=== PATIENT | female | born 1960 | race Caucasian/White ===

== ENCOUNTER 2020-04-23 08:15 | Outpatient (REF) | payer OTHER, SELFPAY ==
[2020-04-23 11:04] LABS: Blood Urea Nitrogen 25 mg/dL (9-16); Estimated Glomerular Filt Rate 59
== END 2020-04-23 08:16 | disposition home or self-care (01) ==
LOC: HO.10HDL 08:15
PROVIDERS: Visit Provider Psychiatry & Neurology Neurology
DX: I63.9 Cerebral infarction, unspecified (principal)
CPT/HCPCS: 82565; 84520

== ENCOUNTER 2021-11-11 11:10 | Outpatient (REF) | payer OTHER, SELFPAY ==
[2021-11-11 13:26] LABS: MANUAL DIFF FLAG NO
[2021-11-11 13:29] LABS: Basophils Percent Auto 0.5 % (0-2); Eosinophils Absolute Auto 0.1 X10*3/uL (0.0-0.4); Eosinophils Percent Auto 1.8 % (0-4); Hematocrit 38.3 % (37.0-47.0); Hemoglobin 12.4 g/dl (12.0-16.0); Imm Gran Abs Auto 0.03 X10*3/uL (0.00-0.03); Imm Gran Pct Auto 0.4 % (0.0-0.4); Lymphocytes Absolute Auto 1.5 X10*3/uL (1.2-4.9); Lymphocytes Percent Auto 20.2 % (20-40); Mean Corpuscular HGB Conc 32.4 g/dl (31.0-35.0); Mean Corpuscular Hemoglobin 30.6 pg (27.0-33.0); Mean Corpuscular Volume 94.6 fL (80.0-98.0); Mean Platelet Volume 11.1 fL (9.4-12.3); Monocytes Absolute Auto 0.5 X10*3/uL (0.1-1.2); Monocytes Percent Auto 6.2 % (2-11); Neutrophils Absolute Auto 5.4 x10*3/uL (2.0-8.3); Neutrophils Percent Auto 70.9 % (45-73); Platelet Count 361 X10*3/uL (160-400); Red Blood Count 4.05 X10*6/uL (4.20-5.50); Red Cell Distribution Width 13.7 % (11.0-16.0); White Blood Count 7.6 X10*3/uL (4.8-10.8)
[2021-11-11 13:40] LABS: Alanine Aminotransferase 18 U/L (0-31); Albumin Level 4.4 g/dL (3.5-5.0); Alkaline Phosphatase 71 U/L (39-117); Aspartate Amino Transferase 21 U/L (5-31); Bilirubin Direct < 0.2 mg/dL (0.0-0.5); Bilirubin Total 0.4 mg/dL (0.0-1.0); Total Protein 7.1 g/dL (6.5-8.0)
[2021-11-11 13:45] LABS: Alanine Aminotransferase 19 U/L (0-31); Albumin Level 4.5 g/dL (3.5-5.0); Alkaline Phosphatase 71 U/L (39-117); Anion Gap 15 (12-20); Aspartate Amino Transferase 21 U/L (5-31); Bilirubin Total 0.4 mg/dL (0.0-1.0); Blood Urea Nitrogen 36 mg/dL (9-16); Calcium 9.6 mg/dL (8.4-10.2); Carbon Dioxide 23 mmol/L (22-29); Chloride 104 mmol/L (96-108); Cholesterol 186 mg/dL; Estimated Glomerular Filt Rate 45; Glucose Fasting 101 mg/dL (60-99); HDL Cholesterol 60 mg/dL; LDL Cholesterol Calculated 108 mg/dl; Potassium 5.8 mmol/L (3.3-5.1); Sodium 136 mmol/L (135-145); Total Protein 7.1 g/dL (6.5-8.0); Triglycerides 93 mg/dL
== END 2021-11-11 11:11 | disposition home or self-care (01) ==
LOC: HO.10HDL 11:10
PROVIDERS: Absent Provider Physician Assistant Medical; Visit Provider Internal Medicine
DX: L71.8 Other rosacea (principal); I10 Essential (primary) hypertension; E78.2 Mixed hyperlipidemia
CPT/HCPCS: 36415; 80053; 80061; 80076; 82248; 85025

== ENCOUNTER 2023-06-04 08:27 | Outpatient (AMB) | payer OTHER, SELFPAY ==
--- NOTE | 2023-06-04 08:30 | MHC.OFFVIS ---
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 Folder Required: No Accompanied by: Self / Same As Patient Allergies acetaminophen [From Vicodin] Allergy (Mild, Verified 06/04/23 08:40) Unknown amlodipine Allergy (Mild, Verified 06/04/23 08:40) Unknown egg Allergy (Mild, Verified 06/04/23 08:40) Unknown erythromycin base Allergy (Mild, Verified 06/04/23 08:40) Unknown hydrocodone [From Vicodin] Allergy (Mild, Verified 06/04/23 08:40) Unknown sulfamethoxazole [From Bactrim] Allergy (Mild, Verified 06/04/23 08:40) Unknown tramadol Allergy (Mild, Verified 06/04/23 08:40) Unknown trimethoprim [From Bactrim] Allergy (Mild, Verified 06/04/23 08:40) Unknown amoxicillin Adverse Reaction (Mild, Verified 06/04/23 08:40) Unknown cephalexin [From Keflex] Adverse Reaction (Mild, Verified 06/04/23 08:40) Unknown codeine Adverse Reaction (Mild, Verified 06/04/23 08:40) Unknown metoclopramide [From Reglan] Adverse Reaction (Mild, Verified 06/04/23 08:40) Unknown morphine Adverse Reaction (Mild, Verified 06/04/23 08:40) Unknown oxycodone [From OxyContin] Adverse Reaction (Mild, Verified 06/04/23 08:40) Unknown prazosin Adverse Reaction (Mild, Verified 06/04/23 08:40) Unknown bee venom protein (honey bee) Adverse Reaction (Verified 06/04/23 08:40) Unknown latex Adverse Reaction (Verified 06/04/23 08:40) Unknown HPI CERVICALGIA/lvm HPI Details MRI-summer 2022 PT- [facility] summer 2022 Location Neck radiates down to chest Duration 2 years Characteristics of symptom or complaint burning, Aggravating or associated factors movement Relieving factors flexiril Treatment PT- no improvement HPI Comments History of Present Illness Details Katya is a very pleasant 63-year-old female who was referred to the office today for evaluation management of her chronic neck pain. 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 Patient complains of left-sided pain, muscle spasm and neuropathy of the left upper and left lower extremities. She states that it makes it difficult to sleep at night. She has been taking Flexeril for the last 3 years and states that it has lost its effectiveness and now ?only takes the edge off ?. She has tried topical anti-inflammatory medication that was of no relief. Patient completed physical therapy summer without improvement of her pain and she continues with home exercise program. She has a 10s unit which initially provided some benefit but states it no longer relieves her pain. Patient does take Tylenol Arthritis daily that also takes the edge off. Pain is constant, ?all day ?, rated today as 7/10. In terms of muscle damage condition is described as spasming, hot, burning, numb, stabbing, sharp, tingling, pins and needles. Pain is negatively impacting patient's general activity, mood and sleep. 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 Past medical history significant for CVA not currently on anticoagulation taking full aspirin daily, hypertension, hypothyroid, dermatitis, SVT, left bundle branch block, diabetes with most recent A1c January 2023 of 5.4 controlled with diet and exercise. 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 Answers questions appropriately. Fully engaged in examination. Skin: warm, dry, intact HEENT: Normocephalic. Hearing intact. Cardiac: External chest normal in appearance. Respiratory: No cough, audible wheezing or stridor. Abdomen: without gross distension. MS: No obvious swelling or deformities. Able to transition from sit to stand unassisted. Ambulates with bilaterally normal heel strike and toe off Neurological: Oriented to person, place, time and situation. Thought process intact. No gait abnormalities appreciated. Psychiatric: Appropriate mood and affect. Good judgment and insight. Results Reviewed Results Reviewed: 03/26/2022 MRI CS w/o IMPRESSION: 1. Lordotic reversal centered at C4-C5 with trace retrolisthesis at C5-C6 and C6-C7. 2. Discogenic degenerative changes and spondylosis primarily at C5-C6 and C6-C7 with posterior disc osteophyte complexes at these levels and a left paramedian extruded disc herniation with caudal migration at C6-C7 with moderate left-sided ventral cord impingement and moderate spinal canal stenosis at this level. 3. Posterior disc osteophyte complex at C5-C6 asymmetric to the right with moderate right-sided ventral cord impingement and [id number] spinal canal stenosis. 4. Posterior disc osteophyte complex at C4-C5 with mild spinal canal stenosis without cord impingement. 5. Multilevel bilateral DJD with multilevel bilateral neural foraminal stenoses, most apparent on the left at C6-C7 and to a lesser degree on the right at C5-C6 and on the right at C4-C5. 6. Small central disc protrusion at T1-T2 and small left paramedian disc protrusion at T2-T3. 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 Patients main complaint today is left sided neuropathy, she would like to try medication management before trying any interventional treatment which would be target area specific. She also report intolerance to steroids in the past so would like to avoid those if possible. Discussed at length options for medication management, including changing her muscle relaxer vs starting Gabapentin/Lyrica. Advised patient adding 2 new medications would be difficult to discern which is more beneficial or if she has intolerance/allergy which to d/c. Will start patient on Gabapentin 100mg po TID, patient advised of side effect which can include peripheral edema. She will call the office for any concerns. If patient tolerates well, can increase to 300mg bid at next visit vs discontinuing Flexeril and adding alternate muscle relaxer. All questions and concerns were answered, patient agrees with plan. Follow up in 1 month, sooner if needed. Medications: New gabapentin 100 mg PO TID 90 caps 0RF Coding Level of Care Code New Pt Level 4 (63477) Diagnoses Neuropathy G62.9 Muscle spasms of neck M62.838 Arthropathy of cervical facet joint M47.812 Spinal stenosis, cervicothoracic region M48.03
[2023-06-04 08:36] VITALS: BP 172/91; PULSE 75; O2SAT 96; BMI 38.8
== END 2023-06-04 09:25 | disposition home or self-care (01) ==
PROVIDERS: PCP Internal Medicine; Visit Provider Registered Nurse Emergency
DX: G62.9 Polyneuropathy, unspecified (principal); M62.838 Other muscle spasm; M47.812 Spondylosis without myelopathy or radiculopathy, cervical region; M48.03 Spinal stenosis, cervicothoracic region
CPT/HCPCS: 99204

== ENCOUNTER → 2023-06-04 08:27 | Outpatient (BNVA) | payer OTHER, SELFPAY | PROVIDERS: PCP Internal Medicine; Visit Provider Registered Nurse Emergency ==

== ENCOUNTER 2023-07-02 08:18 | Outpatient (AMB) | payer OTHER, SELFPAY ==
[2023-07-02 08:30] VITALS: BP 140/58; PULSE 74; RESP 18; O2SAT 98; BMI 38.8
--- NOTE | 2023-07-02 08:30 | A.OFFVIS_ITS ---
Intake Vital Signs 07/02/23 08:30 Height 4 ft 11 in Weight 192 lb BMI 38.8 BP 140/58 H Blood Pressure Location Lt brachial Position Sitting Respiration 18 Pulse 74 Pulse Source Pulse Oximeter Pulse Oximetry (%) 98 Oxygen Delivery Method Room Air Intake Visit Reasons: 1 Month Follow Up - Confirmed Allergies acetaminophen [From Vicodin] Allergy (Mild, Verified 07/02/23 08:30) Unknown amlodipine Allergy (Mild, Verified 07/02/23 08:30) Unknown egg Allergy (Mild, Verified 07/02/23 08:30) Unknown erythromycin base Allergy (Mild, Verified 07/02/23 08:30) Unknown hydrocodone [From Vicodin] Allergy (Mild, Verified 07/02/23 08:30) Unknown sulfamethoxazole [From Bactrim] Allergy (Mild, Verified 07/02/23 08:30) Unknown tramadol Allergy (Mild, Verified 07/02/23 08:30) Unknown trimethoprim [From Bactrim] Allergy (Mild, Verified 07/02/23 08:30) Unknown amoxicillin Adverse Reaction (Mild, Verified 07/02/23 08:30) Unknown cephalexin [From Keflex] Adverse Reaction (Mild, Verified 07/02/23 08:30) Unknown codeine Adverse Reaction (Mild, Verified 07/02/23 08:30) Unknown metoclopramide [From Reglan] Adverse Reaction (Mild, Verified 07/02/23 08:30) Unknown morphine Adverse Reaction (Mild, Verified 07/02/23 08:30) Unknown oxycodone [From OxyContin] Adverse Reaction (Mild, Verified 07/02/23 08:30) Unknown prazosin Adverse Reaction (Mild, Verified 07/02/23 08:30) Unknown bee venom protein (honey bee) Adverse Reaction (Verified 07/02/23 08:30) Unknown latex Adverse Reaction (Verified 07/02/23 08:30) Unknown HPI HPI Comments History of Present Illness Details Katya presents back to the office today for follow up medication management. Patient reports she is tolerating the Gabapentin well and has noticed improvement in her symptoms. She denies any side effects/untoward effects of the medication. She would like to increase the dose to 300mg TID and change the muscle relaxer as well because she does not feel it's helping much anymore. She continues with OTC medications, topical creams and CBD as needed. Prior: Katya is a very pleasant 63-year-old female who was referred to the office today for evaluation management of her chronic neck pain. 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 Patient complains of left-sided pain, muscle spasm and neuropathy of the left upper and left lower extremities. She states that it makes it difficult to sleep at night. She has been taking Flexeril for the last 3 years and states that it has lost its effectiveness and now ?only takes the edge off ?. She has tried topical anti-inflammatory medication that was of no relief. Patient completed physical therapy summer without improvement of her pain and she continues with home exercise program. She has a 10s unit which initially provided some benefit but states it no longer relieves her pain. Patient does take Tylenol Arthritis daily that also takes the edge off. Pain is constant, ?all day ?, rated today as 7/10. In terms of muscle damage condition is described as spasming, hot, burning, numb, stabbing, sharp, tingling, pins and needles. Pain is negatively impacting patient's general activity, mood and sleep. 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 Past medical history significant for CVA not currently on anticoagulation taking full aspirin daily, hypertension, hypothyroid, dermatitis, SVT, left bundle branch block, diabetes with most recent A1c January 2023 of 5.4 controlled with diet and exercise. 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 Answers questions appropriately. Fully engaged in examination. Skin: warm, dry, intact HEENT: Normocephalic. Hearing intact. Cardiac: External chest normal in appearance. Respiratory: No cough, audible wheezing or stridor. Abdomen: without gross distension. MS: No obvious swelling or deformities. Able to transition from sit to stand unassisted. Ambulates with bilaterally normal heel strike and toe off Neurological: Oriented to person, place, time and situation. Thought process intact. No gait abnormalities appreciated. Psychiatric: Appropriate mood and affect. Good judgment and insight. Results Reviewed Results Reviewed: 03/26/2022 MRI CS w/o IMPRESSION: 1. Lordotic reversal centered at C4-C5 with trace retrolisthesis at C5-C6 and C6-C7. 2. Discogenic degenerative changes and spondylosis primarily at C5-C6 and C6-C7 with posterior disc osteophyte complexes at these levels and a left paramedian extruded disc herniation with caudal migration at C6-C7 with moderate left-sided ventral cord impingement and moderate spinal canal stenosis at this level. 3. Posterior disc osteophyte complex at C5-C6 asymmetric to the right with moderate right-sided ventral cord impingement and [id number] spinal canal stenosis. 4. Posterior disc osteophyte complex at C4-C5 with mild spinal canal stenosis without cord impingement. 5. Multilevel bilateral DJD with multilevel bilateral neural foraminal stenoses, most apparent on the left at C6-C7 and to a lesser degree on the right at C5-C6 and on the right at C4-C5. 6. Small central disc protrusion at T1-T2 and small left paramedian disc protrusion at T2-T3. Assessment & Plan Assessment & Plan (1) Neuropathy: Code(s): G62.9 - Polyneuropathy, unspecified (2) Muscle spasms of neck: Code(s): M62.838 - Other muscle spasm (3) Arthropathy of cervical facet joint: Code(s): M47.812 - Spondylosis without myelopathy or radiculopathy, cervical region (4) Spinal stenosis, cervicothoracic region: Code(s): M48.03 - Spinal stenosis, cervicothoracic region Plan Katya is a very pleasant 63 year old female who presented to the office today for follow up. Will increase Gabapentin to 300mg po TID Discontinue Flexeril, new prescription sent for Tizanidine 2mg po TID. Patient advised on caution for use. All questions and concerns were answered, patient agrees with plan. Follow up in 1 month, sooner if needed. Medications: New tizanidine Discontinue Flexeril. No driving while taking this medication. May cause drowsiness. Do not take with alcohol or other DIESEL LOCOMOTIVE FIRER/FIREMAN Depressants. 2 mg PO TID PRN 90 tabs 1RF muscle spasticity Changed From gabapentin 100 mg PO TID 90 caps 0RF To gabapentin 300 mg PO TID 30 days 90 caps 0RF Coding Level of Care Code Est Pt Level 4 (37526) Diagnoses Neuropathy G62.9 Muscle spasms of neck M62.838 Arthropathy of cervical facet joint M47.812 Spinal stenosis, cervicothoracic region M48.03
== END 2023-07-02 08:44 | disposition home or self-care (01) ==
PROVIDERS: PCP Internal Medicine; Visit Provider Registered Nurse Emergency
DX: G62.9 Polyneuropathy, unspecified (principal); M62.838 Other muscle spasm; M47.812 Spondylosis without myelopathy or radiculopathy, cervical region; M48.03 Spinal stenosis, cervicothoracic region
CPT/HCPCS: 99214

== ENCOUNTER → 2023-07-02 08:18 | Outpatient (BNVA) | payer OTHER, SELFPAY | PROVIDERS: PCP Internal Medicine; Visit Provider Registered Nurse Emergency ==

== ENCOUNTER 2023-08-12 08:24 | Outpatient (AMB) | payer OTHER, SELFPAY ==
[2023-08-12 08:34] VITALS: BP 176/74; PULSE 60; RESP 16; O2SAT 100; BMI 38.6
--- NOTE | 2023-08-12 08:34 | MHC.OFFVIS ---
Intake Vital Signs 08/12/23 08:34 Height 4 ft 11 in Weight 191 lb 5 oz BMI 38.6 BP 176/74 H Blood Pressure Location Lt brachial Position Sitting Respiration 16 Pulse 60 Pulse Source Pulse Oximeter Pulse Oximetry (%) 100 Oxygen Delivery Method Room Air Intake Visit Reasons: 1 Month Follow Up/confirm Allergies acetaminophen [From Vicodin] Allergy (Mild, Verified 08/12/23 08:34) Unknown amlodipine Allergy (Mild, Verified 08/12/23 08:34) Unknown egg Allergy (Mild, Verified 08/12/23 08:34) Unknown erythromycin base Allergy (Mild, Verified 08/12/23 08:34) Unknown hydrocodone [From Vicodin] Allergy (Mild, Verified 08/12/23 08:34) Unknown sulfamethoxazole [From Bactrim] Allergy (Mild, Verified 08/12/23 08:34) Unknown tramadol Allergy (Mild, Verified 08/12/23 08:34) Unknown trimethoprim [From Bactrim] Allergy (Mild, Verified 08/12/23 08:34) Unknown amoxicillin Adverse Reaction (Mild, Verified 08/12/23 08:34) Unknown cephalexin [From Keflex] Adverse Reaction (Mild, Verified 08/12/23 08:34) Unknown codeine Adverse Reaction (Mild, Verified 08/12/23 08:34) Unknown metoclopramide [From Reglan] Adverse Reaction (Mild, Verified 08/12/23 08:34) Unknown morphine Adverse Reaction (Mild, Verified 08/12/23 08:34) Unknown oxycodone [From OxyContin] Adverse Reaction (Mild, Verified 08/12/23 08:34) Unknown prazosin Adverse Reaction (Mild, Verified 08/12/23 08:34) Unknown bee venom protein (honey bee) Adverse Reaction (Verified 08/12/23 08:34) Unknown latex Adverse Reaction (Verified 08/12/23 08:34) Unknown HPI HPI Comments History of Present Illness Details Patient presents back to the office today for follow-up, medication management. She has been taking gabapentin 300 mg p.o. 3 times daily and tizanidine 2 mg p.o. 3 times daily. Her neuropathy is improved with the gabapentin dosing, would like to remain on this dose at this time. Since discontinuing Flexeril and starting on tizanidine she states that the muscle spasms have worsened mostly in her legs. She would like to increase her tizanidine dose today. Patient denies any untoward effects of either medication. Prior: Katya presents back to the office today for follow up medication management. Patient reports she is tolerating the Gabapentin well and has noticed improvement in her symptoms. She denies any side effects/untoward effects of the medication. She would like to increase the dose to 300mg TID and change the muscle relaxer as well because she does not feel it's helping much anymore. She continues with OTC medications, topical creams and CBD as needed. Prior: Katya is a very pleasant 63-year-old female who was referred to the office today for evaluation management of her chronic neck pain. 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 Patient complains of left-sided pain, muscle spasm and neuropathy of the left upper and left lower extremities. She states that it makes it difficult to sleep at night. She has been taking Flexeril for the last 3 years and states that it has lost its effectiveness and now ?only takes the edge off ?. She has tried topical anti-inflammatory medication that was of no relief. Patient completed physical therapy summer without improvement of her pain and she continues with home exercise program. She has a 10s unit which initially provided some benefit but states it no longer relieves her pain. Patient does take Tylenol Arthritis daily that also takes the edge off. Pain is constant, ?all day ?, rated today as 7/10. In terms of muscle damage condition is described as spasming, hot, burning, numb, stabbing, sharp, tingling, pins and needles. Pain is negatively impacting patient's general activity, mood and sleep. 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 Past medical history significant for CVA not currently on anticoagulation taking full aspirin daily, hypertension, hypothyroid, dermatitis, SVT, left bundle branch block, diabetes with most recent A1c January 2023 of 5.4 controlled with diet and exercise. [facility] Medical History (Updated 06/04/23 @ 09:24 by Nicolette Abreu, POLISHING MACHINE TENDER, WATCH AND CLOCK REPAIR CLERK) Spinal stenosis, cervicothoracic region Morbid (severe) obesity due to excess calories Chronic kidney disease, stage 3a Moderate depressive disorder Benign hypertensive heart disease with chronic kidney disease Neuropathy due to type 2 diabetes mellitus Stroke Left bundle branch block (LBBB) on electrocardiogram Type 2 diabetes mellitus without complication Hypothyroidism Morbid obesity Sleep apnea Chronic dermatitis Review of Systems Const All systems reviewed & are unremarkable except as noted in HPI and below Physical Exam Vital Signs: Last Vital Signs Pulse 60 08/12/23 08:34 Resp 16 08/12/23 08:34 BP 176/74 H 08/12/23 08:34 Pulse Ox 100 08/12/23 08:34 Oxygen Delivery Method Room Air 08/12/23 08:34 BMI result Body Mass Index 38.6 General: awake, alert, oriented. Answers questions appropriately. Fully engaged in examination. Skin: warm, dry, intact HEENT: Normocephalic. Hearing intact. Cardiac: External chest normal in appearance. Respiratory: No cough, audible wheezing or stridor. Abdomen: without gross distension. MS: No obvious swelling or deformities. Able to transition from sit to stand unassisted. Ambulates with bilaterally normal heel strike and toe off Neurological: Oriented to person, place, time and situation. Thought process intact. No gait abnormalities appreciated. Psychiatric: Appropriate mood and affect. Good judgment and insight. Results Reviewed Results Reviewed: 03/26/2022 MRI CS w/o IMPRESSION: 1. Lordotic reversal centered at C4-C5 with trace retrolisthesis at C5-C6 and C6-C7. 2. Discogenic degenerative changes and spondylosis primarily at C5-C6 and C6-C7 with posterior disc osteophyte complexes at these levels and a left paramedian extruded disc herniation with caudal migration at C6-C7 with moderate left-sided ventral cord impingement and moderate spinal canal stenosis at this level. 3. Posterior disc osteophyte complex at C5-C6 asymmetric to the right with moderate right-sided ventral cord impingement and [id number] spinal canal stenosis. 4. Posterior disc osteophyte complex at C4-C5 with mild spinal canal stenosis without cord impingement. 5. Multilevel bilateral DJD with multilevel bilateral neural foraminal stenoses, most apparent on the left at C6-C7 and to a lesser degree on the right at C5-C6 and on the right at C4-C5. 6. Small central disc protrusion at T1-T2 and small left paramedian disc protrusion at T2-T3. Assessment & Plan Assessment & Plan (1) Neuropathy: Code(s): G62.9 - Polyneuropathy, unspecified (2) Muscle spasms of neck: Code(s): M62.838 - Other muscle spasm (3) Arthropathy of cervical facet joint: Code(s): M47.812 - Spondylosis without myelopathy or radiculopathy, cervical region (4) Spinal stenosis, cervicothoracic region: Code(s): M48.03 - Spinal stenosis, cervicothoracic region Hillary Aldana is a very pleasant 63 year old female who presented to the office today for follow up and medication managing. Continue with Gabapentin 300mg po TID Will increase tizanidine to 4 mg p.o. t.i.d. patient advised of cautions for use. She should not take while driving, working or with other CONSUMER SALES REPRESENTATIVE depressants. All questions and concerns were answered, patient agrees with plan. Follow up in 3 month, sooner if needed. Medications: New tizanidine 4 mg PO Q8H PRN 90 tabs 3RF muscle spasticity Refilled gabapentin 300 mg PO TID 90 caps 3RF 30 days Coding Level of Care Code Est Pt Level 4 (25757) Diagnoses Neuropathy G62.9 Muscle spasms of neck M62.838 Arthropathy of cervical facet joint M47.812 Spinal stenosis, cervicothoracic region M48.03
== END 2023-08-12 08:52 | disposition home or self-care (01) ==
PROVIDERS: PCP Internal Medicine; Visit Provider Registered Nurse Emergency
DX: G62.9 Polyneuropathy, unspecified (principal); M62.838 Other muscle spasm; M47.812 Spondylosis without myelopathy or radiculopathy, cervical region; M48.03 Spinal stenosis, cervicothoracic region
CPT/HCPCS: 99214

== ENCOUNTER → 2023-08-12 08:24 | Outpatient (BNVA) | payer OTHER, SELFPAY | PROVIDERS: PCP Internal Medicine; Visit Provider Registered Nurse Emergency ==

== ENCOUNTER 2023-11-12 08:14 | Outpatient (AMB) | payer OTHER, SELFPAY ==
--- NOTE | 2023-11-12 08:21 | A.OFFVIS_ITS ---
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: No Accompanied by: Self / Same As Patient Allergies acetaminophen [From Vicodin] Allergy (Mild, Verified 11/12/23 08:29) Unknown amlodipine Allergy (Mild, Verified 11/12/23 08:29) Unknown egg Allergy (Mild, Verified 11/12/23 08:29) Unknown erythromycin base Allergy (Mild, Verified 11/12/23 08:29) Unknown hydrocodone [From Vicodin] Allergy (Mild, Verified 11/12/23 08:29) Unknown sulfamethoxazole [From Bactrim] Allergy (Mild, Verified 11/12/23 08:29) Unknown tramadol Allergy (Mild, Verified 11/12/23 08:29) Unknown trimethoprim [From Bactrim] Allergy (Mild, Verified 11/12/23 08:29) Unknown amoxicillin Adverse Reaction (Mild, Verified 11/12/23 08:29) Unknown cephalexin [From Keflex] Adverse Reaction (Mild, Verified 11/12/23 08:29) Unknown codeine Adverse Reaction (Mild, Verified 11/12/23 08:29) Unknown metoclopramide [From Reglan] Adverse Reaction (Mild, Verified 11/12/23 08:29) Unknown morphine Adverse Reaction (Mild, Verified 11/12/23 08:29) Unknown oxycodone [From OxyContin] Adverse Reaction (Mild, Verified 11/12/23 08:29) Unknown prazosin Adverse Reaction (Mild, Verified 11/12/23 08:29) Unknown bee venom protein (honey bee) Adverse Reaction (Verified 11/12/23 08:29) Unknown latex Adverse Reaction (Verified 11/12/23 08:29) Unknown HPI Comments Details: Katya presents back to the office today for follow up reports muscle spasms have been getting worse. Does not find much relief with Tizanidine Gabapentin helps with her burning neuropathic pain Has been doing a lot of work around the house and in her yard, attributes the increase in spasms to this. Prior: Patient presents back to the office today for follow-up, medication management. She has been taking gabapentin 300 mg p.o. 3 times daily and tizanidine 2 mg p.o. 3 times daily. Her neuropathy is improved with the gabapentin dosing, would like to remain on this dose at this time. Since discontinuing Flexeril and starting on tizanidine she states that the muscle spasms have worsened mostly in her legs. She would like to increase her tizanidine dose today. Patient denies any untoward effects of either medication. Prior: Katya presents back to the office today for follow up medication management. Patient reports she is tolerating the Gabapentin well and has noticed improvement in her symptoms. She denies any side effects/untoward effects of the medication. She would like to increase the dose to 300mg TID and change the muscle relaxer as well because she does not feel it's helping much anymore. She continues with OTC medications, topical creams and CBD as needed. Prior: Katya is a very pleasant 63-year-old female who was referred to the office today for evaluation management of her chronic neck pain. 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 Patient complains of left-sided pain, muscle spasm and neuropathy of the left upper and left lower extremities. She states that it makes it difficult to sleep at night. She has been taking Flexeril for the last 3 years and states that it has lost its effectiveness and now ?only takes the edge off ?. She has tried topical anti-inflammatory medication that was of no relief. Patient completed physical therapy summer without improvement of her pain and she continues with home exercise program. She has a 10s unit which initially provided some benefit but states it no longer relieves her pain. Patient does take Tylenol Arthritis daily that also takes the edge off. Pain is constant, ?all day ?, rated today as 7/10. In terms of muscle damage condition is described as spasming, hot, burning, numb, stabbing, sharp, tingling, pins and needles. Pain is negatively impacting patient's general activity, mood and sleep. 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 Past medical history significant for CVA not currently on anticoagulation taking full aspirin daily, hypertension, hypothyroid, dermatitis, SVT, left bundle branch block, diabetes with most recent A1c January 2023 of 5.4 controlled with diet and exercise. 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 Answers questions appropriately. Fully engaged in examination. Skin: warm, dry, intact HEENT: Normocephalic. Hearing intact. Cardiac: External chest normal in appearance. Respiratory: No cough, audible wheezing or stridor. Abdomen: without gross distension. MS: No obvious swelling or deformities. Able to transition from sit to stand unassisted. Ambulates with bilaterally normal heel strike and toe off Neurological: Oriented to person, place, time and situation. Thought process intact. No gait abnormalities appreciated. Psychiatric: Appropriate mood and affect. Good judgment and insight. Results Reviewed Results Reviewed: 03/26/2022 MRI CS w/o IMPRESSION: 1. Lordotic reversal centered at C4-C5 with trace retrolisthesis at C5-C6 and C6-C7. 2. Discogenic degenerative changes and spondylosis primarily at C5-C6 and C6-C7 with posterior disc osteophyte complexes at these levels and a left paramedian extruded disc herniation with caudal migration at C6-C7 with moderate left-sided ventral cord impingement and moderate spinal canal stenosis at this level. 3. Posterior disc osteophyte complex at C5-C6 asymmetric to the right with moderate right-sided ventral cord impingement and [id number] spinal canal stenosis. 4. Posterior disc osteophyte complex at C4-C5 with mild spinal canal stenosis without cord impingement. 5. Multilevel bilateral DJD with multilevel bilateral neural foraminal stenoses, most apparent on the left at C6-C7 and to a lesser degree on the right at C5-C6 and on the right at C4-C5. 6. Small central disc protrusion at T1-T2 and small left paramedian disc protrusion at T2-T3. Assessment & Plan Assessment & Plan (1) Neuropathy: Code(s): G62.9 - Polyneuropathy, unspecified Category: Medical (2) Muscle spasms of neck: Code(s): M62.838 - Other muscle spasm Category: Medical (3) Arthropathy of cervical facet joint: Code(s): M47.812 - Spondylosis without myelopathy or radiculopathy, cervical region Category: Medical (4) Spinal stenosis, cervicothoracic region: Code(s): M48.03 - Spinal stenosis, cervicothoracic region Category: Medical Plan Katya is a very pleasant 63 year old female who presented to the office today for follow up and medication management. Continue with Gabapentin 300mg po TID D/C Tizanidine. She would like to try an alternative. new RX: Baclofen 10mg po TID, take 1/2 tablet TID as needed for 2 weeks then may increase to 1 tablet TID as needed. All questions and concerns were answered, patient agrees with plan. Follow up in 3 month, sooner if needed. Medications: New baclofen 10 mg PO TID 90 tabs 3RF Discontinued tizanidine Discontinue Flexeril. No driving while taking this medication. May cause drowsiness. Do not take with alcohol or other [employer] SUPERINTENDENT Depressants. Discontinued Reason: Patient no longer taking 2 mg PO TID PRN 90 tabs 1RF muscle spasticity tizanidine Discontinued Reason: Patient no longer taking 4 mg PO Q8H PRN 90 tabs 3RF muscle spasticity Coding Level of Care Code Est Pt Level 4 (40216) Diagnoses Neuropathy G62.9 Muscle spasms of neck M62.838 Arthropathy of cervical facet joint M47.812 Spinal stenosis, cervicothoracic region M48.03
[2023-11-12 08:27] VITALS: BP 145/67; PULSE 55; O2SAT 98; BMI 40.2
== END 2023-11-12 08:51 | disposition home or self-care (01) ==
PROVIDERS: PCP Internal Medicine; Referring Provider Internal Medicine; Visit Provider Registered Nurse Emergency
DX: G62.9 Polyneuropathy, unspecified (principal); M62.838 Other muscle spasm; M47.812 Spondylosis without myelopathy or radiculopathy, cervical region; M48.03 Spinal stenosis, cervicothoracic region
CPT/HCPCS: 99214

== ENCOUNTER → 2023-11-12 08:14 | Outpatient (BNVA) | payer OTHER, SELFPAY | PROVIDERS: PCP Internal Medicine; Visit Provider Registered Nurse Emergency ==

== ENCOUNTER 2024-01-20 08:15 | Outpatient (AMB) | payer OTHER, SELFPAY ==
[2024-01-20 08:28] VITALS: BP 162/70; PULSE 68; O2SAT 98; BMI 40.6
--- NOTE | 2024-01-20 08:28 | MHC.OFFVIS ---
Vital Signs 01/20/24 08:28 Height 4 ft 11 in Weight 201 lb BMI 40.6 BP 162/70 H Blood Pressure Location Rt brachial Position Sitting Pulse 68 Pulse Source Pulse Oximeter Pulse Oximetry (%) 98 Oxygen Delivery Method Room Air Intake Visit Reasons: 2 Month Follow Up Allergies acetaminophen [From Vicodin] Allergy (Mild, Verified 01/20/24 08:30) Unknown amlodipine Allergy (Mild, Verified 01/20/24 08:30) Unknown egg Allergy (Mild, Verified 01/20/24 08:30) Unknown erythromycin base Allergy (Mild, Verified 01/20/24 08:30) Unknown hydrocodone [From Vicodin] Allergy (Mild, Verified 01/20/24 08:30) Unknown sulfamethoxazole [From Bactrim] Allergy (Mild, Verified 01/20/24 08:30) Unknown tramadol Allergy (Mild, Verified 01/20/24 08:30) Unknown trimethoprim [From Bactrim] Allergy (Mild, Verified 01/20/24 08:30) Unknown amoxicillin Adverse Reaction (Mild, Verified 01/20/24 08:30) Unknown cephalexin [From Keflex] Adverse Reaction (Mild, Verified 01/20/24 08:30) Unknown codeine Adverse Reaction (Mild, Verified 01/20/24 08:30) Unknown metoclopramide [From Reglan] Adverse Reaction (Mild, Verified 01/20/24 08:30) Unknown morphine Adverse Reaction (Mild, Verified 01/20/24 08:30) Unknown oxycodone [From OxyContin] Adverse Reaction (Mild, Verified 01/20/24 08:30) Unknown prazosin Adverse Reaction (Mild, Verified 01/20/24 08:30) Unknown bee venom protein (honey bee) Adverse Reaction (Verified 01/20/24 08:30) Unknown latex Adverse Reaction (Verified 01/20/24 08:30) Unknown Medication List - Last Reconciled 01/20/24 by Abigail Quesada amitriptyline 25 mg PO DAILY amlodipine 5 mg PO DAILY amlodipine 2.5 mg PO DAILY aspirin (Adult Aspirin Regimen) 81 mg PO DAILY atorvastatin 20 mg PO BEDTIME baclofen 15 mg PO TID betamethasone, augmented 0.05 % appl topical BID PRN blood sugar diagnostic (FreeStyle Lite Strips) As directed blood-glucose meter (FreeStyle Lite Meter kit) As directed clonidine HCl 0.1 mg PO BEDTIME clotrimazole mg PO QID desonide 0.05% appl topical BID doxycycline hyclate 100 mg PO DAILY duloxetine 30 mg PO BID epinephrine IM fluconazole 100 mg PO DAILY gabapentin 300 mg PO TID 30 days hydralazine 25 mg PO TID ketoconazole 2% appl topical BID lancets (FreeStyle Lancets) As directed levothyroxine (Levoxyl) 150 mcg PO DAILY metoprolol succinate ER 100 mg PO BID olmesartan 20 mg PO DAILY prazosin 5 mg PO BEDTIME HPI Comments Details: Patient presents back to the office today for follow-up Reports worsening diffuse arthralgia since last visit. She attributes this to the recent weather Also has been working a lot and doing renovations of her home Tolerating gabapentin well, does not make her drowsy. Does not find much relief with the baclofen but tizanidine caused her to be too drowsy so she would prefer to continue with the baclofen at this time Prior:Katya presents back to the office today for follow up reports muscle spasms have been getting worse. Does not find much relief with Tizanidine Gabapentin helps with her burning neuropathic pain Has been doing a lot of work around the house and in her yard, attributes the increase in spasms to this. Prior: Patient presents back to the office today for follow-up, medication management. She has been taking gabapentin 300 mg p.o. 3 times daily and tizanidine 2 mg p.o. 3 times daily. Her neuropathy is improved with the gabapentin dosing, would like to remain on this dose at this time. Since discontinuing Flexeril and starting on tizanidine she states that the muscle spasms have worsened mostly in her legs. She would like to increase her tizanidine dose today. Patient denies any untoward effects of either medication. Prior: Katya presents back to the office today for follow up medication management. Patient reports she is tolerating the Gabapentin well and has noticed improvement in her symptoms. She denies any side effects/untoward effects of the medication. She would like to increase the dose to 300mg TID and change the muscle relaxer as well because she does not feel it's helping much anymore. She continues with OTC medications, topical creams and CBD as needed. Prior: Katya is a very pleasant 63-year-old female who was referred to the office today for evaluation management of her chronic neck pain. 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 Patient complains of left-sided pain, muscle spasm and neuropathy of the left upper and left lower extremities. She states that it makes it difficult to sleep at night. She has been taking Flexeril for the last 3 years and states that it has lost its effectiveness and now ?only takes the edge off ?. She has tried topical anti-inflammatory medication that was of no relief. Patient completed physical therapy summer without improvement of her pain and she continues with home exercise program. She has a 10s unit which initially provided some benefit but states it no longer relieves her pain. Patient does take Tylenol Arthritis daily that also takes the edge off. Pain is constant, ?all day ?, rated today as 7/10. In terms of muscle damage condition is described as spasming, hot, burning, numb, stabbing, sharp, tingling, pins and needles. Pain is negatively impacting patient's general activity, mood and sleep. 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 Past medical history significant for CVA not currently on anticoagulation taking full aspirin daily, hypertension, hypothyroid, dermatitis, SVT, left bundle branch block, diabetes with most recent A1c January 2023 of 5.4 controlled with diet and exercise. 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 Answers questions appropriately. Fully engaged in examination. Skin: warm, dry, intact HEENT: Normocephalic. Hearing intact. Cardiac: External chest normal in appearance. Respiratory: No cough, audible wheezing or stridor. Abdomen: without gross distension. MS: No obvious swelling or deformities. Able to transition from sit to stand unassisted. Ambulates with bilaterally normal heel strike and toe off Neurological: Oriented to person, place, time and situation. Thought process intact. No gait abnormalities appreciated. Psychiatric: Appropriate mood and affect. Good judgment and insight. Results Reviewed Results Reviewed: 03/26/2022 MRI CS w/o IMPRESSION: 1. Lordotic reversal centered at C4-C5 with trace retrolisthesis at C5-C6 and C6-C7. 2. Discogenic degenerative changes and spondylosis primarily at C5-C6 and C6-C7 with posterior disc osteophyte complexes at these levels and a left paramedian extruded disc herniation with caudal migration at C6-C7 with moderate left-sided ventral cord impingement and moderate spinal canal stenosis at this level. 3. Posterior disc osteophyte complex at C5-C6 asymmetric to the right with moderate right-sided ventral cord impingement and [id number] spinal canal stenosis. 4. Posterior disc osteophyte complex at C4-C5 with mild spinal canal stenosis without cord impingement. 5. Multilevel bilateral DJD with multilevel bilateral neural foraminal stenoses, most apparent on the left at C6-C7 and to a lesser degree on the right at C5-C6 and on the right at C4-C5. 6. Small central disc protrusion at T1-T2 and small left paramedian disc protrusion at T2-T3. Assessment & Plan Assessment & Plan (1) Polyarthralgia: Code(s): M25.50 - Pain in unspecified joint Category: Medical (2) Neuropathy: Code(s): G62.9 - Polyneuropathy, unspecified Category: Medical (3) Muscle spasms of neck: Code(s): M62.838 - Other muscle spasm Category: Medical (4) Arthropathy of cervical facet joint: Code(s): M47.812 - Spondylosis without myelopathy or radiculopathy, cervical region Category: Medical (5) Spinal stenosis, cervicothoracic region: Code(s): M48.03 - Spinal stenosis, cervicothoracic region Category: Medical Plan Katya is a very pleasant 63 year old female who presented to the office today for follow up and medication management. Will increase to gabapentin 600 mg p.o. t.i.d.. Patient advised on cautions for use. Continue with baclofen 10 mg p.o. t.i.d. as needed Referral placed for arthritis treatment center All questions and concerns were answered, patient agrees with plan. Follow up in 3 month, sooner if needed. Orders: Referrals Rheumatology Referral M25.50 - Pain in unspecified joint Medications: New gabapentin 600 mg PO TID 90 tabs 3RF Discontinued gabapentin Discontinued Reason: More recent result 300 mg PO TID 30 days 90 caps 3RF Coding Level of Care Code Est Pt Level 3 (19625) Diagnoses Polyarthralgia M25.50 Neuropathy G62.9 Muscle spasms of neck M62.838 Arthropathy of cervical facet joint M47.812 Spinal stenosis, cervicothoracic region M48.03
== END 2024-01-20 08:54 | disposition home or self-care (01) ==
PROVIDERS: PCP Internal Medicine; Referring Provider Internal Medicine; Visit Provider Registered Nurse Emergency
DX: M25.50 Pain in unspecified joint (principal); G62.9 Polyneuropathy, unspecified; M62.838 Other muscle spasm; M47.812 Spondylosis without myelopathy or radiculopathy, cervical region; M48.03 Spinal stenosis, cervicothoracic region
CPT/HCPCS: 99213

== ENCOUNTER → 2024-01-20 08:15 | Outpatient (BNVA) | payer OTHER, SELFPAY | PROVIDERS: PCP Internal Medicine; Referring Provider Internal Medicine; Visit Provider Registered Nurse Emergency ==

== ENCOUNTER 2024-04-13 08:14 | Outpatient (AMB) | payer OTHER, SELFPAY ==
[2024-04-13 08:23] VITALS: BP 99/58; PULSE 62; O2SAT 99; BMI 41.6
--- NOTE | 2024-04-13 08:23 | MHC.OFFVIS ---
Vital Signs 04/13/24 08:23 Height 4 ft 11 in Weight 206 lb BMI 41.6 BP 99/58 L Blood Pressure Location Rt brachial Position Sitting Pulse 62 Pulse Source Pulse Oximeter Pulse Oximetry (%) 99 Oxygen Delivery Method Room Air Intake Visit Reasons: 3 months F/U Allergies acetaminophen [From Vicodin] Allergy (Mild, Verified 04/13/24 08:23) Unknown amlodipine Allergy (Mild, Verified 04/13/24 08:23) Unknown egg Allergy (Mild, Verified 04/13/24 08:23) Unknown erythromycin base Allergy (Mild, Verified 04/13/24 08:23) Unknown hydrocodone [From Vicodin] Allergy (Mild, Verified 04/13/24 08:23) Unknown sulfamethoxazole [From Bactrim] Allergy (Mild, Verified 04/13/24 08:23) Unknown tramadol Allergy (Mild, Verified 04/13/24 08:23) Unknown trimethoprim [From Bactrim] Allergy (Mild, Verified 04/13/24 08:23) Unknown amoxicillin Adverse Reaction (Mild, Verified 04/13/24 08:23) Unknown cephalexin [From Keflex] Adverse Reaction (Mild, Verified 04/13/24 08:23) Unknown codeine Adverse Reaction (Mild, Verified 04/13/24 08:23) Unknown metoclopramide [From Reglan] Adverse Reaction (Mild, Verified 04/13/24 08:23) Unknown morphine Adverse Reaction (Mild, Verified 04/13/24 08:23) Unknown oxycodone [From OxyContin] Adverse Reaction (Mild, Verified 04/13/24 08:23) Unknown prazosin Adverse Reaction (Mild, Verified 04/13/24 08:23) Unknown bee venom protein (honey bee) Adverse Reaction (Verified 04/13/24 08:23) Unknown latex Adverse Reaction (Verified 04/13/24 08:23) Unknown HPI Comments Details: Patient presents back to the office today for follow-up, medication management Doing a little better back on Baclofen, tolerating well with no reported side effects Gabapentin is helping also Awaiting appointment at [facility], visit scheduled for June. Recently positive for Covid, states she has been dealing with some residual diffuse inflammation. unable to take NSAIDs, some relief with ice. Initial Visit: Katya is a very pleasant 63-year-old female who was referred to the office today for evaluation management of her chronic neck pain. 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 Patient complains of left-sided pain, muscle spasm and neuropathy of the left upper and left lower extremities. She states that it makes it difficult to sleep at night. She has been taking Flexeril for the last 3 years and states that it has lost its effectiveness and now ?only takes the edge off ?. She has tried topical anti-inflammatory medication that was of no relief. Patient completed physical therapy summer without improvement of her pain and she continues with home exercise program. She has a 10s unit which initially provided some benefit but states it no longer relieves her pain. Patient does take Tylenol Arthritis daily that also takes the edge off. Pain is constant, ?all day ?, rated today as 7/10. In terms of muscle damage condition is described as spasming, hot, burning, numb, stabbing, sharp, tingling, pins and needles. Pain is negatively impacting patient's general activity, mood and sleep. 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 Past medical history significant for CVA not currently on anticoagulation taking full aspirin daily, hypertension, hypothyroid, dermatitis, SVT, left bundle branch block, diabetes with most recent A1c January 2023 of 5.4 controlled with diet and exercise. 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 Answers questions appropriately. Fully engaged in examination. Skin: warm, dry, intact HEENT: Normocephalic. Hearing intact. Cardiac: External chest normal in appearance. Respiratory: No cough, audible wheezing or stridor. Abdomen: without gross distension. MS: No obvious swelling or deformities. Able to transition from sit to stand unassisted. Ambulates with bilaterally normal heel strike and toe off Neurological: Oriented to person, place, time and situation. Thought process intact. No gait abnormalities appreciated. Psychiatric: Appropriate mood and affect. Good judgment and insight. Results Reviewed Results Reviewed: 03/26/2022 MRI CS w/o IMPRESSION: 1. Lordotic reversal centered at C4-C5 with trace retrolisthesis at C5-C6 and C6-C7. 2. Discogenic degenerative changes and spondylosis primarily at C5-C6 and C6-C7 with posterior disc osteophyte complexes at these levels and a left paramedian extruded disc herniation with caudal migration at C6-C7 with moderate left-sided ventral cord impingement and moderate spinal canal stenosis at this level. 3. Posterior disc osteophyte complex at C5-C6 asymmetric to the right with moderate right-sided ventral cord impingement and [id number] spinal canal stenosis. 4. Posterior disc osteophyte complex at C4-C5 with mild spinal canal stenosis without cord impingement. 5. Multilevel bilateral DJD with multilevel bilateral neural foraminal stenoses, most apparent on the left at C6-C7 and to a lesser degree on the right at C5-C6 and on the right at C4-C5. 6. Small central disc protrusion at T1-T2 and small left paramedian disc protrusion at T2-T3. Assessment & Plan Assessment & Plan (1) Polyarthralgia: Code(s): M25.50 - Pain in unspecified joint Category: Medical (2) Neuropathy: Code(s): G62.9 - Polyneuropathy, unspecified Category: Medical (3) Muscle spasms of neck: Code(s): M62.838 - Other muscle spasm Category: Medical (4) Arthropathy of cervical facet joint: Code(s): M47.812 - Spondylosis without myelopathy or radiculopathy, cervical region Category: Medical (5) Spinal stenosis, cervicothoracic region: Code(s): M48.03 - Spinal stenosis, cervicothoracic region Category: Medical Plan Katya presented back to the office today for follow up and medication management. C/W gabapentin 600 mg p.o. t.i.d.. Patient advised on cautions for use. Continue with baclofen 15 mg p.o. t.i.d. as needed [facility] as scheduled All questions and concerns were answered, patient agrees with plan. Follow up in 3 month, sooner if needed. Medications: Refilled gabapentin 600 mg PO TID 90 tabs 3RF Coding Level of Care Code Est Pt Level 3 (21319) Complex EM visit Add On G2211 Diagnoses Polyarthralgia M25.50 Neuropathy G62.9 Muscle spasms of neck M62.838 Arthropathy of cervical facet joint M47.812 Spinal stenosis, cervicothoracic region M48.03
== END 2024-04-13 08:55 | disposition home or self-care (01) ==
PROVIDERS: PCP Internal Medicine; Visit Provider Registered Nurse Emergency
DX: M25.50 Pain in unspecified joint (principal); G62.9 Polyneuropathy, unspecified; M62.838 Other muscle spasm; M47.812 Spondylosis without myelopathy or radiculopathy, cervical region; M48.03 Spinal stenosis, cervicothoracic region
CPT/HCPCS: 99213; G2211

== ENCOUNTER → 2024-04-13 08:14 | Outpatient (BNVA) | payer OTHER, SELFPAY | PROVIDERS: Visit Provider Registered Nurse Emergency ==

== ENCOUNTER 2024-07-13 08:20 | Outpatient (AMB) | payer OTHER, SELFPAY ==
--- NOTE | 2024-07-13 08:26 | A.OFFVIS_ITS ---
Vital Signs 07/13/24 08:30 Height 4 ft 11 in Weight 212 lb 4 oz BMI 42.9 BP 145/63 H Blood Pressure Location Rt brachial Position Sitting Pulse 69 Pulse Source Pulse Oximeter Pulse Oximetry (%) 97 Oxygen Delivery Method Room Air Intake Visit Reasons: 3 months FU Intake Note: Pain today 10/08 Production Or Plant Engineer Required: No Accompanied by: Self / Same As Patient Allergies acetaminophen [From Vicodin] Allergy (Mild, Verified 07/13/24 08:31) Unknown amlodipine Allergy (Mild, Verified 07/13/24 08:31) Unknown egg Allergy (Mild, Verified 07/13/24 08:31) Unknown erythromycin base Allergy (Mild, Verified 07/13/24 08:31) Unknown hydrocodone [From Vicodin] Allergy (Mild, Verified 07/13/24 08:31) Unknown sulfamethoxazole [From Bactrim] Allergy (Mild, Verified 07/13/24 08:31) Unknown tramadol Allergy (Mild, Verified 07/13/24 08:31) Unknown trimethoprim [From Bactrim] Allergy (Mild, Verified 07/13/24 08:31) Unknown amoxicillin Adverse Reaction (Mild, Verified 07/13/24 08:31) Unknown cephalexin [From Keflex] Adverse Reaction (Mild, Verified 07/13/24 08:31) Unknown codeine Adverse Reaction (Mild, Verified 07/13/24 08:31) Unknown metoclopramide [From Reglan] Adverse Reaction (Mild, Verified 07/13/24 08:31) Unknown morphine Adverse Reaction (Mild, Verified 07/13/24 08:31) Unknown oxycodone [From OxyContin] Adverse Reaction (Mild, Verified 07/13/24 08:31) Unknown prazosin Adverse Reaction (Mild, Verified 07/13/24 08:31) Unknown bee venom protein (honey bee) Adverse Reaction (Verified 07/13/24 08:31) Unknown latex Adverse Reaction (Verified 07/13/24 08:31) Unknown HPI Comments Details: Patient presents back to the office today for follow-up, medication management Continues with gabapentin and baclofen with no reported untoward effects States some improvement with the gabapentin but burning sensation in the arms and legs persists. Pain returns before she is due to take the next dose of gabapentin. Denies history of Lyrica use though she would be willing to try in place of gabapentin Initial Visit: Katya is a very pleasant 63-year-old female who was referred to the office today for evaluation management of her chronic neck pain. 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 Patient complains of left-sided pain, muscle spasm and neuropathy of the left upper and left lower extremities. She states that it makes it difficult to sleep at night. She has been taking Flexeril for the last 3 years and states that it has lost its effectiveness and now ?only takes the edge off ?. She has tried topical anti-inflammatory medication that was of no relief. Patient completed physical therapy summer without improvement of her pain and she continues with home exercise program. She has a 10s unit which initially provided some benefit but states it no longer relieves her pain. Patient does take Tylenol Arthritis daily that also takes the edge off. Pain is constant, ?all day ?, rated today as 7/10. In terms of muscle damage condition is described as spasming, hot, burning, numb, stabbing, sharp, tingling, pins and needles. Pain is negatively impacting patient's general activity, mood and sleep. 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 Past medical history significant for CVA not currently on anticoagulation taking full aspirin daily, hypertension, hypothyroid, dermatitis, SVT, left bundle branch block, diabetes with most recent A1c January 2023 of 5.4 controlled with diet and exercise. 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 Answers questions appropriately. Fully engaged in examination. Skin: warm, dry, intact HEENT: Normocephalic. Hearing intact. Cardiac: External chest normal in appearance. Respiratory: No cough, audible wheezing or stridor. Abdomen: without gross distension. MS: No obvious swelling or deformities. Neurological: Oriented to person, place, time and situation. Thought process intact. No gait abnormalities appreciated. Psychiatric: Appropriate mood and affect. Good judgment and insight. Results Reviewed Results Reviewed: 03/26/2022 MRI CS w/o IMPRESSION: 1. Lordotic reversal centered at C4-C5 with trace retrolisthesis at C5-C6 and C6-C7. 2. Discogenic degenerative changes and spondylosis primarily at C5-C6 and C6-C7 with posterior disc osteophyte complexes at these levels and a left paramedian extruded disc herniation with caudal migration at C6-C7 with moderate left-sided ventral cord impingement and moderate spinal canal stenosis at this level. 3. Posterior disc osteophyte complex at C5-C6 asymmetric to the right with moderate right-sided ventral cord impingement and [id number] spinal canal stenosis. 4. Posterior disc osteophyte complex at C4-C5 with mild spinal canal stenosis without cord impingement. 5. Multilevel bilateral DJD with multilevel bilateral neural foraminal stenoses, most apparent on the left at C6-C7 and to a lesser degree on the right at C5-C6 and on the right at C4-C5. 6. Small central disc protrusion at T1-T2 and small left paramedian disc protrusion at T2-T3. Assessment & Plan Assessment & Plan (1) Polyarthralgia: Code(s): M25.50 - Pain in unspecified joint Category: Medical (2) Neuropathy: Code(s): G62.9 - Polyneuropathy, unspecified Category: Medical (3) Muscle spasms of neck: Code(s): M62.838 - Other muscle spasm Category: Medical (4) Arthropathy of cervical facet joint: Code(s): M47.812 - Spondylosis without myelopathy or radiculopathy, cervical region Category: Medical (5) Spinal stenosis, cervicothoracic region: Code(s): M48.03 - Spinal stenosis, cervicothoracic region Category: Medical Plan Katya presented back to the office today for follow up and medication management. Discontinue gabapentin, new prescription for Lyrica 100 mg twice daily. Patient advised on cautions for use. She will call the office with any concerns or if she wishes to go back to gabapentin use. Continue with baclofen 15 mg p.o. t.i.d. as needed All questions and concerns were answered, patient agrees with plan. Follow up in 3 month, sooner if needed. Medications: New pregabalin (Lyrica) 100 mg PO BID 60 caps 3RF Refilled baclofen 15 mg PO TID 90 tabs 3RF Discontinued gabapentin Discontinued Reason: Doctor's Order 600 mg PO TID 90 tabs 3RF Coding Level of Care Code Est Pt Level 3 (05037) Complex EM visit Add On G2211 Diagnoses Polyarthralgia M25.50 Neuropathy G62.9 Muscle spasms of neck M62.838 Arthropathy of cervical facet joint M47.812 Spinal stenosis, cervicothoracic region M48.03
[2024-07-13 08:30] VITALS: BP 145/63; PULSE 69; O2SAT 97; BMI 42.9
== END 2024-07-13 09:00 | disposition home or self-care (01) ==
PROVIDERS: PCP Internal Medicine; Visit Provider Registered Nurse Emergency
DX: M25.50 Pain in unspecified joint (principal); G62.9 Polyneuropathy, unspecified; M62.838 Other muscle spasm; M47.812 Spondylosis without myelopathy or radiculopathy, cervical region; M48.03 Spinal stenosis, cervicothoracic region
CPT/HCPCS: 99213; G2211

== ENCOUNTER → 2024-07-13 08:20 | Outpatient (BNVA) | payer OTHER, SELFPAY | PROVIDERS: PCP Internal Medicine; Visit Provider Registered Nurse Emergency ==

== ENCOUNTER 2024-09-05 13:22 | Outpatient (REF) | payer OTHER, SELFPAY ==
[2024-09-05 14:17] LABS: Alanine Aminotransferase 26 U/L (0-31); Anion Gap 13 (12-20); Aspartate Amino Transferase 26 U/L (5-31); Blood Urea Nitrogen 26 mg/dL (9-16); Calcium 9.9 mg/dL (8.4-10.2); Carbon Dioxide 23 mmol/L (22-29); Chloride 109 mmol/L (96-108); Cholesterol 156 mg/dL (<200); Estimated Glomerular Filt Rate > 60; Glucose Random 95 mg/dL (60-115); HDL Cholesterol 50 mg/dL (>40); LDL Cholesterol Calculated 81 mg/dL (<100); Potassium 4.2 mmol/L (3.3-5.1); Sodium 141 mmol/L (135-145); Triglycerides 126 mg/dL (<150)
--- OUTSIDE RECORDS SUMMARY | 2024-09-05 15:55 | XMS_ITS ---
Author Name [facility] Organization Unknown Care Team Organization Name Specialty Phone Email Start Date End [facility]
--- OUTSIDE RECORDS SUMMARY | 2024-09-05 15:55 | XMS_ITS | Encounter Summary ---
Author Organization [facility] Address [address] [place] [address] Phone Care Team Providers Care Banking Analyst Name Role Phone Maira Uriarte MD Primary Care Provider [phone] Encounter Details Date Type Department Care Team ([facility] Contact Info) Description 10/13/2022 Telephone [facility] [address] [place] [phone] Deja Morales Social History Tobacco Use Types Packs/Day Years Used Date Smoking Tobacco: Never Smokeless Tobacco: Never Comments Unknown Sex and Gender Information Value Date Recorded Sex Assigned at Not on file Legal Sex Female 8:03 AM EDT Gender Identity Not on file Sexual Orientation Not on file documented as of this encounter Miscellaneous Notes * Telephone Encounter - Deja Morales - 10/13/2022 11:06 AM EDT Pt called to relay that she is having adverse reaction since taking Amlodipine. PT says she gained 5 pounds of water weight and has a rash on her body. PT wanted to also relay that her current BP is 156/66 and that her systolic has been elevated. PT took 5 MG then went up to 10 MG but she DC when she started getting adverse symptoms. documented in this encounter Plan of Treatment Not on file documented as of this encounter Visit Diagnoses Not on filedocumented in this encounter Care Teams Banking Analyst Relationship Specialty Start Date End Date Maira Uriarte MD [address] [facility] [address] [place] [address] PCP - General Internal Medicine 11/21/21 documented as of this encounter
--- OUTSIDE RECORDS SUMMARY | 2024-09-05 15:55 | XMS_ITS | Clinical Summary ---
Author Organization [facility] Address [address] [place] [address] Care Team Providers Care Bar Tender Name Role Phone Unavailable Primary Care Provider Unavailabl e Social History Tobacco Use Types Packs/Day Years Used Date Smoking Tobacco: Never Assessed Sex and Gender Information Value Date Recorded Sex Assigned at Not on file Gender Identity Not on file Sexual Orientation Not on file Plan of Treatment Health Maintenance Due Date Last Done Comments Hepatitis C Virus Screening 1961 HIV Screening 1974 DTaP/Tdap/Td Vaccines (1 - Tdap) 02/11/1980 Pap Smear (Ages 21-65) 1982 Mammogram 2001 Colonoscopy 2006 Pneumococcal Vaccines 50+ (1 of 1 - PCV) 2011 Zoster (Shingles) Vaccine (1 of 2) 2011 Influenza Vaccine 12/31/2023 COVID-19 Vaccine ( - 2023-2 5 season) 2024 RSV Vaccine 60 years and old er and Patients (1 - 1-dose 75+ series) 02/11/2036 Hepatitis B Vaccines Aged Out No long er eligible based on patient's age to complete this topic
--- OUTSIDE RECORDS SUMMARY | 2024-09-05 15:55 | XMS_ITS | Clinical Summary ---
Author Organization [facility] Address [address] [place] [phone] Phone Care Team Providers Care Director Of Education Name Role Phone Maira Uriarte MD Primary Care Provider [phone] Allergies Active Allergy Reactions Criticality Noted Date Comments Amoxicillin 01/22/2022 Sulfamethoxazole-Trimethoprim 2021 Codeine 01/22/2022 Erythromycin 01/22/2022 Cephalexin 01/22/2022 Latex 01/22/2022 Morphine 01/22/2022 Oxycodone 01/22/2022 Metoclopramide 01/22/2022 Tramadol 01/22/2022 Medications Levoxyl 150 MCG tablet Take 150 mcg by mouth 1 (one) time each day 11/04/2021 Active cetirizine (ZyrTEC) 10 MG tablet Take 30 mg by mouth every night Active doxycycline (VIBRAMYCIN) 100 MG capsule Take 100 mg by mouth 1 (one) time each day 05/12/2022 Active acetaminophen (TYLENOL 8 HOUR) 650 MG 8 hr tablet Take 1,950 mg by mouth in the morning and 1,950 mg in the evening. Do not crush, chew, or split. . Active cyanocobalamin (VITAMIN B-12) 1000 MCG tablet Take 1,000 mcg by mouth 1 (one) time each day Active Cholecalciferol (Vitamin D3) 125 MCG (5000 UT) capsule Take 125 mcg by mouth 3 (three) times a week Active Ascorbic Acid (vitamin C) 1000 MG tablet Take 1,000 mg by mouth 1 (one) time each day Active b complex vitamins capsule Take 1 capsule by mouth 1 (one) time each day Active Dapagliflozin Propanediol (FARXIGA PO) Take 10 mg by mouth 1 (one) time each day Active aspirin 325 MG tablet Active Baclofen 15 MG tablet Take 1 tablet by mouth in the morning and 1 tablet at noon and 1 tablet in the evening. 03/02/2024 Active cloNIDine (CATAPRES) 0.1 MG tablet Take 1 tablet by mouth at bed time Active famotidine (Pepcid) 20 MG tablet Active gabapentin (NEURONTIN) 600 MG tablet Take 600 mg by mouth in the morning and 600 mg at noon and 600 mg in the evening. 02/22/2024 Active hydrALAZINE 25 MG tablet Take 25 mg by mouth in the morning and 25 mg in the evening. Active DULoxetine (CYMBALTA) [address] capsule Take 30 mg by mouth in the morning and 30 mg in the evening. Active metoprolol succinate XL (TOPROL-XL) 100 MG 24 hr tablet Take 1 tablet by mouth in the morning and 1 tablet in the evening. Active Active Problems Problem Noted Date Diagnosed Date Stage 3a chronic kidney disease 01/21/2022 Hypertension 01/21/2022 Cerebrovascular accident 01/21/2022 Family History Medical History Relation Comments Diabetes Mother Heart disease Mother Relation Status Comments Mother CAD & valvular h eart disease Social History Tobacco Use Types Packs/Day Years Used Date Smoking Tobacco: Never Smokeless Tobacco: Never Tobacco Cessation:Counseling Given: Not Answered Comments Unknown Sex and Gender Information Value Date Recorded Sex Assigned at Not on file Legal Sex Female 8:03 AM EDT Gender Identity Not on file Sexual Orientation Not on file Last Filed Vital Signs Vital Sign Reading Time Taken Comments Blood Pressure 129/53 03/08/2024 8:18 AM EDT Pulse 64 03/08/2024 8:18 AM EDT Temperature - - Respiratory Rate - - Oxygen Saturation 97% 03/08/2024 8:18 AM EDT Inhaled Oxygen Concentration - - Weight 91.7 kg (202 lb 3.2 oz) 03/08/2024 8:18 A M EDT Height 149.9 cm (4' 11 ) 03/08/2024 8:18 AM EDT Body Mass Index 40.84 03/08/2024 8:18 AM EDT Plan of Treatment Health Maintenance Due Date Last Done Comments Breast Cancer Screening 1961 Pneumococcal Vaccine: Pediat rics (0 to 5 Years) and At-Risk Patients (6 to 64 Years) (1 of 2 - PCV) 1967 Colorectal Cancer Screening: Annual FOBT 2010 Colorectal Cancer Screening: Colonoscopy 2010 Colorectal Cancer Screening: Sigmoidoscopy 2010 Diabetes: Hemoglobin A1C 03/08/2024 Diabetes: Ophthalmology Exam 03/08/2024 Diabetes: Pedal Pulse Checked 03/08/2024 Diabetes: Sensory Foot Exam 03/08/2024 Diabetes: Visual Foot Exam 03/08/2024 Influenza Vaccine (Season Ended) 2025 Hepatitis B Vaccine Aged Out No longe r eligible based on patient's age to complete this topic Insurance [employer] Care Teams Director Of Education Relationship Specialty Start Date End Date Maira Uriarte MD [address] [phone] PCP - General Internal Medicine 11/21/21
--- OUTSIDE RECORDS SUMMARY | 2024-09-05 15:55 | XMS_ITS | Encounter Summary ---
Author Organization [facility] Address [address] [place] [id number] Care Team Providers Care Optical Assistant Name Role Phone Unavailable Primary Care Provider Unavailabl e Encounter Details Date Type Department Care Team (Late st Contact Info) Description 10/12/2020 Erroneous Encounter [facility] DEPT [address] [place] [phone] Albina Christine PA [address] [id number] Social History Tobacco Use Types Packs/Day Years Used Date Smoking Tobacco: Never Assessed Sex and Gender Information Value Date Recorded Sex Assigned at Not on file Gender Identity Not on file Sexual Orientation Not on file documented as of this encounter Plan of Treatment Not on file documented as of this encounter Visit Diagnoses Not on filedocumented in this encounter
--- OUTSIDE RECORDS SUMMARY | 2024-09-05 15:55 | XMS_ITS | Data Portability ---
Author Organization [facility], [facility] Address [address] [place] [address] Care Team Providers Care Funeral Director Name Role Phone MERLY OVIEDO Primary Care Provider Assessment Encounter Date Assessment Date Assessment LastModified by Organization Details LastModified Time 09/02/2023 09/02/2023 I reviewed my findings with the patient today. I offered her a repeat cortisone injection of the left long finger. She wished to proceed. Will continue with observation of her left ring finger Dupuytren's disease. Will follow-up symptomatically going forward Not available 09/02/2023 11:13:17 02/17/2024 02/17/2024 64-year-old female returns today in follow-up for left long finger status post 2 prior cortisone injections with some return of pain about the A1 janeen region of the long finger, as well as some pain dorsally about the MP joint of unclear etiology. She has not had a progression of her underlying Dupuytren's disease. Also she notes a new injury to the left long finger on November 16, 2023 with findings consistent with a bony mallet injury, which has clinically healed since then without any significant pain, and minimal extensor lag present. I reviewed treatment options for the trigger finger with the patient today, and since she has had 2 prior injections we will hold off on third injection. She would potentially like to plan for surgical intervention if she is still symptomatic next year. Will have her follow-up with Dr. Smith in a few months for further discussion of this. I recommend she discontinue her splinting of the entire length of the digit which will hopefully improve her MP joint pain. In regard to her bony mallet injury since she has no longer any pain, tenderness, and minimal extensor lag I reviewed potential for continued splinting versus discontinuing any splinting and allowing to heal as is. She elected to proceed with discontinuing splinting as well. Will plan to have her follow-up with Dr. Smith for consideration of trigger release of the left long finger in a few months time, sooner if required. Not available 02/17/2024 11:12:58 05/16/2024 05/16/2024 Assessment: Left long finger flexor tenosynovitis recurrent after 2 prior cortisone injections now ready to proceed with flexor tenosynovectomy Plan: We discussed reasonable outcomes or expectations from what will be improved after flexor tenosynovectomy. She has other concerns in the hands and affecting other systems as a result of exposure to the Covid virus, and I have reviewed with her that the expected outcomes after the flexor tenosynovectomy surgery should be in line with the improvements experienced after the cortisone injections. Booking sheet is completed for left long finger flexor tenosynovectomy. We have discussed the postoperative recovery course for the recommended surgery. Risks of surgery include but are not limited to: Infection, bleeding, damage normal tissues, need for future surgeries, and recurrent or recalcitrant symptoms after surgery. Questions asked and answered to the patient's satisfaction; surgery to be scheduled with my trade union secretary. samara Not available 05/16/2024 10:31:11 Plan of Treatment Reminders Order Date Submit Date Provider Last Modified By Organization Details Last Modified Time Details Appointments NEW PROBLEM 2024 10:30A Joss Rios PA-C Not available Not available Not available Lab None recorded. Referral None recorded. Procedures None recorded. Surgeries None recorded. Imaging XR, finger(s) , 2 or more view - left hand middle finger 3v , room 111 2023 024 [facility], [address], [place], [address], 03/09/2024 15:25:48 XR, finger(s) , 2 or more view - re do lateral view per bc , middle finger left hand 2023 024 [facility], [address], [place], [address], 03/09/2024 15:25:49 Medication Orders Kenalog 40 mg/mL suspensio n for injection 2023 024 [email or web address] Not available 09/02/2023 11:14:33 Patient TargetsNo targets recorded. Patient InstructionsNo instructions recorded. Reason for Referral None Reported. Results Created Date Observation Date Name Description Value Unit Range Abnormal Flag Note LastModifiedBy Organization Detail LastModifiedTime 02/17/20 24 02/17/2024 XR, finge r(s), 2 or more view [email or web address] ?Encry pted=s hAaTro YD8dLq bEUv6g %2BXZw aYqtaq 0bqfl% 2Fg9IQ a4ajBk vP9nXo QUaueC m3YtLR FvZlgJ JJ8mAn HZtai3 0t5999 AC0Kqa niDVau kKiQtr [facility] INTERFACE [facility] [address], [place], [address], 02/17/2024 10:37:13 02/17/20 24 02/17/2024 XR, finge r(s), 2 or more view [email or web address]:/ [email or web address] ?Encry pted=s hAaTro YD8dLq bEUv6g %2BXZw aYqtaq 0bqfl% 2Fg9IQ a4ajBk vP9nXo QUaueC m3YtLR FvZlgJ JJ8mAn HZtai3 4e8921 AC0Kqa niDVau kKiQtr MwF INTERFACE [facility] [address], [place], [address], 02/17/2024 10:37:14 02/17/20 24 02/17/2024 XR, finge r(s), 2 or more view [email or web address] ?Encry pted=s hAaTro YD8dLq bEUv6g %2BXZw aYqtaq 0bqfl% 2Fg9IQ a4ajBk vP9nXo QUaueC m3YtLR FvZlgJ [place] HZtai3 0r2591 AC0Kqa niDV6W iKiQtr MwF INTERFACE [facility] [address], [place], [address], 02/17/2024 10:37:16 02/17/20 24 02/17/2024 XR, finge r(s), 2 or more view [email or web address] ?Encry pted=s hAaTro YD8dLq bEUv6g %2BXZw aYqtaq 0bqfl% 2Fg9IQ a4ajBk vP9nXo QUaueC m3YtLR FvZlg [place] HZtai3 7f9797 AC0Kqa niDV6W iKiQtr MwF INTERFACE [facility] [address] [facility] [address] [address], [place], [address], 02/17/2024 10:37:17 Result Notes None recorded. Problems Name Problem SNOMED Code Status Onset Date Resolution Date Notes Provider Name and Address Organization Details Recorded Time No complaints [id number] Active Status : 'A'; Not Available [facility] 4 09:25:36 Trigger finger of left hand 4856170607038 9107 Active 2023 Dragan Rios PA-C [address], [place], [address] , [facility] 4 08:10:35 Dupuytren' s disease of palm of left hand 4295488592864 9104 Active 2023 Dragan Rios PA-C [address], [place], [address] , [facility] 4 08:10:47 Problem Notes None recorded. Procedures Surgical History Date Name Laterality Status Provider Name and Address Organization Details Recorded Time 4 Tendon Sheath Kenalog Injection, L/R completed Dragan Rios PA-C [address], [place], [address], [facility] - [facility] 09/02/2023 11:13:48 Imaging Results Imaging Date Name Status LastModified by Organiz ation Details LastModified Time 02/17/2024 XR, finger(s), 2 or more view completed INTERFACE [facility] [address], [place], [address], 02/17/2024 10:37:13 02/17/2024 XR, finger(s), 2 or more view completed INTERFACE [facility] [address], [place], [address], 02/17/2024 10:37:14 02/17/2024 XR, finger(s), 2 or more view completed INTERFACE [facility] [address], [place], [address], 02/17/2024 10:37:16 02/17/2024 XR, finger(s), 2 or more view completed INTERFACE [facility] [address], [place], [address], 02/17/2024 10:37:17 Procedure Notes None recorded. Medical Equipment None Reported. Allergies Allergen ID Allergen Name Allergen Category Reaction Reaction Severity Criticality Documentation Date Start Date Code Code System Note Provider Name and Address Organization Details Recorded Time 16695 oxycodone hydrochlo ride medicatio n Not available Not available Not available 08/03/20232014 41384 RxNorm Aller gyRea ction : 'Skin React ion'; Not Available [facility] 4 13:27:20 74564 Dilaudid medicatio n Not available Not available Not available 08/03/20232014 87187 3 RxNorm Aller gyRea ction : 'Skin React ion'; Not Available [facility] 4 13:27:20 42307 Oxycontin medicatio n Not available Not available Not available 08/03/20232014 35576 6 RxNorm Aller gyNam e: 'Oxyc ontin Tb12' ; Aller gyRea ction : 'Skin React ion'; Not Available [facility] 4 13:27:20 47717 amlodipin e besylate medicatio n Not available Not available Not available 08/03/20232022 33627 6 RxNorm Not Available [facility] 4 13:27:20 40066 Reglan medicatio n Not available Not available Not available 08/03/20232014 9230 RxNorm Not Available [facility] 4 13:27:20 26370 acetamino phen / codeine medicatio n Not available Not available Not available 08/03/20232014 93636 9 RxNorm Aller gyNam e: 'Tyle nol/c odein e #3 Tabs' ; Not Available [facility] 4 13:27:20 87657 Ultram medicatio n Not available Not available Not available 08/03/20232014 38798 6 RxNorm Not Available [facility] 4 13:27:21 80845 Keflex medicatio n Not available Not available Not available 08/03/20232014 70051 7 RxNorm Not Available [facility] 4 13:27:21 26723 acetamino phen / hydrocodo ne medicatio n Not available Not available Not available 08/03/20232014 68132 2 RxNorm Not Available [facility] 4 13:27:21 53450 erythromy nuris medicatio n Not available Not available Not available 08/03/20232014 4053 RxNorm Not Available [facility] 4 13:27:21 09146 amoxicill in trihydrat e medicatio n Not available Not available Not available 08/03/20232014 77723 8 RxNorm Not Available [facility] 4 13:27:21 62296 Bactrim medicatio n Not available Not available Not available 08/03/20232022 87325 9 RxNorm Not Available [facility] 4 13:27:21 01835 codeine medicatio n Not available Not available Not available 08/03/20232014 2670 RxNorm Not Available [facility] 4 13:27:21 19230 latex environme nt,medica tion Not available Not available Not available 08/03/20232014 90790 91 RxNorm Not Available [facility] 4 13:27:21 21085 Substance with sulfonami de structure and antibacte rial mechanism of action (substanc e) medicatio n Not available Not available Not available 08/03/20232014 79484 8003 SNOMED Not Available [facility] 4 13:27:22 Medications Name Sig Start Date Stop Date Status Note LastModified by Organization Details LastModified Time cyclobenzap rine 10 mg tablet TAKE 1-2 tablets by MOUTH three TIMES A DAY needed active Not Available Not Available No t Available fluconazole 100 mg tablet TAKE 1 TABLET BY MOUTH ONCE DAILY active Not Available Not Available No t Available atorvastati n 40 mg tablet TAKE 1 TABLET BY MOUTH DAILY active Not Available Not Available No t Available clotrimazol e 10 mg nam DISSOLVE 1 nam BY MOUTH 4 TIMES DAILY active Not Available Not Available No t Available desonide 0.05 % topical cream Apply AM and PM around nose and behind ears and face for a few days when needed active Not Available Not Available No t Available Levoxyl 150 mcg tablet Take 1 tablet by mouth daily active Not Available Not Available No t Available nystatin 100,000 unit/mL oral suspension TAKE 1 TEASPOONF UL -5ml- BY MOUTH 4 TIMES DAILY needed. SWISH AND spit active Not Available Not Available No t Available clonidine HCl 0.1 mg tablet TAKE 1 TABLET BY MOUTH nightly active Not Available Not Available No t Available gabapentin 600 mg tablet TAKE 1 TABLET BY MOUTH THREE TIMES DAILY active Not Available Not Available No t Available doxycycline hyclate 100 mg capsule TAKE 1 CAPSULE BY MOUTH DAILY AND try TO taper down AND OR try stopping active Not Available Not Available No t Available atorvastati n 20 mg tablet TAKE 1 TABLET BY MOUTH AT BEDTIME active Not Available Not Available No t Available tizanidine 2 mg tablet TAKE 1 TABLET BY MOUTH THREE TIMES DAILY NEEDED FOR MUSCLE spasticit y. d/c flexeril. DO not drive MAY cause drowsines s. no alcohol active Not Available Not Available No t Available azithromyci n 250 mg tablet TAKE 2 TABLETS BY MOUTH TODAY THEN TAKE 1 TABLET DAILY FOR THE NEXT 4 DAYS active Not Available Not Available No t Available tizanidine 4 mg tablet TAKE 1 TABLET BY MOUTH every 8 hours NEEDED FOR MUSCLE spasticit y active Not Available Not Available No t Available FreeStyle Lancets 28 gauge USE ON fingertip TO check sugar TWICE daily active Not Available Not Available No t Available betamethaso ne, augmented 0.05 % topical cream Apply AM and PM to worst areas of eczema as needed active Not Available Not Available No t Available metoprolol succinate ER 100 mg tablet,exte nded release 24 hr TAKE 1 TABLET BY MOUTH TWICE DAILY active Not Available Not Available No t Available hydralazine 25 mg tablet TAKE 1 TABLET BY MOUTH TWICE DAILY WITH food active Not Available Not Available No t Available amlodipine 5 mg tablet TAKE 1 TABLET BY MOUTH ONCE DAILY active Not Available Not Available No t Available Kenalog 40 mg/mL suspension for injection Take 0.8 mL by injection route. 2023 active Not Available Not Available Not Avcoleman labagnes prazosin 5 mg capsule TAKE 1 CAPSULE BY MOUTH ONCE DAILY AT BEDTIME active Not Available Not Available No t Available amitriptyli ne 25 mg tablet TAKE 1 TABLET BY MOUTH DAILY active Not Available Not Available No t Available baclofen 10 mg tablet TAKE 1 TABLET BY MOUTH THREE TIMES DAILY active Not Available Not Available No t Available gabapentin 300 mg capsule TAKE 1 CAPSULE BY MOUTH THREE TIMES DAILY active Not Available Not Available No t Available mupirocin 2 % topical ointment APPLY A SMALL AMOUNT TO THE AFFECTED AREA BY TOPICAL ROUTE 2 TIMES PER DAY active Not Available Not Available No t Available gabapentin 100 mg capsule TAKE 1 CAPSULE BY MOUTH THREE TIMES DAILY active Not Available Not Available No t Available epinephrine 0.3 mg/0.3 mL injection, auto-inject or intramusc ular as needed; 0.3mg inject as needed for allergic reaction active Not Available Not Available No t Available methylpredn isolone 4 mg tablets in a dose pack TAKE BY MOUTH DIRECTED ON PACKAGE active Not Available Not Available No t Available ketoconazol e 2 % topical cream Apply to affected area in the AM and PM to dryness around nose active Not Available Not Available No t Available olmesartan 20 mg tablet Take 1 tablet (20 mg total) by mouth 1 (one) time each day active Not Available Not Available No t Available prednisolon e sodium phosphate 5 mg base/5 mL (6.7 mg/5 mL) oral soln TAKE 1 TEASPOONF UL -5ml- BY MOUTH TWICE DAILY FOR 7 DAYS GARGLE AND swallow active Not Available Not Available No t Available duloxetine 30 mg capsule,del ayed release TAKE 1 CAPSULE BY MOUTH TWICE DAILY active Not Available Not Available No t Available estradiol Estradiol 0.025MG/2 4HR Patch Twice Weekly 05/07 completed Statu s: 'Disc ontin ued'; Not Available Not Available Not Available Januvia 100 mg tablet TAKE 1 TABLET BY MOUTH DAILY active Not Available Not Available No t Available FreeStyle Lite Meter kit USE daily TO test sugar active Not Available Not Available No t Available FreeStyle Lite Strips USE 1 test strip TO test sugar TWICE DAILY active Not Available Not Available No t Available dapaglifloz in propanediol 10 mg tablet TAKE 1 TABLET BY MOUTH DAILY active Not Available Not Available No t Available Paxlovid 300 mg (150 mg x 2)-100 mg tablets in a dose pack TAKE 3 TABS BY MOUTH TWICE DAILY IN THE MORNING AND BEDTIME FOR 5 DAYS active Not Available Not Available No t Available baclofen 15 mg tablet TAKE 1 TABLET BY MOUTH THREE TIMES DAILY active Not Available Not Available No t Available Vitals Date Recorded Body height Body mass index (BMI) Body weight Provider Name and Address Organization Details Last Updated DateTime 09/02/2023 149.86 cm 38.6 kg/m2 16358.14 g Juana Downs [facility] 09/02/2023 10:23:51 Date Recorded Body height Body mass index (BMI) Body weight Provider Name and Address Organization Details Last Updated DateTime 02/17/2024 149.86 cm 38.6 kg/m2 60665.14 g Dulce Maria Collins [facility] 02/17/2024 10:06:51 Date Recorded Body height Body mass index (BMI) Body weight Provider Name and Address Organization Details Last Updated DateTime 05/16/2024 149.86 cm 38.4 kg/m2 45718.55 g JAQEULINE LAMAR [place] - [facility] 05/16/2024 08:43:55 Social History None recorded. Functional Status None recorded. Mental Status None recorded. Family History Nothing Reported. Medical History No medical history recorded. Gynecological HistoryNo gynecological history recorded. Obstetrics History GPAL:G 0 P 0 0 0 0 Past Encounters Encounter ID Performer Location Encounter Start Date Encounter Closed Date Diagnosis/Indication Diagnosis SNOMED-CT Code Diagnosis ICD10 Code Diagnosis Note [id number] AZAEL Castillo [address] [place] [address] 09/02/2023 09:54:08 09/02/2023 11:20:05 Trigger finger of left hand [id number] 1029551 M65.332 Dupuytren' s disease of palm of left hand 0901078809 2991497 M72.0 [id number] AZAEL Castillo [address] [place] [address] 02/17/2024 09:49:41 03/09/2024 15:25:48 Trigger finger of left hand 6680931000 8569827 M65.332 Dupuytren' s disease of palm of left hand 0619175619 9266637 M72.0 Pain of left hand 815458 0065 39211 M79.392 [id number] MD Ira Robledo [address] [place] [address] 05/16/2024 08:27:14 06/03/2024 13:47:15 Trigger finger of left hand 5912888571 7306976 M65.332 Health Concerns Section Related Observation LastModified by Organization Detai ls LastModified Time None Recorded Concern Status LastModified by Organization Details LastModified Time None Recorded Advance Directives Directive None Recorded Payers Encounter Date Sequence Insurance Name Policy Number Policy Hollins Covered Member ID Hollins Member ID Guarantor Name 09/02/2023 1 [employer] [facility] (PPO) Katya Boateng [id number] Katya Boateng 02/17/2024 1 [employer] [facility] (PPO) Katya Boateng [id number] Katya Cuellolin 05/16/2024 1 [facility] (O) Katya Schwartz Tasneem [id number] Katya Schwartz Tasneem Notes Date Note Type Note Provider Name and Address Organization Details Recorded Time 09/02/2023 text/html I am seeing this patient under the supervision of Dr. Malloy who was available but who did not see the patient Chief Complaint: Follow-up evaluation for left long finger trigger finger status post 1 prior cortisone injection, left ring finger Dupuytren's disease with pretendinous cord without flexion contracture. 63-year-old female returns today in follow-up. She reports return of painful arc of motion of the left long finger with some triggering over this past weekend, but was previously doing quite well. No change in her Dupuytren's disease to the left ring finger. She returns today in follow Dragan Rios PA-C [address], [place], [address], [facility] 09/02/2023 11:14:34 02/17/2024 text/html I am seeing this patient under the supervision of Dr. Malloy who was available but who did not see the patient Chief Complaint: Follow-up evaluation for left long finger trigger finger status post 2 prior cortisone injections, left ring finger Dupuytren's disease with pretendinous cord without flexion contracture. 63-year-old female returns today in follow-up. She reports that she had a new injury on November 16, 2023 when she accidentally caught the left long fingertip in a door of her car. She reports a new flexion deformity which occurred to the DIP joint of the long finger, and she has been splinting on her own since then. She notes resolution of her pain but still with a persistent lag to the DIP joint. She notes the prior injection of her trigger finger seem to help, but now notes some return of pain volarly and dorsally about the MP joint of the long finger. She has been splinting the full length of her digit for quite some time to try and help improve this without significant improvement. 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 This has been treated with 2 prior cortisone injections by SERA Obregon first in August and a second when earlier this fall. She notes that she has developed many problems as a result of Covid infections including cardiac problems, neurologic problems, musculoskeletal problems. The cortisone injections however provided relief of pain and improved her range of motion. She has been referred to me to discuss the possibility of proceeding with a flexor tenosynovectomy surgery. Hayley Smith MD [address] [place] [address] [address], [place], [address], [facility] - [facility] 05/16/2024 10:31:25 OBGyn Episode No OBEpisode recorded.
--- OUTSIDE RECORDS SUMMARY | 2024-09-05 15:55 | XMS_ITS | Data Portability ---
Author Organization [facility], [address] Address [address] [place] [address] Assessment No assessment recorded. Plan of Treatment Reminders Order Date Submit Date Provider Last Modified By Organization Details Last Modified Time Details Appointments None recorded. Lab SARS CoV 2 (COVID-19) Ag, QL, IA, upper respiratory specimen 2023 024 [place] [address], [address] [place] [address], [id number], 4 09:12:53 rapid flu (A+B) 2023 024 [place] [address] _[facility], [address] [place] [address], [phone], 4 09:12:54 Referral None recorded. Procedures None recorded. Surgeries None recorded. Imaging None recorded. Medication Orders Zithromax Z-Trace 250 mg tablet 2023 024 [facility] [place], [place], [address] [place], [address], 4 09:52:01 Paxlovid 300 mg (150 mg x 2)-100 mg tablets in a dose pack 2023 024 [facility] [place], [place], [address] [place], [address], 4 09:52:01 methylpredn isolone 4 mg tablets in a dose pack 2023 024 [facility] [place], [place], [address] [place], [address], 09:13:04 mupirocin 2 % topical ointment 2023 024 [facility] [place], [address] [place], [address], 09:24:40 Patient TargetsNo targets recorded. Patient Instructions Encounter Date Encounter Id Patient Instructions Last Modified By Organization Details Last Modified Time 10/17/2023 [id number] nosebleeds: care instructions Not available 10/17/2023 15:34:22 upper respirator y infection (cold): care instructions Not available 10/17/2023 15:33:16 enlarged turbinates: care instructions Not available 10/17/2023 15:33:16 02/05/2024 [id number] ear infection (otitis media): care instructions Not available 02/05/2024 09:14:19 Reason for Referral None Reported. Results Created Date Observation Date Name Description Value Unit Range Abnormal Flag Note LastModifiedBy Organization Detail LastModifiedTime 02/05/2002/05/2024 SARS CoV 2 (COVI D-19) Ag, QL, IA, upper respi rator y speci men Unknown Analyte positi ve Not Available [address] [place], [address], 02/05/2024 08:45:08 02/05/20 24 02/05/2024 SARS CoV 2 (COVI D-19) Ag, QL, IA, upper respi rator y speci men Unknown Analyte yes Not Available [address] [place], [address], 02/05/2024 08:45:08 02/05/20 24 02/05/2024 rapid flu (A+B) Unknown Analyte negati ve Not Available [address] [place], [address], 02/05/2024 08:45:17 02/05/20 24 02/05/2024 rapid flu (A+B) Unknown Analyte negati ve Not Available [address] [place], [address], 02/05/2024 08:45:17 02/05/20 24 02/05/2024 rapid flu (A+B) Unknown Analyte yes Not Available [address] [place], [address], 02/05/2024 08:45:17 Result Notes None recorded. Problems Name Problem SNOMED Code Status Onset Date Resolution Date Notes Provider Name and Address Organization Details Recorded Time Hypertens adore disorder 43734709 Completed 202310/17/2023 Luda gibson PA - [facility] 13:30:24 Diabetes mellitus 42596694 Active 2023 Luda gibson PA - [facility] 13:30:29 Anxiety 27246752 Active 2023 Luda gibson PA - [facility] 13:30:40 Evidence of recent epistaxis 830341443 Active 2023 Josephine Waldron NP [address] [place], [address] , PA - [facility] 4 15:30:15 Upper respirato ry infection 77861771 Active 2023 Josephine Waldron NP [address] [place], [address] , PA - [facility] 4 15:30:54 Cerebrova scular accident 092088485 Completed 202302/05/2024 Ashley Edmond gibson PA - [facility] 4 08:40:52 Supravent ricular tachycard ia 4939126 Active Ashley Lequire null, PA - [facility] 4 08:41:18 Acute COVID-19 2533028333 Active 2023 Josephine Waldron NP [address] [place], [address] , [place] - [facility] 4 09:12:49 Acute bilateral otitis media 710954836 Active 2023 Josephine Waldron NP [address] [place], [address] , PA - [facility] 4 09:13:00 Problem Notes None recorded. Medical Equipment None Reported. Allergies Allergen ID Allergen Name Allergen Category Reaction Reaction Severity Criticality Documentation Date Start Date Code Code System Note Provider Name and Address Organization Details Recorded Time 403659 erythromy nuris medicatio n Not available Not available Not available 02/05/2024 4053 RxNorm Ashley Lequire null, PA - [facility] 4 08:39:09 962300 amoxicill in medicatio n Not available Not available Not available 02/05/2024 723 RxNorm Ashley Lequire null, PA - [facility] 4 08:39:15 739561 Keflex medicatio n Not available Not available Not available 02/05/2024 26702 7 RxNorm Ashley Lequire null, PA - [facility] 4 08:39:24 220207 Bactrim medicatio n Not available Not available Not available 02/05/2024 67672 9 RxNorm Ashley Lequire null, PA - [facility] 4 08:39:31 360476 Reglan medicatio n Not available Not available Not available 02/05/2024 9230 RxNorm Ashley Lequire null, PA - [facility] 4 08:39:43 565895 amlodipin e medicatio n Not available Not available Not available 02/05/2024 30871 RxNorm Ashley Lequire null, PA - [facility] 4 08:40:13 991947 bee pollen environme nt,medica tion Not available Not available Not available 02/05/2024 61590 7 RxNorm SERA Lopez - [facility] 08:40:27 Medications Name Sig Start Date Stop Date Status Note LastModified by Organization Details LastModified Time cyclobenzap rine 10 mg tablet TAKE 1-2 tablets by MOUTH three TIMES A DAY needed 10/16 completed Not Available Not Available Not Available fluconazole 100 mg tablet TAKE 1 TABLET BY MOUTH ONCE DAILY 10/16 completed Not Available Not Available Not Available clotrimazol e 10 mg nam DISSOLVE 1 nam BY MOUTH 4 TIMES DAILY 10/16 completed Not Available Not Available Not Available desonide 0.05 % topical cream Apply AM and PM around nose and behind ears and face for a up to a few days when needed active Not Available Not Available No t Available Levoxyl 150 mcg tablet TAKE 1 TABLET BY MOUTH DAILY active Not Available Not Available No t Available clonidine HCl 0.1 mg tablet TAKE 1 TABLET BY MOUTH nightly active Not Available Not Available No t Available doxycycline hyclate 100 mg capsule TAKE 1 CAPSULE BY MOUTH DAILY 10/16 completed Not Available Not Available Not Available atorvastati n 20 mg tablet TAKE 1 TABLET BY MOUTH AT BEDTIME active Not Available Not Available No t Available tizanidine 2 mg tablet TAKE 1 TABLET BY MOUTH THREE TIMES DAILY NEEDED FOR MUSCLE spasticit y. d/c flexeril. DO not drive MAY cause drowsines s. no alcohol 02/04 completed Not Available Not Available Not Available tizanidine 4 mg tablet TAKE 1 TABLET BY MOUTH every 8 hours NEEDED FOR MUSCLE spasticit y 02/04 completed Not Available Not Available Not Available FreeStyle Lancets 28 gauge USE ON fingertip TO check sugar TWICE daily active Not Available Not Available No t Available betamethaso ne, augmented 0.05 % topical cream Apply twice daily to worst areas of eczema as needed 10/16 completed Not Available Not Available Not Available metoprolol succinate ER 100 mg tablet,exte nded release 24 hr take 1 tablet by mouth twice a day active Not Available Not Available No t Available Zithromax Z-Trace 250 mg tablet Take 2 tablets 1 time a day for 1 day then one tablet daily for 4 days 2023 active Not Available Not Available Not Avai lable prazosin 5 mg capsule TAKE 1 CAPSULE BY MOUTH ONCE DAILY AT BEDTIME 10/16 completed Not Available Not Available Not Available amitriptyli ne 25 mg tablet TAKE 1 TABLET BY MOUTH DAILY 10/16 completed Not Available Not Available Not Available gabapentin 300 mg capsule TAKE 1 CAPSULE BY MOUTH THREE TIMES DAILY active Not Available Not Available No t Available mupirocin 2 % topical ointment APPLY A SMALL AMOUNT TO THE AFFECTED AREA BY TOPICAL ROUTE 2 TIMES PER DAY 2023 active Not Available Not Available Not Avai lable gabapentin 100 mg capsule TAKE 1 CAPSULE BY MOUTH THREE TIMES DAILY active Not Available Not Available No t Available epinephrine 0.3 mg/0.3 mL injection, auto-inject or intramusc ular as needed; 0.3mg inject as needed for allergic reaction active Not Available Not Available No t Available methylpredn isolone 4 mg tablets in a dose pack Take 1 tablet every day by oral route for 3 days, for inflammat ion of sinuses. 02/04 completed Not Available Not Available Not Available ketoconazol e 2 % topical cream Apply AM and PM dryness around nose active Not Available Not Available No t Available duloxetine 30 mg capsule,del ayed release TAKE 1 CAPSULE BY MOUTH TWICE DAILY active Not Available Not Available No t Available baclofen active Not Available Not Avai lable Not Available FreeStyle Lite Meter kit USE daily TO test sugar active Not Available Not Available No t Available FreeStyle Lite Strips USE 1 strip TO test sugar TWICE daily active Not Available Not Available No t Available Paxlovid 300 mg (150 mg x 2)-100 mg tablets in a dose pack Take 1 dose pk twice a day by oral route for 5 days, for covid. 2023 active Not Available Not Available Not Avai lable Vitals Date Recorded Respiratory rate Body height Body mass index (BMI) Body weight Body temperature Heart rate Oxygen saturation Oxygen saturation in Arterial blood by Pulse oximetry Systolic blood pressure Diastolic blood pressure Provider Name and Address Organization Details Last Updated DateTime 4 18 /min 149.86 cm 40 kg/m2 15689.2 9 g 98.8 [degF] 60 /min 99 % 99 % 88 mm[Hg] 48 mm[Hg] Luda Marier PA - [facility] 4 13:34:44 Date Recorded Body height Body temperature Body mass index (BMI) Body weight Respiratory rate Heart rate Oxygen saturation Oxygen saturation in Arterial blood by Pulse oximetry Systolic blood pressure Diastolic blood pressure Provider Name and Address Organization Details Last Updated DateTime 4 149.86 cm 101.7 [degF] 40.6 kg/m2 30391.0 7 g 18 /min 88 /min 97 % 97 % 139 mm[Hg] 57 mm[Hg] Ashley Lequire PA - [facility] 4 08:45:01 Social History Question Answer Notes LastModified by Organizat ion Details LastModified Time Tobacco Smoking Status Former Smoker Luda Flako gibson PA - [facility] 10/17/2023 13:31:08 What Is Your Level Of Alcohol Consumption? None Information not available 10/17/2023 When Did You Quit Smoking? 16+yearssin celastcivivi etsalty Information not available 10/17/2023 Have You Had A Flu Shot This Season? No Information not available 10/17/2023 If No, Would You Like A Flu Shot Today? No Information not available 10/17/2023 Have You Had Direct Contact, Or Contact During Intimacy, With Monkeypox Rash, Scabs, Or Body Fluids From A Person With Monkeypox? No Information not available 10/17/2023 What Was The Date Of Your Most Recent Tobacco Screening? 10/17/2023 Information not available 10/17/2023 Do You Use Any Illicit Or Recreational Drugs? No Information not available 10/17/2023 Have You Recently Traveled Abroad? No Information not available 10/17/2023 Do You Or Have You Ever Used Any Other Forms Of Tobacco Or Nicotine? No Information not available 10/17/2023 Sex: Unknown Functional Status None recorded. Mental Status None recorded. Family History Relationship Description Onset Age of this Age Resolved Age Notes LastModified by Organization Details LastModified Time Father No current problems or disability Not available 10/16 13:30:44 Mother No current problems or disability Not available 10/16 13:30:44 Medical History No medical history recorded. Gynecological HistoryNo gynecological history recorded. Obstetrics History GPAL:G 0 P 0 0 0 0 Immunizations Vaccine Type Date Status Note Provider Nam e and Address Organization Details Recorded Time COVID-19, mRNA, LNP-S, PF, 100 mcg/0.5mL dose or 50 mcg/0.25mL dose 02/01/2021 completed SERA Gamez [facility] 10/17/2023 13:17:32 COVID-19, mRNA, LNP-S, PF, 100 mcg/0.5mL dose or 50 mcg/0.25mL dose 03/01/2021 completed SERA Gamez [facility] 10/17/2023 13:17:32 COVID-19, mRNA, LNP-S, PF, 100 mcg/0.5mL dose or 50 mcg/0.25mL dose 03/25/2021 completed SERA Gamez [facility] 10/17/2023 13:17:32 Past Encounters Encounter ID Performer Location Encounter Start Date Encounter Closed Date Diagnosis/Indication Diagnosis SNOMED-CT Code Diagnosis ICD10 Code Diagnosis Note [id number] [address] [place] [id number] 03/08/2020 14:15:01 03/08/2020 15:20:53 [id number] [address] [place] [id number] 03/13/2018 09:28:38 03/13/2018 09:54:17 [id number] [address] [place] [id number] 08/16/2016 16:55:30 08/16/2016 17:47:31 [id number] Josephine Waldron NP [address] [place] [id number] 10/17/2023 12:35:58 10/17/2023 15:35:39 Evidence of recent epistaxis 921709329 R04.0 How can you care for yourself at home?If you get another nosebleed: Gently blow your nose to clear any clots.Sit up and tilt your head slightly forward. This keeps blood from going down your throat.Use your thumb and index finger to pinch the front, soft part of your nose shut for at least 5 minutes. Use a clock. Do not check to see if the bleeding has stopped before the 5 minutes are up. If the bleeding has not stopped, pinch your nose shut for another 10 minutes. Using a nasal decongesta nt spray such as oxymetazol ine (Afrin) before pinching your nose can also help to stop the bleeding. Be safe with medicines. Read and follow all instructio ns on the label.When the bleeding has stopped, try not to pick, rub, or blow your nose for several hours. Avoiding these things helps keep your nose from bleeding again.To prevent nosebleeds Do not blow your nose too hard.Try not to lift or strain after a nosebleed. Raise your head on a pillow while you sleep.Put a thin layer of a saline- or water-base d nasal gel, such as NasoGel, inside your nose. Put it on the septum, which divides your nostrils. This will prevent dryness that can cause nosebleeds .Use a vaporizer or humidifier to add moisture to your bedroom. Follow the directions for cleaning the machine.Do not use aspirin, ibuprofen (Advil, Motrin), or naproxen (Aleve) for 36 to 48 hours after a nosebleed unless your doctor tells you to. You can use acetaminop hen (Tylenol) for pain relief.Stevenson k to your doctor about stopping any other medicines you are taking. Some medicines may make you more likely to get a nosebleed. Do not use cold medicines or nasal sprays without first talking to your doctor. They can make your nose dry.Do not snort tobacco, drugs, or any other drying substances up your nose. Upper resp iratory infection 97733344 J06.9 Based on your Presentati on, Exam, and Lab Testing you are being diagnosed with Upper respirator y track infection Your covid test was negative Covid is caused by a virus that is highly contagious . If you have any family member that have been exposed they typically will start to show symptoms in 48-72 hours. You are considered contagious for 5 Days after the start of the fever. You should isolate and not go to work, sports, events during this quarantine period. The following are my recommenda tions to help with your symptoms while your body fights this infection: 1. Take Ibuprofen or Tylenol if you do not have any allergies to these medication s. If you take a blood thinner you should not take NSAIDS like Ibuprofen. These medication will help with the inflammati on in your respirator y tract which should help the cough.2. Do not take any decongesta nts at this time because this will dry out that tract too much. If you have a lot of nasal congestion you can try nasal decongesta nts, but I would not take them more than 5 days.3. Use a humidifier or add a cup of water by your bed. Sometimes if our sleeping environmen t is too dry this can lead to cough4. Salt Water Gargles5. Saline nasal spray is helpful.6. Would recommend taking a antihistam ine to help with the congestion .7. Clean Surfaces regularly and try to stay isolated from family members. I would be seen again if you develop any of the following. 1. Cough develops last longer than 3 weeks.2. Develop shortness of breath or wheezing.3 . Severe Headache with vision changes4. Stiff Neck5. Fever does not reduce a few points with Ibuprofen or Tylenol. I would go immediatel y to the Emergency Room if you develop:1. Chest Pain2. Severe Shortness of breath3. Coughing up Blood. I would be seen again if you develop any of the following symptoms.1 . Fever > 101.02. Stiff neck - where you can't turn your neck3. Trouble swallowing your saliva - drooling4. Swelling of a lymph node in your throat that is painful to touch5. Difficulty breathing6 . Severe Headache Thank you for using [facility] today, please feel free to contact our office if you have any questions or concerns. [id number] Josephine Waldron NP [address] [address] 02/05/2024 08:08:20 02/05/2024 09:23:10 Acute COVID-19 [id number] U07.1 Based on your Presentati on, Exam, and Lab Testing you are being diagnosed with acute Pharyngiti s.Based on your Presentati on and Exam you are being diagnosed with Influenza. Your covid test was positive Covid is caused by a virus that is highly contagious . If you have any family member that have been exposed they typically will start to show symptoms in 48-72 hours. You are considered contagious for 5 Days after the start of the fever. You should isolate and not go to work, sports, events during this quarantine period. The following are my recommenda tions to help with your symptoms while your body fights this infection: 1. Take Ibuprofen or Tylenol if you do not have any allergies to these medication s. If you take a blood thinner you should not take NSAIDS like Ibuprofen. These medication will help with the inflammati on in your respirator y tract which should help the cough.2. Do not take any decongesta nts at this time because this will dry out that tract too much. If you have a lot of nasal congestion you can try nasal decongesta nts, but I would not take them more than 5 days.3. Use a humidifier or add a cup of water by your bed. Sometimes if our sleeping environmen t is too dry this can lead to cough4. Salt Water Gargles5. Saline nasal spray is helpful.6. Would recommend taking a antihistam ine to help with the congestion .7. Clean Surfaces regularly and try to stay isolated from family members. I would be seen again if you develop any of the following. 1. Cough develops last longer than 3 weeks.2. Develop shortness of breath or wheezing.3 . Severe Headache with vision changes4. Stiff Neck5. Fever does not reduce a few points with Ibuprofen or Tylenol. I would go immediatel y to the Emergency Room if you develop:1. Chest Pain2. Severe Shortness of breath3. Coughing up Blood. I would be seen again if you develop any of the following symptoms.1 . Fever > 101.02. Stiff neck - where you can't turn your neck3. Trouble swallowing your saliva - drooling4. Swelling of a lymph node in your throat that is painful to touch5. Difficulty breathing6 . Severe Headache Thank you for using [facility] today, please feel free to contact our office if you have any questions or concerns. Acute bila teral otitis media [id number] H66.93 Health Concerns Section Related Observation LastModified by Organization Liz davis LastModified Time None Recorded Concern Status LastModified by Organization Details LastModified Time None Recorded Advance Directives Directive None Recorded Payers Encounter Date Sequence Insurance Name Policy Number Policy Hollins Covered Member ID Hollins Member ID Guarantor Name 03/08/2020 1 [facility] [id number] Katya Boateng [id number] Katya Boateng 10/17/2023 1 [employer] [facility] Katya Boateng [id number] Katya Boateng 02/05/2024 1 [employer] [facility]) Katya Boateng [id number] Katya Boateng Notes Date Note Type Note Provider Name and Address Organization Details Recorded Time 4 text/html patient comes in for congestion x1 week. used nasal spray Thursday and now nasal membranes are bleeding-mostly L side. Ear pain, with post nasal drip. 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 Josephine Waldron NP [address] [place], [address], [place] [facility] 10/17/2023 18:55:32 4 text/html CoughReported bypatient.source of patient informationInformation obtained from patient; Patient arrived at Urgent Care ambulatory Quality:barking;dry; symptoms worse with lying down Severity:moderate Duration:3 days Timing:worsening; gradual Context:co-workers ill with similar symptoms; Patient denies vaping; non-smoker Modifying Factors:at night Associated Symptoms:no chest pain; no heartburn; no vomiting; no edema; no agitation; no wheezing;fever;chills;nause a;post nasal drip 63 YOF presents with cold sx after exposure to covid at work. Josephine Waldron NP [address] [place], [address], [place] [facility] 02/05/2024 09:22:37 OBGyn Episode No OBEpisode recorded.
--- OUTSIDE RECORDS SUMMARY | 2024-09-05 15:55 | XMS_ITS | Encounter Summary ---
Author Organization [facility] Address [address] [place] [address] Care Team Providers Care Sales Driver Name Role Phone Unavailable Primary Care Provider Unavailabl e Encounter Details Date Type Department Care Team (Late st Contact Info) Description 10/08/2020 Lab Requisition [facility] [address] Through [address] [place] [phone] Raad Maldonado MD [address] [place], [place] [id number] Encounter for laboratory testing for COVID-19 virus Social History Tobacco Use Types Packs/Day Years Used Date Smoking Tobacco: Never Assessed Sex and Gender Information Value Date Recorded Sex Assigned at Not on file Gender Identity Not on file Sexual Orientation Not on file documented as of this encounter Plan of Treatment Not on file documented as of this encounter Procedures Procedure Name Priority Date/Time Associated Diagnosis Comments COVID-19 (SARS-COV-2) KEVIN Routine 10/08/2020 9:32 AM EDT Encounter for laboratory testing for COVID-19 virus [ICD-10-CM] documented in this encounter Results * COVID-19 (SARS-CoV-2), KEVIN (In-House) (10/08/2020 9:32 AM EDT) SARS CoV 2 Not Detected Not Detected 10/08/2020 10:49 AM EDT [facility] Comment: Negative results do not preclude SARS-CoV-2 (COVID-19)infection and should not be used as the sole basis for treatment or other patient management decisions. The SARS-CoV-2 (Covid-19) Nucleic Acid Amplification Assay is limited to laboratories certified under the Clinical Laboratory Improvement Amendments of 1988 (CLIA), 42 U.S.C. 263a, to perform high complexity tests. Nucleic acid amplication tests include RT-PCR and TMA. This assay has not been FDA cleared or approved, however, this assay has been authorized by the Food and Drug Administration (FDA) under an Emergency Use Authorization (EUA). ??Validation was completed and performance characteristics established by [facility] as per the FDA and CLIA requirement for this EUA. The [employer] RealTime SARS-CoV-2 assay Letter of Authorization, along with the authorized Fact Sheet for Healthcare Providers, the authorized Fact Sheet for Patients, and authorized labeling are available on the FDA website: https://www.fda.gov/MedicalDevices/Safety/EmergencySituations/rdr357381.htm. Performed at [facility], [place], [place] License 0385 ??CLIA [id number] Source Nasopharyngeal 10/08/2020 10:49 AM EDT [facility] Comment:Performed at [facility], [place], [place] license No. [id number] CLIA No. [id number] Microbiology Nasopharyngeal swab / Unknown 10/08/2020 9:32 AM EDT 10/08/2020 9:32 AM EDT Raad Maldonado MD MICROBIOLOGY - GENER AL ORDERABLES [facility] [address] [place] [phone] documented in this encounter Visit Diagnoses Diagnosis Encounter for laboratory testing for COVID-19 virus documented in this encounter
== END 2024-09-05 13:23 | disposition home or self-care (01) ==
LOC: HO.LAB 13:22
PROVIDERS: PCP Internal Medicine; Visit Provider Internal Medicine Cardiovascular Disease
DX: E87.5 Hyperkalemia (principal)
CPT/HCPCS: 36415; 80048; 80061; 84450; 84460

== ENCOUNTER 2024-10-12 08:18 | Outpatient (AMB) | payer OTHER, SELFPAY ==
--- OUTSIDE RECORDS SUMMARY | 2024-10-12 08:28 | XMS_ITS | Clinical Summary ---
Author Organization [facility] Address [address] [place] [address] Care Team Providers Care Vineyardist Name Role Phone Unavailable Primary Care Provider Unavailabl e Social History Tobacco Use Types Packs/Day Years Used Date Smoking Tobacco: Never Assessed Comments Unknown Sex and Gender Information Value Date Recorded Sex Assigned at Not on file Legal Sex Female 9:19 AM EDT Gender Identity Not on file Sexual Orientation Not on file Plan of Treatment Health Maintenance Due Date Last Done Comments Hepatitis C Virus Screening 1961 HIV Screening 1974 DTaP/Tdap/Td Vaccines (1 - Tdap) 02/11/1980 Pap Smear (Ages 21-65) 1982 Mammogram 2001 Colonoscopy 2006 Pneumococcal Vaccines 50+ (1 of 1 - PCV) 2011 Zoster (Shingles) Vaccine (1 of 2) 2011 COVID-19 Vaccine ( - 2023-2 5 season) 2024 Influenza Vaccine 12/30/2024 RSV Vaccine 60 years and old er and Patients (1 - 1-dose 75+ series) 02/11/2036 Hepatitis B Vaccines Aged Out No long er eligible based on patient's age to complete this topic Insurance [employer] [place]
--- OUTSIDE RECORDS SUMMARY | 2024-10-12 08:29 | XMS_ITS | Encounter Summary ---
Author Organization [facility] Address [address] [place] [address] Phone Care Team Providers Care Education Diagnostician Name Role Phone Maira Uriarte MD Primary Care Provider [phone] Encounter Details Date Type Department Care Team ([facility] Contact Info) Description 10/13/2022 Telephone [facility] [address] [place] [phone] Deja Morales Social History Tobacco Use Types [...] on filedocumented in this encounter Care Teams Education Diagnostician Relationship Specialty Start Date End Date Maira Uriarte MD [address] [facility] [address] [place] [address] PCP - General Internal Medicine 11/21/21 documented as of this encounter
--- OUTSIDE RECORDS SUMMARY | 2024-10-12 08:29 | XMS_ITS | Encounter Summary ---
Author Organization [facility] Address [address] [place] [phone] Care Team Providers Care Steward/[employer] Name Role Phone Unavailable Primary Care Provider Unavailabl e Encounter Details Date Type Department Care Team (Late st Contact Info) Description 10/12/2020 Erroneous Encounter [facility] CONVERSION DEPT [address] [place] [phone] Albina Christine PA [address] [address] Social History Tobacco Use Types Packs/Day Years [...]
--- OUTSIDE RECORDS SUMMARY | 2024-10-12 08:29 | XMS_ITS | Encounter Summary ---
Author Organization [facility] Address [address] [place] [address] Care Team Providers Care Publication Editor Name Role Phone Unavailable Primary Care Provider Unavailabl e Encounter Details Date Type Department Care Team (Late st Contact Info) Description 10/08/2020 Lab Requisition [facility] [address] Through [address] [place] [phone] Raad Maldonado MD [address] [place], [place] [phone] Encounter for laboratory testing for COVID-19 virus [...] Detected Not Detected 10/08/2020 10:49 AM EDT [facility] Comment: Negative results do not [...] was completed and performance characteristics established by [facility] as per the FDA and CLIA requirement for this EUA. The [employer] RealTime SARS-CoV-2 assay Letter of Authorization, along with the authorized Fact Sheet for Healthcare Providers, the authorized Fact Sheet for Patients, and authorized labeling are available on the FDA website: https://www.fda.gov/MedicalDevices/Safety/EmergencySituations/itl484758.htm. Performed at [facility], [place], [place] ??[place] License 0385 ??CLIA [id number] Source Nasopharyngeal 10/08/2020 10:49 AM EDT [facility] Comment:Performed at [facility], [facility], [place] license No. [id number] CLIA No. [id number] Microbiology Nasopharyngeal swab / Unknown 10/08/2020 9:32 AM EDT 10/08/2020 9:32 AM EDT us Raad Maldonado MD MICROBIOLOGY - GENERAL ORDER LARRY Final Result [facility] [address] [place] [phone] documented in this encounter Visit Diagnoses Diagnosis Encounter for laboratory testing for COVID-19 virus documented in this encounter
--- OUTSIDE RECORDS SUMMARY | 2024-10-12 08:29 | XMS_ITS | Clinical Summary ---
Author Organization [facility] Address [address] [place] [phone] Phone Care Team Providers Care Tray Casting Machine Operator Name Role Phone Maira Uriarte MD Primary Care Provider [phone] Allergies Active Allergy Reactions Criticality Noted Date [...] Comments Breast Cancer Screening 1961 Pneumococcal Vaccine: 50+ Ye ars (1 of 2 - PCV) 02/11/1980 Colorectal Cancer Screening: Annual FOBT 2010 Colorectal Cancer Screening: Colonoscopy 2010 Colorectal Cancer Screening: Sigmoidoscopy 2010 Diabetes: Hemoglobin A1C 03/08/2024 Diabetes: Ophthalmology Exam 03/08/2024 Diabetes: Pedal Pulse Checked 03/08/2024 Diabetes: Sensory Foot Exam 03/08/2024 Diabetes: Visual Foot Exam 03/08/2024 Influenza Vaccine (Season Ended) 2025 Hepatitis B Vaccine Aged Out No longe r eligible based on patient's age to complete this topic Insurance [employer] Care Teams Tray Casting Machine Operator Relationship Specialty Start Date End Date Maira Uriarte MD [address] [place] [phone] PCP - General Internal Medicine 6/23/22
--- OUTSIDE RECORDS SUMMARY | 2024-10-12 08:29 | XMS_ITS | Data Portability ---
Author Organization [facility], [facility] Address [address] [place] [address] Care Team Providers Care Parts Sales Representative Name Role Phone MERLY OVIEDO Primary Care [...] satisfaction; surgery to be scheduled with my nursing secretary. samara Not available 05/16/2024 10:31:11 09/14/2024 09/14/2024 64-year-old female presents today with findings consistent with a symptomatic right long finger flexor tenosynovitis. I reviewed conservative treatment options. Recommended cortisone injection of the flexor tendon sheath. She was to proceed. She elected to follow-up symptomatically going forward. [email or web address] Not available 09/14/2024 11:16:54 Plan of Treatment Reminders Order Date Submit Date Provider Last Modified By Organization Details Last Modified Time Details Appointments None recorded. Lab None recorded. Referral None recorded. Procedures None recorded. Surgeries None recorded. Imaging XR, hand, 3 or more view - new eval right hand pain room 103 2024 025 [email or web address], [address], [address], [place], [address], 5 09:54:02 XR, finger(s), 2 or more view - left hand middle finger 3v , room 111 2023 024 [facility], [address], [address], [place], [address], 4 15:25:48 XR, finger(s), 2 or more view - re do lateral view per bc , middle finger left hand 2023 024 [facility], [address], [address], [place], [address], 4 15:25:49 Medication Orders Kenalog 40 mg/mL suspension for injection 2023 024 [email or web address] 1 Not available 5 10:25:08 Patient TargetsNo targets recorded. Patient InstructionsNo instructions recorded. Reason for Referral None Reported. Results Created Date Observation Date Name Description Value Unit Range Abnormal Flag Note LastModifiedBy Organization Detail LastModifiedTime 02/17/20 24 02/17/2024 XR, finge r(s), 2 or more view [email or web address]:/ [email or web address] ?Encry pted=s hAaTro YD8dLq bEUv6g %2BXZw aYqtaq 0bqfl% 2Fg9IQ a4ajBk vP9nXo QUaueC m3YtLR FvZlgJ JJ8mAn HZtai3 8q4008 AC0Kqa niDVau kKiQtr MwF INTERFACE [facility] [address], [place], [address], 02/17/2024 10:37:13 02/17/20 24 02/17/2024 XR, finge r(s), 2 or more view [email or web address]:/ [email or web address] ?Encry pted=s hAaTro YD8dLq bEUv6g %2BXZw aYqtaq 0bqfl% 2Fg9IQ a4ajBk vP9nXo QUaueC m3YtLR FvZlgJ JJ8mAn HZtai3 5i8379 AC0Kqa niDVau kKiQtr MwF INTERFACE [facility] [address] [facility] [address], [place], [address], 02/17/2024 10:37:14 02/17/20 24 02/17/2024 XR, finge r(s), 2 or more view [email or web address]:/ [email or web address] ?Encry pted=s hAaTro YD8dLq bEUv6g %2BXZw aYqtaq 0bqfl% 2Fg9IQ a4ajBk vP9nXo QUaueC m3YtLR FvZlgJ JJ8mAn HZtai3 6u9019 AC0Kqa niDV6W iKiQtr MwF INTERFACE [facility] [address] [facility] [address], [place], [address], 02/17/2024 10:37:16 02/17/20 24 02/17/2024 XR, finge r(s), 2 or more view [email or web address]:/ [email or web address] ?Encry pted=s hAaTro YD8dLq bEUv6g %2BXZw aYqtaq 0bqfl% 2Fg9IQ a4ajBk vP9nXo QUaueC m3YtLR FvZl JJ8mAn HZtai3 3u0153 AC0Kqa niDV6W iKiQtr MwF INTERFACE [facility] [address] [facility] [address], [place], [address], 02/17/2024 10:37:17 09/15/19 25 09/14/2024 XR, hand, 3 or more view [email or web address]:/ [email or web address] ?Encry pted=s hAaTro YD8dLq bEUv6g %2BXZw aYqtaq 0bqfl% 2Fg9IQ a4ajBk vP9nXo QUaueC m3YtLR FvZlgJ JJ8mAn HZtai3 1r8820 AC0KqY 3qDUaS jKiQtr MwF INTERFACE [facility] [address], [place], [address], 09/14/2024 10:31:53 09/15/19 25 09/14/2024 XR, hand, 3 or more view [email or web address]:/ [email or web address] ?Encry pted=s hAaTro YD8dLq bEUv6g %2BXZw aYqtaq 0bqfl% 2Fg9IQ a4ajBk vP9nXo QUaueC m3YtLR FvZlgJ JJ8mAn HZtai3 1e9007 AC0KqY 3qDUaS jKiQtr MwF INTERFACE [facility] [address], [place], [address], 09/14/2024 10:31:55 Result Notes None recorded. Problems Name Problem SNOMED Code Status Onset Date Resolution Date Notes Provider Name and Address Organization Details Recorded Time No complaints 581486954 Active Status : 'A'; Not Available [facility] 4 09:25:36 Pain in right hand 8432544573078 09 Active 2024 Dragan Rios PA-C [address], [place], [address] , [facility] 5 08:21:03 Triggering of digit 220921932 Active 2024 Dragan Rios PA-C [address], [place], [address] , [facility] 5 11:17:02 Trigger finger of left hand 2999441057399 9107 Active 2023 Dragan Rios PA-C [address], [place], [address] , [facility] 4 08:10:35 Dupuytren' s disease of palm of left hand 2919271359969 9104 Active 2023 Dragan Rios PA-C [address], [place], [address] , [facility] 08:10:47 Problem Notes None recorded. Procedures Surgical History Date Name Laterality Status Provider Name and Address Organization Details Recorded Time 09/15/19 25 Tendon Sheath Kenalog Injection, L/R completed Dragan Rios PA-C [address], [place], [address], [facility] 09/14/2024 11:16:33 09/02/19 24 Tendon Sheath Kenalog Injection, L/R completed Dragan Rios PA-C [address], [place], [address], [facility] 09/02/2023 11:13:48 10/13/19 21 Orthopedic Surgery completed KAYLIA L'HEUREUX [facility] 09/14/2024 08:59:41 10/13/19 21 Other completed KAYLIA L'HEUREUX [facility] 09/14/2024 10:25:09 11/14/19 16 Knee Surgery completed KAYLIA L'HEUREUX [facility] 09/14/2024 10:25:09 11/14/19 15 Arthroplasty completed KAYLIA L'HEUREUX [facility] 09/14/2024 08:59:41 10/24/19 01 Other completed KAYLIA L'HEUREUX [facility] 09/14/2024 10:25:09 11/24/19 00 Other completed KAYLIA L'HEUREUX [facility] 09/14/2024 10:25:09 11/23/19 00 Gastrointestinal Surgery completed KAYLIA L'HEUREUX [facility] 09/14/2024 08:59:41 Imaging Results Imaging Date Name Status LastModified by Organiz ation Details LastModified Time 02/17/2024 XR, finger(s), 2 or more view completed INTERFACE [facility] [address], [place], [address], 02/17/2024 10:37:13 02/17/2024 XR, finger(s), 2 or more view completed INTERFACE [facility] [address], [place], [address], 02/17/2024 10:37:14 02/17/2024 XR, finger(s), 2 or more view completed INTERFACE [facility] [address], [place], [address], 02/17/2024 10:37:16 02/17/2024 XR, finger(s), 2 or more view completed INTERFACE [facility] [address], [place], [address], 02/17/2024 10:37:17 09/14/2024 XR, hand, 3 or more view completed INTERFACE [facility] [address], [place], [address], 09/14/2024 10:31:53 09/14/2024 XR, hand, 3 or more view completed INTERFACE [facility] [address], [place], [address], 09/14/2024 10:31:55 Procedure Notes None recorded. Medical Equipment None Reported. Allergies Allergen ID Allergen Name Allergen Category Reaction Reaction Severity Criticality Documentation Date Start Date Code Code System Note Provider Name and Address Organization Details Recorded Time 646881 POLLEN EXTRACTS environme nt,medica tion Not available Not available Not available 09/14/2024 48080 6 RxNorm KAYLIA L'HEUREUX null, [place] - [facility] 5 10:25:07 827936 sunscreen medicatio n edema Not available Not available 09/14/2024 50329 UNK KAYLIA L'HEUREUX null, [place] - [facility] 5 10:25:07 072482 prazosin medicatio n edema moderate Not available 09/14/2024 8629 RxNorm KAYLIA L'HEUREUX null, [facility] 5 10:25:07 666242 red dye food,medi cation Not available Not available Not available 09/14/2024 30013 UNK BARBARAIA L'HEUREUX null, [facility] 5 10:25:07 254537 purified protein derivativ e of tuberculi n medicatio n hives Not available Not available 09/14/20241993 8948 RxNorm KAYLIA L'HEUREUX null, [facility] 5 10:25:07 464345 Product containin g hydrogen/ potassium adenosine triphosph atase enzyme system inhibitor (product) medicatio n other Not available Not available 09/14/2024 94164 5006 SNOMED JOANNYLIA L'HEUREUX null, [facility] 5 10:25:07 919396 Anaphylax is Bee Sting medicatio n Not available Not available Not available 09/14/2024 79245 UNK KAYLIA L'HEUREUX null, [facility] 5 10:25:07 958309 tetanus immune globulin F(ab')2 (equine) Not available Not available Not available Not available 09/14/2024 45386 UNK KAYLIA L'HEUREUX null, [facility] 5 10:25:07 658292 ragweed pollen environme nt Not available Not available Not available 09/14/2024 29960 UNK KAYLIA L'HEUREUX null, [facility] 5 10:25:07 385333 weed pollen environme nt,medica tion Not available Not available Not available 09/14/2024 58959 UNK KAYLIA L'HEUREUX null, [facility] 5 10:25:07 269040 grass pollen environme nt,medica tion Not available Not available Not available 09/14/2024 86642 UNK KAYLIA L'HEUREUX null, [facility] 5 10:25:07 563681 mold extract environme nt Not available Not available Not available 09/14/2024 98944 8 RxNorm MARK gibson [place] - [facility] 5 10:25:07 38073 oxycodone hydrochlo ride medicatio n Not available Not available Not available 08/03/20232014 85150 RxNorm Aller gyRea ction : 'Skin React ion'; Not Available [facility] 4 13:27:20 44256 Dilaudid medicatio n Not available Not available Not available 08/03/20232014 83351 3 RxNorm Aller gyRea ction : 'Skin React ion'; Not Available [facility] 4 13:27:20 39516 Oxycontin medicatio n Not available Not available Not available 08/03/20232014 58778 6 RxNorm Aller gyNam e: 'Oxyc ontin Tb12' ; Aller gyRea ction : 'Skin React ion'; Not Available [facility] 4 13:27:20 08897 amlodipin e besylate medicatio n Not available Not available Not available 08/03/20232022 28701 6 RxNorm Not Available [facility] 4 13:27:20 84441 Reglan medicatio n Not available Not available Not available 08/03/20232014 9230 RxNorm Not Available [facility] 4 13:27:20 71323 acetamino phen / codeine medicatio n Not available Not available Not available 08/03/20232014 69447 9 RxNorm Aller gyNam e: 'Tyle nol/c odein e #3 Tabs' ; Not Available [facility] 4 13:27:20 22819 Ultram medicatio n Not available Not available Not available 08/03/20232014 09167 6 RxNorm Not Available [facility] 4 13:27:21 08584 Keflex medicatio n Not available Not available Not available 08/03/20232014 06747 7 RxNorm Not Available [facility] 4 13:27:21 42793 acetamino phen / hydrocodo ne medicatio n Not available Not available Not available 08/03/20232014 87567 2 RxNorm Not Available [facility] 4 13:27:21 66206 erythromy nuris medicatio n Not available Not available Not available 08/03/20232014 4053 RxNorm Not Available [facility] 4 13:27:21 92482 amoxicill in trihydrat e medicatio n Not available Not available Not available 08/03/20232014 31320 8 RxNorm Not Available [facility] 4 13:27:21 41571 Bactrim medicatio n Not available Not available Not available 08/03/20232022 26826 9 RxNorm Not Available [facility] 4 13:27:21 57328 codeine medicatio n Not available Not available Not available 08/03/20232014 2670 RxNorm Not Available [facility] 4 13:27:21 63111 latex environme nt,medica tion Not available Not available Not available 08/03/20232014 73381 91 RxNorm Not Available [facility] 4 13:27:21 47010 Substance with sulfonami de structure and antibacte rial mechanism of action (substanc e) medicatio n Not available Not available Not available 08/03/20232014 78122 8003 SNOMED Not Available [facility] 4 13:27:22 Medications Name Sig Start Date Stop Date Status Note LastModified by Organization Details LastModified Time cyclobenzap rine 10 mg tablet 09/08 completed Not Available Not Available Not Available fluconazole 100 mg tablet 09/08 completed Not Available Not Available Not Available atorvastati n 40 mg tablet 40 mg every day by oral route. active Not Available Not Available No t Available clotrimazol e 10 mg nam 09/08 completed Not Available Not Available Not Available [...] No t Available gabapentin 600 mg tablet 600 mg 3 times a day by oral route. 09/08 completed Not Available Not Available Not Available doxycycline hyclate 100 mg capsule TAKE 1 CAPSULE BY MOUTH DAILY AND try TO taper down AND OR try stopping active Not Available Not Available No t Available atorvastati n 20 mg tablet 09/08 completed Not Available Not Available Not Available tizanidine 2 mg tablet 09/08 completed Not Available Not Available Not Available azithromyci n 250 mg tablet TAKE 2 TABLETS BY MOUTH TODAY THEN TAKE 1 TABLET DAILY FOR THE NEXT 4 DAYS 09/08 completed Not Available Not Available Not Available tizanidine 4 mg tablet 09/08 completed Not Available Not Available Not Available FreeStyle Lancets 28 gauge USE ON fingertip TO check sugar TWICE daily active Not Available Not Available No t Available betamethaso ne, augmented 0.05 % topical cream Apply AM and PM to worst areas of eczema as needed active Not Available Not Available No t Available metoprolol succinate ER 100 mg tablet,exte nded release 24 hr Take 1 tablet by mouth twice a day active Not Available Not Available No t Available hydralazine 25 mg tablet TAKE 1 TABLET BY MOUTH TWICE DAILY WITH food active Not Available Not Available No t Available amlodipine 5 mg tablet 09/08 completed Not Available Not Available Not Available Kenalog 40 mg/mL suspension for injection Take 0.8 mL by injection route. 09/08 completed Not Available Not Available Not Available prazosin 5 mg capsule 09/08 completed Not Available Not Available Not Available amitriptyli ne 25 mg tablet 09/08 completed Not Available Not Available Not Available OneTouch Ultra Test strips USE 1 strip TO SKIN ONCE DAILY active Not Available Not Available No t Available baclofen 10 mg tablet TAKE 1 TABLET BY MOUTH THREE TIMES DAILY 09/08 completed Not Available Not Available Not Available gabapentin 300 mg capsule 09/08 completed Not Available Not Available Not Available mupirocin 2 % topical ointment APPLY A SMALL AMOUNT TO THE AFFECTED AREA BY TOPICAL ROUTE 2 TIMES PER DAY 02/10 completed Not Available Not Available Not Available gabapentin 100 mg capsule 09/08 completed Not Available Not Available Not Available epinephrine 0.3 mg/0.3 mL injection, auto-inject or intramusc ular as needed; 0.3mg inject as needed for allergic reaction active Not Available Not Available No t Available methylpredn isolone 4 mg tablets in a dose pack TAKE BY MOUTH DIRECTED ON PACKAGE 09/08 completed Not Available Not Available Not Available ketoconazol e 2 % topical cream Apply to affected area in the AM and PM to dryness around nose active Not Available Not Available No t Available olmesartan 20 mg tablet 09/08 completed Not Available Not Available Not Available prednisolon e sodium phosphate 5 mg base/5 mL (6.7 mg/5 mL) oral soln TAKE 1 TEASPOONF UL -5ml- BY MOUTH TWICE DAILY FOR 7 DAYS GARGLE AND swallow 09/08 completed Not Available Not Available Not Available Hydralazide 25 mg-15 mg tablet 25 tablets twice a day by oral route. active Not Available Not Available No t Available duloxetine 30 mg capsule,del ayed release TAKE 1 CAPSULE BY MOUTH TWICE DAILY active Not Available Not Available No t Available pregabalin 100 mg capsule TAKE 1 CAPSULE BY MOUTH TWICE DAILY active Not Available Not Available No t Available estradiol Estradiol 0.025MG/2 4HR Patch Twice Weekly 05/07 completed Statu s: 'Disc ontin ued'; Not Available Not Available Not Available Januvia 100 mg tablet TAKE 1 TABLET BY MOUTH DAILY 09/08 completed Not Available Not Available Not Available FreeStyle Lite Meter kit USE daily TO test sugar active Not Available Not Available No t Available dapaglifloz in propanediol 10 mg tablet TAKE 1 TABLET BY MOUTH DAILY 09/08 completed Not Available Not Available Not Available OneTouch Delica Plus Lancet 33 gauge USE 1 needle TO SKIN ONCE DAILY active Not Available Not Available No t Available Paxlovid 300 mg (150 mg x 2)-100 mg tablets in a dose pack TAKE 3 TABS BY MOUTH TWICE DAILY IN THE MORNING AND BEDTIME FOR 5 DAYS 09/08 completed Not Available Not Available Not Available baclofen 15 mg tablet 15 mg 3 times a day by oral route. active Not Available Not Available No t Available Vitals Date Recorded Body height Body mass index (BMI) Body weight Provider Name and Address Organization Details Last Updated DateTime 09/02/2023 149.86 cm 38.6 kg/m2 86043.14 g Juana Downs [facility] 09/02/2023 10:23:51 Date Recorded Body height Body mass index (BMI) Body weight Provider Name and Address Organization Details Last Updated DateTime 02/17/2024 149.86 cm 38.6 kg/m2 26170.14 g Dulce Maria Karina [facility] 02/17/2024 10:06:51 Date Recorded Body height Body mass index (BMI) Body weight Provider Name and Address Organization Details Last Updated DateTime 05/16/2024 149.86 cm 38.4 kg/m2 57745.55 g JAQUELINE LAMAR [facility] 05/16/2024 08:43:55 Date Recorded Body height Body mass index (BMI) Body weight Provider Name and Address Organization Details Last Updated DateTime 09/14/2024 149.86 cm 38.4 kg/m2 77981.55 g MARK CALVILLO [facility] 09/14/2024 10:25:21 Social History Question Answer Notes LastModified by [employer] Details LastModified Time Tobacco Smoking Status [facility] 09/14/2024 10:25:09 When Did You Quit Smoking? 17+yearssin celastcivivi ette Information not available 09/14/2024 What Is Your Relationship Status? Single Information not available 09/14/2024 Sex: Unknown Functional Status Question Answer Note LastModified by [employer] Details LastModified Time How many times per week do you consume alcohol? Less than 1 time per week Information not available 09/14/2024 Do you use any illicit or recreational drugs? No Information not available 09/14/2024 Do you or have you ever used e-cigarettes or vape? Never used electronic cigarettes Information not available 09/14/2024 Mental Status None recorded. Family History Nothing Reported. Medical History Condition Response Anxiety/Depression Y Thyroid Problems Y Kidney/Bladder Problems Y Gastrointestinal Disease Y Diabetes Y Arthritis Y Acid Reflux (GERD) Y Stroke Y Sleep Apnea Y Hypertension Y Gynecological HistoryNo gynecological history recorded. Obstetrics History GPAL:G 0 P 0 0 0 0 Past Encounters Encounter ID Performer Location Encounter Start Date Encounter Closed Date Diagnosis/Indication Diagnosis SNOMED-CT Code Diagnosis ICD10 Code Diagnosis Note [id number] AZAEL Castillo [address] [place] [address] 09/02/2023 09:54:08 09/02/2023 11:20:05 Trigger finger of left hand [id number] 0149314 M65.332 Dupuytren' s disease of palm of left hand 6044835506 9507838 M72.0 [id number] AZAEL Castillo [address] [place] [address] 02/17/2024 09:49:41 03/09/2024 15:25:48 Trigger finger of left hand 9701704488 5087373 M65.332 Dupuytren' s disease of palm of left hand 4211520501 2894713 M72.0 Pain of left hand 122619 0020 18657 M79.213 [id number] MD Ira Robledo [address] [place] [address] 05/16/2024 08:27:14 06/03/2024 13:47:15 Trigger finger of left hand 5714127864 1188290 M65.725 [id number] AZAEL Castillo - Ira [address] [place] [address] 09/14/2024 10:14:10 09/27/2024 09:54:02 Pain in right hand 2025248910 44809 M79.641 Triggering of digit 2399 01963 M65.331 Health Concerns Section Related Observation LastModified by Organization Detai ls LastModified Time None Recorded Concern Status LastModified by Organization Details LastModified Time None Recorded Advance Directives Directive None Recorded Payers Encounter Date Sequence Insurance Name Policy Number Policy Hollins Covered Member ID Hollins Member ID Guarantor Name 09/02/2023 1 [employer] [facility] (PPO) Katya Schwartz Tasneem [id number] Katya Schwartz Tasneem 02/17/2024 1 [employer] [facility] (PPO) Katya Schwartz Tasneem [id number] Katya Cuellolin 05/16/2024 1 [employer] [facility] (PPO) Katya Schwartz Tasneem [id number] Katya Schwartz Tasneem 09/14/2024 1 [employer]UE [employer] [facility] [id number] Katya Schwartz Tasneem [id number] Katya Schwartz Tasneem Notes Date Note Type [...] ring finger. She returns today in follow [address]AEL [address], [place], [address], [facility] - [facility] 09/02/2023 11:14:34 02/17/2024 text/html I am seeing [...] without significant improvement. 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 Hayley Smith MD [address], [place], [address], [facility] 05/16/2024 10:31:25 09/14/2024 text/html I am seeing this patient under the supervision of Dr. Malloy who was available but who did not see the patient Chief Complaint: New evaluation for right hand pain HPI: 64-year-old female presents today reporting in January 2024 she developed atraumatic onset of triggering of the right index long and ring fingers. She reports that her symptoms occur intermittently, but is mostly bothered by the long finger. She has not had treatment of this. Presents today for evaluation Dragan Rios PA-C [address], [place], [address], [facility] 09/14/2024 11:17:24 OBGyn Episode No OBEpisode recorded.
--- OUTSIDE RECORDS SUMMARY | 2024-10-12 08:29 | XMS_ITS | Data Portability ---
Author Organization [facility], [address] Address [address] [place] [address] Assessment No assessment recorded. Plan of Treatment Reminders Order Date Submit Date Provider Last Modified By Organization Details Last Modified Time Details Appointments None recorded. Lab SARS CoV 2 (COVID-19) Ag, QL, IA, upper respiratory specimen 2023 024 [place] [id number]_[facility], [address] [place] [address], [phone], 4 09:12:53 rapid flu (A+B) 2023 024 [place] [address] _[facility], [address] [place] [address], [phone], 4 09:12:54 Referral None recorded. Procedures None recorded. Surgeries None recorded. Imaging None recorded. Medication Orders Zithromax Z-Trace 250 mg tablet 2023 024 [facility] [place], [address] [place], [address], 4 09:52:01 Paxlovid 300 mg (150 mg x 2)-100 mg tablets in a dose pack 2023 024 [facility] [place], [address] [place], [address], 4 09:52:01 methylpredn isolone 4 mg tablets in a dose pack 2023 024 [facility] [place], [address] [place], [address], 09:13:04 mupirocin 2 % topical ointment 2023 024 [facility] [place], [address] [place], [address], 09:24:40 Patient TargetsNo targets recorded. Patient Instructions Encounter Date Encounter Id Patient Instructions Last Modified By Organization Details Last Modified Time 10/17/2023 [id number] nosebleeds: care instructions Not available 10/17/2023 15:34:22 upper respirator y infection (cold): care instructions Not available 10/17/2023 15:33:16 enlarged turbinates: care instructions Not available 10/17/2023 15:33:16 02/05/2024 [id number] ear infection (otitis media): care instructions Not available 02/05/2024 09:14:19 Reason for Referral None Reported. Results Created Date Observation Date Name Description Value Unit Range Abnormal Flag Note LastModifiedBy Organization Detail LastModifiedTime 02/05/2002/05/2024 SARS CoV 2 (COVI D-19) Ag, QL, IA, upper respi rator y speci men Unknown Analyte positi ve Not Available [email or web address] [place], [address], 02/05/2024 08:45:08 02/05/20 24 02/05/2024 SARS CoV 2 (COVI D-19) Ag, QL, IA, upper respi rator y speci men Unknown Analyte yes Not Available [address] [place], [address], 02/05/2024 08:45:08 02/05/20 24 02/05/2024 rapid flu (A+B) Unknown Analyte negati ve Not Available [address] [place], [address], 02/05/2024 08:45:17 02/05/20 24 02/05/2024 rapid flu (A+B) Unknown Analyte negati ve Not Available [email or web address] [place], [address], 02/05/2024 08:45:17 02/05/20 24 02/05/2024 rapid flu (A+B) Unknown Analyte yes Not Available [email or web address] [place], [address], 02/05/2024 08:45:17 Result Notes None recorded. Problems Name Problem SNOMED Code Status Onset Date Resolution Date Notes Provider Name and Address Organization Details Recorded Time Hypertens adore disorder 73499425 Completed 202310/17/2023 Luda gibson PA - [facility] 13:30:24 Diabetes mellitus 91025211 Active 2023 Luda gibson PA - [facility] 13:30:29 Anxiety 77624850 Active 2023 Luda gibson PA - [facility] 13:30:40 Evidence of recent epistaxis 799250154 Active 2023 Josephine Waldron NP [address] [place], [address] , PA - [facility] 4 15:30:15 Upper respirato ry infection 02251018 Active 2023 Josephine Waldron NP [address] [place], [address] , PA - [facility] 4 15:30:54 Cerebrova scular accident 231279738 Completed 202302/05/2024 Ashley Edmond gibson PA - [facility] 4 08:40:52 Supravent ricular tachycard ia 1960527 Active [place] null, PA - [facility] 4 08:41:18 Acute COVID-19 9168862368 Active 2023 Josephine Waldron NP [address] [place], [address] , PA - [facility] 4 09:12:49 Acute bilateral otitis media 774315483 Active 2023 Josephine Waldron NP [address] [place], [address] , PA - [facility] 4 09:13:00 Problem Notes None recorded. Medical Equipment None Reported. Allergies Allergen ID Allergen Name Allergen Category Reaction Reaction Severity Criticality Documentation Date Start Date Code Code System Note Provider Name and Address Organization Details Recorded Time 938008 erythromy nuris medicatio n Not available Not available Not available 02/05/2024 4053 RxNorm Ashley [place] null, PA - [facility] 4 08:39:09 538609 amoxicill in medicatio n Not available Not available Not available 02/05/2024 723 RxNorm Ashley [place] null, PA - [facility] 4 08:39:15 330154 Keflex medicatio n Not available Not available Not available 02/05/2024 23434 7 RxNorm [place] null, PA - [facility] 4 08:39:24 938271 Bactrim medicatio n Not available Not available Not available 02/05/2024 28449 9 RxNorm [place] null, PA - [facility] 4 08:39:31 972516 Reglan medicatio n Not available Not available Not available 02/05/2024 9230 RxNorm Ashley [place] null, PA - [facility] 4 08:39:43 846802 amlodipin e medicatio n Not available Not available Not available 02/05/2024 03225 RxNorm Ashley [place] null, PA - [facility] 4 08:40:13 533753 bee pollen environme nt,medica tion Not available Not available Not available 02/05/2024 92532 7 RxNorm [facility] - [facility] [...] 4 18 /min 149.86 cm 40 kg/m2 67570.2 9 g 98.8 [degF] 60 /min 99 [...] 4 149.86 cm 101.7 [degF] 40.6 kg/m2 18210.0 7 g 18 /min 88 /min 97 % 97 % 139 mm[Hg] 57 mm[Hg] Ashley [place] PA - [facility] 4 08:45:01 Social History Question Answer Notes LastModified by CustEx Details LastModified Time Tobacco Smoking Status Former Smoker Luda Flako gibson PA [facility] 10/17/2023 13:31:08 When Did You Quit Smoking? 16+yearssinc elastcigaret te Information not available 10/17/2023 Have You Had [...] Tobacco Screening? 10/17/2023 Information not available 10/17/2023 Have You Recently Traveled Abroad? No Information not available 10/17/2023 Sex: Unknown Functional Status Question Answer Note LastModified by CustEx Details LastModified Time Do you use any illicit or recreational drugs? No Information not available 10/17/2023 Do you or have you ever used any other forms of tobacco or nicotine? No Information not available 10/17/2023 What is your level of alcohol consumption? None Information not available 10/17/2023 Mental Status None recorded. Family History Relationship [...] 50 mcg/0.25mL dose 02/01/2021 completed [facility] 10/17/2023 13:17:32 COVID-19, mRNA, LNP-S, PF, 100 mcg/0.5mL dose or 50 mcg/0.25mL dose 03/01/2021 completed [facility] 10/17/2023 13:17:32 COVID-19, mRNA, LNP-S, PF, 100 mcg/0.5mL dose or 50 mcg/0.25mL dose 03/25/2021 completed [facility] 10/17/2023 13:17:32 Past Encounters Encounter ID Performer Location Encounter Start Date Encounter Closed Date Diagnosis/Indication Diagnosis SNOMED-CT Code Diagnosis ICD10 Code Diagnosis [facility] [id number] [facility] [address] [place] [phone] 03/08/2020 14:15:01 03/08/2020 15:20:53 [id number] 2099[facility] [address] [place] [id number] 03/13/2018 09:28:38 03/13/2018 09:54:17 [id number] [facility] [address] [place] [id number] 08/16/2016 16:55:30 08/16/2016 17:47:31 [id number] Josephine Waldron NP [facility] [address] [place] [id number] 10/17/2023 12:35:58 10/17/2023 15:35:39 Evidence of recent epistaxis 321472781 R04.0 How can you care for yourself [...] up your nose. Upper resp iratory infection 20780810 J06.9 Based on your Presentati on, Exam, [...] . Severe Headache Thank you for using [employer] today, please feel free to contact our office if you have any questions or concerns. [id number] Josephine Waldron [place] [address] [address] 02/05/2024 08:08:20 02/05/2024 09:23:10 Acute COVID-19 2528576358 U07.1 Based on your Presentati on, Exam, [...] . Severe Headache Thank you for using [employer] today, please feel free to contact our office if you have any questions or concerns. Acute bila teral otitis media 676126371 H66.93 Health Concerns Section Related Observation LastModified by Organization Detai ls LastModified Time None Recorded Concern Status LastModified by Organization Details LastModified Time None Recorded Advance Directives Directive None Recorded Payers Insurance Date Sequence Insurance Name Policy Number Policy Hollins Covered Member ID Hollins Member ID Guarantor Name 02/05/2024 1 [employer] [facility] (PPO) Katya Boateng [id number] Katya Boateng 10/17/[address] [place] [address] [id number] Katya Boateng [id number] Katya Boateng 04/30/2022 [facility] Katya Boateng Notes Date Note Type Note Provider Name and Address Organization Details Recorded Time 4 text/html patient comes in for congestion x1 week. used nasal spray Thursday and now nasal membranes are bleeding-mostly L side. Ear pain, with post nasal drip. 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 Josephine Waldron NP [address] [place], [address], [employer] 10/17/2023 18:55:32 4 text/html CoughReported bypatient.source of [...] Josephine Waldron NP [address] [place], [address], [employer] 02/05/2024 09:22:37 OBGyn Episode No OBEpisode recorded.
[2024-10-12 08:37] VITALS: BP 177/74; PULSE 61; RESP 16; O2SAT 98; BMI 42.6
--- NOTE | 2024-10-12 08:37 | A.OFFVIS_ITS ---
Vital Signs 10/12/24 08:37 Height 4 ft 11 in Weight 211 lb BMI 42.6 BP 177/74 H Blood Pressure Location Lt radial Position Sitting Respiration 16 Pulse 61 Pulse Source Pulse Oximeter Pulse Oximetry (%) 98 Oxygen Delivery Method Room Air Intake Visit Reasons: 3 Month Follow Up Manager Hospital Required: No Allergies amlodipine Allergy (Mild, Verified 10/12/24 08:38) Unknown egg Allergy (Mild, Verified 10/12/24 08:38) Unknown erythromycin base Allergy (Mild, Verified 10/12/24 08:38) Unknown hydrocodone [From Vicodin] Allergy (Mild, Verified 10/12/24 08:38) Unknown sulfamethoxazole [From Bactrim] Allergy (Mild, Verified 10/12/24 08:38) Unknown tramadol Allergy (Mild, Verified 10/12/24 08:38) Unknown trimethoprim [From Bactrim] Allergy (Mild, Verified 10/12/24 08:38) Unknown amoxicillin Adverse Reaction (Mild, Verified 10/12/24 08:38) Unknown cephalexin [From Keflex] Adverse Reaction (Mild, Verified 10/12/24 08:38) Unknown codeine Adverse Reaction (Mild, Verified 10/12/24 08:38) Unknown metoclopramide [From Reglan] Adverse Reaction (Mild, Verified 10/12/24 08:38) Unknown morphine Adverse Reaction (Mild, Verified 10/12/24 08:38) Unknown oxycodone [From OxyContin] Adverse Reaction (Mild, Verified 10/12/24 08:38) Unknown prazosin Adverse Reaction (Mild, Verified 10/12/24 08:38) Unknown bee venom protein (honey bee) Adverse Reaction (Verified 10/12/24 08:38) Unknown latex Adverse Reaction (Verified 10/12/24 08:38) Unknown Medication List - Last Reconciled 10/12/24 by Brenda Haider LPN aspirin 325 mg PO DAILY atorvastatin 40 mg PO DAILY baclofen 15 mg PO TID betamethasone, augmented 0.05 % appl topical BID PRN blood sugar diagnostic (FreeStyle Lite Strips) As directed blood-glucose meter (FreeStyle Lite Meter kit) As directed clonidine HCl 0.1 mg PO BEDTIME desonide 0.05% appl topical BID doxycycline hyclate 100 mg PO DAILY duloxetine 30 mg PO BID epinephrine IM hydralazine 25 mg PO TID ketoconazole 2% appl topical BID lancets (FreeStyle Lancets) As directed levothyroxine (Levoxyl) 150 mcg PO DAILY metoprolol succinate ER 100 mg PO BID pregabalin (Lyrica) 100 mg PO BID HPI Comments Details: The patient is a 64-year-old female presenting for follow-up chronic pain. Recently started suffering with worsening lower back pain and pain over left PSIS. The pain worsens with activities such as prolonged sitting and yard work. A significant aspect of her condition is marked muscle spasms contributing to improper alignment, as revealed by massage therapy. Previous evaluations from rheumatology pointed towards degenerative disc disease without supportive imagin g findings. Her condition includes morning stiffness and extends discomfort from her hip to her back, which intensifies overnight causing sleep disturbances. Symptoms have led her to experience sensations similar to schuster splints. Sacroiliac joint dysfunction is evidenced by difficulty with sitting and standing activities, relieved minimally by stretching. Despite some improvements with massage th erapy, significant symptoms persist, particularly affecting her daily function and quality of life. Her medical history of inflammatory profiles with elevated BUN needs consideration for an overall therapeutic approach. - Onset & Timing: Chronic low back pain, with recent exacerbation after transient relief. - Quality & Character: Described as stiffness and spasmodic, interfering with alignment. - Location & Radiation: Primarily in the low back and left PSIS, radiating to hip and down left posterior thigh - Exacerbating Factors: Sitting, yard work, prolonged static posture, using stairs and lying on left side. - Relieving Factors: Massage therapy, stretching, temporary relief noted post- massage. - Interference: Interrupts sleep, hinders daily activity, particularly in prolonged sitting or standing. - Affect: Reports significant frustration and discomfort related to chronic pain. - Analgesia: Current medications include Lyrica and Baclofen; target self- reported relief at massage therapy. - Adverse Effects: None reported from current medications. - Activities of Daily Living: Pain significantly hinders sitting, prolonged physical tasks, and sleep quality. - Aberrant Drug Related Behaviors: Not discussed or evident. 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 - Neurological: Reports waking at night from spasms and schuster splints sensations. - Renal: Denies regular elevated BUN concerns. Physical Exam Vital Signs: Last Vital Signs Pulse 61 10/12/24 08:37 Resp 16 10/12/24 08:37 BP 177/74 H 10/12/24 08:37 Pulse Ox 98 10/12/24 08:37 Oxygen Delivery Method Room Air 10/12/24 08:37 BMI result Body Mass Index 42.6 General: awake, alert, oriented. Answers questions appropriately. Fully engaged in examination. Skin: warm, dry, intact HEENT: Normocephalic. Hearing intact. Cardiac: External chest normal in appearance. Respiratory: No cough, audible wheezing or stridor. Abdomen: without gross distension. MS: No obvious swelling or deformities. Able to rise from sit to stand unassisted Tender to palpation over the PSIS. Tenderness over midline lumbar vertebrae and lumbar paraspinal muscles. Neurological: Oriented to person, place, time and situation. Thought process intact. No gait abnormalities appreciated. Psychiatric: Appropriate mood and affect. Good judgment and insight. Results Reviewed Results Reviewed: 03/26/2022 MRI CS w/o IMPRESSION: 1. Lordotic reversal centered at C4-C5 with trace retrolisthesis at C5-C6 and C6-C7. 2. Discogenic degenerative changes and spondylosis primarily at C5-C6 and C6-C7 with posterior disc osteophyte complexes at these levels and a left paramedian extruded disc herniation with caudal migration at C6-C7 with moderate left-sided ventral cord impingement and moderate spinal canal stenosis at this level. 3. Posterior disc osteophyte complex at C5-C6 asymmetric to the right with moderate right-sided ventral cord impingement and fyue-zw-kihfrahg spinal canal stenosis. 4. Posterior disc osteophyte complex at C4-C5 with mild spinal canal stenosis without cord impingement. 5. Multilevel bilateral DJD with multilevel bilateral neural foraminal stenoses, most apparent on the left at C6-C7 and to a lesser degree on the right at C5-C6 and on the right at C4-C5. 6. Small central disc protrusion at T1-T2 and small left paramedian disc protrusion at T2-T3. Assessment & Plan Assessment & Plan (1) Lumbar spondylosis: Code(s): M47.816 - Spondylosis without myelopathy or radiculopathy, lumbar region Category: Medical (2) Sacroiliac joint dysfunction of left side: Code(s): M53.3 - Sacrococcygeal disorders, not elsewhere classified Category: Medical (3) Polyarthralgia: Code(s): M25.50 - Pain in unspecified joint Category: Medical (4) Neuropathy: Code(s): G62.9 - Polyneuropathy, unspecified Category: Medical (5) Muscle spasms of neck: Code(s): M62.838 - Other muscle spasm Category: Medical (6) Arthropathy of cervical facet joint: Code(s): M47.812 - Spondylosis without myelopathy or radiculopathy, cervical region Category: Medical (7) Spinal stenosis, cervicothoracic region: Code(s): M48.03 - Spinal stenosis, cervicothoracic region Category: Medical Plan I will proceed with ordering X-rays for a detailed assessment of potential degenerative changes in the lower back and pelvis and implement a structured physical therapy program. The program will focus on muscle strengthening and correcting alignment issues. If further intervention is needed, diagnostic injections may be explored. The patient will continue with regular massage therapy and Lyrica and Baclofen regimen for managing the chronic pain. The focus will also be on evaluating inflammatory markers and renal function with her primary care provider. Follow-up and adjustments to the treatment plan will be based on the response to physical therapy and imaging results. I discussed with the patient the management plan for her chronic low back pain with a focus on conservative measures first, including ordering X-rays and initiating physical therapy management targeting pain relief and alignment. We explored the option for future diagnostic injections should therapy prove inadequate. I provided education on the risks, benefits, and rationale behind each approach, emphasizing patient empowerment in symptomatic alleviation and lifestyle modification. We reviewed her current medication plan and recommended continuing it as prescribed, while I encouraged scheduling a thorough assessment with her primary care provider for systemic concerns indicated by the elevated BUN and inflammatory markers. Anticipatory guidance involved understanding trig gers for exacerbation and maintaining regular health reviews, particularly considering pending primary care evaluations. Patient was informed and verbally consented to the use of an ambient scribe for clinic note documentation during this visit. Orders: Orders XR lumbar spine 4V min Today M47.816 - Spondylosis without myelopathy or radiculopathy, lumbar region PT Evaluation and Treatment Today M47.816 - Spondylosis without myelopathy or radiculopathy, lumbar region, M53.3 - Sacrococcygeal disorders, not elsewhere classified XR sacroiliac joint min 3V Today M53.3 - Sacrococcygeal disorders, not elsewhere classified Medications: Refilled pregabalin (Lyrica) 100 mg PO BID 60 caps 3RF baclofen 15 mg PO TID 90 tabs 3RF Patient Instructions: - Attend scheduled physical therapy sessions for the lower back and left sacroiliac joint. - Continue taking prescribed medications as directed, namely Lyrica and Baclofen. - Schedule imaging as directed to assess back structures. - Maintain regular massage therapy to assist with spasms and alignment. - Follow up with primary care physician regarding inflammatory markers and renal function. - Monitor symptoms, and keep a pain journal to track alleviating/worsening factors. - Seek immediate care if there is significant increase in pain or symptoms. Coding Level of Care Code Est Pt Level 3 (43614) Complex EM visit Add On G2211 Diagnoses Lumbar spondylosis M47.816 Sacroiliac joint dysfunction of left side M53.3 Polyarthralgia M25.50 Neuropathy G62.9 Muscle spasms of neck M62.838 Arthropathy of cervical facet joint M47.812 Spinal stenosis, cervicothoracic region M48.03
== END 2024-10-12 08:59 | disposition home or self-care (01) ==
LOC: HO.PMC 08:19
PROVIDERS: PCP Internal Medicine; Visit Provider Registered Nurse Emergency
DX: M47.816 Spondylosis without myelopathy or radiculopathy, lumbar region (principal); M53.3 Sacrococcygeal disorders, not elsewhere classified; M25.50 Pain in unspecified joint; G62.9 Polyneuropathy, unspecified; M62.838 Other muscle spasm; M47.812 Spondylosis without myelopathy or radiculopathy, cervical region; M48.03 Spinal stenosis, cervicothoracic region
CPT/HCPCS: 99213

== ENCOUNTER → 2024-10-12 08:18 | Outpatient (BNVA) | payer OTHER, SELFPAY | PROVIDERS: PCP Internal Medicine; Visit Provider Registered Nurse Emergency ==

== ENCOUNTER 2024-10-17 14:35 | Outpatient (REF) | payer OTHER, SELFPAY ==
--- NOTE | ~2024-10-17 | XR_ITS ---
CLINICAL HISTORY: M53.3 - Sacrococcygeal disorders, not elsewhere classified --- Additional Notes or Special Instructions: Left 3 views sacroiliac joints Comparison: None Findings No acute fractures. No significant narrowing of the sacroiliac joints. No erosions. There is mild narrowing of the left acetabulofemoral joint. IMPRESSION: No acute findings. This document has been electronically signed by: Marielena Rivera DO on 10/18/2024 14:31:24
--- NOTE | ~2024-10-17 | XR_ITS ---
CLINICAL HISTORY: M47.816 - Spondylosis without myelopathy or radiculopathy, lumbar region 5 views lumbar spine Comparison: None Findings: Straightening of the normal lordosis is either due to muscle spasm or positioning. Satisfactory vertebral body alignment. No acute fractures or dislocation. No significant vertebral body compression deformity. Mild multilevel disc space narrowing with small endplate osteophytes. Mild facet arthropathy at L5-S1. Scattered calcific plaque in the abdominal aorta. IMPRESSION: 1. No acute fracture in the lumbar spine. 2. Mild degenerative changes. This document has been electronically signed by: Marielena Rivera DO on 10/18/2024 14:32:20
--- OUTSIDE RECORDS SUMMARY | 2024-10-17 14:41 | XMS_ITS | Clinical Summary ---
Author Organization [facility] Address [address] [place] [address] Care Team Providers Care Starcher And Tenter Range Feeder Name Role Phone Unavailable Primary Care Provider [...] patient's age to complete this topic Insurance [employer] [place]
--- OUTSIDE RECORDS SUMMARY | 2024-10-17 14:42 | XMS_ITS | Clinical Summary ---
Author Organization [facility] Address [address] [place] [phone] Phone Care Team Providers Care Human Services Care Specialist Name Role Phone Maira Uriarte MD Primary Care Provider [phone] Allergies Active Allergy Reactions Criticality Noted Date [...] patient's age to complete this topic Insurance [employer] D[employer] in Care Teams Human Services Care Specialist Relationship Specialty Start Date End Date Maira Uriarte MD [address] [place] [phone] PCP - General Internal Medicine 6/23/22
--- OUTSIDE RECORDS SUMMARY | 2024-10-17 14:42 | XMS_ITS | Data Portability ---
Author Organization [facility], [address] Address [address] [place] [address] Assessment No assessment recorded. Plan of Treatment Reminders Order Date Submit Date Provider Last Modified By Organization Details Last Modified Time Details Appointments None recorded. Lab SARS CoV 2 (COVID-19) Ag, QL, IA, upper respiratory specimen 2023 024 [place] [address] [facility] [address] [place] [address], [phone], 4 09:12:53 rapid flu (A+B) 2023 024 [place] [address] [facility], [address] [place] [address], [phone], 4 09:12:54 Referral None recorded. Procedures None recorded. Surgeries None recorded. Imaging None recorded. Medication Orders Zithromax Z-Trace 250 mg tablet 2023 024 [facility] [place], [address] [place], [address], 4 09:52:01 Paxlovid 300 mg (150 mg x 2)-100 mg tablets in a dose pack 2023 024 [facility] [place], [address] [place], [address], 4 09:52:01 methylpredn isolone 4 mg tablets in a dose pack 2023 024 [facility] [place], [address] [place], [address], 09:13:04 mupirocin 2 % topical ointment 2023 024 [facility] [place], [address] [place], [address], 09:24:40 Patient TargetsNo targets recorded. Patient Instructions Encounter Date Encounter Id Patient Instructions Last Modified By Organization Details Last Modified Time 10/17/2023 [id number] nosebleeds: care instructions Not available 10/17/2023 15:34:22 upper respirator y infection (cold): care instructions Not available 10/17/2023 15:33:16 enlarged turbinates: care instructions Not available 10/17/2023 15:33:16 02/05/2024 [id number] ear infection (otitis media): care instructions Not available 02/05/2024 09:14:19 Reason for Referral None Reported. Results Created Date Observation Date Name Description Value Unit Range Abnormal Flag Note LastModifiedBy Organization Detail LastModifiedTime 02/05/2002/05/2024 SARS CoV 2 (COVI D-19) Ag, QL, IA, upper respi rator y speci men Unknown Analyte positi ve Not Available [address] [place], [address], 02/05/2024 08:45:08 02/05/20 24 02/05/2024 SARS CoV 2 (COVI D-19) Ag, QL, IA, upper respi rator y speci men Unknown Analyte yes Not Available [address] [place], [address], 02/05/2024 08:45:08 02/05/20 24 02/05/2024 rapid flu (A+B) Unknown Analyte negati ve Not Available [address] [place], [address], 02/05/2024 08:45:17 02/05/20 24 02/05/2024 rapid flu (A+B) Unknown Analyte negati ve Not Available [address] [place], [address], 02/05/2024 08:45:17 02/05/20 24 02/05/2024 rapid flu (A+B) Unknown Analyte yes Not Available [address] [place], [address], 02/05/2024 08:45:17 Result Notes None recorded. Problems Name Problem SNOMED Code Status Onset Date Resolution Date Notes Provider Name and Address Organization Details Recorded Time Hypertens adore disorder 11342743 Completed 202310/17/2023 Luda gibson PA - [facility] 13:30:24 Diabetes mellitus 50932715 Active 2023 Luda gibson PA - [facility] 13:30:29 Anxiety 74297281 Active 2023 Luda gibson PA - [facility] 13:30:40 Evidence of recent epistaxis 025339853 Active 2023 Josephine Waldron NP [address] [place], [address] , [place] - [facility] 4 15:30:15 Upper respirato ry infection 72429443 Active 2023 Josephine Waldron NP [address] [place], [address] , [place] - [facility] 4 15:30:54 Cerebrova scular accident 951641907 Completed 202302/05/2024 Ashley Edmond gibson PA - [facility] 4 08:40:52 Supravent ricular tachycard ia 7829009 Active [place] null, PA - [facility] 4 08:41:18 Acute COVID-19 4024465770 Active 2023 Josephine Waldron NP [address] [place], [address] , [place] - [facility] 4 09:12:49 Acute bilateral otitis media 881619827 Active 2023 Josephine Waldron NP [address] [place], [address] , [place] - [facility] 4 09:13:00 Problem Notes None recorded. Medical Equipment None Reported. Allergies Allergen ID Allergen Name Allergen Category Reaction Reaction Severity Criticality Documentation Date Start Date Code Code System Note Provider Name and Address Organization Details Recorded Time 692829 erythromy nuris medicatio n Not available Not available Not available 02/05/2024 4053 RxNorm [place] null, PA - [facility] 4 08:39:09 281358 amoxicill in medicatio n Not available Not available Not available 02/05/2024 723 RxNorm [place] null, PA - [facility] 4 08:39:15 132578 Keflex medicatio n Not available Not available Not available 02/05/2024 86872 7 RxNorm [place] null, [place] - [facility] 4 08:39:24 675786 Bactrim medicatio n Not available Not available Not available 02/05/2024 13895 9 RxNorm [place] null, PA - [facility] 4 08:39:31 833621 Reglan medicatio n Not available Not available Not available 02/05/2024 9230 RxNorm [place] null, PA - [facility] 4 08:39:43 168105 amlodipin e medicatio n Not available Not available Not available 02/05/2024 94359 RxNorm [place] null, PA - [facility] 4 08:40:13 483923 bee pollen environme nt,medica tion Not available Not available Not available 02/05/2024 52916 7 RxNorm [facility] Lopez - [facility] [...] 4 18 /min 149.86 cm 40 kg/m2 29857.2 9 g 98.8 [degF] 60 /min 99 [...] 4 149.86 cm 101.7 [degF] 40.6 kg/m2 37678.0 7 g 18 /min 88 /min 97 % 97 % 139 mm[Hg] 57 mm[Hg] [place] PA - [facility] 4 08:45:01 Social History Question Answer Notes LastModified by [employer] Details LastModified Time Tobacco Smoking Status Former [...] Functional Status Question Answer Note LastModified by [employer] Details LastModified Time Do you use any [...] SNOMED-CT Code Diagnosis ICD10 Code Diagnosis Note [id number] [facility] [address] [place] [address] 03/08/2020 14:15:01 03/08/2020 15:20:53 [id number] [facility] [address] [facility] [address] [place] [address] 03/13/2018 09:28:38 03/13/2018 09:54:17 [id number] [facility] [address] [place] [address] 08/16/2016 16:55:30 08/16/2016 17:47:31 [id number] Josephine Waldron [facility] [address] [address] [place] [address] 10/17/2023 12:35:58 10/17/2023 15:35:39 Evidence of recent epistaxis 970201534 R04.0 How can you care for yourself [...] up your nose. Upper resp iratory infection 82903610 J06.9 Based on your Presentati on, Exam, [...] . Severe Headache Thank you for using [facility] today, please feel free to contact our office if you have any questions or concerns. [id number] [place] [address] [address] 02/05/2024 08:08:20 02/05/2024 09:23:10 Acute COVID-19 8205438292 U07.1 Based on your Presentati on, Exam, [...] . Severe Headache Thank you for using [facility] today, please feel free to contact our office if you have any questions or concerns. Acute bila teral otitis media 312168807 H66.93 Health Concerns Section Related Observation LastModified by Organization Detai ls LastModified Time None Recorded Concern Status LastModified by Organization Details LastModified Time None Recorded Advance Directives Directive None Recorded Payers Insurance Date Sequence Insurance Name Policy Number Policy Hollins Covered Member ID Hollins Member ID Guarantor Name 02/05/2024 1 [employer] [facility] Katya Boateng [id number] Katya Boateng 10/17/[address] [place] [address] [id number] Katya Boateng [id number] Katya Boateng 04/30/2022 [facility] Katya Boateng Notes Date Note Type Note Provider Name and Address Organization Details Recorded Time 4 text/html patient comes in for congestion x1 week. used nasal spray Thursday and now nasal membranes are bleeding-mostly L side. Ear pain, with post nasal drip. 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
--- OUTSIDE RECORDS SUMMARY | 2024-10-17 14:42 | XMS_ITS | Encounter Summary ---
Author Organization [facility] Address [address] [place] [address] Care Team Providers Care Clinic Director Name Role Phone Unavailable Primary Care Provider Unavailabl e Encounter Details Date Type Department Care Team (Late st Contact Info) Description 10/12/2020 Erroneous Encounter [facility] CONVERSION DEPT [address] [place] [address] Albina Christine PA [address] [address] Social History Tobacco Use Types Packs/Day Years [...]
--- OUTSIDE RECORDS SUMMARY | 2024-10-17 14:42 | XMS_ITS | Data Portability ---
Author Organization [facility], [facility] Address [address] [place] [address] Care Team Providers Care Manager Of School Name Role Phone MERLY OVIEDO Primary Care [...] satisfaction; surgery to be scheduled with my medical secretary. samara Not available 05/16/2024 10:31:11 09/14/2024 [...] [facility], [address], [place], [address], 5 09:54:02 XR, finger(s), 2 or more view - left hand middle finger 3v , room 111 2023 024 [facility], [address], [place], [address], 4 15:25:48 XR, finger(s), 2 or more view - re do lateral view per bc , middle finger left hand 2023 024 [facility], [address], [place], [address], 4 15:25:49 Medication Orders Kenalog 40 mg/mL [...] a4ajBk vP9nXo QUaueC m3YtLR FvZlgJ JJ8mAn HZtai3 8c0707 AC0Kqa niDVau kKiQtr MwF INTERFACE [facility] Office [address], [place], [address], 02/17/2024 10:37:13 02/17/20 24 02/17/2024 XR, finge r(s), 2 or more view [email or web address]:/ [email or web address] ?Encry pted=s hAaTro YD8dLq bEUv6g %2BXZw aYqtaq 0bqfl% 2Fg9IQ a4ajBk vP9nXo QUaueC m3YtLR FvZlgJ JJ8mAn HZtai3 8v2572 AC0Kqa niDVau kKiQtr MwF INTERFACE [facility] [address] [facility] [address], [place], [address], 02/17/2024 10:37:14 02/17/20 24 02/17/2024 XR, finge r(s), 2 or more view [email or web address]:/ [email or web address] ?Encry pted=s hAaTro YD8dLq bEUv6g %2BXZw aYqtaq 0bqfl% 2Fg9IQ a4ajBk vP9nXo QUaueC m3YtLR FvZlgJ JJ8mAn HZtai3 2d6599 AC0Kqa niDV6W iKiQtr MwF INTERFACE [facility] [address] [facility] [address], [place], [address], 02/17/2024 10:37:16 02/17/20 24 02/17/2024 XR, finge r(s), 2 or more view [email or web address]:/ [email or web address] ?Encry pted=s hAaTro YD8dLq bEUv6g %2BXZw aYqtaq 0bqfl% 2Fg9IQ a4ajBk vP9nXo QUaueC m3YtLR FvZl JJ8mAn HZtai3 6b3585 AC0Kqa niDV6W iKiQtr MwF INTERFACE [facility] [address] [facility] [address], [place], [address], 02/17/2024 10:37:17 09/15/19 25 09/14/2024 XR, hand, 3 or more view [email or web address]:/ [email or web address] ?Encry pted=s hAaTro YD8dLq bEUv6g %2BXZw aYqtaq 0bqfl% 2Fg9IQ a4ajBk vP9nXo QUaueC m3YtLR FvZlgJ JJ8mAn HZtai3 4c9797 AC0KqY 3qDUaS jKiQtr MwF INTERFACE [employer] [facility] [address], [place], [address], 09/14/2024 10:31:53 09/15/19 25 09/14/2024 XR, hand, 3 or more view [email or web address]:/ [email or web address] ?Encry pted=s hAaTro YD8dLq bEUv6g %2BXZw aYqtaq 0bqfl% 2Fg9IQ a4ajBk vP9nXo QUaueC m3YtLR FvZlgJ JJ8mAn HZtai3 3a3385 AC0KqY 3qDUaS jKiQtr MwF INTERFACE [employer] [facility] [address], [place], [address], 09/14/2024 10:31:55 Result Notes None recorded. Problems Name Problem SNOMED Code Status Onset Date Resolution Date Notes Provider Name and Address Organization Details Recorded Time No complaints 264961165 Active Status : 'A'; Not Available [facility] 4 09:25:36 Pain in right hand 5713586009529 09 Active 2024 Dragan Rios PA-C [address], [place], [address] , [facility] 5 08:21:03 Triggering of digit 968802563 Active 2024 Dragan Rios PA-C [address], [place], [address] , [facility] 5 11:17:02 Trigger finger of left hand 0072937719424 9107 Active 2023 Dragan Rios PA-C [address], [place], [address] , [facility] 4 08:10:35 Dupuytren' s disease of palm of left hand 1484685260555 9104 Active 2023 Dragan Rios PA-C [address], [place], [address] , [facility] 08:10:47 Problem Notes None recorded. Procedures Surgical History Date Name Laterality Status Provider Name and Address Organization Details Recorded Time 09/15/19 25 Tendon Sheath Kenalog Injection, L/R completed Dragan Rios PA-C [address], [place], [address], [facility] 09/14/2024 11:16:33 09/02/19 24 Tendon Sheath Kenalog Injection, L/R completed Dragan Rios PA-C [address], [place], [address], [facility] 09/02/2023 11:13:48 10/13/19 21 Orthopedic Surgery completed KAYLIA L'HEUREUX [facility] 09/14/2024 08:59:41 10/13/19 21 Other completed KAYLIA L'HEUREUX [facility] 09/14/2024 10:25:09 11/14/19 16 Knee Surgery completed KAYLIA L'HEUREUX [facility] 09/14/2024 10:25:09 11/14/19 15 Arthroplasty completed KAYLIA L'HEUREUX [facility] 09/14/2024 08:59:41 10/24/19 01 Other completed KAYLIA L'HEUREUX [facility] 09/14/2024 10:25:09 11/24/19 00 Other completed KAYLIA L'HEUREUX [facility] 09/14/2024 10:25:09 11/23/19 00 Gastrointestinal Surgery completed KAYLIA L'HEUREUX [facility] 09/14/2024 08:59:41 Imaging Results Imaging Date Name Status LastModified by Organiz ation Details LastModified Time 02/17/2024 XR, finger(s), 2 or more view completed INTERFACE [facility] [address], [place], [address], 02/17/2024 10:37:13 02/17/2024 XR, finger(s), 2 or more view completed INTERFACE [facility] [address], [place], [address], 02/17/2024 10:37:14 02/17/2024 XR, finger(s), 2 or more view completed INTERFACE [facility] [address], [place], [address], 02/17/2024 10:37:16 02/17/2024 XR, finger(s), 2 or more view completed INTERFACE [facility] [address], [place], [address], 02/17/2024 10:37:17 09/14/2024 XR, hand, 3 or more view completed INTERFACE [facility] [address], [place], [address], 09/14/2024 10:31:53 09/14/2024 XR, hand, 3 or more view completed INTERFACE [facility] [address], [place], [address], 09/14/2024 10:31:55 Procedure Notes None recorded. Medical Equipment None Reported. Allergies Allergen ID Allergen Name Allergen Category Reaction Reaction Severity Criticality Documentation Date Start Date Code Code System Note Provider Name and Address Organization Details Recorded Time 482496 POLL[employer]TRACT[employer] environme nt,medica tion Not available Not available Not available 09/14/2024 27751 6 RxNorm KAYLIA L'HEUREUX null, [place] - [facility] 5 10:25:07 966062 sunscreen medicatio n edema Not available Not available 09/14/2024 02449 UNK KAYLIA L'HEUREUX null, [place] - [facility] 5 10:25:07 189238 prazosin medicatio n edema moderate Not available 09/14/2024 8629 RxNorm KAYLIA L'HEUREUX null, [facility] 5 10:25:07 459486 red dye food,medi cation Not available Not available Not available 09/14/2024 70471 UNK BARBARAIA L'HEUREUX null, [facility] 5 10:25:07 176685 purified protein derivativ e of tuberculi n medicatio n hives Not available Not available 09/14/20241993 8948 RxNorm KAYLIA L'HEUREUX null, [facility] 5 10:25:07 939462 Product containin g hydrogen/ potassium adenosine triphosph atase enzyme system inhibitor (product) medicatio n other Not available Not available 09/14/2024 73427 5006 SNOMED JOANNYLIA L'HEUREUX null, [facility] 5 10:25:07 302852 Anaphylax is Bee Sting medicatio n Not available Not available Not available 09/14/2024 45997 UNK KAYLIA L'HEUREUX null, [facility] 5 10:25:07 610074 tetanus immune globulin F(ab')2 (equine) Not available Not available Not available Not available 09/14/2024 09827 UNK KAYLIA L'HEUREUX null, [facility] 5 10:25:07 013675 ragweed pollen environme nt Not available Not available Not available 09/14/2024 32539 UNK KAYLIA L'HEUREUX null, [facility] 5 10:25:07 311867 weed pollen environme nt,medica tion Not available Not available Not available 09/14/2024 60469 UNK KAYLIA L'HEUREUX null, [facility] 5 10:25:07 810411 grass pollen environme nt,medica tion Not available Not available Not available 09/14/2024 98434 UNK KAYLIA L'HEUREUX null, [facility] 5 10:25:07 268637 mold extract environme nt Not available Not available Not available 09/14/2024 87937 8 RxNorm MARK gibson [place] - [facility] 5 10:25:07 26075 oxycodone hydrochlo ride medicatio n Not available Not available Not available 08/03/20232014 96484 RxNorm Aller gyRea ction : 'Skin React ion'; Not Available [facility] 4 13:27:20 99652 Dilaudid medicatio n Not available Not available Not available 08/03/20232014 77469 3 RxNorm Aller gyRea ction : 'Skin React ion'; Not Available [facility] 4 13:27:20 99276 Oxycontin medicatio n Not available Not available Not available 08/03/20232014 78470 6 RxNorm Aller gyNam e: 'Oxyc ontin Tb12' ; Aller gyRea ction : 'Skin React ion'; Not Available [facility] 4 13:27:20 25589 amlodipin e besylate medicatio n Not available Not available Not available 08/03/20232022 17731 6 RxNorm Not Available [facility] 4 13:27:20 44737 Reglan medicatio n Not available Not available Not available 08/03/20232014 9230 RxNorm Not Available [facility] 4 13:27:20 95141 acetamino phen / codeine medicatio n Not available Not available Not available 08/03/20232014 29657 9 RxNorm Aller gyNam e: 'Tyle nol/c odein e #3 Tabs' ; Not Available [facility] 4 13:27:20 18315 Ultram medicatio n Not available Not available Not available 08/03/20232014 01814 6 RxNorm Not Available [facility] 4 13:27:21 86077 Keflex medicatio n Not available Not available Not available 08/03/20232014 76367 7 RxNorm Not Available [facility] 4 13:27:21 56077 acetamino phen / hydrocodo ne medicatio n Not available Not available Not available 08/03/20232014 97827 2 RxNorm Not Available [facility] 4 13:27:21 93974 erythromy nuris medicatio n Not available Not available Not available 08/03/20232014 4053 RxNorm Not Available [facility] 4 13:27:21 29234 amoxicill in trihydrat e medicatio n Not available Not available Not available 08/03/20232014 26916 8 RxNorm Not Available [facility] 4 13:27:21 80407 Bactrim medicatio n Not available Not available Not available 08/03/20232022 99121 9 RxNorm Not Available [facility] 4 13:27:21 61351 codeine medicatio n Not available Not available Not available 08/03/20232014 2670 RxNorm Not Available [facility] 4 13:27:21 28698 latex environme nt,medica tion Not available Not available Not available 08/03/20232014 18112 91 RxNorm Not Available [facility] 4 13:27:21 76432 Substance with sulfonami de structure and antibacte rial mechanism of action (substanc e) medicatio n Not available Not available Not available 08/03/20232014 52300 8003 SNOMED Not Available [facility] 4 13:27:22 Medications Name Sig Start [...] Updated DateTime 09/02/2023 149.86 cm 38.6 kg/m2 76854.14 g Juana Downs [facility] 09/02/2023 10:23:51 Date Recorded Body height Body mass index (BMI) Body weight Provider Name and Address Organization Details Last Updated DateTime 02/17/2024 149.86 cm 38.6 kg/m2 56825.14 g Dulce Maria Karina [facility] 02/17/2024 10:06:51 Date Recorded Body height Body mass index (BMI) Body weight Provider Name and Address Organization Details Last Updated DateTime 05/16/2024 149.86 cm 38.4 kg/m2 01022.55 g JAQUELINE LAMAR [facility] 05/16/2024 08:43:55 Date Recorded Body height Body mass index (BMI) Body weight Provider Name and Address Organization Details Last Updated DateTime 09/14/2024 149.86 cm 38.4 kg/m2 46154.55 g MARK CALVILLO [facility] 09/14/2024 10:25:21 Social History Question Answer Notes LastModified by Who What Wear Details LastModified Time Tobacco Smoking Status [facility] 09/14/2024 10:25:09 When Did You Quit Smoking? 17+yearssin celastcivivi ette Information not available 09/14/2024 What Is Your Relationship Status? Single Information not available 09/14/2024 Sex: Unknown Functional Status Question Answer Note LastModified by Who What Wear Details LastModified Time How many times per [...] Reported. Medical History Condition Response Anxiety/Depression Y Gastrointestinal Disease Y Arthritis Y Acid Reflux (GERD) Y Stroke Y Thyroid Problems Y Kidney/Bladder Problems Y Diabetes Y Sleep Apnea Y Hypertension Y Gynecological HistoryNo gynecological history recorded. Obstetrics History GPAL:G 0 P 0 0 0 0 Past Encounters Encounter ID Performer Location Encounter Start Date Encounter Closed Date Diagnosis/Indication Diagnosis SNOMED-CT Code Diagnosis ICD10 Code Diagnosis Note [id number] AZAEL Castillo [address] [place] [id number] 09/02/2023 09:54:08 09/02/2023 11:20:05 Trigger finger of left hand 4069282580 5964344 M65.332 Dupuytren' s disease of palm of left hand 2261819980 4312317 M72.0 [id number] AZAEL Castillo [address] [place] [id number] 02/17/2024 09:49:41 03/09/2024 15:25:48 Trigger finger of left hand 9468004441 4492758 M65.332 Dupuytren' s disease of palm of left hand 6637071162 8093990 M72.0 Pain of left hand 405656 3358 33530 M79.085 [id number] MD Ira Robledo [address] [place] [address] 05/16/2024 08:27:14 06/03/2024 13:47:15 Trigger finger of left hand 0469691824 2404980 M65.703 [id number] AZAEL Castillo - Ira [address] [place] [id number] 09/14/2024 10:14:10 09/27/2024 09:54:02 Pain in right hand 9317967311 32929 M79.641 Triggering of digit 2399 48764 M65.331 Health Concerns Section Related Observation LastModified by Organization Detai ls LastModified Time None Recorded Concern Status LastModified by Organization Details LastModified Time None Recorded Advance Directives Directive None Recorded Payers Encounter Date Sequence Insurance Name Policy Number Policy Hollins Covered Member ID Hollins Member ID Guarantor Name 09/02/2023 1 [employer] [facility] [employer]PP[employer] Katya Schwartz Tas[employer] [id number] Katya Schwartz Tasneem 02/17/2024 1 [employer] [facility] [employer]PP[employer] Katya Schwartz Tasneem [id number] Katya Cuellolin 05/16/2024 1 [employer] [facility] (PPO) Katya Schwartz Tasneem [id number] Katya Schwartz Tasneem 09/14/2024 1 [employer]UE [employer]IT [facility] [id number] Katya Schwartz Tasneem [id number] Katya Schwartz Tasne[employer] Notes Date Note [...] today in follow [address]AEL Cast[address], [place], [address], [facility] 09/02/2023 11:14:34 02/17/2024 text/html [...] without significant improvement. 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 Hayley Smith MD [address], [place], [address], [facility] 05/16/2024 [...] today for evaluation Dragan Rios PA-C [address], [place], [address], [facility] 09/14/2024 11:17:24 OBGyn Episode No OBEpisode recorded.
--- OUTSIDE RECORDS SUMMARY | 2024-10-17 14:42 | XMS_ITS | Encounter Summary ---
Author Organization [facility] Address [address] [place] [address] Care Team Providers Care Bottom Sander Name Role Phone Unavailable Primary Care Provider Unavailabl e Encounter Details Date Type Department Care Team (Late st Contact Info) Description 10/08/[address] [facility] [address] [place] [id number] Raad Maldonado MD [address] [place], [place] [id number] Encounter for laboratory testing for COVID-19 virus [...] Detected 10/08/2020 10:49 AM EDT [facility] Comment: Negative results do not [...] was completed and performance characteristics established by [facility] as per the FDA and CLIA requirement for this EUA. The [employer] RealTime SARS-CoV-2 assay Letter of Authorization, along with the authorized Fact Sheet for Healthcare Providers, the authorized Fact Sheet for Patients, and authorized labeling are available on the FDA website: https://www.fda.gov/MedicalDevices/Safety/EmergencySituations/ulj619238.htm. Performed at [facility], [employer] [place], [place] ??CT License 0385 ??CLIA [id number] Source Nasopharyngeal 10/08/2020 10:49 AM EDT [facility] Comment:Performed at [facility], [facility], [place] license No. [id number] CLIA No. [id number] Microbiology Nasopharyngeal swab / Unknown 10/08/2020 9:32 AM EDT 10/08/2020 9:32 AM EDT us Raad Maldonado MD MICROBIOLOGY - GENERAL ORDER LARRY Final Result [facility] [address] [place] [address] documented in this encounter Visit Diagnoses Diagnosis Encounter for laboratory testing for COVID-19 virus documented in this encounter
--- OUTSIDE RECORDS SUMMARY | 2024-10-17 14:42 | XMS_ITS | Encounter Summary ---
Author Organization [facility] Address [address] [place] [address] Phone Care Team Providers Care Log Skidder Name Role Phone Maira Uriarte MD Primary Care Provider [phone] Encounter Details Date Type Department Care Team ([facility] Contact Info) Description 10/13/2022 Telephone [facility] [address] [place] [id number] Deja Morales Social History Tobacco Use Types [...] on filedocumented in this encounter Care Teams Log Skidder Relationship Specialty Start Date End Date Maira Uriarte MD [address] [facility] [address] [place] [address] PCP - General Internal Medicine 11/21/21 documented as of this encounter
== END 2024-10-17 14:36 | disposition home or self-care (01) ==
LOC: HO.XRAY 14:35
PROVIDERS: PCP Internal Medicine; Visit Provider Registered Nurse Emergency
DX: M47.816 Spondylosis without myelopathy or radiculopathy, lumbar region (principal); M53.3 Sacrococcygeal disorders, not elsewhere classified
CPT/HCPCS: 72110; 72202

== ENCOUNTER → 2024-10-17 14:45 | Outpatient (BNV) | payer OTHER, SELFPAY | PROVIDERS: PCP Internal Medicine; Visit Provider Radiology Diagnostic Radiology | DX: M47.816 Spondylosis without myelopathy or radiculopathy, lumbar region (principal); M53.3 Sacrococcygeal disorders, not elsewhere classified | CPT/HCPCS: 72110; 72202 ==

== ENCOUNTER 2024-11-29 09:44 | Outpatient (RCR) | payer OTHER, SELFPAY ==
--- NOTE | 2024-11-01 16:03 | MHC.PT.EP ---
[facility] [place] [facility] [place] [facility] [place] [facility] [address] Deanne Booker [address] [phone] F: [phone] F: [phone] F: [phone] F: [phone] Physical Therapy Plan of Care Date of Evaluation: 11/01/24 Date of Surgery: NA Diagnosis: SPONDYLOSIS SACROCOCCYGEAL DISORDERS Assessment: Pt IS 64 YO F REFERRED TO PT FROM [facility] (PAIN MANAGEMENT) WITH LUMBAR SPONDYLOSIS AND SI DYSFUNCTION. Pt PRESENTS WITH DECREASED TRUNK ROM AND DECREASED CORE STRENGTH. SHOULD BENEFIT FROM PT TO ADDRESS THESE ISSUES. 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 INCREASED AWARENESS POSTURE AND LB CARE 2. Pt TP DEMONSTRATE 2-3 TASKS WITH PROPER BODY MECH Staff Development Coordinator Rn Goals: 1. DECREASED BACK PAIN AT LEAST 50% WITH ADLS 2. I HEP WITH DC EX PLAN 3. Pt TO REPORT ABILITY TO DO ACTIVITIES FOR LONGER PDS OF TIME (Pt GOAL) Treatment Plan: Modalities to reduce pain, spasms and effusion. Manual therapy to restore motion and function. Therapeutic exercise to improve strength and flexibility. Neuromuscular re-education for posture and balance. Therapeutic activities to return to functional activities of daily living. Electronically signed by: EDVIN HAMMOND PT Please sign and return to therapist. Thank you for your referral.
--- NOTE | 2024-11-29 13:34 | MHC.PT.DC ---
[facility] [place] [facility] [place] [facility] [place] [facility] [address] Deanne Booker [address] [phone] F: [phone] F: [phone] F: [phone] F: [phone] Physical Therapy Discharge Report Diagnosis: SPONDYLOSIS SACROCOCCYGEAL DISORDERS Date of Surgery: NA Date of Evaluation: 11/01/24 Date of Discharge: 11/29/24 Treatments to Date: 5 Cancellations to Date: No Shows to Date: Discharge Status: Achieved Goals Improved Function Independent with HEP Patient Elected to Stop Discharge Summary: HAS MET MOST PT GOALS. HAS HOME PROGRAM. AWAITING POOL INSTALL FOR WATER EXERCISE Electronically signed by: EDVIN HAMMOND PT Please sign and return to therapist. Thank you for your referral.
== END 2024-11-29 13:34 | disposition home or self-care (01) ==
LOC: HO.PT 09:44
PROVIDERS: PCP Internal Medicine; Visit Provider Registered Nurse Emergency
DX: M47.816 Spondylosis without myelopathy or radiculopathy, lumbar region (principal); M53.3 Sacrococcygeal disorders, not elsewhere classified
CPT/HCPCS: 97110; 97140; 97162

== ENCOUNTER 2025-01-13 09:16 | Outpatient (AMB) | payer OTHER, SELFPAY ==
[2025-01-13 09:18] VITALS: BP 154/67; PULSE 63; RESP 16; O2SAT 99; BMI 41.6
--- NOTE | 2025-01-13 09:18 | MHC.OFFVIS ---
Vital Signs 01/13/25 09:18 Height 4 ft 11 in Weight 206 lb BMI 41.6 BP 154/67 H Blood Pressure Location Rt brachial Position Sitting Respiration 16 Pulse 63 Pulse Source Pulse Oximeter Pulse Oximetry (%) 99 Oxygen Delivery Method Room Air Intake Visit Reasons: FOLLOW UP Helpdesk Administrator Required: No Accompanied by: Self / Same As Patient Allergies amlodipine Allergy (Mild, Verified 01/13/25 09:22) Unknown egg Allergy (Mild, Verified 01/13/25 09:22) Unknown erythromycin base Allergy (Mild, Verified 01/13/25 09:22) Unknown hydrocodone (From Vicodin) Allergy (Mild, Verified 01/13/25 09:22) Unknown sulfamethoxazole (From Bactrim) Allergy (Mild, Verified 01/13/25 09:22) Unknown tramadol Allergy (Mild, Verified 01/13/25 09:22) Unknown trimethoprim (From Bactrim) Allergy (Mild, Verified 01/13/25 09:22) Unknown amoxicillin Adverse Reaction (Mild, Verified 01/13/25 09:22) Unknown cephalexin (From Keflex) Adverse Reaction (Mild, Verified 01/13/25 09:22) Unknown codeine Adverse Reaction (Mild, Verified 01/13/25 09:22) Unknown metoclopramide (From Reglan) Adverse Reaction (Mild, Verified 01/13/25 09:22) Unknown morphine Adverse Reaction (Mild, Verified 01/13/25 09:22) Unknown oxycodone (From OxyContin) Adverse Reaction (Mild, Verified 01/13/25 09:22) Unknown prazosin Adverse Reaction (Mild, Verified 01/13/25 09:22) Unknown bee venom protein (honey bee) Adverse Reaction (Verified 01/13/25 09:22) Unknown latex Adverse Reaction (Verified 01/13/25 09:22) Unknown HPI Comments Details: The patient is a 64-year-old female presenting with chronic pain management concerns. She reports a history of Irritable Bowel Syndrome (IBS) which was exacerbated recently, leading to severe diarrhea and dehydration. The patient attributes the recent episode to dietary triggers and notes that she is currently on Ozempic, which has previously resulted in formed stools. The patient also experiences sacroiliac joint pain, which is more manageable on days off when she can engage in pool exercises and stretching. She reports that prolonged sitting at work exacerbates her symptoms, leading to shooting pains down her leg. Patient recently completed physical therapy and has been doing home exercise program. She notes that days where she as long hours at work and can not do the exercises at home she suffers with worsening discomfort and stiffness. Additionally, the patient has a history of Achilles tendonitis, which is aggravated by walking uphill to her workplace. She is considering discussing a handicap parking permit with her primary care provider to alleviate this issue during the winter months. The patient has been diagnosed with Type 2 Diabetes Mellitus and has been on Ozempic for 2.5 months, resulting in a weight loss of approximately 12 pounds and improved blood glucose levels. She reports that her blood sugars are now in the low 100s, and she attributes some improvement in joint stiffness to the weight loss. - Sacroiliac joint pain is tolerable but exacerbated by prolonged sitting and relieved by pool exercises and stretching. - Achilles tendonitis pain worsens with walking uphill and is a concern for winter mobility. - Affect: Pain impacts daily activities, particularly work-related tasks. - Analgesia: Current medications include Baclofen and Lyrica, which are still effective. - Adverse Effects: Reports dehydration and muscle spasms, possibly related to medication and recent diarrhea. - Activities of Daily Living: Pain limits ability to perform work duties and affects mobility, particularly in winter. - Aberrant Drug Related Behaviors: No aberrant behaviors reported. 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 - Musculoskeletal: Reports sacroiliac joint pain and Achilles tendonitis, denies other joint pain. - Endocrine: Reports improved blood glucose levels, denies hypoglycemia. Physical Exam Exam Exam: General: awake, alert, oriented. Answers questions appropriately. Fully engaged in examination. Skin: warm, dry, intact HEENT: Normocephalic. Hearing intact. Cardiac: External chest normal in appearance. Respiratory: No cough, audible wheezing or stridor. Abdomen: without gross distension. MS: No obvious swelling or deformities. Able to rise from sit to stand unassisted Neurological: Oriented to person, place, time and situation. Thought process intact. No gait abnormalities appreciated. Psychiatric: Appropriate mood and affect. Good judgment and insight. Vital Signs: Last Vital Signs Pulse 63 01/13/25 09:18 Resp 16 01/13/25 09:18 BP 154/67 H 01/13/25 09:18 Pulse Ox 99 01/13/25 09:18 Oxygen Delivery Method Room Air 01/13/25 09:18 BMI result Body Mass Index 41.6 Results Reviewed Results Reviewed: 10/18/24 x-ray lumbar spine Findings: Straightening of the normal lordosis is either due to muscle spasm or positioning. Satisfactory vertebral body alignment. No acute fractures or dislocation. No significant vertebral body compression deformity. Mild multilevel disc space narrowing with small endplate osteophytes. Mild facet arthropathy at L5-S1. Scattered calcific plaque in the abdominal aorta. IMPRESSION: 1. No acute fracture in the lumbar spine. 2. Mild degenerative changes. 10/18/24 x-ray sacroiliac joint Findings No acute fractures. No significant narrowing of the sacroiliac joints. No erosions. There is mild narrowing of the left acetabulofemoral joint. IMPRESSION: No acute findings. 03/26/2022 MRI CS w/o IMPRESSION: 1. Lordotic reversal centered at C4-C5 with trace retrolisthesis at C5-C6 and C6-C7. 2. Discogenic degenerative changes and spondylosis primarily at C5-C6 and C6-C7 with posterior disc osteophyte complexes at these levels and a left paramedian extruded disc herniation with caudal migration at C6-C7 with moderate left-sided ventral cord impingement and moderate spinal canal stenosis at this level. 3. Posterior disc osteophyte complex at C5-C6 asymmetric to the right with moderate right-sided ventral cord impingement and [id number]-av-[id number] spinal canal stenosis. 4. Posterior disc osteophyte complex at C4-C5 with mild spinal canal stenosis without cord impingement. 5. Multilevel bilateral DJD with multilevel bilateral neural foraminal stenoses, most apparent on the left at C6-C7 and to a lesser degree on the right at C5-C6 and on the right at C4-C5. 6. Small central disc protrusion at T1-T2 and small left paramedian disc protrusion at T2-T3. Assessment & Plan Assessment & Plan (1) Lumbar spondylosis: Code(s): M47.816 - Spondylosis without myelopathy or radiculopathy, lumbar region Category: Medical (2) Sacroiliac joint dysfunction of left side: Code(s): M53.3 - Sacrococcygeal disorders, not elsewhere classified Category: Medical (3) Polyarthralgia: Code(s): M25.50 - Pain in unspecified joint Category: Medical (4) Neuropathy: Code(s): G62.9 - Polyneuropathy, unspecified Category: Medical (5) Muscle spasms of neck: Code(s): M62.838 - Other muscle spasm Category: Medical (6) Arthropathy of cervical facet joint: Code(s): M47.812 - Spondylosis without myelopathy or radiculopathy, cervical region Category: Medical (7) Spinal stenosis, cervicothoracic region: Code(s): M48.03 - Spinal stenosis, cervicothoracic region Category: Medical Plan The management plan for the patient's chronic pain includes continued use of Baclofen and Lyrica, which have been effective in managing symptoms. The patient is advised to maintain hydration to prevent dehydration and muscle spasms, particularly in light of recent gastrointestinal disturbances. For her sacroiliac joint pain, the patient is encouraged to continue pool exercises and stretching, which have been beneficial. Consideration of a handicap parking permit is suggested to alleviate mobility issues related to Achilles tendonitis, especially during the winter months. The patient's Type 2 Diabetes Mellitus management with Ozempic has shown positive results, with significant weight loss and improved blood glucose levels. Continued monitoring of blood glucose levels is recommended to maintain control and prevent complications. Patient was informed and verbally consented to the use of an ambient scribe for clinic note documentation during this visit. Medications: Refilled pregabalin (Lyrica) 100 mg PO BID 60 caps 3RF baclofen 15 mg PO TID 90 tabs 3RF Patient Instructions: - Continue taking Baclofen and Lyrica as prescribed. - Stay hydrated to prevent dehydration and muscle spasms. - Engage in pool exercises and stretching to manage sacroiliac joint pain. - Monitor blood glucose levels regularly. - Consider discussing a handicap parking permit with your primary care provider. Coding Level of Care Code Est Pt Level 3 (73471) Complex EM visit Add On G2211 Diagnoses Lumbar spondylosis M47.816 Sacroiliac joint dysfunction of left side M53.3 Polyarthralgia M25.50 Neuropathy G62.9 Muscle spasms of neck M62.838 Arthropathy of cervical facet joint M47.812 Spinal stenosis, cervicothoracic region M48.03
--- OUTSIDE RECORDS SUMMARY | 2025-01-13 09:30 | XMS_ITS | Clinical Summary ---
Author Organization [facility] Address [address] [place] [phone] Phone Care Team Providers Care Supervisor Cereal Name Role Phone Maira Uriarte MD Primary Care Provider +1- [phone] Allergies Active Allergy Reactions Criticality Noted Date [...] Diabetes: Visual Foot Exam 03/08/2024 Influenza Vaccine (#1) 2025 Hepatitis B Vaccine Aged Out No longe r eligible based on patient's age to complete this topic Insurance [employer] Care Teams Supervisor Cereal Relationship Specialty Start Date End Date Maira Uriarte MD [address] [place] [phone] PCP - General Internal Medicine 6/23/22
--- OUTSIDE RECORDS SUMMARY | 2025-01-13 09:30 | XMS_ITS | Clinical Summary ---
Author Organization [facility] Address [address] [place] [address] Care Team Providers Care Network Operations Center Technician Name Role Phone Unavailable Primary Care Provider [...] patient's age to complete this topic Insurance [employer] [place]
--- OUTSIDE RECORDS SUMMARY | 2025-01-13 09:30 | XMS_ITS ---
Author Name [facility] Organization Unknown Care Team Organization Name Specialty Phone Email Start Date End [facility]
== END 2025-01-13 09:56 | disposition home or self-care (01) ==
LOC: HO.PMC 09:17
PROVIDERS: PCP Internal Medicine; Visit Provider Registered Nurse Emergency
DX: M47.816 Spondylosis without myelopathy or radiculopathy, lumbar region (principal); M53.3 Sacrococcygeal disorders, not elsewhere classified; M25.50 Pain in unspecified joint; G62.9 Polyneuropathy, unspecified; M62.838 Other muscle spasm; M47.812 Spondylosis without myelopathy or radiculopathy, cervical region; M48.03 Spinal stenosis, cervicothoracic region
CPT/HCPCS: 99213

== ENCOUNTER 2025-01-16 10:32 | Outpatient (AMB) | payer OTHER, SELFPAY ==
--- OUTSIDE RECORDS SUMMARY | 2025-01-16 11:32 | XMS_ITS | Clinical Summary ---
Author Organization [facility] Address [address] [place] [phone] Phone Care Team Providers Care Peanut Grader Name Role Phone Maira Uriarte MD Primary Care Provider [phone]- [phone] Allergies Active Allergy Reactions Criticality Noted Date [...] patient's age to complete this topic Insurance [employer] Care Teams Peanut Grader Relationship Specialty Start Date End Date Maira Uriarte MD [address] [place] [phone] PCP - General Internal Medicine 6/23/22
== END 2025-01-16 10:33 | disposition home or self-care (01) ==
LOC: HO.HMGAL 10:32
PROVIDERS: PCP Internal Medicine; Visit Provider Registered Nurse Emergency
DX: J30.89 Other allergic rhinitis (principal)
CPT/HCPCS: 95117; 95165

== ENCOUNTER 2025-01-23 12:35 | Outpatient (AMB) | payer OTHER, SELFPAY ==
--- OUTSIDE RECORDS SUMMARY | 2025-01-23 13:42 | XMS_ITS | Clinical Summary ---
Author Organization [facility] Address [address] [place] [phone] Phone Care Team Providers Care Supervisor [employer] Name Role Phone Maira Uriarte MD Primary Care Provider [phone]- [phone] Allergies Active Allergy Reactions Criticality Noted Date [...] patient's age to complete this topic Insurance [employer] Care Teams Supervisor [employer] Relationship Specialty Start Date End Date Maira Uriarte MD [address] [place] [phone] PCP - General Internal Medicine 6/23/22
--- OUTSIDE RECORDS SUMMARY | 2025-01-23 13:42 | XMS_ITS | Clinical Summary ---
Author Organization [facility] Address [address] [place] [address] Care Team Providers Care Early Childhood Name Role Phone Unavailable Primary Care Provider [...] patient's age to complete this topic Insurance [employer]
== END 2025-01-24 10:38 | disposition home or self-care (01) ==
LOC: HO.HMGAL 12:35
PROVIDERS: PCP Internal Medicine; Visit Provider Registered Nurse Emergency
DX: J30.89 Other allergic rhinitis (principal)
CPT/HCPCS: 95117; 95165

== ENCOUNTER 2025-02-01 13:17 | Outpatient (AMB) | payer OTHER, SELFPAY ==
--- OUTSIDE RECORDS SUMMARY | 2025-02-01 15:35 | XMS_ITS | Clinical Summary ---
Author Organization [facility] Address [address] [place] [phone] Phone Care Team Providers Care Cardiovascular Surgical Tech Name Role Phone Maira Uriarte MD Primary Care Provider +1- [phone] Allergies Active Allergy Reactions Criticality Noted Date [...] patient's age to complete this topic Insurance [employer] Care Teams Cardiovascular Surgical Tech Relationship Specialty Start Date End Date Maira Uriarte MD [address] [place] [phone] PCP - General Internal Medicine 6/23/22
--- OUTSIDE RECORDS SUMMARY | 2025-02-01 15:35 | XMS_ITS | Encounter Summary ---
Author Organization [facility] Address [address] [place] [address] Phone Care Team Providers Care Paper Pattern Inspector Name Role Phone Maira Uriarte MD Primary Care Provider [phone]- [phone] Encounter Details Date Type Department Care Team ([facility] Contact Info) Description 10/13/2022 Telephone [facility] [address] [place] [phone] Deja Morales Social History Tobacco Use Types [...] on filedocumented in this encounter Care Teams Paper Pattern Inspector Relationship Specialty Start Date End Date Maira Uriarte MD [address] [facility] [address] [place] [phone] PCP - General Internal Medicine 11/21/21 documented as of this encounter
== END 2025-02-01 13:36 | disposition home or self-care (01) ==
LOC: HO.HMGAL 13:17
PROVIDERS: PCP Internal Medicine; Visit Provider Registered Nurse Emergency
DX: J30.89 Other allergic rhinitis (principal)
CPT/HCPCS: 95117; 95165

== ENCOUNTER 2025-02-06 13:57 | Outpatient (AMB) | payer OTHER, SELFPAY ==
--- OUTSIDE RECORDS SUMMARY | 2025-02-06 16:19 | XMS_ITS | Clinical Summary ---
Author Organization [facility] Address [address] [place] [phone] Phone Care Team Providers Care Library Circulation Clerk Name Role Phone Maira Uriarte MD Primary Care Provider +1- [phone] Allergies Active Allergy Reactions Criticality Noted Date [...] patient's age to complete this topic Insurance [employer] Care Teams Library Circulation Clerk Relationship Specialty Start Date End Date Maira Uriarte MD [address] [place] [phone] PCP - General Internal Medicine 6/23/22
--- OUTSIDE RECORDS SUMMARY | 2025-02-06 16:19 | XMS_ITS | Encounter Summary ---
Author Organization [facility] Address [address] [place] [address] Phone Care Team Providers Care Pearl Peller Name Role Phone Maira Uriarte MD Primary Care Provider +1- [phone] Encounter Details Date Type Department Care Team ([facility] Contact Info) Description 10/13/2022 Telephone [facility] [address] [place] [phone] Deja Morales Social History Tobacco Use Types [...] on filedocumented in this encounter Care Teams Pearl Peller Relationship Specialty Start Date End Date Maira Uriarte MD [address] [facility] [address] [place] [phone] PCP - General Internal Medicine 11/21/21 documented as of this encounter
== END 2025-02-06 14:03 | disposition home or self-care (01) ==
LOC: HO.HMGAL 13:57
PROVIDERS: PCP Internal Medicine; Visit Provider Registered Nurse Emergency
DX: J30.89 Other allergic rhinitis (principal)
CPT/HCPCS: 95117; 95165

== ENCOUNTER 2025-02-13 11:29 | Outpatient (AMB) | payer OTHER, SELFPAY ==
--- OUTSIDE RECORDS SUMMARY | 2025-02-13 15:47 | XMS_ITS | Encounter Summary ---
Author Organization [facility] Address [address] [place] [address] Phone Care Team Providers Care Refrigerating Technician Name Role Phone Maira Uriarte MD Primary Care Provider [phone]- [phone] Encounter Details Date Type Department Care Team ([facility] Contact Info) Description 10/13/2022 Telephone [facility] [address] [place] [phone] Deja Morales Social History Tobacco Use Types [...] on filedocumented in this encounter Care Teams Refrigerating Technician Relationship Specialty Start Date End Date Maira Uriarte MD [address] [facility] [address] [place] [phone] PCP - General Internal Medicine 11/21/21 documented as of this encounter
--- OUTSIDE RECORDS SUMMARY | 2025-02-13 15:47 | XMS_ITS | Encounter Summary ---
Author Organization [facility] Address [address] [place] [phone] Care Team Providers Care Dock Worker Name Role Phone Unavailable Primary Care Provider Unavailabl e Encounter Details Date Type Department Care Team (Late st Contact Info) Description 10/12/2020 Erroneous Encounter [facility] CONVERSION DEPT [address] [place] [phone] Albina Christine PA [address] [address] Social History Tobacco Use Types Packs/Day Years [...]
--- OUTSIDE RECORDS SUMMARY | 2025-02-13 15:47 | XMS_ITS | Clinical Summary ---
Author Organization [facility] Address [address] [place] [address] Care Team Providers Care Paper Counter Name Role Phone Unavailable Primary Care Provider [...] Vaccine (1 of 2) 2011 Influenza Vaccine 12/30/2024 COVID-19 Vaccine ( - 2023-2 5 season) 2025 RSV Vaccine 60 years and old er and Patients (1 - 1-dose 75+ series) 02/11/2036 Hepatitis B Vaccines Aged Out No long er eligible based on patient's age to complete this topic Insurance [employer]
--- OUTSIDE RECORDS SUMMARY | 2025-02-13 15:47 | XMS_ITS | Clinical Summary ---
Author Organization [facility] Address [address] [place] [phone] Phone Care Team Providers Care Paper Supervisor Name Role Phone Maira Uriarte MD Primary Care Provider [phone]- [phone] Allergies Active Allergy Reactions Criticality Noted Date [...] patient's age to complete this topic Insurance [employer] Care Teams Paper Supervisor Relationship Specialty Start Date End Date Maira Uriarte MD [address] [place] [phone] PCP - General Internal Medicine 6/23/22
--- OUTSIDE RECORDS SUMMARY | 2025-02-13 15:47 | XMS_ITS | Encounter Summary ---
Author Organization [facility] Address [address] [place] [address] Care Team Providers Care Spooler Rubber Strand Name Role Phone Unavailable Primary Care Provider Unavailabl e Encounter Details Date Type Department Care Team (Late st Contact Info) Description 10/08/[address] [facility] [address] [place] [phone] Raad Maldonado MD [address] [place], [place] [phone] Encounter for laboratory testing for COVID-19 virus [...] Detected Not Detected 10/08/2020 10:49 AM EDT [facility] Comment: Negative results do [...] (FDA) under an Emergency Use Authorization (EUA). Validation was completed and performance characteristics established by [facility] as per the FDA and CLIA requirement for this EUA. The inexio RealTime SARS-CoV-2 assay Letter of Authorization, along with the authorized Fact Sheet for Healthcare Providers, the authorized Fact Sheet for Patients, and authorized labeling are available on the FDA website: https://www.fda.gov/MedicalDevices/Safety/EmergencySituations/nbl713795.htm. Performed at [facility], [place], [place] License 0385 CLIA [id number] Source Nasopharyngeal 10/08/2020 10:49 AM EDT [facility] Comment:Performed at [facility], [place] license No. [id number] CLIA No. [id number] Microbiology Nasopharyngeal swab / Unknown 10/08/2020 9:32 AM EDT 10/08/2020 9:32 AM EDT us Raad Maldonado MD MICROBIOLOGY - GENERAL ORDER LARRY Final Result [facility] [address] [place] [address] documented in this encounter Visit Diagnoses Diagnosis Encounter for laboratory testing for COVID-19 virus documented in this encounter
== END 2025-02-13 11:31 | disposition home or self-care (01) ==
LOC: HO.HMGAL 11:29
PROVIDERS: PCP Internal Medicine; Visit Provider Registered Nurse Emergency
DX: J30.89 Other allergic rhinitis (principal)
CPT/HCPCS: 95117; 95165

== ENCOUNTER 2025-02-20 14:12 | Outpatient (AMB) | payer OTHER, SELFPAY ==
--- OUTSIDE RECORDS SUMMARY | 2025-02-20 16:48 | XMS_ITS | Clinical Summary ---
Demographics Address [address] [place] [address] Home Phone Mobile Phone
== END 2025-02-20 14:13 | disposition home or self-care (01) ==
LOC: HO.HMGAL 14:12
PROVIDERS: PCP Internal Medicine; Visit Provider Registered Nurse Emergency
DX: J30.89 Other allergic rhinitis (principal)
CPT/HCPCS: 95117; 95165

== ENCOUNTER 2025-03-06 10:53 | Outpatient (AMB) | payer OTHER, SELFPAY ==
--- OUTSIDE RECORDS SUMMARY | 2025-03-06 13:10 | XMS_ITS | Clinical Summary ---
Author Organization [facility] [place] [facility] Address [address] [place] [address] Care Team Providers Care Web Methods Developer Name Role Phone Unavailable Primary Care Provider [...] patient's age to complete this topic Insurance [employer] [place]
--- OUTSIDE RECORDS SUMMARY | 2025-03-06 13:10 | XMS_ITS | Encounter Summary ---
Author Organization [facility] Address [address] [place] [address] Care Team Providers Care Investigative Writer Name Role Phone Unavailable Primary Care Provider Unavailabl e Encounter Details Date Type Department Care Team (Late st Contact Info) Description 10/12/2020 Erroneous Encounter [facility] CONVERSION DEPT [address] [place] [phone] Albina Christine PA [address] [address] Social History Tobacco Use Types Packs/Day Years [...]
--- OUTSIDE RECORDS SUMMARY | 2025-03-06 13:10 | XMS_ITS | Clinical Summary ---
Author Organization [facility] Address [address] [place] [phone] Phone Care Team Providers Care Food And Drug Inspector Name Role Phone Maira Uriarte MD Primary Care Provider +1- [phone] Allergies Active Allergy Reactions Criticality Noted Date [...] patient's age to complete this topic Insurance [employer] Care Teams Food And Drug Inspector Relationship Specialty Start Date End Date Maira Uriarte MD [address] [place] [phone] PCP - General Internal Medicine 6/23/22
--- OUTSIDE RECORDS SUMMARY | 2025-03-06 13:10 | XMS_ITS | Encounter Summary ---
Author Organization [facility] Address [address] [place] [address] Phone Care Team Providers Care Computer Engineering Professor Name Role Phone Maira Uriarte MD Primary Care Provider +1- [phone] Encounter Details Date Type Department Care Team ([facility] Contact Info) Description 10/13/2022 Telephone [facility] [address] [place] [phone] Deja Morales Social History Tobacco Use Types [...] on filedocumented in this encounter Care Teams Computer Engineering Professor Relationship Specialty Start Date End Date Maira Uriarte MD [address] [facility] [address] [place] [phone] PCP - General Internal Medicine 11/21/21 documented as of this encounter
--- OUTSIDE RECORDS SUMMARY | 2025-03-06 13:10 | XMS_ITS | Encounter Summary ---
Author Organization [facility] Address [address] [place] [address] Care Team Providers Care Unindentured Apprentice Name Role Phone Unavailable Primary Care Provider Unavailabl e Encounter Details Date Type Department Care Team (Late st Contact Info) Description 10/08/2020 Lab Requisition [facility] [address] Through [address] [place] [phone] Raad Maldonado MD [address] [place], [place] [phone] Encounter for laboratory testing for COVID-19 virus [...] Detected Not Detected 10/08/2020 10:49 AM EDT [facility] Comment: Negative results [...] was completed and performance characteristics established by [facility] as per the FDA and CLIA requirement for this EUA. The [employer] RealTime SARS-CoV-2 assay Letter of Authorization, along with the authorized Fact Sheet for Healthcare Providers, the authorized Fact Sheet for Patients, and authorized labeling are available on the FDA website: https://www.fda.gov/MedicalDevices/Safety/EmergencySituations/plr761267.htm. Performed at [facility], [place], [place] License 0385 CLIA [id number] Source Nasopharyngeal 10/08/2020 10:49 AM EDT [facility] Comment:Performed at [facility], [place] license No. [id number] CLIA No. [id number] Microbiology Nasopharyngeal swab / Unknown 10/08/2020 9:32 AM EDT 10/08/2020 9:32 AM EDT us Raad Maldonado MD MICROBIOLOGY - GENERAL ORDER LARRY Final Result [facility] [address] [place] [address] documented in this encounter Visit Diagnoses Diagnosis Encounter for laboratory testing for COVID-19 virus documented in this encounter
== END 2025-03-06 11:02 | disposition home or self-care (01) ==
LOC: HO.HMGAL 10:53
PROVIDERS: PCP Internal Medicine; Visit Provider Registered Nurse Emergency
DX: J30.89 Other allergic rhinitis (principal)
CPT/HCPCS: 95117; 95165

== ENCOUNTER 2025-03-20 11:13 | Outpatient (AMB) | payer OTHER, SELFPAY ==
--- OUTSIDE RECORDS SUMMARY | 2025-03-20 13:47 | XMS_ITS | Clinical Summary ---
Author Organization [facility] Address [address] [place] [address] Care Team Providers Care Steel Rod Buster Name Role Phone Unavailable Primary Care Provider [...] - 2023-2 5 season) 2025 RSV Vaccine 50 years and old er and Patients (1 - 1-dose 75+ series) 02/11/2036 Hepatitis B Vaccines Aged Out No long er eligible based on patient's age to complete this topic Insurance [employer]
--- OUTSIDE RECORDS SUMMARY | 2025-03-20 13:47 | XMS_ITS | Encounter Summary ---
Author Organization [facility] Address [address] [place] [address] Care Team Providers Care Kraft Digester Operator Name Role Phone Unavailable Primary Care Provider Unavailabl e Encounter Details Date Type Department Care Team (Late st Contact Info) Description 10/12/2020 Erroneous Encounter [facility] CONVERSION DEPT [address] [place] [phone] Albina Christine PA [address] [address] Social History Tobacco Use Types Packs/Day Years [...]
--- OUTSIDE RECORDS SUMMARY | 2025-03-20 13:47 | XMS_ITS | Clinical Summary ---
Author Organization [facility] Address [address] [place] [phone] Phone Care Team Providers Care Laborer Pipelines Name Role Phone Maira Uriarte MD Primary Care Provider [phone]- [phone] Allergies Active Allergy Reactions Criticality Noted Date [...] patient's age to complete this topic Insurance [employer] R[employer] Care Teams Laborer Pipelines Relationship Specialty Start Date End Date Maira Uriarte MD [address] [place] [phone] PCP - General Internal Medicine 6/23/22
--- OUTSIDE RECORDS SUMMARY | 2025-03-20 13:47 | XMS_ITS | Encounter Summary ---
Author Organization [facility] Address [address] [place] [address] Care Team Providers Care Club Car Attendant Name Role Phone Unavailable Primary Care Provider Unavailabl e Encounter Details Date Type Department Care Team (Late st Contact Info) Description 10/08/2020 Lab Requisition [facility] [address] Through [address] [place] [phone] Raad Maldonado MD [address] [place], [place] [phone] Encounter for laboratory testing for COVID-19 virus [...] Detected Not Detected 10/08/2020 10:49 AM EDT [facility] Comment: Negative results do not [...] was completed and performance characteristics established by [facility] as per the FDA and CLIA requirement for this EUA. The [employer] RealTime SARS-CoV-2 assay Letter of Authorization, along with the authorized Fact Sheet for Healthcare Providers, the authorized Fact Sheet for Patients, and authorized labeling are available on the FDA website: https://www.fda.gov/MedicalDevices/Safety/EmergencySituations/bmf988635.htm. Performed at [facility], [place], [place] License 0385 CLIA [id number] Source Nasopharyngeal 10/08/2020 10:49 AM EDT [facility] Comment:Performed at [facility], [place] license No. [id number] CLIA No. [id number] Microbiology Nasopharyngeal swab / Unknown 10/08/2020 9:32 AM EDT 10/08/2020 9:32 AM EDT us Raad Maldonado MD MICROBIOLOGY - GENERAL ORDER LARRY Final Result [facility] [address] [place] [address] documented in this encounter Visit Diagnoses Diagnosis Encounter for laboratory testing for COVID-19 virus documented in this encounter
--- OUTSIDE RECORDS SUMMARY | 2025-03-20 13:47 | XMS_ITS | Encounter Summary ---
Author Organization [facility] Address [address] [place] [address] Phone Care Team Providers Care Industrial Therapist Name Role Phone Maira Uriarte MD Primary Care Provider +1- [phone] Encounter Details Date Type Department Care Team ([facility] Contact Info) Description 10/13/2022 Telephone [facility] [address] [place] [phone] Deja Morales Social History Tobacco Use Types [...] on filedocumented in this encounter Care Teams Industrial Therapist Relationship Specialty Start Date End Date Maira Uriarte MD 75 [facility] [address] [place] [address] PCP - General Internal Medicine 11/21/21 documented as of this encounter
== END 2025-03-20 11:14 | disposition home or self-care (01) ==
LOC: HO.HMGAL 11:13
PROVIDERS: PCP Internal Medicine; Visit Provider Registered Nurse Emergency
DX: J30.89 Other allergic rhinitis (principal)
CPT/HCPCS: 95117; 95165

== ENCOUNTER 2025-03-27 11:29 | Outpatient (AMB) | payer OTHER, SELFPAY ==
--- OUTSIDE RECORDS SUMMARY | 2025-03-27 14:52 | XMS_ITS | Clinical Summary ---
Author Organization [facility] Address [address] [place] [phone] Phone Care Team Providers Care Cutter Brake Lining Name Role Phone Maira Uriarte MD Primary Care Provider +1- [phone] Allergies Active Allergy Reactions Criticality Noted Date [...] patient's age to complete this topic Insurance avocarrot avocarrot Care Teams Cutter Brake Lining Relationship Specialty Start Date End Date Maira Uriarte MD [address] [place] [phone] PCP - General Internal Medicine 6/23/22
--- OUTSIDE RECORDS SUMMARY | 2025-03-27 14:52 | XMS_ITS | Encounter Summary ---
Author Organization [facility] Address [address] [place] [address] Care Team Providers Care Book Binder Name Role Phone Unavailable Primary Care Provider Unavailabl e Encounter Details Date Type Department Care Team (Late st Contact Info) Description 10/12/2020 Erroneous Encounter [facility] CONVERSION DEPT [address] [place] [address] Albina Christine PA [address] [address] Social History Tobacco Use Types Packs/Day Years [...]
--- OUTSIDE RECORDS SUMMARY | 2025-03-27 14:52 | XMS_ITS | Encounter Summary ---
Author Organization [facility] Address [address] [place] [address] Care Team Providers Care Role Player Name Role Phone Unavailable Primary Care Provider Unavailabl e Encounter Details Date Type Department Care Team (Late st Contact Info) Description 10/08/2020 Lab Requisition [facility] [address] Through [address] [place] [phone] Raad Maldonado MD 80 [place], [place] [phone] Encounter for laboratory testing for COVID-19 virus [...] Detected Not Detected 10/08/2020 10:49 AM EDT [facility] Comment: Negative results do [...] was completed and performance characteristics established by [facility] as per the FDA and CLIA requirement for this EUA. The [employer] RealTime SARS-CoV-2 assay Letter of Authorization, along with the authorized Fact Sheet for Healthcare Providers, the authorized Fact Sheet for Patients, and authorized labeling are available on the FDA website: https://www.fda.gov/MedicalDevices/Safety/EmergencySituations/efr508797.htm. Performed at [facility], [place], [place] License 0385 CLIA [id number] Source Nasopharyngeal 10/08/2020 10:49 AM EDT [facility] Comment:Performed at [facility], [place] license No. [id number] CLIA No. [id number] Microbiology Nasopharyngeal swab / Unknown 10/08/2020 9:32 AM EDT 10/08/2020 9:32 AM EDT us Raad Maldonado MD MICROBIOLOGY - GENERAL ORDER LARRY Final Result [facility] [address] [place] [address] documented in this encounter Visit Diagnoses Diagnosis Encounter for laboratory testing for COVID-19 virus documented in this encounter
--- OUTSIDE RECORDS SUMMARY | 2025-03-27 14:52 | XMS_ITS | Clinical Summary ---
Author Organization [facility] Address [address] [place] [address] Care Team Providers Care Import Export Coordinator Name Role Phone Unavailable Primary Care Provider [...] patient's age to complete this topic Insurance [employer]
--- OUTSIDE RECORDS SUMMARY | 2025-03-27 14:52 | XMS_ITS | Encounter Summary ---
Author Organization [facility] Address [address] [place] [address] Phone Care Team Providers Care Digital Commentator Name Role Phone Maira Uriarte MD Primary Care Provider [phone]- [phone] Encounter Details Date Type Department Care Team ([facility] Contact Info) Description 10/13/2022 Telephone [facility] [address] [place] [phone] Deja Morales Social History Tobacco Use Types [...] on filedocumented in this encounter Care Teams Digital Commentator Relationship Specialty Start Date End Date Maira Uriarte MD [address] [facility] [address] [place] [address] PCP - General Internal Medicine 11/21/21 documented as of this encounter
== END 2025-03-27 11:30 | disposition home or self-care (01) ==
LOC: HO.HMGAL 11:29
PROVIDERS: PCP Internal Medicine; Visit Provider Registered Nurse Emergency
DX: J30.89 Other allergic rhinitis (principal)
CPT/HCPCS: 95117; 95165

== ENCOUNTER 2025-03-31 14:23 | Outpatient (REF) | payer OTHER, SELFPAY ==
--- OUTSIDE RECORDS SUMMARY | 2025-03-31 15:02 | XMS_ITS | Clinical Summary ---
Author Organization [facility] Address [address] [place] [address] Care Team Providers Care Seam Rubber Name Role Phone Unavailable Primary Care Provider [...] patient's age to complete this topic Insurance [employer] [place]
--- OUTSIDE RECORDS SUMMARY | 2025-03-31 15:03 | XMS_ITS | Data Portability ---
Author Organization [facility] Address [address] [place] [address] Assessment No assessment recorded. Plan of Treatment Reminders Order Date Submit Date Provider Last Modified By Organization Details Last Modified Time Details Appointments None recorded. Lab SARS CoV 2 (COVID-19) Ag, QL, IA, upper respiratory specimen 2023 024 [place] [address], [address] [place] [address], [phone], 4 09:12:53 rapid flu (A+B) 2023 024 [place] [address] _[facility], [address] [place] [address], [phone], 4 09:12:54 Referral None recorded. Procedures None recorded. Surgeries None recorded. Imaging None recorded. Medication Orders Zithromax Z-Trace 250 mg tablet 2023 024 [facility] [place], [place], [address] [place], [address], 4 09:52:01 Paxlovid 300 mg (150 mg x 2)-100 mg tablets in a dose pack 2023 024 [facility] [place], [address] [place], [address], 4 09:52:01 methylpredn isolone 4 mg tablets in a dose pack 2023 024 [facility] [place], [address] [place], [address], 09:13:04 mupirocin 2 % topical ointment 2023 024 [facility] - [place], [place], [address] [place], [address], 09:24:40 Patient TargetsNo targets recorded. Patient Instructions Encounter Date Encounter Id Patient Instructions Last Modified By Organization Details Last Modified Time 10/17/2023 [id number] nosebleeds: care instructions Not available 10/17/2023 15:34:22 upper respirator y infection (cold): care instructions Not available 10/17/2023 15:33:16 enlarged turbinates: care instructions Not available 10/17/2023 15:33:16 02/05/2024 [id number] ear infection (otitis media): care instructions Not available 02/05/2024 09:14:19 Reason for Referral None Reported. Results Created Date Observation Date Name Description Value Unit Range Abnormal Flag Note LastModifiedBy Organization Detail LastModifiedTime 02/05/2002/05/2024 SARS CoV 2 (COVI D-19) Ag, QL, IA, upper respi rator y speci men Unknown Analyte positi ve Not Available [facility] [address] [place] [address], [phone], 02/05/2024 08:45:08 02/05/20 24 02/05/2024 SARS CoV 2 (COVI D-19) Ag, QL, IA, upper respi rator y speci men Unknown Analyte yes Not Available [facility] [address] [place] [address], [phone], 02/05/2024 08:45:08 02/05/20 24 02/05/2024 rapid flu (A+B) Unknown Analyte negati ve Not Available [facility] [address] [place], [address], 02/05/2024 08:45:17 02/05/2002/05/2024 rapid flu (A+B) Unknown Analyte negati ve Not Available [facility] [address] [place], [address], 02/05/2024 08:45:17 02/05/2002/05/2024 rapid flu (A+B) Unknown Analyte yes Not Available [facility] [address] [place], [address], 02/05/2024 08:45:17 Result Notes None recorded. Problems Name Problem SNOMED Code Status Onset Date Resolution Date Notes Provider Name and Address Organization Details Recorded Time Supravent ricular tachycard ia 9900186 Active Ashlye Edmond gibson, [place] - [facility] 4 08:41:18 Hypertens adore disorder 18772626 Completed 202310/17/2023 Luda gibson PA - [facility] 4 13:30:24 Diabetes mellitus 11063196 Active 2023 Luda gibson PA - [facility] 4 13:30:29 Anxiety 06677690 Active 2023 Luda gibson PA - [facility] 4 13:30:40 Evidence of recent epistaxis 570476804 Active 2023 Josephine Waldron NP [address] [place], [address] , [place] - [facility] 4 15:30:15 Upper respirato ry infection 00198367 Active 2023 Josephine Waldron NP [address] [place], [address] , [place] - [facility] 4 15:30:54 Cerebrova scular accident 755991453 Completed 202302/05/2024 Ashley [place] null, PA - [facility] 4 08:40:52 Acute COVID-19 5489952713 Active 2023 Josephine Waldron, CLAUDIA [address] [place], [address] , [place] - [facility] 4 09:12:49 Acute bilateral otitis media 865682468 Active 2023 Josephine Waldron NP [address] [place], [place], [address] , [place] - [facility] 4 09:13:00 Problem Notes None recorded. Medical Equipment None Reported. Allergies Allergen ID Allergen Name Allergen Category Reaction Reaction Severity Criticality Documentation Date Start Date Code Code System Note Provider Name and Address Organization Details Recorded Time 883313 erythromy nuris medicatio n Not available Not available Not available 02/05/2024 4053 RxNorm Ashley [place] null, PA - [facility] 4 08:39:09 853262 amoxicill in medicatio n Not available Not available Not available 02/05/2024 723 RxNorm Ashley [place] null, [place] - [facility] 4 08:39:15 311077 Keflex medicatio n Not available Not available Not available 02/05/2024 64934 7 RxNorm Sahley [place] null, [place] - [facility] 4 08:39:24 426974 Bactrim medicatio n Not available Not available Not available 02/05/2024 53721 9 RxNorm Ashley [place] null, [place] - [facility] 4 08:39:31 404900 Reglan medicatio n Not available Not available Not available 02/05/2024 9230 RxNorm Ashley [place] null, [place] - [facility] 4 08:39:43 547883 amlodipin e medicatio n Not available Not available Not available 02/05/2024 94656 RxNorm Ashley [place] null, [place] - [facility] 4 08:40:13 184996 bee pollen environme nt,medica tion Not available Not available Not available 02/05/2024 21399 7 RxNorm SERA Lopez - [facility] 4 08:40:27 Medications Name Sig Start Date Stop [...] in Arterial blood by Pulse oximetry Systolic And Diastolic Provider Name and Address Organization Details Last Updated DateTime 4 18 /min 149.86 cm 40 kg/m2 25974.2 9 g 98.8 [degF] 60 /min 99 % 99 % 88/48 mm[Hg] Luda Marier PA - [facility] 4 13:34:44 Date Recorded Body height Body temperature Body mass index (BMI) Body weight Respiratory rate Heart rate Oxygen saturation Oxygen saturation in Arterial blood by Pulse oximetry Systolic And Diastolic Provider Name and Address Organization Details Last Updated DateTime 4 149.86 cm 101.7 [degF] 40.6 kg/m2 48574.0 7 g 18 /min 88 /min 97 % 97 % 139/57 mm[Hg] Ashley [place] PA - [facility] 4 08:45:01 Social History Question Answer Notes LastModified by [employer] Details LastModified Time Tobacco Smoking Status Former [...] Functional Status Question Answer Note LastModified by [employer] Details LastModified Time Do you use any [...] 50 mcg/0.25mL dose 02/01/2021 completed SERA Gamez [facility] 10/17/2023 13:17:32 COVID-19, mRNA, LNP-S, PF, 100 mcg/0.5mL dose or 50 mcg/0.25mL dose 03/01/2021 completed SREA Gamez [facility] 10/17/2023 13:17:32 COVID-19, mRNA, LNP-S, PF, 100 mcg/0.5mL dose or 50 mcg/0.25mL dose 03/25/2021 completed SERA Gamez [facility] 10/17/2023 13:17:32 Past Encounters Encounter ID Performer Location Encounter Start Date Encounter Closed Date Diagnosis/Indication Diagnosis SNOMED-CT Code Diagnosis ICD10 Code Diagnosis IMO Codes Diagnosis Note [id number] [facility] [address] [place] [phone] 03/08/2020 14:15:01 03/08/2020 15:20:53 [id number] [facility] [place] [phone] 03/13/2018 09:28:38 03/13/2018 09:54:17 [id number] [facility] [address] [place] [phone] 08/16/2016 16:55:30 08/16/2016 17:47:31 [id number] [place] [address] [address] [place] [address] 10/17/2023 12:35:58 10/17/2023 15:35:39 Evidence of recent epistaxis 105634050 R04.0 How can you care for yourself [...] up your nose. Upper resp iratory infection 06014553 J06.9 Based on your Presentati on, Exam, [...] . Severe Headache Thank you for using [facility] today, please feel free to contact our office if you have any questions or concerns. [id number] [place] [address] [address] 02/05/2024 08:08:20 02/05/2024 09:23:10 Acute COVID-19 9959215886 U07.1 Based on your Presentati on, Exam, [...] . Severe Headache Thank you for using [facility] today, please feel free to contact our office if you have any questions or concerns. Acute bila teral otitis media 318918922 H66.93 Health Concerns Section Related Observation LastModified by Organization Detai ls LastModified Time None Recorded Concern Status LastModified by Organization Details LastModified Time None Recorded Advance Directives Directive None Recorded Payers Insurance Date Sequence Insurance Name Policy Number Policy Hollins Covered Member ID Hollins Member ID Guarantor Name 02/05/2024 1 [employer]ANS [facility] (PP[facility] Katya Boateng [id number] Katya Boateng 10/17/[address] [place] [address] [id number] Katya Boateng [id number] Katya Boateng 04/30/2022 [facility] Katya Boateng Notes Date Note Type Note Provider Name and Address Organization Details Recorded Time 4 text/html Ear Pain Brief HPIReported by Patient CongestionReported by Patient patient comes in for congestion x1 week. used nasal spray Thursday and nasal membranes are bleeding-mostly L side. Ear pain, with post nasal drip. 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 For timing, patient reportsworseningbut reportsgradual. For associated symptoms, patient reportsfever,chills,nausea, andpost nasal dripbut reportsno chest pain,no heartburn,no vomiting,no edema,no agitation, andno wheezing. For source of patient information, patient reportsinformation obtained from patientandpatient arrived at urgent care ambulatory. For severity, patient reportsmoderate. For duration, patient reports3 days. For context, patient reportspatient denies vaping,non-smoker, andco-workers ill with similar symptoms. For modifying factors, patient reportsat night. 63 YOF presents with cold sx after exposure to covid at work. Josephine Waldron NP [address] [place], [address], [place] - [facility] 02/05/2024 09:22:37 OBGyn Episode No OBEpisode recorded.
--- OUTSIDE RECORDS SUMMARY | 2025-03-31 15:03 | XMS_ITS | Clinical Summary ---
Author Organization [facility] Address [address] [place] [phone] Phone Care Team Providers Care Stogy Maker Name Role Phone Maira Uriarte MD Primary Care Provider +1- [phone] Allergies Active Allergy Reactions Criticality Noted Date [...] patient's age to complete this topic Insurance [employer] Tul[employer] Care Teams Stogy Maker Relationship Specialty Start Date End Date Maira Uriarte MD [address] [place] [phone] PCP - General Internal Medicine 6/23/22
--- OUTSIDE RECORDS SUMMARY | 2025-03-31 15:03 | XMS_ITS | Encounter Summary ---
Author Organization [facility] Address [address] [place] [address] Care Team Providers Care Scallop Shucker Name Role Phone Unavailable Primary Care Provider Unavailabl e Encounter Details Date Type Department Care Team (Late st Contact Info) Description 10/08/2020 Lab Requisition [facility] [address] Through [address] [place] [phone] Raad Maldonado MD [address] [place], [place] [phone] Encounter for laboratory testing for COVID-19 virus [...] Detected Not Detected 10/08/2020 10:49 AM EDT [facility] Comment: Negative results [...] was completed and performance characteristics established by [facility] as per the FDA and CLIA requirement for this EUA. The [employer] RealTime SARS-CoV-2 assay Letter of Authorization, along with the authorized Fact Sheet for Healthcare Providers, the authorized Fact Sheet for Patients, and authorized labeling are available on the FDA website: https://www.fda.gov/MedicalDevices/Safety/EmergencySituations/fui413611.htm. Performed at [facility], [place], [place] License 0385 CLIA [id number] Source Nasopharyngeal 10/08/2020 10:49 AM EDT [facility] Comment:Performed at [facility], [place] license No. [id number] CLIA No. [id number] Microbiology Nasopharyngeal swab / Unknown 10/08/2020 9:32 AM EDT 10/08/2020 9:32 AM EDT us Raad Maldonado MD MICROBIOLOGY - GENERAL ORDER LARRY Final Result [facility] [address] [place] [address] documented in this encounter Visit Diagnoses Diagnosis Encounter for laboratory testing for COVID-19 virus documented in this encounter
--- OUTSIDE RECORDS SUMMARY | 2025-03-31 15:03 | XMS_ITS | Encounter Summary ---
Author Organization [facility] Address [address] [place] [address] Phone Care Team Providers Care Court Security Officer Name Role Phone Maira Uriarte MD Primary Care Provider [phone] Encounter Details Date Type Department Care Team ([facility] Contact Info) Description 10/13/2022 Telephone [facility] [address] [place] [phone] Deja Morales Social History Tobacco Use Types [...] on filedocumented in this encounter Care Teams Court Security Officer Relationship Specialty Start Date End Date Maira Uriarte MD [address] [facility] [address] [place] [address] PCP - General Internal Medicine 11/21/21 documented as of this encounter
--- OUTSIDE RECORDS SUMMARY | 2025-03-31 15:03 | XMS_ITS | Encounter Summary ---
Author Organization Formerly [facility] Address [address] [place] [address] Care Team Providers Care Cattery Operator Name Role Phone Unavailable Primary Care Provider Unavailabl e Encounter Details Date Type Department Care Team (Late st Contact Info) Description 10/12/2020 Erroneous Encounter [facility] DEPT [address] [place] [address] Albina Christine PA [address] [address] Social History Tobacco Use Types Packs/Day Years [...]
--- OUTSIDE RECORDS SUMMARY | 2025-03-31 15:03 | XMS_ITS | Data Portability ---
Author Organization [facility], [facility] Address [address] [place] [address] Care Team Providers Care Engineering Design Manager Name Role Phone MERLY OVIEDO Primary Care [...] satisfaction; surgery to be scheduled with my unit secretary. samara Not available 05/16/2024 10:31:11 09/14/2024 [...] XR, hand, 3 or more view - [facility] right hand pain room 103 2024 025 [facility], [address], [place], [address], 5 09:54:02 XR, finger(s), 2 or more view - left hand middle finger 3v , room 111 2023 024 [facility] Office, [address], [address], [place], [address], 4 15:25:48 XR, finger(s), 2 or more view - re do lateral view per bc , middle finger left hand 2023 024 [facility] Office, [address], [place], [address], 4 15:25:49 Medication Orders Kenalog 40 mg/mL [...] a4ajBk vP9nXo QUaueC m3YtLR FvZlgJ JJ8mAn HZtai3 1t3220 AC0Kqa niDVau kKiQtr MwF INTERFACE [facility] Office [address], [place], [address], 02/17/2024 10:37:13 02/17/20 24 02/17/2024 XR, finge r(s), 2 or more view http:/ [email or web address] ?Encry pted=s hAaTro YD8dLq bEUv6g %2BXZw aYqtaq 0bqfl% 2Fg9IQ a4ajBk vP9nXo QUaueC m3YtLR FvZlgJ JJ8Pinson HZtai3 6g5632 AC0Kqa niDVau kKiQtr MwF INTERFACE [facility] [address], [place], [address], 02/17/2024 10:37:14 02/17/20 24 02/17/2024 XR, finge r(s), 2 or more view http:/ [email or web address] ?Encry pted=s hAaTro YD8dLq bEUv6g %2BXZw aYqtaq 0bqfl% 2Fg9IQ a4ajBk vP9nXo QUaueC m3YtLR FvZlgJ JJ8Pinson HZtai3 9j6712 AC0Kqa niDV6W iKiQtr MwF INTERFACE [facility] [address] [facility] [address], [place], [address], 02/17/2024 10:37:16 02/17/20 24 02/17/2024 XR, finge r(s), 2 or more view http:/ [email or web address] ?Encry pted=s hAaTro YD8dLq bEUv6g %2BXZw aYqtaq 0bqfl% 2Fg9IQ a4ajBk vP9nXo QUaueC m3YtLR FvZlgJ JJ8Pinson HZtai3 6l9893 AC0Kqa niDV6W iKiQtr MwF INTERFACE [facility] [address] [facility] [address], [place], [address], 02/17/2024 10:37:17 09/15/19 25 09/14/2024 XR, hand, 3 or more view http:/ [email or web address] ?Encry pted=s hAaTro YD8dLq bEUv6g %2BXZw aYqtaq 0bqfl% 2Fg9IQ a4ajBk vP9nXo QUaueC m3YtLR FvZlgJ JJ8mAn HZtai3 7w9698 AC0KqY 3qDUaS jKiQtr MwF INTERFACE [facility] [address] [facility] [address], [place], [address], 09/14/2024 10:31:53 09/15/19 25 09/14/2024 XR, hand, 3 or more view http:/ [email or web address] ?Encry pted=s hAaTro YD8dLq bEUv6g %2BXZw aYqtaq 0bqfl% 2Fg9IQ a4ajBk vP9nXo QUaueC m3YtLR FvZlgJ JJ8mAn HZtai3 1c0625 AC0KqY 3qDUaS jKiQtr MwF INTERFACE [facility] [address] [address], [place], [address], 09/14/2024 10:31:55 Result Notes Documentation Provider Name and Address Organization Details Recorded Time Xr, Finger(s), 2 Or More View : [email or web address] Encrypted=bdSbEayQH1zKtkZ Uv6g%2VJMuuMpntp5vhvx%2Fg 7PVo1mbHpfD5wRyAYzerRc3Wr PQBmQpkNKV0nIvXPmqs65a871 6YN1CjqslHVqxtMiGqnYbX Not Available [facility] 02/17/2024 10:37: 14 Xr, Finger(s), 2 Or More View : [email or web address]? Encrypted=reXuDwfCD5lImcV Uv6g%9LRLcaKmzbg6hkeq%2Fg 3ZUf7lgJakL9nDxHMyhwHp5Wu MEZlHvaZKG6dFbLXhiz81l642 4KH2SqzzpWLdkbIkHkaBwB Not Available [facility] 02/17/2024 10:37: 15 Xr, Finger(s), 2 Or More View : [email or web address] Encrypted=fcVvPvwRK5tVvlO Uv6g%0NHQvwWhyli2ozkg%2Fg 4YAw3hpMbvS2gCkUFezhUv2Ji LVUnPopAFV0lWjWYmum58f275 7VQ8ToiqaNF2JeXuNvpRdJ Not Available [facility] 02/17/2024 10:37: 16 Xr, Finger(s), 2 Or More View : [email or web address]? Encrypted=zhJhSvaZO3nRhfS Uv6g%1XLZtfOqwma7waua%2Fg 8PYk5uiRlkK5aWeKAmtoLw0Vh HSAnMbnZNX2nSuWXtfa67m539 4YW1DfwlpAP5QhSxPbkViE Not Available [facility] 02/17/2024 10:37: 17 Xr, Hand, 3 Or More View : [email or web address]? Encrypted=yeWkOlkEB9nGhrO Uv6g%0MAUupWttfr1kkrg%2Fg 6TQd3mkQhgZ3qFxXDirpQw8Pw EDLuDatJAE2vBaFOwez62x522 5TX5GkE0lWIaCqYaMasNmL Not Available [facility] 09/14/2024 10:31: 53 Xr, Hand, 3 Or More View : [email or web address] Encrypted=pjDrExrTE1kHhzR Uv6g%7IFDisSdnbu0tjiw%2Fg 4MJb1gaDolC1aSoBNuhgBh1Nd IPXjBsaVFZ5aWiJLvtu96f432 2PD3OkG6aQEmGoJrRxhMgU Not Available [facility] 09/14/2024 10:31: 55 Problems Name Problem SNOMED Code Status Onset Date Resolution Date Notes Provider Name and Address Organization Details Recorded Time No complaints 654840013 Active Status : 'A'; Not Available [facility] 4 09:25:36 Trigger finger of left hand 5219104932640 9107 Active 2023 Dragan Rios PA-C [address], [place], [address] , [facility] 4 08:10:35 Dupuytren' s disease of palm of left hand 6396364577018 9104 Active 2023 Dragan Rios PA-C [address], [place], [address] , [facility] 4 08:10:47 Pain of right hand 4932962405484 09 Active 2024 Dragan iRos PA-C [address], [place], [address] , [facility] 5 08:21:03 Triggering of digit 911893432 Active 2024 Dragan Rios PA-C [address], [place], [address] , [facility] 5 11:17:02 Problem Notes None recorded. Procedures Surgical History Date Name Laterality Status Provider Name and Address Organization Details Recorded Time 09/15/19 25 Tendon Sheath Kenalog Injection, L/R completed Dragan Rios PA-C [address], [place], [address], [facility] 09/14/2024 11:16:33 09/02/19 24 Tendon Sheath Kenalog Injection, L/R completed Dragan Rios PA-C [address], [place], [address], [facility] 09/02/2023 11:13:48 10/13/19 21 Orthopedic Surgery completed KAYLIA L'HEUREUX [facility] 09/14/2024 08:59:41 10/13/19 21 Other completed KAYLIA L'HEUREUX [facility] 09/14/2024 10:25:09 11/14/19 16 Knee Surgery completed KAYLIA L'HEUREUX [facility] 09/14/2024 10:25:09 11/14/19 15 Arthroplasty completed KAYLIA L'HEUREUX [facility] 09/14/2024 08:59:41 10/24/19 01 Other completed KAYLIA L'HEUREUX [facility] 09/14/2024 10:25:09 11/24/19 00 Other completed KAYLIA L'HEUREUX [facility] 09/14/2024 10:25:09 11/23/19 00 Gastrointestinal Surgery completed KAYLIA L'HEUREUX [facility] 09/14/2024 08:59:41 Imaging Results None recorded. Procedure Notes None recorded. Medical Equipment None Reported. Allergies Allergen ID Allergen Name Allergen Category Reaction Reaction Severity Criticality Documentation Date Start Date Code Code System Note Provider Name and Address Organization Details Recorded Time 682605 POLLEN EXTRACTS environme nt,medica tion Not available Not available Not available 09/14/2024 90212 6 RxNorm KAYLIA L'HEUREUX [facility] 5 10:25:07 783897 sunscreen medicatio n edema Not available Not available 09/14/2024 KAYLIA L'HEUREUX [facility] 5 10:25:07 328511 prazosin medicatio n edema moderate Not available 09/14/2024 8629 RxNorm KAYLIA L'HEUREUX [facility] 5 10:25:07 008920 red dye food,medi cation Not available Not available Not available 09/14/2024 KAYLIA L'HEUREUX [facility] 5 10:25:07 309200 purified protein derivativ e of tuberculi n medicatio n hives Not available Not available 09/14/20241993 8948 RxNorm KAYLIA L'HEUREUX [facility] 5 10:25:07 900814 Product containin g hydrogen/ potassium adenosine triphosph atase enzyme system inhibitor (product) medicatio n other Not available Not available 09/14/2024 74251 5006 SNOMED JOANNYLIA L'HEUREUX [facility], [facility] 5 10:25:07 195094 Anaphylax is Bee Sting medicatio n Not available Not available Not available 09/14/2024 JOANNYLIA L'HEUREUX [facility], [facility] 5 10:25:07 390246 tetanus immune globulin F(ab')2 (equine) Not available Not available Not available Not available 09/14/2024 KAYLIA L'HEUREUX null, [facility] 5 10:25:07 527720 ragweed pollen environme nt Not available Not available Not available 09/14/2024 KAYLIA L'HEUREUX [facility], [facility] 5 10:25:07 040485 weed pollen environme nt,medica tion Not available Not available Not available 09/14/2024 KAYLIA L'HEUREUX null, [facility] 5 10:25:07 270950 grass pollen environme nt,medica tion Not available Not available Not available 09/14/2024 KAYLIA L'HEUREUX null, [facility] 5 10:25:07 939596 mold extract environme nt Not available Not available Not available 09/14/2024 13577 8 RxNorm KAYLIA L'HEUREUX [facility], [facility] 5 10:25:07 94925 oxycodone hydrochlo ride medicatio n Not available Not available Not available 08/03/20232014 84852 RxNorm Aller gyRea ction : 'Skin React ion'; Not Available [facility] 4 13:27:20 52059 Dilaudid medicatio n Not available Not available Not available 08/03/20232014 69400 3 RxNorm Aller gyRea ction : 'Skin React ion'; Not Available [facility] 4 13:27:20 51760 Oxycontin medicatio n Not available Not available Not available 08/03/20232014 28969 6 RxNorm Aller gyNam e: 'Oxyc ontin Tb12' ; Aller gyRea ction : 'Skin React ion'; Not Available [facility] 4 13:27:20 11919 amlodipin e besylate medicatio n Not available Not available Not available 08/03/20232022 55589 6 RxNorm Not Available [facility] 4 13:27:20 36781 Reglan medicatio n Not available Not available Not available 08/03/20232014 9230 RxNorm Not Available [facility] 4 13:27:20 94749 acetamino phen / codeine medicatio n Not available Not available Not available 08/03/20232014 16021 9 RxNorm Aller gyNam e: 'Tyle nol/c odein e #3 Tabs' ; Not Available [facility] 4 13:27:20 62926 Ultram medicatio n Not available Not available Not available 08/03/20232014 64256 6 RxNorm Not Available [facility] 4 13:27:21 85967 Keflex medicatio n Not available Not available Not available 08/03/20232014 20591 7 RxNorm Not Available [facility] 4 13:27:21 50342 acetamino phen / hydrocodo ne medicatio n Not available Not available Not available 08/03/20232014 83991 2 RxNorm Not Available [facility] 4 13:27:21 55241 erythromy nuris medicatio n Not available Not available Not available 08/03/20232014 4053 RxNorm Not Available [facility] 4 13:27:21 51881 amoxicill in trihydrat e medicatio n Not available Not available Not available 08/03/20232014 16922 8 RxNorm Not Available [facility] 4 13:27:21 79904 Bactrim medicatio n Not available Not available Not available 08/03/20232022 94295 9 RxNorm Not Available [facility] 4 13:27:21 39689 codeine medicatio n Not available Not available Not available 08/03/20232014 2670 RxNorm Not Available [facility] 4 13:27:21 91188 latex environme nt,medica tion Not available Not available Not available 08/03/20232014 15503 91 RxNorm Not Available [facility] 4 13:27:21 15428 Substance with sulfonami de structure and antibacte rial mechanism of action (substanc e) medicatio n Not available Not available Not available 08/03/20232014 44347 8003 SNOMED Not Available [facility] 13:27:22 Medications Name Sig Start Date Stop [...] pack TAKE BY MOUTH DIRECTED ON PACKAGE 04/10 /2025 completed Not Available Not Available Not Available [...] Updated DateTime 09/02/2023 149.86 cm 38.6 kg/m2 50882.14 g Juana Downs [place] - [place] [facility] 09/02/2023 10:23:51 Date Recorded Body height Body mass index (BMI) Body weight Provider Name and Address Organization Details Last Updated DateTime 09/14/2024 149.86 cm 38.4 kg/m2 95171.55 g MARK CALVILLO [facility] 09/14/2024 10:25:21 Date Recorded Body height Body mass index (BMI) Body weight Provider Name and Address Organization Details Last Updated DateTime 02/17/2024 149.86 cm 38.6 kg/m2 81646.14 g Dulce Maria Collins [facility] 02/17/2024 10:06:51 Date Recorded Body height Body mass index (BMI) Body weight Provider Name and Address Organization Details Last Updated DateTime 05/16/2024 149.86 cm 38.4 kg/m2 13253.55 g JAQUELINE LAMAR [facility] 05/16/2024 08:43:55 Social History Question Answer Notes LastModified by [employer] Details LastModified Time Tobacco Smoking Status Former Smoker MARK CALVILLO [facility] 09/14/2024 10:25:09 When Did You Quit Smoking? 17+yearssin celastcivivi ette Information not available 09/14/2024 What Is Your Relationship Status? Single Information not available 09/14/2024 Sex: Unknown Functional Status Question Answer Note LastModified by [employer] Change Card Details LastModified Time How many times per [...] ICD10 Code Diagnosis IMO Codes Diagnosis Note [id number] AZAEL Castillo [address] [place] [address] 09/02/2023 09:54:08 09/02/2023 11:20:05 Trigger finger of left hand 8669724708 4395774 M65.332 Dupuytren' s disease of palm of left hand 4727729323 8109324 M72.0 [id number] Dragan Rios PA-C [address] [place] [address] 02/17/2024 09:49:41 03/09/2024 15:25:48 Trigger finger of left hand 8888587097 8659182 M65.332 Dupuytren' s disease of palm of left hand 1857455131 0836579 M72.0 Pain of left hand 935584 9628 06245 M79.726 [id number] Hayley monteiro MD [facility] [address] [place] [address] 05/16/2024 08:27:14 06/03/2024 13:47:15 Trigger finger of left hand 9302555145 6731175 M65.027 [id number] Dragan Rios PA-C [facility] [address] [place] [address] 09/14/2024 10:14:10 09/27/2024 09:54:02 Pain of right hand 5889553953 06595 M79.406 7765672 Triggering of digit 2399 45012 M65.103 [id number] Health Concerns Section Related Observation LastModified by Organization Detai ls LastModified Time None Recorded Concern Status LastModified by Organization Details LastModified Time None Recorded Advance Directives Directive None Recorded Payers Insurance Date Sequence Insurance Name Policy Number Policy Hollins Covered Member ID Hollins Member ID Guarantor Name 11/01/2024 1 [employer]UE [employer] [facility] [id number] Katya Boateng [id number] Katya Boateng 09/13/2024 1 HEALTH [employer]centive [employer] Katya Boateng [id number] Katya Boateng Notes Date Note Type Note Provider Name and Address Organization Details Recorded Time 09/02/2023 text/html ROS as noted in the HPI I am seeing this patient under the [...] today in follow Dragan Rios PA-C [address], [place], [address], [facility] 09/02/2023 11:14:34 02/17/2024 text/html ROS as noted in the HPI I am seeing this patient under the [...] without significant improvement. 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 Hayley Smith MD [address], [place], [address], [facility] 05/16/2024 10:31:25 09/14/2024 text/html ROS as noted in the HPI I am seeing this patient under the [...] today for evaluation Dragan Rios PA-C [address], [place], [address], [facility] 09/14/2024 11:17:24 OBGyn Episode No OBEpisode recorded.
[2025-03-31 15:22] LABS: Appearance Urine Clear; Glucose Urine UA Negative (Negative); PH 5.0 (5.0-9.0); Specific Gravity - Urine >= 1.030 (1.005-1.025); UMIC TRIGGER UACC YES
[2025-03-31 15:46] LABS: UACC Culture Trigger YES
== END 2025-03-31 14:24 | disposition home or self-care (01) ==
LOC: HO.LAB 14:23
PROVIDERS: PCP Internal Medicine; Visit Provider Internal Medicine
DX: N30.00 Acute cystitis without hematuria (principal)
CPT/HCPCS: 81001; 87086; 87088; 87186

== ENCOUNTER 2025-04-03 11:47 | Outpatient (AMB) | payer OTHER, SELFPAY ==
--- OUTSIDE RECORDS SUMMARY | 2025-04-03 15:01 | XMS_ITS | Clinical Summary ---
Author Organization [facility] Address [address] [place] [address] Care Team Providers Care Nuclear Pharmacist Name Role Phone Unavailable Primary Care Provider [...] patient's age to complete this topic Insurance [employer] [place]
--- OUTSIDE RECORDS SUMMARY | 2025-04-03 15:01 | XMS_ITS | Data Portability ---
Author Organization [facility], [address] Address [address] [place] [address] Assessment No assessment recorded. Plan of Treatment Reminders Order Date Submit Date Provider Last Modified By Organization Details Last Modified Time Details Appointments None recorded. Lab SARS CoV 2 (COVID-19) Ag, QL, IA, upper respiratory specimen 2023 024 [place] [id number], [address] [place] [address], [phone], 4 09:12:53 rapid flu (A+B) 2023 024 [place] [address] _[facility], [address] [place] [address], [phone], 4 09:12:54 Referral None recorded. Procedures None recorded. Surgeries None recorded. Imaging None recorded. Medication Orders Zithromax Z-Trace 250 mg tablet 2023 024 [facility] [place], [place], [address] [place], [address], 4 09:52:01 Paxlovid 300 mg (150 mg x 2)-100 mg tablets in a dose pack 2023 024 [facility] - [place], [address] [place], [address], 4 09:52:01 methylpredn isolone 4 mg tablets in a dose pack 2023 024 [facility] - [place], [address] [place], [address], 09:13:04 mupirocin 2 % topical ointment 2023 024 [facility] - [place], [place], [address] [place], [address], 09:24:40 Patient TargetsNo targets recorded. Patient Instructions Encounter Date Encounter Id Patient Instructions Last Modified By Organization Details Last Modified Time 10/17/2023 [id number] nosebleeds: care instructions Not available 10/17/2023 15:34:22 upper respirator y infection (cold): care instructions Not available 10/17/2023 15:33:16 enlarged turbinates: care instructions Not available 10/17/2023 15:33:16 02/05/2024 [id number] ear infection (otitis media): care instructions Not available 02/05/2024 09:14:19 Reason for Referral None Reported. Results Created Date Observation Date Name Description Value Unit Range Abnormal Flag Note LastModifiedBy Organization Detail LastModifiedTime 02/05/2002/05/2024 SARS CoV 2 (COVI D-19) Ag, QL, IA, upper respi rator y speci men Unknown Analyte positi ve Not Available [facility] [address] [place] [address], [phone], 02/05/2024 08:45:08 02/05/20 24 02/05/2024 SARS CoV 2 (COVI D-19) Ag, QL, IA, upper respi rator y speci men Unknown Analyte yes Not Available [facility] [address] [place] [address], [phone], 02/05/2024 08:45:08 02/05/20 24 02/05/2024 rapid flu (A+B) Unknown Analyte negati ve Not Available [facility] [address] [place], [address], 02/05/2024 08:45:17 02/05/2002/05/2024 rapid flu (A+B) Unknown Analyte negati ve Not Available [facility] [address] [place], [address], 02/05/2024 08:45:17 02/05/2002/05/2024 rapid flu (A+B) Unknown Analyte yes Not Available [facility] [address] [place], [address], 02/05/2024 08:45:17 Result Notes None recorded. Problems Name Problem SNOMED Code Status Onset Date Resolution Date Notes Provider Name and Address Organization Details Recorded Time Supravent ricular tachycard ia 3234384 Active Ashley Edmond gibson, PA - [facility] 4 08:41:18 Hypertens adore disorder 17778288 Completed 202310/17/2023 Luda gibson PA - [facility] 4 13:30:24 Diabetes mellitus 68102048 Active 2023 Luda gibson PA - [facility] 4 13:30:29 Anxiety 08814472 Active 2023 Luda gibson PA - [facility] 4 13:30:40 Evidence of recent epistaxis 856534441 Active 2023 Josephine Waldron NP [address] [place], [address] , [place] - [facility] 4 15:30:15 Upper respirato ry infection 98629357 Active 2023 Josephine Waldron NP [address] [place], [address] , [place] - [facility] 4 15:30:54 Cerebrova scular accident 332049017 Completed 202302/05/2024 Ashley Seatac null, PA - [facility] 4 08:40:52 Acute COVID-19 0800349130 Active 2023 Josephine Waldron, CLAUDIA [address] [place], [address] , [place] - [facility] 4 09:12:49 Acute bilateral otitis media 808420744 Active 2023 Josephine Waldron NP [address], [place], [address] , [place] - [facility] 4 09:13:00 Problem Notes None recorded. Medical Equipment None Reported. Allergies Allergen ID Allergen Name Allergen Category Reaction Reaction Severity Criticality Documentation Date Start Date Code Code System Note Provider Name and Address Organization Details Recorded Time 843013 erythromy nuris medicatio n Not available Not available Not available 02/05/2024 4053 RxNorm Ashley Seatac null, PA - [facility] 4 08:39:09 966303 amoxicill in medicatio n Not available Not available Not available 02/05/2024 723 RxNorm Ashley Seatac null, PA - [facility] 4 08:39:15 684905 Keflex medicatio n Not available Not available Not available 02/05/2024 13024 7 RxNorm Ashley Seatac null, PA - [facility] 4 08:39:24 989877 Bactrim medicatio n Not available Not available Not available 02/05/2024 67702 9 RxNorm Ashley Seatac null, PA - [facility] 4 08:39:31 487035 Reglan medicatio n Not available Not available Not available 02/05/2024 9230 RxNorm Ashley Seatac null, PA - [facility] 4 08:39:43 572738 amlodipin e medicatio n Not available Not available Not available 02/05/2024 09660 RxNorm Ashley Seatac null, PA - [facility] 4 08:40:13 342558 bee pollen environme nt,medica tion Not available Not available Not available 02/05/2024 54835 7 RxNorm SERA Lopez - [facility] [...] 4 18 /min 149.86 cm 40 kg/m2 40350.2 9 g 98.8 [degF] 60 /min 99 [...] 4 149.86 cm 101.7 [degF] 40.6 kg/m2 12562.0 7 g 18 /min 88 /min 97 % 97 % 139/57 mm[Hg] Ashley Seatac PA - [facility] 4 08:45:01 Social History Question Answer Notes LastModified by [employer] Details LastModified Time Tobacco Smoking Status Former [...] Functional Status Question Answer Note LastModified by [employer] Details LastModified Time Do you use any [...] ICD10 Code Diagnosis IMO Codes Diagnosis Note [id number] 20994[facility] [address] [place] [address] 03/08/2020 14:15:01 03/08/2020 15:20:53 [id number] [facility] [address] [address] [place] [address] 03/13/2018 09:28:38 03/13/2018 09:54:17 [id number] [facility] [address] [place] [address] 08/16/2016 16:55:30 08/16/2016 17:47:31 [id number] Josephine Waldron NP [facility] [address] [place] [address] 10/17/2023 12:35:58 10/17/2023 15:35:39 Evidence of recent epistaxis 681644772 R04.0 How can you care for yourself [...] up your nose. Upper resp iratory infection 17919817 J06.9 Based on your Presentati on, Exam, [...] . Severe Headache Thank you for using [facility] today, please feel free to contact our office if you have any questions or concerns. [id number] [place] [address] [address] 02/05/2024 08:08:20 02/05/2024 09:23:10 Acute COVID-19 2010782710 U07.1 Based on your Presentati on, Exam, [...] . Severe Headache Thank you for using [facility] today, please feel free to contact our office if you have any questions or concerns. Acute bila teral otitis media 983038648 H66.93 Health Concerns Section Related Observation LastModified by Organization Detai ls LastModified Time None Recorded Concern Status LastModified by Organization Details LastModified Time None Recorded Advance Directives Directive None Recorded Payers Insurance Date Sequence Insurance Name Policy Number Policy Hollins Covered Member ID Hollins Member ID Guarantor Name 02/05/2024 1 [employer] [facility] (PP[facility]) Katya Boateng [id number] Katya Boateng 10/17/[address] [place] [address] [id number] Katya Boateng [id number] Katya Boateng 04/30/2022 [facility] Katya Boateng Notes Date Note [...] Josephine Waldron NP [address] [place], [address], [facility] 10/17/2023 18:55:32 4 text/html CoughReported by [...] covid at work. Josephine Waldron NP [address] [place], [address], [place] - [facility] 02/05/2024 09:22:37 OBGyn Episode No OBEpisode recorded.
--- OUTSIDE RECORDS SUMMARY | 2025-04-03 15:02 | XMS_ITS | Encounter Summary ---
Author Organization [facility] Address [address] [place] [address] Care Team Providers Care Reimbursement Spec Name Role Phone Unavailable Primary Care Provider Unavailabl e Encounter Details Date Type Department Care Team (Late st Contact Info) Description 10/12/2020 Erroneous Encounter [facility] CONVERSION DEPT [address] [place] [address] Albina Christine PA [address] [address] Social History Tobacco Use Types Packs/Day Years [...]
--- OUTSIDE RECORDS SUMMARY | 2025-04-03 15:02 | XMS_ITS | Encounter Summary ---
Author Organization [facility] Address [address] [place] [address] Care Team Providers Care Multimedia Production Assistant Name Role Phone Unavailable Primary Care Provider Unavailabl e Encounter Details Date Type Department Care Team (Late st Contact Info) Description 10/08/2020 Lab Requisition [facility] Through [address] [place] [address] Raad Maldonado MD [address] [place], [place] [id number] Encounter for laboratory testing for COVID-19 virus [...] Detected Not Detected 10/08/2020 10:49 AM EDT [facility] Comment: Negative results do [...] was completed and performance characteristics established by [facility] as per the FDA and CLIA requirement for this EUA. The [employer] RealTime SARS-CoV-2 assay Letter of Authorization, along with the authorized Fact Sheet for Healthcare Providers, the authorized Fact Sheet for Patients, and authorized labeling are available on the FDA website: https://www.fda.gov/MedicalDevices/Safety/EmergencySituations/zaj317995.htm. Performed at [facility], [place], [place] License 0385 CLIA [id number] Source Nasopharyngeal 10/08/2020 10:49 AM EDT [facility] Comment:Performed at [facility], [place] license No. [id number] CLIA No. [id number] Microbiology Nasopharyngeal swab / Unknown 10/08/2020 9:32 AM EDT 10/08/2020 9:32 AM EDT us Raad Maldonado MD MICROBIOLOGY - GENERAL ORDER LARRY Final Result [facility] [address] [place] [address] documented in this encounter Visit Diagnoses Diagnosis Encounter for laboratory testing for COVID-19 virus documented in this encounter
--- OUTSIDE RECORDS SUMMARY | 2025-04-03 15:02 | XMS_ITS | Encounter Summary ---
Author Organization [facility] Address [address] [place] [address] Phone Care Team Providers Care Nail Expert Name Role Phone Maira Uriarte MD Primary Care Provider [phone] Encounter Details Date Type Department Care Team ([facility] Contact Info) Description 10/13/2022 Telephone [facility] [address] [place] [id number] Deja Morales Social History Tobacco Use Types [...] on filedocumented in this encounter Care Teams Nail Expert Relationship Specialty Start Date End Date Maira Uriarte MD [address] [facility] [address] [place] [address] PCP - General Internal Medicine 11/21/21 documented as of this encounter
--- OUTSIDE RECORDS SUMMARY | 2025-04-03 15:02 | XMS_ITS | Clinical Summary ---
Author Organization [facility] Address [address] [place] [phone] Phone Care Team Providers Care Mash Filter Cloth Changer Name Role Phone Maira Uriarte MD Primary Care Provider [phone] Allergies Active Allergy Reactions Criticality Noted Date [...] patient's age to complete this topic Insurance XDx XDx Care Teams Mash Filter Cloth Changer Relationship Specialty Start Date End Date Maira Uriarte MD [address] [place] [phone] PCP - General Internal Medicine 6/23/22
--- OUTSIDE RECORDS SUMMARY | 2025-04-03 15:02 | XMS_ITS | Data Portability ---
Author Organization [facility], [facility] Address [address] [place] [address] Care Team Providers Care Jacquard Loom Carpet Weaver Name Role Phone MERLY OVIEDO Primary Care [...] satisfaction; surgery to be scheduled with my clinical secretary. samara Not available 05/16/2024 10:31:11 09/14/2024 [...] XR, hand, 3 or more view - formerly [facility] right hand pain room 103 2024 025 [facility], [address], [place], [address], 5 09:54:02 XR, finger(s), 2 or more view - left hand middle finger 3v , room 111 2023 024 [facility], [address], [address], [place], [address], 4 15:25:48 XR, finger(s), 2 or more view - re do lateral view per bc , middle finger left hand 2023 024 [facility], [address], [address], [place], [address], 4 15:25:49 Medication Orders Kenalog 40 mg/mL [...] a4ajBk vP9nXo QUaueC m3YtLR FvZlgJ JJ8mAn HZtai3 8q3713 AC0Kqa niDVau kKiQtr MwF INTERFACE [facility] [address], [place], [address], 02/17/2024 10:37:13 02/17/20 24 02/17/2024 XR, finge r(s), 2 or more view [email or web address]:/ [email or web address] ?Encry pted=s hAaTro YD8dLq bEUv6g %2BXZw aYqtaq 0bqfl% 2Fg9IQ a4ajBk vP9nXo QUaueC m3YtLR FvZlgJ JJ8Big [place] HZtai3 0e9499 AC0Kqa niDVau kKiQtr MwF INTERFACE [facility] [address], [place], [address], 02/17/2024 10:37:14 02/17/20 24 02/17/2024 XR, finge r(s), 2 or more view [email or web address]:/ [email or web address] ?Encry pted=s hAaTro YD8dLq bEUv6g %2BXZw aYqtaq 0bqfl% 2Fg9IQ a4ajBk vP9nXo QUaueC m3YtLR FvZlgJ JJ8Big [place] HZtai3 7i7029 AC0Kqa niDV6W iKiQtr MwF INTERFACE [facility] [address] [facility] [address], [place], [address], 02/17/2024 10:37:16 02/17/20 24 02/17/2024 XR, finge r(s), 2 or more view http:/ [email or web address] ?Encry pted=s hAaTro YD8dLq bEUv6g %2BXZw aYqtaq 0bqfl% 2Fg9IQ a4ajBk vP9nXo QUaueC m3YtLR FvZlgJ JJ8Big [place] HZtai3 1p0573 AC0Kqa niDV6W iKiQtr MwF INTERFACE [facility] [address] [facility] [address], [place], [address], 02/17/2024 10:37:17 09/15/19 25 09/14/2024 XR, hand, 3 or more view http:/ [email or web address] ?Encry pted=s hAaTro YD8dLq bEUv6g %2BXZw aYqtaq 0bqfl% 2Fg9IQ a4ajBk vP9nXo QUaueC m3YtLR FvZlgJ JJ8mAn HZtai3 3h0090 AC0KqY 3qDUaS jKiQtr MwF INTERFACE [facility] [address] [facility] [address], [place], [address], 09/14/2024 10:31:53 09/15/19 25 09/14/2024 XR, hand, 3 or more view http:/ [email or web address] ?Encry pted=s hAaTro YD8dLq bEUv6g %2BXZw aYqtaq 0bqfl% 2Fg9IQ a4ajBk vP9nXo QUaueC m3YtLR FvZlgJ JJ8mAn HZtai3 4n2260 AC0KqY 3qDUaS jKiQtr MwF INTERFACE [facility] [address] [address], [place], [address], 09/14/2024 10:31:55 Result Notes Documentation Provider Name and Address Organization Details Recorded Time Xr, Finger(s), 2 Or More View : [email or web address] Encrypted=jlXwEcyAI0aPswA Uv6g%7YCIyaZrxkc3ewgs%2Fg 2OTg5jjBmxW7gIvGTlhjAr2Fe WVCcKowEWS7kGdCFfcm31w107 2OP5FqbfrANipmMaSyhPdR Not Available [facility] 02/17/2024 10:37: 14 Xr, Finger(s), 2 Or More View : [email or web address] Encrypted=clXwBvnGL8xJhqS Uv6g%7QMLkyAxtpv2qgjx%2Fg 3GSt6tvTfsQ2kFaJCplqLf4Mc OIFoGeoIVX9fLpIWjye79l267 9UZ3SbvmnVIzeoYdBsiGrZ Not Available [facility] 02/17/2024 10:37: 15 Xr, Finger(s), 2 Or More View : [email or web address] Encrypted=pxMjGxiTW1gHckE Uv6g%9AEOovGmxan0vibj%2Fg 1CTt7kmUzjW9aUuEQtvsNq4Dm GYUbFrbWDS6kCqAHigv23a217 5TQ7WbdppML5VlSzGyxSfJ Not Available [facility] 02/17/2024 10:37: 16 Xr, Finger(s), 2 Or More View : [email or web address] Encrypted=zwMwTjbPO3pPyiH Uv6g%1TZLnlVmtnf1eaik%2Fg 4FDn9veGwiM8iAxINrygRd5Bg LDUvSicKEH3yVqHKiuy63j606 2JH1UuvlePO2ZeDcSikCzO Not Available [facility] 02/17/2024 10:37: 17 Xr, Hand, 3 Or More View : [email or web address] Encrypted=jbGjKmcQF2oQmmR Uv6g%9UNBgrPvwml9iipa%2Fg 2HDp7ocAzrF7dRgEPgyzIy4Yw IIAyDnvBMR5xHvJCgbf49s818 4RI6DuF6nTHeZfVaZukNnH Not Available [facility] 09/14/2024 10:31: 53 Xr, Hand, 3 Or More View : [email or web address] Encrypted=dxTuXwgQX2fVkkG Uv6g%5GKGyzFdtnr0evnf%2Fg 2JXi8xzMtaY0kRkVZevyLv4Bg SNRxBryKTD4zTeXGqdh63z340 2JG2UvZ4uAQuRwOvMiqOdB Not Available [facility] 09/14/2024 10:31: 55 Problems Name Problem SNOMED Code Status Onset Date Resolution Date Notes Provider Name and Address Organization Details Recorded Time No complaints 043053285 Active Status : 'A'; Not Available [facility] 4 09:25:36 Trigger finger of left hand 3254809889582 9107 Active 2023 Dragan Rios PA-C [address], [place], [address] , [facility] 4 08:10:35 Dupuytren' s disease of palm of left hand 8745932166695 9104 Active 2023 Dragan Rios PA-C [address], [place], [address] , [facility] 4 08:10:47 Pain of right hand 5263046058794 09 Active 2024 Dragan Rios PA-C [address], [place], [address] , [facility] 5 08:21:03 Triggering of digit 128940044 Active 2024 Dragan Rios PA-C [address], [place], [address] , [facility] 5 11:17:02 Problem Notes None recorded. Procedures Surgical History Date Name Laterality Status Provider Name and Address Organization Details Recorded Time 09/15/19 25 Tendon Sheath Kenalog Injection, L/R completed Dragan Rios PA-C [address], [place], [address], [facility] 09/14/2024 11:16:33 09/02/19 24 Tendon Sheath Kenalog Injection, L/R completed Dragan Rios PA-C [address], [place], [address], [facility] 09/02/2023 11:13:48 10/13/19 21 Orthopedic Surgery completed KAYLIA L'HEUREUX [facility] 09/14/2024 08:59:41 10/13/19 21 Other completed KAYLIA L'HEUREUX [facility] 09/14/2024 10:25:09 11/14/19 16 Knee Surgery completed KAYLIA L'HEUREUX [facility] 09/14/2024 10:25:09 11/14/19 15 Arthroplasty completed KAYLIA L'HEUREUX [facility] 09/14/2024 08:59:41 10/24/19 01 Other completed KAYLIA L'HEUREUX [facility] 09/14/2024 10:25:09 11/24/19 00 Other completed KAYLIA L'HEUREUX [facility] 09/14/2024 10:25:09 11/23/19 00 Gastrointestinal Surgery completed KAYLIA L'HEUREUX [facility] 09/14/2024 08:59:41 Imaging Results None recorded. Procedure Notes None recorded. Medical Equipment None Reported. Allergies Allergen ID Allergen Name Allergen Category Reaction Reaction Severity Criticality Documentation Date Start Date Code Code System Note Provider Name and Address Organization Details Recorded Time 044453 POLLEN EXTRACTS environme nt,medica tion Not available Not available Not available 09/14/2024 67247 6 RxNorm KAYLIA L'HEUREUX [facility] 5 10:25:07 692608 sunscreen medicatio n edema Not available Not available 09/14/2024 KAYLIA L'HEUREUX [facility] 5 10:25:07 662411 prazosin medicatio n edema moderate Not available 09/14/2024 8629 RxNorm KAYLIA L'HEUREUX [facility] 5 10:25:07 511943 red dye food,medi cation Not available Not available Not available 09/14/2024 KAYLIA L'HEUREUX [facility] 5 10:25:07 688797 purified protein derivativ e of tuberculi n medicatio n hives Not available Not available 09/14/20241993 8948 RxNorm KAYLIA L'HEUREUX [facility] 5 10:25:07 559467 Product containin g hydrogen/ potassium adenosine triphosph atase enzyme system inhibitor (product) medicatio n other Not available Not available 09/14/2024 67027 5006 SNOMED JOANNYLIA L'HEUREUX [facility], [facility] 5 10:25:07 981852 Anaphylax is Bee Sting medicatio n Not available Not available Not available 09/14/2024 JOANNYLIA L'HEUREUX [facility], [facility] 5 10:25:07 055137 tetanus immune globulin F(ab')2 (equine) Not available Not available Not available Not available 09/14/2024 KAYLIA L'HEUREUX null, [facility] 5 10:25:07 661283 ragweed pollen environme nt Not available Not available Not available 09/14/2024 KAYLIA L'HEUREUX [facility], [facility] 5 10:25:07 707894 weed pollen environme nt,medica tion Not available Not available Not available 09/14/2024 KAYLIA L'HEUREUX null, [facility] 5 10:25:07 279421 grass pollen environme nt,medica tion Not available Not available Not available 09/14/2024 KAYLIA L'HEUREUX null, [facility] 5 10:25:07 944741 mold extract environme nt Not available Not available Not available 09/14/2024 09782 8 RxNorm KAYLIA L'HEUREUX [facility], [facility] 5 10:25:07 72995 oxycodone hydrochlo ride medicatio n Not available Not available Not available 08/03/20232014 10539 RxNorm Aller gyRea ction : 'Skin React ion'; Not Available [facility] 4 13:27:20 26823 Dilaudid medicatio n Not available Not available Not available 08/03/20232014 10209 3 RxNorm Aller gyRea ction : 'Skin React ion'; Not Available [facility] 4 13:27:20 70556 Oxycontin medicatio n Not available Not available Not available 08/03/20232014 26025 6 RxNorm Aller gyNam e: 'Oxyc ontin Tb12' ; Aller gyRea ction : 'Skin React ion'; Not Available [facility] 4 13:27:20 95155 amlodipin e besylate medicatio n Not available Not available Not available 08/03/20232022 52037 6 RxNorm Not Available [facility] 4 13:27:20 18357 Reglan medicatio n Not available Not available Not available 08/03/20232014 9230 RxNorm Not Available [facility] 4 13:27:20 05849 acetamino phen / codeine medicatio n Not available Not available Not available 08/03/20232014 08747 9 RxNorm Aller gyNam e: 'Tyle nol/c odein e #3 Tabs' ; Not Available [facility] 4 13:27:20 77839 Ultram medicatio n Not available Not available Not available 08/03/20232014 02585 6 RxNorm Not Available [facility] 4 13:27:21 62290 Keflex medicatio n Not available Not available Not available 08/03/20232014 98475 7 RxNorm Not Available [facility] 4 13:27:21 44661 acetamino phen / hydrocodo ne medicatio n Not available Not available Not available 08/03/20232014 44942 2 RxNorm Not Available [facility] 4 13:27:21 00012 erythromy nuris medicatio n Not available Not available Not available 08/03/20232014 4053 RxNorm Not Available [facility] 4 13:27:21 41600 amoxicill in trihydrat e medicatio n Not available Not available Not available 08/03/20232014 77441 8 RxNorm Not Available [facility] 4 13:27:21 05444 Bactrim medicatio n Not available Not available Not available 08/03/20232022 78764 9 RxNorm Not Available [facility] 4 13:27:21 27266 codeine medicatio n Not available Not available Not available 08/03/20232014 2670 RxNorm Not Available [facility] 4 13:27:21 73286 latex environme nt,medica tion Not available Not available Not available 08/03/20232014 81701 91 RxNorm Not Available [facility] 4 13:27:21 07958 Substance with sulfonami de structure and antibacte rial mechanism of action (substanc e) medicatio n Not available Not available Not available 08/03/20232014 35511 8003 SNOMED Not Available [facility] 13:27:22 Medications Name Sig Start Date Stop [...] Updated DateTime 09/02/2023 149.86 cm 38.6 kg/m2 44725.14 g Juana Downs [place] - [facility] 09/02/2023 10:23:51 Date Recorded Body height Body mass index (BMI) Body weight Provider Name and Address Organization Details Last Updated DateTime 09/14/2024 149.86 cm 38.4 kg/m2 33057.55 g MARK CALVILLO [facility] 09/14/2024 10:25:21 Date Recorded Body height Body mass index (BMI) Body weight Provider Name and Address Organization Details Last Updated DateTime 02/17/2024 149.86 cm 38.6 kg/m2 11242.14 g Dulce Maria Collins [facility] 02/17/2024 10:06:51 Date Recorded Body height Body mass index (BMI) Body weight Provider Name and Address Organization Details Last Updated DateTime 05/16/2024 149.86 cm 38.4 kg/m2 03969.55 g JAQUELINE LAMAR [facility] 05/16/2024 08:43:55 Social History Question Answer Notes LastModified by Viadeo Details LastModified Time Tobacco Smoking Status Former Smoker MARK CALVILLO [facility] 09/14/2024 10:25:09 When Did You Quit Smoking? 17+yearssin celastcivivi ette Information not available 09/14/2024 What Is Your Relationship Status? Single Information not available 09/14/2024 Sex: Unknown Functional Status Question Answer Note LastModified by [employer] Details LastModified Time How many times per [...] History Nothing Reported. Medical History Condition Response Diabetes Y Anxiety/Depression Y Kidney/Bladder Problems Y Arthritis Y Sleep Apnea Y Gastrointestinal Disease Y Acid Reflux (GERD) Y Stroke Y Thyroid Problems Y Hypertension Y Gynecological HistoryNo gynecological history recorded. Obstetrics History GPAL:G 0 P 0 0 0 0 Past Encounters Encounter ID Performer Location Encounter Start Date Encounter Closed Date Diagnosis/Indication Diagnosis SNOMED-CT Code Diagnosis ICD10 Code Diagnosis IMO Codes Diagnosis Note [id number] AZAEL Castillo [address] [place] [address] 09/02/2023 09:54:08 09/02/2023 11:20:05 Trigger finger of left hand 4650201889 1467401 M65.332 Dupuytren' s disease of palm of left hand 5102167182 1423270 M72.0 [id number] Dragan Rios PA-C [facility] [address] [place] [address] 02/17/2024 09:49:41 03/09/2024 15:25:48 Trigger finger of left hand 7039837175 2547089 M65.332 Dupuytren' s disease of palm of left hand 2268445308 9460565 M72.0 Pain of left hand 205898 9258 18094 M79.582 [id number] Hayley monteiro MD [facility] [address] [place] [address] 05/16/2024 08:27:14 06/03/2024 13:47:15 Trigger finger of left hand 0218321259 7164815 M65.745 [id number] Dragan Rios PA-C [facility] [address] [place] [address] 09/14/2024 10:14:10 09/27/2024 09:54:02 Pain of right hand 1627992640 38669 M79.858 4212631 Triggering of digit 2399 70258 M65.683 [id number] Health Concerns Section Related Observation LastModified by Organization Detai ls LastModified Time None Recorded Concern Status LastModified by Organization Details LastModified Time None Recorded Advance Directives Directive None Recorded Payers Insurance Date Sequence Insurance Name Policy Number Policy Hollins Covered Member ID Hollins Member ID Guarantor Name 11/01/2024 1 BLUE BENEFIT [employer] [facility] [id number] Katya Boateng [id number] Katya Boateng 09/13/2024 1 HE[employer] Katya Boateng [id number] Katya Boateng Notes Date Note Type Note [...] today in follow Dragan Rios PA-C [address], [place], [address], [facility] 09/02/2023 11:14:34 02/17/2024 text/html ROS [...] without significant improvement. 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 Hayley Smith MD [address], [place], [address], [facility] 05/16/2024 10:31:25 09/14/2024 text/html ROS [...] today for evaluation Dragan Rios PA-C [address], [place], [address], [facility] 09/14/2024 11:17:24 OBGyn Episode No OBEpisode recorded.
== END 2025-04-03 11:49 | disposition home or self-care (01) ==
LOC: HO.HMGAL 11:47
PROVIDERS: PCP Internal Medicine; Visit Provider Registered Nurse Emergency
DX: J30.89 Other allergic rhinitis (principal)
CPT/HCPCS: 95117; 95165

== ENCOUNTER 2025-04-10 14:11 | Outpatient (AMB) | payer OTHER, SELFPAY ==
--- OUTSIDE RECORDS SUMMARY | 2025-04-10 16:32 | XMS_ITS | Data Portability ---
Author Organization [facility], [facility] Address [address] [place] [address] Care Team Providers Care Driller Brake Lining Name Role Phone MERLY OVIEDO Primary Care [...] XR, hand, 3 or more view - [facility] right hand pain room 103 2024 025 [facility], [address], [place], [address], 5 09:54:02 XR, finger(s), 2 or more view - left hand middle finger 3v , room 111 2023 024 [facility], [address], [address], [place], [address], 4 15:25:48 XR, finger(s), 2 or more view - re do lateral view per bc , middle finger left hand 2023 024 [facility], [address], [address], [place], [address], 4 15:25:49 Medication Orders Kenalog 40 mg/mL [...] a4ajBk vP9nXo QUaueC m3YtLR FvZlgJ JJ8mAn HZtai3 4o9997 AC0Kqa niDVau kKiQtr MwF INTERFACE [facility] [address], [place], [address], 02/17/2024 10:37:13 02/17/20 24 02/17/2024 XR, finge r(s), 2 or more view http:/ [email or web address] ?Encry pted=s hAaTro YD8dLq bEUv6g %2BXZw aYqtaq 0bqfl% 2Fg9IQ a4ajBk vP9nXo QUaueC m3YtLR FvZlgJ JJ8[place] HZtai3 4q7222 AC0Kqa niDVau kKiQtr MwF INTERFACE [facility] [address], [place], [address], 02/17/2024 10:37:14 02/17/20 24 02/17/2024 XR, finge r(s), 2 or more view http:/ [email or web address] ?Encry pted=s hAaTro YD8dLq bEUv6g %2BXZw aYqtaq 0bqfl% 2Fg9IQ a4ajBk vP9nXo QUaueC m3YtLR FvZlgJ JJ8[place] HZtai3 4w6288 AC0Kqa niDV6W iKiQtr MwF INTERFACE [facility] [address] [email or web address] [address], [place], [address], 02/17/2024 10:37:16 02/17/20 24 02/17/2024 XR, finge r(s), 2 or more view http:/ [email or web address] ?Encry pted=s hAaTro YD8dLq bEUv6g %2BXZw aYqtaq 0bqfl% 2Fg9IQ a4ajBk vP9nXo QUaueC m3YtLR FvZlgJ JJ8[place] HZtai3 1x6582 AC0Kqa niDV6W iKiQtr MwF INTERFACE [facility] [address] [facility] [[email or web address] [address], [place], [address], 02/17/2024 10:37:17 09/15/19 25 09/14/2024 XR, hand, 3 or more view http:/ [email or web address] ?Encry pted=s hAaTro YD8dLq bEUv6g %2BXZw aYqtaq 0bqfl% 2Fg9IQ a4ajBk vP9nXo QUaueC m3YtLR FvZlgJ JJ8mAn HZtai3 8e9409 AC0KqY 3qDUaS jKiQtr MwF INTERFACE [facility] [address] [facility] [address], [place], [address], 09/14/2024 10:31:53 09/15/19 25 09/14/2024 XR, hand, 3 or more view http:/ [email or web address] ?Encry pted=s hAaTro YD8dLq bEUv6g %2BXZw aYqtaq 0bqfl% 2Fg9IQ a4ajBk vP9nXo QUaueC m3YtLR FvZlgJ JJ8mAn HZtai3 5u2570 AC0KqY 3qDUaS jKiQtr MwF INTERFACE [facility] [address] [address], [place], [address], 09/14/2024 10:31:55 Result Notes Documentation Provider Name and Address Organization Details Recorded Time Xr, Finger(s), 2 Or More View : [email or web address] Encrypted=loWxTqsOJ7pDqsG Uv6g%4RTZmqJbwtc6zrvq%2Fg 0ULf2bpAtsY4rPqNBjvuBu1Gk UFLuTotGCR6jVwHUure15f128 6YS3TdlkfYPchdXuEoeFbL Not Available [facility] 02/17/2024 10:37: 14 Xr, Finger(s), 2 Or More View : [email or web address] Encrypted=kvPkHooWM6xAukF Uv6g%8GROjcMgscw3xzpe%2Fg 9LJd9zyIvwA5yYqJHddrOv3Yc WEZpYekNQC0iGqDYrhb87v375 5CY4JayhzFZamhIpBbtNwB Not Available [facility] 02/17/2024 10:37: 15 Xr, Finger(s), 2 Or More View : [email or web address] Encrypted=vhRvEefLK4eCliQ Uv6g%4TOZykJasqo9adxm%2Fg 0XKg5dcQmhO9sWaNDbkuNs1Ok CBCuYqhESC7kGaTCaor43x065 8PN9RsqaxIR9GpPdAkoEjL Not Available [facility] 02/17/2024 10:37: 16 Xr, Finger(s), 2 Or More View : [email or web address] Encrypted=vmCfSqjPQ5gVyeN Uv6g%9TXTfpSegut2dnhf%2Fg 8OGj4bsJpmQ0hFfZVkamJs3Oy HTPaBliOOO4gSmIPlmh50l333 6MH0FvvqwIU5GlNhJqgEwH Not Available [facility] 02/17/2024 10:37: 17 Xr, Hand, 3 Or More View : [email or web address] Encrypted=vrRrBojQG1bWmmC Uv6g%1YFVfxUudhn9hrfz%2Fg 6TPc3hrRskI7tXbIMgdyNf6Xr GGHiZwyFDP9nCvRUgsn36x795 4DO9YrG9lRSfPkTsKosXpW Not Available [facility] 09/14/2024 10:31: 53 Xr, Hand, 3 Or More View : [email or web address] Encrypted=nsFnVcxPY2jSidM Uv6g%2UBSzuFbzlm2lawo%2Fg 4WVv1zmXjaV4eLtNDhlqIv7Ki GUMdSchUHL2lZrGLboj39j078 9TV4YbZ0dHWzXpPpUtsCdU Not Available [facility] 09/14/2024 10:31: 55 Problems Name Problem SNOMED Code Status Onset Date Resolution Date Notes Provider Name and Address Organization Details Recorded Time No complaints 555091594 Active Status : 'A'; Not Available [facility] 4 09:25:36 Trigger finger of left hand 4676229518277 9107 Active 2023 Dragan Rios PA-C [address], [place], [address] , [facility] 4 08:10:35 Dupuytren' s disease of palm of left hand 0210547569586 9104 Active 2023 Dragan Rios PA-C [address], [place], [address] , [facility] 4 08:10:47 Pain of right hand 0883303224157 09 Active 2024 Dragan Rios PA-C [address], [place], [address] , [facility] 5 08:21:03 Triggering of digit 425862544 Active 2024 Dragan Rios PA-C [address], [place], [address] , [facility] 5 11:17:02 Problem Notes None recorded. Procedures Surgical History Date Name Laterality Status Provider Name and Address Organization Details Recorded Time 09/15/19 25 Tendon Sheath Kenalog Injection, L/R completed Dragan Rios PA-C [address], [place], [address], [facility] 09/14/2024 11:16:33 09/02/19 24 Tendon Sheath Kenalog Injection, L/R completed Dragan Rios PA-C [address], [place], [address], [facility] 09/02/2023 11:13:48 10/13/19 21 Orthopedic Surgery completed KAYLIA L'HEUREUX [facility] 09/14/2024 08:59:41 10/13/19 21 Other completed KAYLIA L'HEUREUX [facility] 09/14/2024 10:25:09 11/14/19 16 Knee Surgery completed KAYLIA L'HEUREUX [facility] 09/14/2024 10:25:09 11/14/19 15 Arthroplasty completed KAYLIA L'HEUREUX [facility] 09/14/2024 08:59:41 10/24/19 01 Other completed KAYLIA L'HEUREUX [facility] 09/14/2024 10:25:09 11/24/19 00 Other completed KAYLIA L'HEUREUX [facility] 09/14/2024 10:25:09 11/23/19 00 Gastrointestinal Surgery completed KAYLIA L'HEUREUX [facility] 09/14/2024 08:59:41 Imaging Results None recorded. Procedure Notes None recorded. Medical Equipment None Reported. Allergies Allergen ID Allergen Name Allergen Category Reaction Reaction Severity Criticality Documentation Date Start Date Code Code System Note Provider Name and Address Organization Details Recorded Time 579162 POLLEN EXTRACTS environme nt,medica tion Not available Not available Not available 09/14/2024 03383 6 RxNorm KAYLIA L'HEUREUX [facility] 5 10:25:07 616097 sunscreen medicatio n edema Not available Not available 09/14/2024 KAYLIA L'HEUREUX [facility] 5 10:25:07 541622 prazosin medicatio n edema moderate Not available 09/14/2024 8629 RxNorm KAYLIA L'HEUREUX [facility] 5 10:25:07 402053 red dye food,medi cation Not available Not available Not available 09/14/2024 KAYLIA L'HEUREUX [facility] 5 10:25:07 772178 purified protein derivativ e of tuberculi n medicatio n hives Not available Not available 09/14/20241993 8948 RxNorm KAYLIA L'HEUREUX [facility] 5 10:25:07 482346 Product containin g hydrogen/ potassium adenosine triphosph atase enzyme system inhibitor (product) medicatio n other Not available Not available 09/14/2024 90746 5006 SNOMED JOANNYLIA L'HEUREUX [facility], [facility] 5 10:25:07 306940 Anaphylax is Bee Sting medicatio n Not available Not available Not available 09/14/2024 JOANNYLIA L'HEUREUX [facility], [facility] 5 10:25:07 926505 tetanus immune globulin F(ab')2 (equine) Not available Not available Not available Not available 09/14/2024 KAYLIA L'HEUREUX null, [facility] 5 10:25:07 891457 ragweed pollen environme nt Not available Not available Not available 09/14/2024 KAYLIA L'HEUREUX [facility], [facility] 5 10:25:07 811148 weed pollen environme nt,medica tion Not available Not available Not available 09/14/2024 KAYLIA L'HEUREUX null, [facility] 5 10:25:07 691928 grass pollen environme nt,medica tion Not available Not available Not available 09/14/2024 KAYLIA L'HEUREUX null, [facility] 5 10:25:07 580326 mold extract environme nt Not available Not available Not available 09/14/2024 19365 8 RxNorm KAYLIA L'HEUREUX [facility], [facility] 5 10:25:07 59131 oxycodone hydrochlo ride medicatio n Not available Not available Not available 08/03/20232014 29379 RxNorm Aller gyRea ction : 'Skin React ion'; Not Available [facility] 4 13:27:20 69870 Dilaudid medicatio n Not available Not available Not available 08/03/20232014 79663 3 RxNorm Aller gyRea ction : 'Skin React ion'; Not Available [facility] 4 13:27:20 65113 Oxycontin medicatio n Not available Not available Not available 08/03/20232014 77075 6 RxNorm Aller gyNam e: 'Oxyc ontin Tb12' ; Aller gyRea ction : 'Skin React ion'; Not Available [facility] 4 13:27:20 75781 amlodipin e besylate medicatio n Not available Not available Not available 08/03/20232022 85562 6 RxNorm Not Available [facility] 4 13:27:20 21933 Reglan medicatio n Not available Not available Not available 08/03/20232014 9230 RxNorm Not Available [facility] 4 13:27:20 86964 acetamino phen / codeine medicatio n Not available Not available Not available 08/03/20232014 96762 9 RxNorm Aller gyNam e: 'Tyle nol/c odein e #3 Tabs' ; Not Available [facility] 4 13:27:20 58367 Ultram medicatio n Not available Not available Not available 08/03/20232014 19926 6 RxNorm Not Available [facility] 4 13:27:21 12561 Keflex medicatio n Not available Not available Not available 08/03/20232014 63748 7 RxNorm Not Available [facility] 4 13:27:21 26874 acetamino phen / hydrocodo ne medicatio n Not available Not available Not available 08/03/20232014 47202 2 RxNorm Not Available [facility] 4 13:27:21 63325 erythromy nuris medicatio n Not available Not available Not available 08/03/20232014 4053 RxNorm Not Available [facility] 4 13:27:21 30300 amoxicill in trihydrat e medicatio n Not available Not available Not available 08/03/20232014 31855 8 RxNorm Not Available [facility] 4 13:27:21 10976 Bactrim medicatio n Not available Not available Not available 08/03/20232022 74303 9 RxNorm Not Available [facility] 4 13:27:21 50038 codeine medicatio n Not available Not available Not available 08/03/20232014 2670 RxNorm Not Available [facility] 4 13:27:21 56501 latex environme nt,medica tion Not available Not available Not available 08/03/20232014 81699 91 RxNorm Not Available [facility] 4 13:27:21 76066 Substance with sulfonami de structure and antibacte rial mechanism of action (substanc e) medicatio n Not available Not available Not available 08/03/20232014 18879 8003 SNOMED Not Available [facility] 13:27:22 Medications Name Sig Start Date Stop [...] Updated DateTime 09/02/2023 149.86 cm 38.6 kg/m2 78413.14 g Juana Downs [place] - [place] [facility] 09/02/2023 10:23:51 Date Recorded Body height Body mass index (BMI) Body weight Provider Name and Address Organization Details Last Updated DateTime 09/14/2024 149.86 cm 38.4 kg/m2 52561.55 g MARK CALVILLO [facility] 09/14/2024 10:25:21 Date Recorded Body height Body mass index (BMI) Body weight Provider Name and Address Organization Details Last Updated DateTime 02/17/2024 149.86 cm 38.6 kg/m2 38681.14 g Dulce Maria Collins [facility] 02/17/2024 10:06:51 Date Recorded Body height Body mass index (BMI) Body weight Provider Name and Address Organization Details Last Updated DateTime 05/16/2024 149.86 cm 38.4 kg/m2 80104.55 g JAQUELINE LAMAR [facility] 05/16/2024 08:43:55 Social History Question Answer Notes LastModified by [employer] Details LastModified Time Tobacco Smoking Status Former Smoker MARK CALVILLO [facility] 09/14/2024 10:25:09 When Did You Quit Smoking? 17+yearssin celastcivivi ette Information not available 09/14/2024 What Is Your Relationship Status? Single Information not available 09/14/2024 Sex: Unknown Functional Status Question Answer Note LastModified by [employer] Details LastModified Time How many times per [...] Gastrointestinal Disease Y Acid Reflux (GERD) Y Thyroid Problems Y Stroke Y Hypertension Y Gynecological HistoryNo gynecological history recorded. Obstetrics History GPAL:G 0 P 0 0 0 0 Past Encounters Encounter ID Performer Location Encounter Start Date Encounter Closed Date Diagnosis/Indication Diagnosis SNOMED-CT Code Diagnosis ICD10 Code Diagnosis IMO Codes Diagnosis Note [id number] AZAEL Castillo [address] [place] [address] 09/02/2023 09:54:08 09/02/2023 11:20:05 Trigger finger of left hand 3531325412 3043007 M65.332 Dupuytren' s disease of palm of left hand 9594347762 6278945 M72.0 [id number] Dragan Rios PA-C [facility] [address] [place] [address] 02/17/2024 09:49:41 03/09/2024 15:25:48 Trigger finger of left hand 1048161218 5336712 M65.332 Dupuytren' s disease of palm of left hand 2739517437 1172443 M72.0 Pain of left hand 730913 2753 36075 M79.051 [id number] Hayley monteiro MD [facility] [address] [place] [address] 05/16/2024 08:27:14 06/03/2024 13:47:15 Trigger finger of left hand 6311602626 5298852 M65.197 [id number] Dragan Rios PA-C [facility] [address] [place] [address] 09/14/2024 10:14:10 09/27/2024 09:54:02 Pain of right hand 9771285219 72298 M79.153 1171505 Triggering of digit 2399 98564 M65.933 [id number] Health Concerns Section Related Observation LastModified by Organization Detai ls LastModified Time None Recorded Concern Status LastModified by Organization Details LastModified Time None Recorded Advance Directives Directive None Recorded Payers Insurance Date Sequence Insurance Name Policy Number Policy Hollins Covered Member ID Hollins Member ID Guarantor Name 11/01/2024 1 BLUE [employer]IT [employer] [facility] [id number] Katya Boateng [id number] Katya Boateng 09/13/2024 1 [employer] video [employer]) Katya Boateng [id number] Katya Boateng Notes Date Note Type Note [...] today in follow Dragan Rios PA-C [address], [place], [address], [facility] 09/02/2023 11:14:34 02/17/2024 text/html ROS as noted [...] without significant improvement. Dragan Rios PA-C 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 Hayley Smith MD [address], [place], [address], [facility] 05/16/2024 10:31:25 09/14/2024 text/html ROS as noted [...] today for evaluation Dragan Rios PA-C [address], [place], [address], [facility] 09/14/2024 11:17:24 OBGyn Episode No OBEpisode recorded.
--- OUTSIDE RECORDS SUMMARY | 2025-04-10 16:32 | XMS_ITS | Data Portability ---
Author Organization SERA CortezArria NLGdenisse s, [address] Address [address] [place] [address] Assessment No assessment recorded. Plan of Treatment Reminders Order Date Submit Date Provider Last Modified By Organization Details Last Modified Time Details Appointments None recorded. Lab SARS CoV 2 (COVID-19) Ag, QL, IA, upper respiratory specimen 2023 024 [place] [address], [address] [place] [address], [address], 4 09:12:53 rapid flu (A+B) 2023 024 [place] [address] _[facility], [address] [place] [address], [address], 4 09:12:54 Referral None recorded. Procedures None recorded. Surgeries None recorded. Imaging None recorded. Medication Orders Zithromax Z-Trace 250 mg tablet 2023 024 [facility] [place], [address] [place], [address], 4 09:52:01 Paxlovid 300 mg (150 mg x 2)-100 mg tablets in a dose pack 2023 024 [facility] [place], [address] [place], [address], 4 09:52:01 methylpredn isolone 4 mg tablets in a dose pack 2023 024 [facility] [place], [address] [place], [address], 09:13:04 mupirocin 2 % topical ointment 2023 024 [facility] - [place], [address] [place], [address], 09:24:40 Patient TargetsNo targets recorded. Patient Instructions Encounter Date Encounter Id Patient Instructions Last Modified By Organization Details Last Modified Time 10/17/2023 [id number] nosebleeds: care instructions Not available 10/17/2023 15:34:22 upper respirator y infection (cold): care instructions Not available 10/17/2023 15:33:16 enlarged turbinates: care instructions Not available 10/17/2023 15:33:16 02/05/2024 [id number] ear infection (otitis media): care instructions Not available 02/05/2024 09:14:19 Reason for Referral None Reported. Results Created Date Observation Date Name Description Value Unit Range Abnormal Flag Note LastModifiedBy Organization Detail LastModifiedTime 02/05/2002/05/2024 SARS CoV 2 (COVI D-19) Ag, QL, IA, upper respi rator y speci men Unknown Analyte positi ve Not Available [facility] [address] [place] [address], [address], 02/05/2024 08:45:08 02/05/20 24 02/05/2024 SARS CoV 2 (COVI D-19) Ag, QL, IA, upper respi rator y speci men Unknown Analyte yes Not Available [facility] [address] [place] [address], [address], 02/05/2024 08:45:08 02/05/20 24 02/05/2024 rapid flu (A+B) Unknown Analyte negati ve Not Available [facility] [address] [place], [address], 02/05/2024 08:45:17 02/05/2002/05/2024 rapid flu (A+B) Unknown Analyte negati ve Not Available [facility] [address] [address] [place], [address], 02/05/2024 08:45:17 02/05/2002/05/2024 rapid flu (A+B) Unknown Analyte yes Not Available [facility] [address] [place], [address], 02/05/2024 08:45:17 Result Notes None recorded. Problems Name Problem SNOMED Code Status Onset Date Resolution Date Notes Provider Name and Address Organization Details Recorded Time Supravent ricular tachycard ia 4811996 Active Ashley Edmond gibson, PA - [facility] 4 08:41:18 Hypertens adore disorder 21936989 Completed 202310/17/2023 Luda gibson PA - [facility] 4 13:30:24 Diabetes mellitus 57217412 Active 2023 Luda gibson PA - [facility] 4 13:30:29 Anxiety 20113839 Active 2023 Luda gibson PA - [facility] 4 13:30:40 Evidence of recent epistaxis 598210964 Active 2023 Josephine Waldron NP [address] [place], [address] , [place] - [facility] 4 15:30:15 Upper respirato ry infection 28053864 Active 2023 Josephine Waldron NP [address] [place], [address] , [place] - [facility] 4 15:30:54 Cerebrova scular accident 142526728 Completed 202302/05/2024 Ashley [place] null, PA - [facility] 4 08:40:52 Acute COVID-19 2897397949 Active 2023 Josephine Waldron, CLAUDIA [address] [place], [address] , [place] - [facility] 4 09:12:49 Acute bilateral otitis media 704451705 Active 2023 Josephine Waldron NP [address], [place], [address] , PA - [facility] 4 09:13:00 Problem Notes None recorded. Medical Equipment None Reported. Allergies Allergen ID Allergen Name Allergen Category Reaction Reaction Severity Criticality Documentation Date Start Date Code Code System Note Provider Name and Address Organization Details Recorded Time 633563 erythromy nuris medicatio n Not available Not available Not available 02/05/2024 4053 RxNorm Ashley [place] null, PA - [facility] 4 08:39:09 637078 amoxicill in medicatio n Not available Not available Not available 02/05/2024 723 RxNorm Ashley [place] null, PA - [facility] 4 08:39:15 752550 Keflex medicatio n Not available Not available Not available 02/05/2024 74392 7 RxNorm Ashley [place] null, PA - [facility] 4 08:39:24 441271 Bactrim medicatio n Not available Not available Not available 02/05/2024 51099 9 RxNorm Ashley [place] null, PA - [facility] 4 08:39:31 914828 Reglan medicatio n Not available Not available Not available 02/05/2024 9230 RxNorm Ashley [place] null, PA - [facility] 4 08:39:43 350505 amlodipin e medicatio n Not available Not available Not available 02/05/2024 32888 RxNorm Ashley [place] null, PA - [facility] 4 08:40:13 683090 bee pollen environme nt,medica tion Not available Not available Not available 02/05/2024 25731 7 RxNorm SERA Lopez - [facility] [...] 4 18 /min 149.86 cm 40 kg/m2 28769.2 9 g 98.8 [degF] 60 /min 99 [...] 4 149.86 cm 101.7 [degF] 40.6 kg/m2 76520.0 7 g 18 /min 88 /min 97 % 97 % 139/57 mm[Hg] Ashley [place] PA - [facility] 4 08:45:01 Social History Question Answer Notes LastModified by [employer] Details LastModified Time Tobacco Smoking Status Former [...] Functional Status Question Answer Note LastModified by [employer] Details LastModified Time Do you use any [...] ICD10 Code Diagnosis IMO Codes Diagnosis Note [id number] 20994[facility] [address] [place] [address] 03/08/2020 14:15:01 03/08/2020 15:20:53 [id number] [facility] [address] [place] [address] 03/13/2018 09:28:38 03/13/2018 09:54:17 [id number] 2099[facility] [address] [place] [address] 08/16/2016 16:55:30 08/16/2016 17:47:31 [id number] Josephine Waldron NP [facility] [address] [place] [address] 10/17/2023 12:35:58 10/17/2023 15:35:39 Evidence of recent epistaxis 276035319 R04.0 How can you care for yourself [...] up your nose. Upper resp iratory infection 73172318 J06.9 Based on your Presentati on, Exam, [...] . Severe Headache Thank you for using [employer] today, please feel free to contact our office if you have any questions or concerns. [id number] [place] [address] [address] 02/05/2024 08:08:20 02/05/2024 09:23:10 Acute COVID-19 [id number] U07.1 Based on your Presentati on, Exam, [...] . Severe Headache Thank you for using [employer] today, please feel free to contact our office if you have any questions or concerns. Acute bila teral otitis media 511511383 H66.93 Health Concerns Section Related Observation LastModified by Organization Detai ls LastModified Time None Recorded Concern Status LastModified by Organization Details LastModified Time None Recorded Advance Directives Directive None Recorded Payers Insurance Date Sequence Insurance Name Policy Number Policy Hollins Covered Member ID Hollins Member ID Guarantor Name 02/05/2024 1 HEALTH PLANS [facility] (PPO) Katya Boateng [id number] Katya Boateng 10/17/[address] [place] [address] [id number] Katya Boateng [id number] Katya Boateng 04/30/2022 [facility] [...] Josephine Waldron NP [address] [place], [address], [facility] 10/17/2023 18:55:32 4 text/html CoughReported by [...] Josephine Waldron NP [address] [place], [address], [place] - [facility] 02/05/2024 09:22:37 OBGyn Episode No OBEpisode recorded.
--- OUTSIDE RECORDS SUMMARY | 2025-04-10 16:32 | XMS_ITS | Clinical Summary ---
Author Organization [facility] Address [address] [place] [address] Phone Care Team Providers Care Experimental Mechanic Spacecraft Name Role Phone Maira Uriarte MD Primary Care Provider [phone] Allergies Active Allergy Reactions Criticality Noted Date [...] patient's age to complete this topic Insurance [employer] Care Teams Experimental Mechanic Spacecraft Relationship Specialty Start Date End Date Maira Uriarte MD [address] [place] [phone] PCP - General Internal Medicine 6/23/22
--- OUTSIDE RECORDS SUMMARY | 2025-04-10 16:32 | XMS_ITS | Encounter Summary ---
Author Organization [facility] Address [address] [place] [address] Phone Care Team Providers Care Top Distribution Executive Name Role Phone Maira Uriarte MD Primary Care Provider [phone] Encounter Details Date Type Department Care Team ([facility] Contact Info) Description 10/13/2022 Telephone [facility] [address] [place] [phone] Deja Morales Social History Tobacco Use Types [...] on filedocumented in this encounter Care Teams Top Distribution Executive Relationship Specialty Start Date End Date Maira Uriarte MD [address] [facility] [address] [place] [address] PCP - General Internal Medicine 11/21/21 documented as of this encounter
== END 2025-04-10 14:12 | disposition home or self-care (01) ==
LOC: HO.HMGAL 14:11
PROVIDERS: PCP Internal Medicine; Visit Provider Registered Nurse Emergency
DX: J30.89 Other allergic rhinitis (principal)
CPT/HCPCS: 95117; 95165

== ENCOUNTER 2025-04-17 13:43 | Outpatient (AMB) | payer OTHER, SELFPAY ==
--- OUTSIDE RECORDS SUMMARY | 2025-04-18 02:57 | XMS_ITS | Data Portability ---
Author Organization SERA CortezLast 2 Leftednisse s, [address] Address [address] [place] [address] Assessment No assessment recorded. Plan of Treatment Reminders Order Date Submit Date Provider Last Modified By Organization Details Last Modified Time Details Appointments None recorded. Lab SARS CoV 2 (COVID-19) Ag, QL, IA, upper respiratory specimen 2023 024 [place] [address]_[facility], [address] [place] [address], [address], 4 09:12:53 rapid flu (A+B) 2023 024 [place] [address] _[facility], [address] [place] [address], [address], 4 09:12:54 Referral None recorded. Procedures None recorded. Surgeries None recorded. Imaging None recorded. Medication Orders Zithromax Z-Trace 250 mg tablet 2023 024 [facility] [place] [facility] - [place], [place], [address] [place], [address], 4 09:52:01 Paxlovid 300 mg (150 mg x 2)-100 mg tablets in a dose pack 2023 024 [facility] [place] - [place], [address] [place], [address], 4 09:52:01 methylpredn isolone 4 mg tablets in a dose pack 2023 024 [facility] - [place], [address] [place], [address], 09:13:04 mupirocin 2 % topical ointment 2023 024 [facility] - [place], [address] [place], [address], 09:24:40 Patient TargetsNo targets recorded. Patient Instructions Encounter Date Encounter Id Patient Instructions Last Modified By Organization Details Last Modified Time 10/17/2023 [id number] nosebleeds: care instructions Not available 10/17/2023 15:34:22 upper respirator y infection (cold): care instructions Not available 10/17/2023 15:33:16 enlarged turbinates: care instructions Not available 10/17/2023 15:33:16 02/05/2024 [id number] ear infection (otitis media): care instructions Not available 02/05/2024 09:14:19 Reason for Referral None Reported. Results Created Date Observation Date Name Description Value Unit Range Abnormal Flag Note LastModifiedBy Organization Detail LastModifiedTime 02/05/2002/05/2024 SARS CoV 2 (COVI D-19) Ag, QL, IA, upper respi rator y speci men Unknown Analyte positi ve Not Available [facility] [address] [place] [address], [address], 02/05/2024 08:45:08 02/05/20 24 02/05/2024 SARS CoV 2 (COVI D-19) Ag, QL, IA, upper respi rator y speci men Unknown Analyte yes Not Available [facility] [address] [place] [address], [address], 02/05/2024 08:45:08 02/05/20 24 02/05/2024 rapid flu (A+B) Unknown Analyte negati ve Not Available [address] [place], [address], 02/05/2024 08:45:17 02/05/2002/05/2024 rapid flu (A+B) Unknown Analyte negati ve Not Available [facility] [address] [place], [address], 02/05/2024 08:45:17 02/05/2002/05/2024 rapid flu (A+B) Unknown Analyte yes Not Available [facility] [address] [place], [address], 02/05/2024 08:45:17 Result Notes None recorded. Problems Name Problem SNOMED Code Status Onset Date Resolution Date Notes Provider Name and Address Organization Details Recorded Time Supravent ricular tachycard ia 9062160 Active Ashley Edmond gibson, PA - [facility] 4 08:41:18 Hypertens adore disorder 58537582 Completed 202310/17/2023 Luda gibson PA - [facility] 4 13:30:24 Diabetes mellitus 08845935 Active 2023 Luda gibson PA - [facility] 4 13:30:29 Anxiety 24005043 Active 2023 Luda gibson PA - [facility] 4 13:30:40 Evidence of recent epistaxis 279836555 Active 2023 Josephine Waldron NP [address] [place], [address] , [place] - [facility] 4 15:30:15 Upper respirato ry infection 85892938 Active 2023 Josephine Waldron NP [address] [place], [address] , [place] - [facility] 4 15:30:54 Cerebrova scular accident 193947395 Completed 202302/05/2024 Ashley [place] null, PA - [facility] 4 08:40:52 Acute COVID-19 8791911162 Active 2023 Josephine Waldron, CLAUDIA [address] [place], [address] , [place] - [facility] 4 09:12:49 Acute bilateral otitis media 058503233 Active 2023 Josephine Waldron NP [address], [place], [address] , PA - [facility] 4 09:13:00 Problem Notes None recorded. Medical Equipment None Reported. Allergies Allergen ID Allergen Name Allergen Category Reaction Reaction Severity Criticality Documentation Date Start Date Code Code System Note Provider Name and Address Organization Details Recorded Time 877340 erythromy nuris medicatio n Not available Not available Not available 02/05/2024 4053 RxNorm Ashley [place] null, PA - [facility] 4 08:39:09 137093 amoxicill in medicatio n Not available Not available Not available 02/05/2024 723 RxNorm Ashley [place] null, PA - [facility] 4 08:39:15 866205 Keflex medicatio n Not available Not available Not available 02/05/2024 85897 7 RxNorm Ashley [place] null, PA - [facility] 4 08:39:24 753366 Bactrim medicatio n Not available Not available Not available 02/05/2024 32232 9 RxNorm Ashley [place] null, PA - [facility] 4 08:39:31 098965 Reglan medicatio n Not available Not available Not available 02/05/2024 9230 RxNorm Ashley [place] null, PA - [facility] 4 08:39:43 696100 amlodipin e medicatio n Not available Not available Not available 02/05/2024 21975 RxNorm Ashley [place] null, PA - [facility] 4 08:40:13 792981 bee pollen environme nt,medica tion Not available Not available Not available 02/05/2024 92113 7 RxNorm SERA Lopez - [facility] [...] 4 18 /min 149.86 cm 40 kg/m2 31202.2 9 g 98.8 [degF] 60 /min 99 [...] 4 149.86 cm 101.7 [degF] 40.6 kg/m2 95468.0 7 g 18 /min 88 /min 97 % 97 % 139/57 mm[Hg] Ashley [place] PA - [facility] 4 08:45:01 Social History Question Answer Notes LastModified by [employer] Details LastModified Time Tobacco Smoking Status Former [...] Functional Status Question Answer Note LastModified by [employer] Details LastModified Time Do you use any [...] ICD10 Code Diagnosis IMO Codes Diagnosis Note [id number] 20994[facility] [address] [place] [address] 03/08/2020 14:15:01 03/08/2020 15:20:53 [id number] [facility] [address] [place] [phone] 03/13/2018 09:28:38 03/13/2018 09:54:17 [id number] [facility] [address] [place] [address] 08/16/2016 16:55:30 08/16/2016 17:47:31 [id number] Josephine Waldron [place] [address] [address] [place] [address] 10/17/2023 12:35:58 10/17/2023 15:35:39 Evidence of recent epistaxis 491461839 R04.0 How can you care for yourself [...] up your nose. Upper resp iratory infection 31122166 J06.9 Based on your Presentati on, Exam, [...] . Severe Headache Thank you for using [employer] today, please feel free to contact our office if you have any questions or concerns. [id number] [place] [address] [address] 02/05/2024 08:08:20 02/05/2024 09:23:10 Acute COVID-19 [id number] U07.1 Based on your Presentati on, Exam, [...] . Severe Headache Thank you for using [employer] today, please feel free to contact our office if you have any questions or concerns. Acute bila teral otitis media 772823353 H66.93 Health Concerns Section Related Observation LastModified by Organization Detai ls LastModified Time None Recorded Concern Status LastModified by Organization Details LastModified Time None Recorded Advance Directives Directive None Recorded Payers Insurance Date Sequence Insurance Name Policy Number Policy Hollins Covered Member ID Hollins Member ID Guarantor Name 02/05/2024 1 HEALTH PLANS [facility] (PPO) Katya Boateng [id number] Katya Boateng 10/17/[address] [place] [address] [id number] Katya Boateng [id number] Katya Boateng 04/30/2022 [facility] Katya Boateng Notes Date [...] Josephine Waldron NP [address] [place], [address], [facility] 10/17/2023 18:55:32 4 text/html CoughReported by [...] Josephine Waldron NP [address] [place], [address], PA - [facility] 02/05/2024 09:22:37 OBGyn Episode No OBEpisode recorded.
--- OUTSIDE RECORDS SUMMARY | 2025-04-18 02:57 | XMS_ITS | Data Portability ---
Author Organization [facility], [facility] Address [address] [place] [address] Care Team Providers Care Item Repair Manager Name Role Phone MERLY OVIEDO Primary [...] satisfaction; surgery to be scheduled with my executive secretary. samara Not available 05/16/2024 10:31:11 09/14/2024 [...] XR, hand, 3 or more view - [facility] hospital right hand pain room 103 2024 025 [facility], [address], [place], [address], 5 09:54:02 XR, finger(s), 2 or more view - left hand middle finger 3v , room 111 2023 024 [facility], [address], [address], [place], [address], 4 15:25:48 XR, finger(s), 2 or more view - re do lateral view per bc , middle finger left hand 2023 024 [facility], [address], [address], [place], [address], 4 15:25:49 Medication Orders Kenalog 40 mg/mL [...] a4ajBk vP9nXo QUaueC m3YtLR FvZlgJ JJ8mAn HZtai3 4v4312 AC0Kqa niDVau kKiQtr MwF INTERFACE [facility] Office [address], [place], [address], 02/17/2024 10:37:13 02/17/20 24 02/17/2024 XR, finge r(s), 2 or more view http:/ [email or web address] ?Encry pted=s hAaTro YD8dLq bEUv6g %2BXZw aYqtaq 0bqfl% 2Fg9IQ a4ajBk vP9nXo QUaueC m3YtLR FvZlgJ JJ8Corinth HZtai3 4c3193 AC0Kqa niDVau kKiQtr MwF INTERFACE [facility] [address], [place], [address], 02/17/2024 10:37:14 02/17/20 24 02/17/2024 XR, finge r(s), 2 or more view http:/ [email or web address] ?Encry pted=s hAaTro YD8dLq bEUv6g %2BXZw aYqtaq 0bqfl% 2Fg9IQ a4ajBk vP9nXo QUaueC m3YtLR FvZlgJ JJ8Corinth HZtai3 3n9206 AC0Kqa niDV6W iKiQtr MwF INTERFACE [facility] [address] [facility] [address], [place], [address], 02/17/2024 10:37:16 02/17/20 24 02/17/2024 XR, finge r(s), 2 or more view http:/ [email or web address] ?Encry pted=s hAaTro YD8dLq bEUv6g %2BXZw aYqtaq 0bqfl% 2Fg9IQ a4ajBk vP9nXo QUaueC m3YtLR FvZlgJ JJ8Corinth HZtai3 1x1897 AC0Kqa niDV6W iKiQtr MwF INTERFACE [facility] [address] [facility] [address], [place], [address], 02/17/2024 10:37:17 09/15/19 25 09/14/2024 XR, hand, 3 or more view http:/ [email or web address] ?Encry pted=s hAaTro YD8dLq bEUv6g %2BXZw aYqtaq 0bqfl% 2Fg9IQ a4ajBk vP9nXo QUaueC m3YtLR FvZlgJ JJ8mAn HZtai3 4y7023 AC0KqY 3qDUaS jKiQtr MwF INTERFACE [facility] [address] [facility] [address], [place], [address], 09/14/2024 10:31:53 09/15/19 25 09/14/2024 XR, hand, 3 or more view http:/ [email or web address] ?Encry pted=s hAaTro YD8dLq bEUv6g %2BXZw aYqtaq 0bqfl% 2Fg9IQ a4ajBk vP9nXo QUaueC m3YtLR FvZlgJ JJ8mAn HZtai3 4t5099 AC0KqY 3qDUaS jKiQtr MwF INTERFACE [facility] [address] [address], [place], [address], 09/14/2024 10:31:55 Result Notes Documentation Provider Name and Address Organization Details Recorded Time Xr, Finger(s), 2 Or More View : [email or web address] Encrypted=ikWwZuzNR5oFeyO Uv6g%4VGAhmRuwtd0dfak%2Fg 9ETx4azEakK6zFlGKicdKw1Jg TCZzPosBJU2pRyTCjly86s893 0RK8RahklMEdauYfArdHpW Not Available [facility] 02/17/2024 10:37: 14 Xr, Finger(s), 2 Or More View : [email or web address] Encrypted=qxMlUuhUK9vLflU Uv6g%1VUSvlZkryx5szik%2Fg 6ACt9yoCqdB1qLfXSsuuFo3Xh GUAoWinFTX5cAqRTgsl23i264 8CZ4ZvvqoQOmzzXcNvpRjQ Not Available [facility] 02/17/2024 10:37: 15 Xr, Finger(s), 2 Or More View : [email or web address]? Encrypted=ybFqKhlNX2xZkfL Uv6g%8KFGtdAsyzs7rivm%2Fg 0BUm5faPcqN8uXzMKthcRp9Dj ABIeNjiAUT3jXwMAjnf26z753 7BR5AzgvaSO3WfFhYucCrZ Not Available [facility] 02/17/2024 10:37: 16 Xr, Finger(s), 2 Or More View : [email or web address] Encrypted=hrDlKmjBX5zFymB Uv6g%2NAVeyXswzh6hxwi%2Fg 9INn1amLriW5nRrTVzyqUz5Ty PIWfDrbZVX2zJePRhne70d843 2BU9IcohzLZ5UtRpEvbCzW Not Available [facility] 02/17/2024 10:37: 17 Xr, Hand, 3 Or More View : [email or web address] Encrypted=ynZuKhuXJ2uGrlQ Uv6g%7THDhpTtbqq9eyrh%2Fg 8ZHj7sbCikD9mTcDZqrlLu8Uw TDEoFrgJIA7tFvNFczq59a953 1BF9MaO2aTCtDdLpNmrUxL Not Available [facility] 09/14/2024 10:31: 53 Xr, Hand, 3 Or More View : [email or web address] Encrypted=koNfYzfDO4dGsjY Uv6g%2OAZkiThxhh2dvxm%2Fg 7GAz4yrPtdK8tOkKXnfkQb5Fd UAIeKmcTLT6fYvZBbfc54a038 5RL8GsU9aLDvMhPaIfoJtP Not Available [facility] 09/14/2024 10:31: 55 Problems Name Problem SNOMED Code Status Onset Date Resolution Date Notes Provider Name and Address Organization Details Recorded Time No complaints 854353235 Active Status : 'A'; Not Available [facility] 4 09:25:36 Trigger finger of left hand 2742601857754 9107 Active 2023 Dragan Rios PA-C [address], [place], [address] , [facility] 4 08:10:35 Dupuytren' s disease of palm of left hand 8488474889664 9104 Active 2023 Dragan Rios PA-C [address], [place], [address] , [facility] 4 08:10:47 Pain of right hand 6000101815507 09 Active 2024 Dragan Rios PA-C [address], [place], [address] , [facility] 5 08:21:03 Triggering of digit 615728609 Active 2024 Dragan Rios PA-C [address], [place], [address] , [facility] 5 11:17:02 Problem Notes None recorded. Procedures Surgical History Date Name Laterality Status Provider Name and Address Organization Details Recorded Time 09/15/19 25 Tendon Sheath Kenalog Injection, L/R completed Dragan Rios PA-C [address], [place], [address], [facility] 09/14/2024 11:16:33 09/02/19 24 Tendon Sheath Kenalog Injection, L/R completed Dragan Rios PA-C [address], [place], [address], [facility] 09/02/2023 11:13:48 10/13/19 21 Orthopedic Surgery completed KAYLIA L'HEUREUX [facility] 09/14/2024 08:59:41 10/13/19 21 Other completed KAYLIA L'HEUREUX [facility] 09/14/2024 10:25:09 11/14/19 16 Knee Surgery completed KAYLIA L'HEUREUX [facility] 09/14/2024 10:25:09 11/14/19 15 Arthroplasty completed KAYLIA L'HEUREUX [facility] includes the [facility] 09/14/2024 08:59:41 10/24/19 01 Other completed KAYLIA L'HEUREUX [facility] includes the [facility] 09/14/2024 10:25:09 11/24/19 00 Other completed KAYLIA L'HEUREUX [facility] includes the [facility] 09/14/2024 10:25:09 11/23/19 00 Gastrointestinal Surgery completed KAYLIA L'HEUREUX [facility] includes the [facility] 09/14/2024 08:59:41 Imaging Results None recorded. Procedure Notes None recorded. Medical Equipment None Reported. Allergies Allergen ID Allergen Name Allergen Category Reaction Reaction Severity Criticality Documentation Date Start Date Code Code System Note Provider Name and Address Organization Details Recorded Time 613498 POLLEN EXTRACTS environme nt,medica tion Not available Not available Not available 09/14/2024 99499 6 RxNorm KAYLIA L'HEUREUX [facility] 5 10:25:07 910730 sunscreen medicatio n edema Not available Not available 09/14/2024 KAYLIA L'HEUREUX [facility] 5 10:25:07 719369 prazosin medicatio n edema moderate Not available 09/14/2024 8629 RxNorm KAYLIA L'HEUREUX [facility] 5 10:25:07 478142 red dye food,medi cation Not available Not available Not available 09/14/2024 KAYLIA L'HEUREUX [facility] 5 10:25:07 825583 purified protein derivativ e of tuberculi n medicatio n hives Not available Not available 09/14/20241993 8948 RxNorm KAYLIA L'HEUREUX [facility] 5 10:25:07 877015 Product containin g hydrogen/ potassium adenosine triphosph atase enzyme system inhibitor (product) medicatio n other Not available Not available 09/14/2024 33698 5006 SNOMED JOANNYLIA L'HEUREUX [facility], [facility] 5 10:25:07 140240 Anaphylax is Bee Sting medicatio n Not available Not available Not available 09/14/2024 JOANNYLIA L'HEUREUX [facility], [facility] 5 10:25:07 093969 tetanus immune globulin F(ab')2 (equine) Not available Not available Not available Not available 09/14/2024 KAYLIA L'HEUREUX null, [facility] 5 10:25:07 041647 ragweed pollen environme nt Not available Not available Not available 09/14/2024 KAYLIA L'HEUREUX [facility], [facility] the [facility] 5 10:25:07 747662 weed pollen environme nt,medica tion Not available Not available Not available 09/14/2024 KAYLIA L'HEUREUX null, [facility] 5 10:25:07 073216 grass pollen environme nt,medica tion Not available Not available Not available 09/14/2024 KAYLIA L'HEUREUX null, [facility] 5 10:25:07 982548 mold extract environme nt Not available Not available Not available 09/14/2024 15712 8 RxNorm KAYLIA L'HEUREUX [facility], [facility] 5 10:25:07 56866 oxycodone hydrochlo ride medicatio n Not available Not available Not available 08/03/20232014 74527 RxNorm Aller gyRea ction : 'Skin React ion'; Not Available [facility] 4 13:27:20 08588 Dilaudid medicatio n Not available Not available Not available 08/03/20232014 81864 3 RxNorm Aller gyRea ction : 'Skin React ion'; Not Available [facility] 4 13:27:20 36943 Oxycontin medicatio n Not available Not available Not available 08/03/20232014 41520 6 RxNorm Aller gyNam e: 'Oxyc ontin Tb12' ; Aller gyRea ction : 'Skin React ion'; Not Available [facility] 4 13:27:20 59819 amlodipin e besylate medicatio n Not available Not available Not available 08/03/20232022 28815 6 RxNorm Not Available [facility] 4 13:27:20 08777 Reglan medicatio n Not available Not available Not available 08/03/20232014 9230 RxNorm Not Available [facility] 4 13:27:20 22607 acetamino phen / codeine medicatio n Not available Not available Not available 08/03/20232014 10749 9 RxNorm Aller gyNam e: 'Tyle nol/c odein e #3 Tabs' ; Not Available [facility] 4 13:27:20 07565 Ultram medicatio n Not available Not available Not available 08/03/20232014 88829 6 RxNorm Not Available [facility] 4 13:27:21 32946 Keflex medicatio n Not available Not available Not available 08/03/20232014 90857 7 RxNorm Not Available [facility] 4 13:27:21 13982 acetamino phen / hydrocodo ne medicatio n Not available Not available Not available 08/03/20232014 08143 2 RxNorm Not Available [facility] 4 13:27:21 46375 erythromy nuris medicatio n Not available Not available Not available 08/03/20232014 4053 RxNorm Not Available [facility] 4 13:27:21 19661 amoxicill in trihydrat e medicatio n Not available Not available Not available 08/03/20232014 51368 8 RxNorm Not Available [facility] 4 13:27:21 81288 Bactrim medicatio n Not available Not available Not available 08/03/20232022 56379 9 RxNorm Not Available [facility] 4 13:27:21 58282 codeine medicatio n Not available Not available Not available 08/03/20232014 2670 RxNorm Not Available [facility] 4 13:27:21 53649 latex environme nt,medica tion Not available Not available Not available 08/03/20232014 43613 91 RxNorm Not Available [facility] 4 13:27:21 90719 Substance with sulfonami de structure and antibacte rial mechanism of action (substanc e) medicatio n Not available Not available Not available 08/03/20232014 33031 8003 SNOMED Not Available [facility] 13:27:22 Medications Name Sig Start Date Stop [...] Updated DateTime 09/02/2023 149.86 cm 38.6 kg/m2 43147.14 g Juana Downs [place] - [facility] 09/02/2023 10:23:51 Date Recorded Body height Body mass index (BMI) Body weight Provider Name and Address Organization Details Last Updated DateTime 09/14/2024 149.86 cm 38.4 kg/m2 88579.55 g MARK CALVILLO [facility] 09/14/2024 10:25:21 Date Recorded Body height Body mass index (BMI) Body weight Provider Name and Address Organization Details Last Updated DateTime 02/17/2024 149.86 cm 38.6 kg/m2 51598.14 g Dulce Maria Collins [facility] 02/17/2024 10:06:51 Date Recorded Body height Body mass index (BMI) Body weight Provider Name and Address Organization Details Last Updated DateTime 05/16/2024 149.86 cm 38.4 kg/m2 72979.55 g JAQUELINE LAMAR [facility] 05/16/2024 08:43:55 Social History Question Answer Notes LastModified by [employer] Details LastModified Time Tobacco Smoking Status Former Smoker MARK CALVILLO [facility] 09/14/2024 10:25:09 When Did You Quit Smoking? 17+yearssin celastcivivi ette Information not available 09/14/2024 What Is Your Relationship Status? Single Information not available 09/14/2024 Sex: Unknown Functional Status Question Answer Note LastModified by [employer] Details LastModified Time How many times per [...] ICD10 Code Diagnosis IMO Codes Diagnosis Note [id number] AZAEL Castillo [address] [place] [address] 09/02/2023 09:54:08 09/02/2023 11:20:05 Trigger finger of left hand 1231878479 2884595 M65.332 Dupuytren' s disease of palm of left hand 3458222513 5562974 M72.0 [id number] Dragan Rios PA-C [facility] [address] [place] [address] 02/17/2024 09:49:41 03/09/2024 15:25:48 Trigger finger of left hand 2036016997 3565061 M65.332 Dupuytren' s disease of palm of left hand 5392789228 6255931 M72.0 Pain of left hand 212700 7837 85133 M79.466 [id number] Hayley monteiro MD [facility] [address] [place] [address] 05/16/2024 08:27:14 06/03/2024 13:47:15 Trigger finger of left hand 4049376012 9331194 M65.839 [id number] Dragan Rios PA-C [facility] [address] [place] [address] 09/14/2024 10:14:10 09/27/2024 09:54:02 Pain of right hand 9027637153 30787 M79.098 [id number] Triggering of digit 2399 05026 M65.726 [id number] Health Concerns Section Related Observation LastModified by Organization Detai ls LastModified Time None Recorded Concern Status LastModified by Organization Details LastModified Time None Recorded Advance Directives Directive None Recorded Payers Insurance Date Sequence Insurance Name Policy Number Policy Hollins Covered Member ID Hollins Member ID Guarantor Name 11/01/2024 1 BLUE [employer] [facility] [facility] [id number] Katya Boateng [id number] Katya Boateng 09/13/2024 1 HE[employer] Katya Boateng [id number] Katya Boateng Notes Date Note Type Note [...] today in follow Dragan Rios PA-C [address], [place], [address], [facility] 09/02/2023 11:14:34 02/17/2024 text/html ROS as [...] without significant improvement. 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 Hayley Smith MD [address], [place], [address], [facility] 05/16/2024 10:31:25 09/14/2024 text/html ROS as [...] today for evaluation Dragan Rios PA-C [address], [place], [address], [facility] 09/14/2024 11:17:24 OBGyn Episode No OBEpisode recorded.
== END 2025-04-17 13:47 | disposition home or self-care (01) ==
LOC: HO.HMGAL 13:43
PROVIDERS: PCP Internal Medicine; Visit Provider Registered Nurse Emergency
DX: J30.89 Other allergic rhinitis (principal)
CPT/HCPCS: 95117; 95165

== ENCOUNTER 2025-04-21 09:15 | Outpatient (AMB) | payer OTHER, SELFPAY ==
[2025-04-21 09:26] VITALS: BP 134/58; PULSE 69; RESP 16; O2SAT 97; BMI 41.2
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
--- OUTSIDE RECORDS SUMMARY | 2025-04-21 09:36 | XMS_ITS | Clinical Summary ---
Author Organization [facility] Address [address] [place] [phone] Phone Care Team Providers Care Guide Tour Name Role Phone Maira Uriarte MD Primary Care Provider [phone] Allergies Active Allergy Reactions Criticality Noted Date [...] patient's age to complete this topic Insurance [employer] Care Teams Guide Tour Relationship Specialty Start Date End Date Maira Uriarte MD [address] [place] [phone] PCP - General Internal Medicine 6/23/22
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
--- OUTSIDE RECORDS SUMMARY | 2025-04-21 09:36 | XMS_ITS | Encounter Summary ---
Author Organization [facility] Address [address] [place] [address] Phone Care Team Providers Care Nailer Machine Name Role Phone Maira Uriarte MD Primary Care Provider [phone]- [phone] Encounter Details Date Type Department Care Team ([facility] Contact Info) Description 10/13/2022 Telephone [facility] [address] [place] [phone] Deja Morales Social History Tobacco Use Types [...] on filedocumented in this encounter Care Teams Nailer Machine Relationship Specialty Start Date End Date Maira Uriarte MD [address] [facility] [address] [place] [address] PCP - General Internal Medicine 11/21/21 documented as of this encounter
--- OUTSIDE RECORDS SUMMARY | 2025-04-21 09:37 | XMS_ITS | Data Portability ---
Author Organization [facility], [facility] Address [address] [place] [address] Care Team Providers Care Quality Control Auditor Name Role Phone MERLY OVIEDO Primary Care [...] XR, hand, 3 or more view - [facility] right hand pain room 103 2024 025 [facility], [address], [place], [address], 5 09:54:02 XR, finger(s), 2 or more view - left hand middle finger 3v , room 111 2023 024 [facility], [address], [address], [place], [address], 4 15:25:48 XR, finger(s), 2 or more view - re do lateral view per bc , middle finger left hand 2023 024 [facility], [address], [place], [address], 4 15:25:49 Medication Orders Kenalog 40 mg/mL [...] a4ajBk vP9nXo QUaueC m3YtLR FvZlgJ JJ8mAn HZtai3 4l0984 AC0Kqa niDVau kKiQtr MwF INTERFACE [facility] Office [address], [place], [address], 02/17/2024 10:37:13 02/17/20 24 02/17/2024 XR, finge r(s), 2 or more view [email or web address]:/ [email or web address] ?Encry pted=s hAaTro YD8dLq bEUv6g %2BXZw aYqtaq 0bqfl% 2Fg9IQ a4ajBk vP9nXo QUaueC m3YtLR FvZlgJ JJ8Mobile HZtai3 9k5135 AC0Kqa niDVau kKiQtr MwF INTERFACE [facility] [address], [place], [address], 02/17/2024 10:37:14 02/17/20 24 02/17/2024 XR, finge r(s), 2 or more view [email or web address]:/ [email or web address] ?Encry pted=s hAaTro YD8dLq bEUv6g %2BXZw aYqtaq 0bqfl% 2Fg9IQ a4ajBk vP9nXo QUaueC m3YtLR FvZlgJ JJ8Mobile HZtai3 6z3531 AC0Kqa niDV6W iKiQtr MwF INTERFACE [facility] [address] [facility] [address] [facility] [address], [place], [address], 02/17/2024 10:37:16 02/17/20 24 02/17/2024 XR, finge r(s), 2 or more view [email or web address]:/ [email or web address] ?Encry pted=s hAaTro YD8dLq bEUv6g %2BXZw aYqtaq 0bqfl% 2Fg9IQ a4ajBk vP9nXo QUaueC m3YtLR FvZlgJ JJ8Mobile HZtai3 5k7973 AC0Kqa niDV6W iKiQtr MwF INTERFACE [facility] [address] [facility] [address] [facility] [address], [place], [address], 02/17/2024 10:37:17 09/15/19 25 09/14/2024 XR, hand, 3 or more view http:/ [email or web address] ?Encry pted=s hAaTro YD8dLq bEUv6g %2BXZw aYqtaq 0bqfl% 2Fg9IQ a4ajBk vP9nXo QUaueC m3YtLR FvZlgJ JJ8mAn HZtai3 9p3929 AC0KqY 3qDUaS jKiQtr MwF INTERFACE [facility] [address] [facility] [address], [place], [address], 09/14/2024 10:31:53 09/15/19 25 09/14/2024 XR, hand, 3 or more view http:/ [email or web address] ?Encry pted=s hAaTro YD8dLq bEUv6g %2BXZw aYqtaq 0bqfl% 2Fg9IQ a4ajBk vP9nXo QUaueC m3YtLR FvZlgJ JJ8mAn HZtai3 3v4386 AC0KqY 3qDUaS jKiQtr MwF INTERFACE [facility] [address] [address], [place], [address], 09/14/2024 10:31:55 Result Notes Documentation Provider Name and Address Organization Details Recorded Time Xr, Finger(s), 2 Or More View : [email or web address] Encrypted=toVmUytTY6zOeeL Uv6g%3GTOszEdbpk7axbp%2Fg 9SQb6wtTxqD1dMiJSrlvHj6Cg VJWbBczMYZ3xAeHKjhs64r076 2QM0SbjqtGOnmsCcMqfLmL Not Available [facility] 02/17/2024 10:37: 14 Xr, Finger(s), 2 Or More View : [email or web address] Encrypted=ngSvVvrOF9eVlqJ Uv6g%1FISlaVjwrd4iwvc%2Fg 4MBh9sdLhfK7oJjLFctiPc4Kb LVNmEbjOPU1sHpNCtfn07s612 6TF3EpmqgNYkusEnXtzGdS Not Available [facility] 02/17/2024 10:37: 15 Xr, Finger(s), 2 Or More View : [email or web address] Encrypted=gqGoUumKI8hGnnV Uv6g%1MYSjkAsjbg6ikxx%2Fg 0AXs1nvYjdD4fGkARtmgBa7Cc GSPpYwnYAI1fKaFEora50w487 0LW1LtwkmXO0KtItMaaQwL Not Available [facility] 02/17/2024 10:37: 16 Xr, Finger(s), 2 Or More View : [email or web address] Encrypted=xyBjJhvGL2nRwsM Uv6g%4MPEoxTwuop1fwqb%2Fg 4LIz3ksCyeB4qYmVKwfuKu8Uw VSYaIkpAQH7rUqKEwjy78y855 7AB5FnyfwPU3RdKbVbnYrY Not Available [facility] 02/17/2024 10:37: 17 Xr, Hand, 3 Or More View : [email or web address]? Encrypted=loRdWtvJT5rHwfJ Uv6g%1OCLtpUrolq7tufm%2Fg 0BCz2vuTvvA2hZjTItxvMv4Fp RECeYriEWD6bUrDStpg35e900 6VK3RnZ5hAHsDsFyDdwWrZ Not Available [facility] 09/14/2024 10:31: 53 Xr, Hand, 3 Or More View : [email or web address] Encrypted=xhEtXatPO4sCdrW Uv6g%5PUOhpZegrp1szjp%2Fg 5CUd7uyYagO7oBiOVkebAr2Xd QPObQwlCGR4nIgWRkvr77k819 1KO4VbC4aARnEfNaTlmJgU Not Available [facility] 09/14/2024 10:31: 55 Problems Name Problem SNOMED Code Status Onset Date Resolution Date Notes Provider Name and Address Organization Details Recorded Time No complaints 901378217 Active Status : 'A'; Not Available [facility] 4 09:25:36 Trigger finger of left hand 9433803496375 9107 Active 2023 Dragan Rios PA-C [address], [place], [address] , [facility] 4 08:10:35 Dupuytren' s disease of palm of left hand 0209585199712 9104 Active 2023 Dragan Rios PA-C [address], [place], [address] , [facility] 4 08:10:47 Pain of right hand 3973642036416 09 Active 2024 Dragan Rios PA-C [address], [place], [address] , [facility] 5 08:21:03 Triggering of digit 637840992 Active 2024 Dragan Rios PA-C [address], [place], [address] , [facility] 5 11:17:02 Problem Notes None recorded. Procedures Surgical History Date Name Laterality Status Provider Name and Address Organization Details Recorded Time 09/15/19 25 Tendon Sheath Kenalog Injection, L/R completed Dragan Rios PA-C [address], [place], [address], [facility] 09/14/2024 11:16:33 09/02/19 24 Tendon Sheath Kenalog Injection, L/R completed Dragan Rios PA-C [address], [place], [address], [facility] 09/02/2023 11:13:48 10/13/19 21 Orthopedic Surgery completed KAYLIA L'HEUREUX [facility] 09/14/2024 08:59:41 10/13/19 21 Other completed KAYLIA L'HEUREUX [facility] 09/14/2024 10:25:09 11/14/19 16 Knee Surgery completed KAYLIA L'HEUREUX [facility] 09/14/2024 10:25:09 11/14/19 15 Arthroplasty completed KAYLIA L'HEUREUX [facility] 09/14/2024 08:59:41 10/24/19 01 Other completed KAYLIA L'HEUREUX [facility] 09/14/2024 10:25:09 11/24/19 00 Other completed KAYLIA L'HEUREUX [facility] 09/14/2024 10:25:09 11/23/19 00 Gastrointestinal Surgery completed KAYLIA L'HEUREUX [facility] 09/14/2024 08:59:41 Imaging Results None recorded. Procedure Notes None recorded. Medical Equipment None Reported. Allergies Allergen ID Allergen Name Allergen Category Reaction Reaction Severity Criticality Documentation Date Start Date Code Code System Note Provider Name and Address Organization Details Recorded Time 229877 POLLEN EXTRACTS environme nt,medica tion Not available Not available Not available 09/14/2024 98837 6 RxNorm KAYLIA L'HEUREUX [facility] 5 10:25:07 404351 sunscreen medicatio n edema Not available Not available 09/14/2024 KAYLIA L'HEUREUX [facility] 5 10:25:07 051781 prazosin medicatio n edema moderate Not available 09/14/2024 8629 RxNorm KAYLIA L'HEUREUX [facility] 5 10:25:07 082565 red dye food,medi cation Not available Not available Not available 09/14/2024 KAYLIA L'HEUREUX [facility] 5 10:25:07 442302 purified protein derivativ e of tuberculi n medicatio n hives Not available Not available 09/14/20241993 8948 RxNorm KAYLIA L'HEUREUX [facility] 5 10:25:07 386841 Product containin g hydrogen/ potassium adenosine triphosph atase enzyme system inhibitor (product) medicatio n other Not available Not available 09/14/2024 37619 5006 SNOMED JOANNYLIA L'HEUREUX [facility], [facility] 5 10:25:07 399431 Anaphylax is Bee Sting medicatio n Not available Not available Not available 09/14/2024 JOANNYLIA L'HEUREUX [facility], [facility] 5 10:25:07 902014 tetanus immune globulin F(ab')2 (equine) Not available Not available Not available Not available 09/14/2024 KAYLIA L'HEUREUX null, [facility] 5 10:25:07 030055 ragweed pollen environme nt Not available Not available Not available 09/14/2024 KAYLIA L'HEUREUX [facility], [facility] 5 10:25:07 234570 weed pollen environme nt,medica tion Not available Not available Not available 09/14/2024 KAYLIA L'HEUREUX null, [facility] 5 10:25:07 753584 grass pollen environme nt,medica tion Not available Not available Not available 09/14/2024 KAYLIA L'HEUREUX null, [facility] 5 10:25:07 258359 mold extract environme nt Not available Not available Not available 09/14/2024 10610 8 RxNorm KAYLIA L'HEUREUX [facility], [facility] 5 10:25:07 85939 oxycodone hydrochlo ride medicatio n Not available Not available Not available 08/03/20232014 29603 RxNorm Aller gyRea ction : 'Skin React ion'; Not Available [facility] 4 13:27:20 39766 Dilaudid medicatio n Not available Not available Not available 08/03/20232014 13856 3 RxNorm Aller gyRea ction : 'Skin React ion'; Not Available [facility] 4 13:27:20 73519 Oxycontin medicatio n Not available Not available Not available 08/03/20232014 09869 6 RxNorm Aller gyNam e: 'Oxyc ontin Tb12' ; Aller gyRea ction : 'Skin React ion'; Not Available [facility] 4 13:27:20 03477 amlodipin e besylate medicatio n Not available Not available Not available 08/03/20232022 75410 6 RxNorm Not Available [facility] 4 13:27:20 01274 Reglan medicatio n Not available Not available Not available 08/03/20232014 9230 RxNorm Not Available [facility] 4 13:27:20 63386 acetamino phen / codeine medicatio n Not available Not available Not available 08/03/20232014 73296 9 RxNorm Aller gyNam e: 'Tyle nol/c odein e #3 Tabs' ; Not Available [facility] 4 13:27:20 74869 Ultram medicatio n Not available Not available Not available 08/03/20232014 33137 6 RxNorm Not Available [facility] 4 13:27:21 09387 Keflex medicatio n Not available Not available Not available 08/03/20232014 63897 7 RxNorm Not Available [facility] 4 13:27:21 01441 acetamino phen / hydrocodo ne medicatio n Not available Not available Not available 08/03/20232014 52619 2 RxNorm Not Available [facility] 4 13:27:21 34573 erythromy nuris medicatio n Not available Not available Not available 08/03/20232014 4053 RxNorm Not Available [facility] 4 13:27:21 64628 amoxicill in trihydrat e medicatio n Not available Not available Not available 08/03/20232014 22010 8 RxNorm Not Available [facility] 4 13:27:21 95289 Bactrim medicatio n Not available Not available Not available 08/03/20232022 00451 9 RxNorm Not Available [facility] 4 13:27:21 20329 codeine medicatio n Not available Not available Not available 08/03/20232014 2670 RxNorm Not Available [facility] 4 13:27:21 90547 latex environme nt,medica tion Not available Not available Not available 08/03/20232014 16698 91 RxNorm Not Available [facility] 4 13:27:21 35022 Substance with sulfonami de structure and antibacte rial mechanism of action (substanc e) medicatio n Not available Not available Not available 08/03/20232014 85089 8003 SNOMED Not Available [facility] 13:27:22 Medications Name Sig Start Date Stop [...] Updated DateTime 09/02/2023 149.86 cm 38.6 kg/m2 09385.14 g Juana Downs [place] [facility] 09/02/2023 10:23:51 Date Recorded Body height Body mass index (BMI) Body weight Provider Name and Address Organization Details Last Updated DateTime 09/14/2024 149.86 cm 38.4 kg/m2 80727.55 g MARK CALVILLO [facility] 09/14/2024 10:25:21 Date Recorded Body height Body mass index (BMI) Body weight Provider Name and Address Organization Details Last Updated DateTime 02/17/2024 149.86 cm 38.6 kg/m2 87362.14 g Dulce Maria Collins [facility] 02/17/2024 10:06:51 Date Recorded Body height Body mass index (BMI) Body weight Provider Name and Address Organization Details Last Updated DateTime 05/16/2024 149.86 cm 38.4 kg/m2 07088.55 g JAQUELINE LAMAR [facility] 05/16/2024 08:43:55 Social History Question Answer Notes LastModified by SeeWhy Details LastModified Time Tobacco Smoking Status Former Smoker MARK CALVILLO [facility] 09/14/2024 10:25:09 When Did You Quit Smoking? 17+yearssin celastcivivi ette Information not available 09/14/2024 What Is Your Relationship Status? Single Information not available 09/14/2024 Sex: Unknown Functional Status Question Answer Note LastModified by [employer] Britannia Details LastModified Time How many times per [...] History Condition Response Diabetes Y Anxiety/Depression Y Arthritis Y Acid Reflux (GERD) Y Thyroid Problems Y Stroke Y Kidney/Bladder Problems Y Sleep Apnea Y Gastrointestinal Disease Y Hypertension Y Gynecological HistoryNo gynecological history recorded. Obstetrics History GPAL:G 0 P 0 0 0 0 Past Encounters Encounter ID Performer Location Encounter Start Date Encounter Closed Date Diagnosis/Indication Diagnosis SNOMED-CT Code Diagnosis ICD10 Code Diagnosis IMO Codes Diagnosis Note [id number] AZAEL Castillo [address] [place] [address] 09/02/2023 09:54:08 09/02/2023 11:20:05 Trigger finger of left hand 2958436361 4638175 M65.332 Dupuytren' s disease of palm of left hand 9195591833 5549053 M72.0 [id number] Dragan Rios PA-C [facility] [address] [place] [address] 02/17/2024 09:49:41 03/09/2024 15:25:48 Trigger finger of left hand 4760863420 9787153 M65.332 Dupuytren' s disease of palm of left hand 2293599289 2025836 M72.0 Pain of left hand 961534 9608 80069 M79.182 [id number] Hayley mnoteiro MD [facility] [address] [place] [address] 05/16/2024 08:27:14 06/03/2024 13:47:15 Trigger finger of left hand 9817784910 9331856 M65.958 [id number] Dragan Rios PA-C [facility] [address] [place] [address] 09/14/2024 10:14:10 09/27/2024 09:54:02 Pain of right hand 0943962721 86923 M79.894 2700574 Triggering of digit 2399 38416 M65.933 [id number] Health Concerns Section Related Observation LastModified by Organization Detai ls LastModified Time None Recorded Concern Status LastModified by Organization Details LastModified Time None Recorded Advance Directives Directive None Recorded Payers Insurance Date Sequence Insurance Name Policy Number Policy Hollins Covered Member ID Hollins Member ID Guarantor Name 11/01/2024 1 [employer] [facility] [id number] Katya Boateng [id number] Katya Boateng 09/13/2024 1 [employer] Katya Boateng [id number] Katya Boateng Notes Date Note Type Note [...] today in follow Dragan Rios PA-C [address], [place], [address], [facility] 09/02/2023 11:14:34 02/17/2024 text/html ROS as [...] without significant improvement. 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 Hayley Smith MD [address], [place], [address], [facility] 05/16/2024 10:31:25 09/14/2024 text/html ROS as [...] today for evaluation Dragan Rios PA-C [address], [place], [address], [facility] 09/14/2024 11:17:24 OBGyn Episode No OBEpisode recorded.
== END 2025-04-21 09:51 | disposition home or self-care (01) ==
LOC: HO.PMC 09:16
PROVIDERS: PCP Internal Medicine; Visit Provider Registered Nurse Emergency
DX: M47.816 Spondylosis without myelopathy or radiculopathy, lumbar region (principal); M53.3 Sacrococcygeal disorders, not elsewhere classified; M25.50 Pain in unspecified joint; G62.9 Polyneuropathy, unspecified; M62.838 Other muscle spasm; M47.812 Spondylosis without myelopathy or radiculopathy, cervical region; M48.03 Spinal stenosis, cervicothoracic region
CPT/HCPCS: 99213

== ENCOUNTER 2025-04-24 14:17 | Outpatient (AMB) | payer OTHER, SELFPAY ==
--- OUTSIDE RECORDS SUMMARY | 2025-04-24 19:12 | XMS_ITS | Data Portability ---
Author Organization [facility], [address] Address [address] [place] [address] Assessment No assessment recorded. Plan of Treatment Reminders Order Date Submit Date Provider Last Modified By Organization Details Last Modified Time Details Appointments None recorded. Lab SARS CoV 2 (COVID-19) Ag, QL, IA, upper respiratory specimen 2023 024 [place] [address]_[facility], [address] [place] [address], [phone], 4 09:12:53 rapid flu (A+B) 2023 024 [place] [address] _[facility], [address] [place] [address], [address], 4 09:12:54 Referral None recorded. Procedures None recorded. Surgeries None recorded. Imaging None recorded. Medication Orders Zithromax Z-Trace 250 mg tablet 2023 024 [facility] [place], [place], [address] [place], [address], 4 09:52:01 Paxlovid 300 mg (150 mg x 2)-100 mg tablets in a dose pack 2023 024 [facility] [place], [address] [place], [address], 4 09:52:01 methylpredn isolone 4 mg tablets in a dose pack 2023 024 [facility] [place], [address] [place], [address], 09:13:04 mupirocin 2 % topical ointment 2023 024 [facility] - [place], [place], [address] [place], [address], 09:24:40 Patient TargetsNo targets recorded. Patient Instructions Encounter Date Encounter Id Patient Instructions Last Modified By Organization Details Last Modified Time 10/17/2023 [id number] nosebleeds: care instructions Not available 10/17/2023 15:34:22 upper respirator y infection (cold): care instructions Not available 10/17/2023 15:33:16 enlarged turbinates: care instructions Not available 10/17/2023 15:33:16 02/05/2024 [id number] ear infection (otitis media): care instructions Not available 02/05/2024 09:14:19 Reason for Referral None Reported. Results Created Date Observation Date Name Description Value Unit Range Abnormal Flag Note LastModifiedBy Organization Detail LastModifiedTime 02/05/2002/05/2024 SARS CoV 2 (COVI D-19) Ag, QL, IA, upper respi rator y speci men Unknown Analyte positi ve Not Available [facility] [address] [place] [address], [phone], 02/05/2024 08:45:08 02/05/20 24 02/05/2024 SARS CoV 2 (COVI D-19) Ag, QL, IA, upper respi rator y speci men Unknown Analyte yes Not Available [facility] [address] [place] [address], [address], 02/05/2024 08:45:08 02/05/20 24 02/05/2024 rapid flu (A+B) Unknown Analyte negati ve Not Available [facility] [address] [place], [address], 02/05/2024 08:45:17 02/05/2002/05/2024 rapid flu (A+B) Unknown Analyte negati ve Not Available [facility] [address] [place], [address], 02/05/2024 08:45:17 02/05/2002/05/2024 rapid flu (A+B) Unknown Analyte yes Not Available [facility] [address] [place], [address], 02/05/2024 08:45:17 Result Notes None recorded. Problems Name Problem SNOMED Code Status Onset Date Resolution Date Notes Provider Name and Address Organization Details Recorded Time Supravent ricular tachycard ia 0679087 Active Ashley Edmond gibson, PA - [facility] 4 08:41:18 Hypertens adore disorder 19841358 Completed 202310/17/2023 Luda gibson PA - [facility] 4 13:30:24 Diabetes mellitus 87989443 Active 2023 Luda gibson PA - [facility] 4 13:30:29 Anxiety 72984630 Active 2023 Luda gibson PA - [facility] 4 13:30:40 Evidence of recent epistaxis 091164623 Active 2023 Josephine Waldron NP [address] [place], [address] , [place] - [facility] 4 15:30:15 Upper respirato ry infection 43442603 Active 2023 Josephine Waldron NP [address] [place], [address] , [place] - [facility] 4 15:30:54 Cerebrova scular accident 417836469 Completed 202302/05/2024 [place] null, PA - [facility] 4 08:40:52 Acute COVID-19 8025493151 Active 2023 Josephine Waldron, CLAUDIA [address] [place], [address] , [place] - [facility] 4 09:12:49 Acute bilateral otitis media 700592513 Active 2023 Josephine Waldron NP [address] [place], [place], [address] , [place] - [facility] 4 09:13:00 Problem Notes None recorded. Medical Equipment None Reported. Allergies Allergen ID Allergen Name Allergen Category Reaction Reaction Severity Criticality Documentation Date Start Date Code Code System Note Provider Name and Address Organization Details Recorded Time 996131 erythromy nuris medicatio n Not available Not available Not available 02/05/2024 4053 RxNorm Ashley [place] null, PA - [facility] 4 08:39:09 207847 amoxicill in medicatio n Not available Not available Not available 02/05/2024 723 RxNorm Ashley [place] null, PA - [facility] 4 08:39:15 660560 Keflex medicatio n Not available Not available Not available 02/05/2024 17530 7 RxNorm Ashley [place] null, PA - [facility] 4 08:39:24 881849 Bactrim medicatio n Not available Not available Not available 02/05/2024 01165 9 RxNorm Ashley [place] null, PA - [facility] 4 08:39:31 879108 Reglan medicatio n Not available Not available Not available 02/05/2024 9230 RxNorm Ashley [place] null, PA - [facility] 4 08:39:43 425614 amlodipin e medicatio n Not available Not available Not available 02/05/2024 32552 RxNorm Ashley [place] null, PA - [facility] 4 08:40:13 290727 bee pollen environme nt,medica tion Not available Not available Not available 02/05/2024 47542 7 RxNorm SERA Lopez - [facility] [...] 4 18 /min 149.86 cm 40 kg/m2 33916.2 9 g 98.8 [degF] 60 /min 99 % 88/48 mm[Hg] Luda ZAMORA - [facility] 4 13:34:44 Date Recorded Body height Body temperature Body mass index (BMI) Body weight Respiratory rate Heart rate Oxygen saturation Systolic And Diastolic Provider Name and Address Organization Details Last Updated DateTime 4 149.86 cm 101.7 [degF] 40.6 kg/m2 34917.0 7 g 18 /min 88 /min 97 % 139/57 mm[Hg] Ashley [place] PA - [facility] 4 08:45:01 Social History Question Answer Notes LastModified by Laiyaoyao Details LastModified Time Tobacco Smoking Status Former [...] Functional Status Question Answer Note LastModified by Laiyaoyao Details LastModified Time Do you use any [...] ICD10 Code Diagnosis IMO Codes Diagnosis Note [id number] [facility] [place] [address] 03/08/2020 14:15:01 03/08/2020 15:20:53 [id number] [facility] [address] [place] [address] 03/13/2018 09:28:38 03/13/2018 09:54:17 [id number] [facility] [address] [place] [address] 08/16/2016 16:55:30 08/16/2016 17:47:31 [id number] Josephine Waldron [facility] [address] [place] [address] 10/17/2023 12:35:58 10/17/2023 15:35:39 Evidence of recent epistaxis 846729088 R04.0 How can you care for yourself [...] up your nose. Upper resp iratory infection 43502660 J06.9 Based on your Presentati on, Exam, [...] . Severe Headache Thank you for using [facility] today, please feel free to contact our office if you have any questions or concerns. [id number] [place] [address] [address] 02/05/2024 08:08:20 02/05/2024 09:23:10 Acute COVID-19 1072144631 U07.1 Based on your Presentati on, Exam, [...] . Severe Headache Thank you for using [facility] today, please feel free to contact our office if you have any questions or concerns. Acute bila teral otitis media 591694123 H66.93 Health Concerns Section Related Observation LastModified by Organization Lzi davis LastModified Time None Recorded Concern Status LastModified by Organization Details LastModified Time None Recorded Advance Directives Directive None Recorded Payers Insurance Date Sequence Insurance Name Policy Number Policy Hollins Covered Member ID Hollins Member ID Guarantor Name 02/05/2024 1 [employer] [facility] Katya Boateng [id number] Katya Boateng 10/17/2023 1 [facility] [id number] Katya Boateng [id number] Katya Boateng 04/30/2022 [facility] Katya Boateng Notes Date Note Type [...] Josephine Waldron NP [address] [place], [address], [place] - [facility] 10/17/2023 18:55:32 4 text/html CoughReported by [...] Josephine Waldron NP [address] [place], [address], [place] - [facility] 02/05/2024 09:22:37 OBGyn Episode No OBEpisode recorded.
--- OUTSIDE RECORDS SUMMARY | 2025-04-24 19:12 | XMS_ITS | Encounter Summary ---
Author Organization [facility] Address [address] [place] [address] Phone Care Team Providers Care Route Driver Salesperson Name Role Phone Maira Uriarte MD Primary Care Provider [phone] Encounter Details Date Type Department Care Team ([facility] Contact Info) Description 10/13/2022 Telephone [facility] [address] [place] [id number] Deja Morales Social History Tobacco Use Types [...] on filedocumented in this encounter Care Teams Route Driver Salesperson Relationship Specialty Start Date End Date Maira Uriarte MD [address] [facility] [address] [place] [address] PCP - General Internal Medicine 11/21/21 documented as of this encounter
--- OUTSIDE RECORDS SUMMARY | 2025-04-24 19:12 | XMS_ITS | Data Portability ---
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 samara Not available 05/16/2024 10:31:11 09/14/2024 09/14/2024 [...] XR, hand, 3 or more view - [facility] right hand pain room 103 2024 025 [facility], [address], [place], [address], 5 09:54:02 XR, finger(s), 2 or more view - left hand middle finger 3v , room 111 2023 024 [facility], [address], [address], [place], [address], 4 15:25:48 XR, finger(s), 2 or more view - re do lateral view per bc , middle finger left hand 2023 024 [facility], [address], [place], [address], 4 15:25:49 Medication Orders Kenalog 40 mg/mL [...] a4ajBk vP9nXo QUaueC m3YtLR FvZlgJ JJ8mAn HZtai3 2o4155 AC0Kqa niDVau kKiQtr MwF INTERFACE [facility] Office [address], [place], [address], 02/17/2024 10:37:13 02/17/20 24 02/17/2024 XR, finge r(s), 2 or more view http:/ [email or web address] ?Encry pted=s hAaTro YD8dLq bEUv6g %2BXZw aYqtaq 0bqfl% 2Fg9IQ a4ajBk vP9nXo QUaueC m3YtLR FvZlgJ [place] HZtai3 5g9221 AC0Kqa niDVau kKiQtr MwF INTERFACE [facility] [address], [place], [address], 02/17/2024 10:37:14 02/17/20 24 02/17/2024 XR, finge r(s), 2 or more view http:/ [email or web address] ?Encry pted=s hAaTro YD8dLq bEUv6g %2BXZw aYqtaq 0bqfl% 2Fg9IQ a4ajBk vP9nXo QUaueC m3YtLR FvZlgJ JJ8[place] HZtai3 3p7356 AC0Kqa niDV6W iKiQtr MwF INTERFACE [facility] [address] [facility] [address], [place], [address], 02/17/2024 10:37:16 02/17/20 24 02/17/2024 XR, finge r(s), 2 or more view http:/ [email or web address] ?Encry pted=s hAaTro YD8dLq bEUv6g %2BXZw aYqtaq 0bqfl% 2Fg9IQ a4ajBk vP9nXo QUaueC m3YtLR FvZlgJ JJ8[place] HZtai3 9j4462 AC0Kqa niDV6W iKiQtr MwF INTERFACE [facility] [address] [facility] [facility] [address], [place], [address], 02/17/2024 10:37:17 09/15/19 25 09/14/2024 XR, hand, 3 or more view http:/ [email or web address] ?Encry pted=s hAaTro YD8dLq bEUv6g %2BXZw aYqtaq 0bqfl% 2Fg9IQ a4ajBk vP9nXo QUaueC m3YtLR FvZlgJ JJ8mAn HZtai3 5a5549 AC0KqY 3qDUaS jKiQtr MwF INTERFACE [facility] [address] [facility] [address], [place], [address], 09/14/2024 10:31:53 09/15/19 25 09/14/2024 XR, hand, 3 or more view http:/ [email or web address] ?Encry pted=s hAaTro YD8dLq bEUv6g %2BXZw aYqtaq 0bqfl% 2Fg9IQ a4ajBk vP9nXo QUaueC m3YtLR FvZlgJ JJ8mAn HZtai3 6t7142 AC0KqY 3qDUaS jKiQtr MwF INTERFACE [facility] [address] [address], [place], [address], 09/14/2024 10:31:55 Result Notes Documentation Provider Name and Address Organization Details Recorded Time Xr, Finger(s), 2 Or More View : [email or web address] Encrypted=ilQjWhhOM8oOukC Uv6g%3NMMrqChdvs3rhet%2Fg 8XQj5bkAkqQ9jOxFZxpkYc8Fp JGQwQvgVYJ7wBjLPxdh22s116 0AT7IfuugTZecoQoWjoYjD Not Available [facility] 02/17/2024 10:37: 14 Xr, Finger(s), 2 Or More View : [email or web address] Encrypted=xxPyTixSF2pLloN Uv6g%6FDAtpSezdq1cqzn%2Fg 2AFh9qzDhmB7oZiAEauoVt8Jd FUVqNqmPEY8iMaINflr33m130 3OW5KoypdCUyloXlFnyFuL Not Available [facility] 02/17/2024 10:37: 15 Xr, Finger(s), 2 Or More View : [email or web address] Encrypted=dqKoQjdCG5bAtwY Uv6g%8FCOauBhoax1baub%2Fg 3XQu4nbGwwC9tRjADuhxJt2By YUEkMrhSFA1aHiVXlex12y422 9WJ5PysckWJ0SbMxRwvGaD Not Available [facility] 02/17/2024 10:37: 16 Xr, Finger(s), 2 Or More View : [email or web address]? Encrypted=prOiUwwJZ9lNbjW Uv6g%6FBAbhXgtxv5hujn%2Fg 7JSf8azFobE0zDtCZeguZl0Tb UCQaDmnHRM5aScAAmba11e772 7DV2FczphYB9VrIrYgeMuK Not Available [facility] 02/17/2024 10:37: 17 Xr, Hand, 3 Or More View : [email or web address] Encrypted=xgApElcHO5gHslE Uv6g%9ILOanWrssi6tmsi%2Fg 0BBh8zpRxpO8kVcDRuvqJd2Ma CUEyIovXMN5bNaPHlmz59b316 3HM1ClZ6cGYfYgAbTqpFiU Not Available [facility] 09/14/2024 10:31: 53 Xr, Hand, 3 Or More View : [email or web address] Encrypted=rcFcYxrDV5tKloA Uv6g%8IGPyuXozoy1kjvn%2Fg 5EMs4olHylZ4sScHIqweCf9Vi UINuAqkOZY9pTuJIzcw73n230 7IA4FmK3jCPgAyEjJnmYdB Not Available [facility] 09/14/2024 10:31: 55 Problems Name Problem SNOMED Code Status Onset Date Resolution Date Notes Provider Name and Address Organization Details Recorded Time No complaints 456489849 Active Status : 'A'; Not Available [facility] 4 09:25:36 Trigger finger of left hand 7133356383608 9107 Active 2023 Dragan Rios PA-C [address], [place], [address] , [facility] 4 08:10:35 Dupuytren' s disease of palm of left hand 5214973171582 9104 Active 2023 Dragan Rios PA-C [address], [place], [address] , [facility] 4 08:10:47 Pain of right hand 0595284986966 09 Active 2024 Dragan Rios PA-C [address], [place], [address] , [facility] 5 08:21:03 Triggering of digit 106661710 Active 2024 Dragan Rios PA-C [address], [place], [address] , [facility] 5 11:17:02 Problem Notes None recorded. Procedures Surgical History Date Name Laterality Status Provider Name and Address Organization Details Recorded Time 09/15/19 25 Tendon Sheath Kenalog Injection, L/R completed Dragan Rios PA-C [address], [place], [address], [facility] 09/14/2024 11:16:33 09/02/19 24 Tendon Sheath Kenalog Injection, L/R completed Dragan Rios PA-C [address], [place], [address], [facility] 09/02/2023 11:13:48 10/13/19 21 Orthopedic Surgery completed KAYLIA L'HEUREUX [facility] 09/14/2024 08:59:41 10/13/19 21 Other completed KAYLIA L'HEUREUX [facility] 09/14/2024 10:25:09 11/14/19 16 Knee Surgery completed KAYLIA L'HEUREUX [facility] 09/14/2024 10:25:09 11/14/19 15 Arthroplasty completed KAYLIA L'HEUREUX [facility] 09/14/2024 08:59:41 10/24/19 01 Other completed KAYLIA L'HEUREUX [facility] 09/14/2024 10:25:09 11/24/19 00 Other completed KAYLIA L'HEUREUX [facility] 09/14/2024 10:25:09 11/23/19 00 Gastrointestinal Surgery completed KAYLIA L'HEUREUX [facility] 09/14/2024 08:59:41 Imaging Results None recorded. Procedure Notes None recorded. Medical Equipment None Reported. Allergies Allergen ID Allergen Name Allergen Category Reaction Reaction Severity Criticality Documentation Date Start Date Code Code System Note Provider Name and Address Organization Details Recorded Time 966131 POLLEN EXTRACTS environme nt,medica tion Not available Not available Not available 09/14/2024 55870 6 RxNorm KAYLIA L'HEUREUX [facility] 5 10:25:07 764102 sunscreen medicatio n edema Not available Not available 09/14/2024 KAYLIA L'HEUREUX [facility] 5 10:25:07 175429 prazosin medicatio n edema moderate Not available 09/14/2024 8629 RxNorm KAYLIA L'HEUREUX [facility] 5 10:25:07 642478 red dye food,medi cation Not available Not available Not available 09/14/2024 KAYLIA L'HEUREUX [facility] 5 10:25:07 212484 purified protein derivativ e of tuberculi n medicatio n hives Not available Not available 09/14/20241993 8948 RxNorm KAYLIA L'HEUREUX [facility] 5 10:25:07 911066 Product containin g hydrogen/ potassium adenosine triphosph atase enzyme system inhibitor (product) medicatio n other Not available Not available 09/14/2024 64973 5006 SNOMED JOANNYLIA L'HEUREUX [facility], [facility] 5 10:25:07 663878 Anaphylax is Bee Sting medicatio n Not available Not available Not available 09/14/2024 JOANNYLIA L'HEUREUX [facility], [facility] 5 10:25:07 178088 tetanus immune globulin F(ab')2 (equine) Not available Not available Not available Not available 09/14/2024 KAYLIA L'HEUREUX null, [facility] 5 10:25:07 489973 ragweed pollen environme nt Not available Not available Not available 09/14/2024 KAYLIA L'HEUREUX [facility], [facility] 5 10:25:07 513431 weed pollen environme nt,medica tion Not available Not available Not available 09/14/2024 KAYLIA L'HEUREUX null, [facility] 5 10:25:07 647687 grass pollen environme nt,medica tion Not available Not available Not available 09/14/2024 KAYLIA L'HEUREUX null, [facility] 5 10:25:07 272198 mold extract environme nt Not available Not available Not available 09/14/2024 02651 8 RxNorm KAYLIA L'HEUREUX [facility], [facility] 5 10:25:07 80172 oxycodone hydrochlo ride medicatio n Not available Not available Not available 08/03/20232014 29064 RxNorm Aller gyRea ction : 'Skin React ion'; Not Available [facility] 4 13:27:20 68022 Dilaudid medicatio n Not available Not available Not available 08/03/20232014 64374 3 RxNorm Aller gyRea ction : 'Skin React ion'; Not Available [facility] 4 13:27:20 52159 Oxycontin medicatio n Not available Not available Not available 08/03/20232014 66094 6 RxNorm Aller gyNam e: 'Oxyc ontin Tb12' ; Aller gyRea ction : 'Skin React ion'; Not Available [facility] 4 13:27:20 22485 amlodipin e besylate medicatio n Not available Not available Not available 08/03/20232022 84831 6 RxNorm Not Available [facility] 4 13:27:20 44239 Reglan medicatio n Not available Not available Not available 08/03/20232014 9230 RxNorm Not Available [facility] 4 13:27:20 83140 acetamino phen / codeine medicatio n Not available Not available Not available 08/03/20232014 39943 9 RxNorm Aller gyNam e: 'Tyle nol/c odein e #3 Tabs' ; Not Available [facility] 4 13:27:20 74933 Ultram medicatio n Not available Not available Not available 08/03/20232014 14302 6 RxNorm Not Available [facility] 4 13:27:21 79358 Keflex medicatio n Not available Not available Not available 08/03/20232014 51008 7 RxNorm Not Available [facility] 4 13:27:21 05771 acetamino phen / hydrocodo ne medicatio n Not available Not available Not available 08/03/20232014 08084 2 RxNorm Not Available [facility] 4 13:27:21 84114 erythromy nuris medicatio n Not available Not available Not available 08/03/20232014 4053 RxNorm Not Available [facility] 4 13:27:21 34812 amoxicill in trihydrat e medicatio n Not available Not available Not available 08/03/20232014 58358 8 RxNorm Not Available [facility] 4 13:27:21 73937 Bactrim medicatio n Not available Not available Not available 08/03/20232022 59486 9 RxNorm Not Available [facility] 4 13:27:21 20034 codeine medicatio n Not available Not available Not available 08/03/20232014 2670 RxNorm Not Available [facility] 4 13:27:21 18411 latex environme nt,medica tion Not available Not available Not available 08/03/20232014 53775 91 RxNorm Not Available [facility] 4 13:27:21 60497 Substance with sulfonami de structure and antibacte rial mechanism of action (substanc e) medicatio n Not available Not available Not available 08/03/20232014 68119 8003 SNOMED Not Available [facility] 13:27:22 Medications Name Sig Start Date [...] Updated DateTime 09/02/2023 149.86 cm 38.6 kg/m2 39719.14 g Juana Downs [place] [facility] 09/02/2023 10:23:51 Date Recorded Body height Body mass index (BMI) Body weight Provider Name and Address Organization Details Last Updated DateTime 09/14/2024 149.86 cm 38.4 kg/m2 39325.55 g MARK CALVILLO [facility] 09/14/2024 10:25:21 Date Recorded Body height Body mass index (BMI) Body weight Provider Name and Address Organization Details Last Updated DateTime 02/17/2024 149.86 cm 38.6 kg/m2 98912.14 g Dulce Maria Collins [facility] 02/17/2024 10:06:51 Date Recorded Body height Body mass index (BMI) Body weight Provider Name and Address Organization Details Last Updated DateTime 05/16/2024 149.86 cm 38.4 kg/m2 38265.55 g JAQUELINE LAMAR [facility] 05/16/2024 08:43:55 Social History Question Answer Notes LastModified by [employer] Details LastModified Time Tobacco Smoking Status Former Smoker MARK CALVILLO [facility] 09/14/2024 10:25:09 When Did You Quit Smoking? 17+yearssin celastcivivi ette Information not available 09/14/2024 What Is Your Relationship Status? Single Information not available 09/14/2024 Sex: Unknown Functional Status Question Answer Note LastModified by [employer] Details LastModified Time How many times per [...] ICD10 Code Diagnosis IMO Codes Diagnosis Note [id number] AZAEL Castillo [address] [place] [address] 09/02/2023 09:54:08 09/02/2023 11:20:05 Trigger finger of left hand 5897435759 8004779 M65.332 Dupuytren' s disease of palm of left hand 1356092277 1328978 M72.0 1932205 Dragan Rios PA-C [facility] [address] [place] [address] 02/17/2024 09:49:41 03/09/2024 15:25:48 Trigger finger of left hand 8297151670 4982660 M65.332 Dupuytren' s disease of palm of left hand 7219616311 2291669 M72.0 Pain of left hand 596466 2903 08461 M79.735 [id number] Hayley monteiro MD [facility] [address] [place] [address] 05/16/2024 08:27:14 06/03/2024 13:47:15 Trigger finger of left hand 0609633271 0065257 M65.916 [id number] Dragan Rios PA-C [facility] [address] [place] [address] 09/14/2024 10:14:10 09/27/2024 09:54:02 Pain of right hand 6320798577 21730 M79.384 3451555 Triggering of digit 2399 05962 M65.195 [id number] Health Concerns Section Related Observation LastModified by Organization Detai ls LastModified Time None Recorded Concern Status LastModified by Organization Details LastModified Time None Recorded Advance Directives Directive None Recorded Payers Insurance Date Sequence Insurance Name Policy Number Policy Hollins Covered Member ID Hollins Member ID Guarantor Name 11/01/2024 1 [employer]UE [employer] [facility] ([facility]) [id number] Katya Boateng [id number] Katya Boateng 09/13/2024 1 [employer] Katya Boateng [id number] Katya Boateng Notes Date Note Type Note [...] today in follow Dragan Rios PA-C [address], [place], [address], [facility] 09/02/2023 11:14:34 02/17/2024 text/html ROS as [...] without significant improvement. 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 Hayley Smith MD [address], [place], [address], [facility] 05/16/2024 10:31:25 09/14/2024 text/html ROS as [...] today for evaluation Dragan Rios PA-C [address], [place], [address], [facility] 09/14/2024 11:17:24 OBGyn Episode No OBEpisode recorded.
--- OUTSIDE RECORDS SUMMARY | 2025-04-24 19:12 | XMS_ITS | Clinical Summary ---
Author Organization [facility] Address [address] [place] [address] Phone Care Team Providers Care Transportation Supervisor Name Role Phone Maira Uriarte MD Primary Care Provider [phone]- [phone] Allergies Active Allergy Reactions Criticality Noted Date [...] patient's age to complete this topic Insurance Agavideo Agav[employer] Care Teams Transportation Supervisor Relationship Specialty Start Date End Date Maira Uriarte MD [address] [place] [phone] PCP - General Internal Medicine 6/23/22
== END 2025-04-24 14:19 | disposition home or self-care (01) ==
LOC: HO.HMGAL 14:17
PROVIDERS: PCP Internal Medicine; Visit Provider Registered Nurse Emergency
DX: J30.89 Other allergic rhinitis (principal)
CPT/HCPCS: 95117; 95165

== ENCOUNTER 2025-05-01 14:39 | Outpatient (AMB) | payer OTHER, SELFPAY ==
--- OUTSIDE RECORDS SUMMARY | 2025-05-01 17:54 | XMS_ITS | Encounter Summary ---
Author Organization [facility] Address [address] [place] [address] Phone Care Team Providers Care Analytics Senior Manager Name Role Phone Maira Uriarte MD Primary Care Provider [phone]- [phone] Encounter Details Date Type Department Care Team ([facility] Contact Info) Description 10/13/2022 Telephone [facility] [address] [place] [phone] Deja Morales Social History Tobacco Use Types [...] on filedocumented in this encounter Care Teams Analytics Senior Manager Relationship Specialty Start Date End Date Maira Uriarte MD [address] [facility] [address] [place] [address] PCP - General Internal Medicine 11/21/21 documented as of this encounter
--- OUTSIDE RECORDS SUMMARY | 2025-05-01 17:54 | XMS_ITS | Clinical Summary ---
Author Organization [facility] Address [address] [place] [address] Phone Care Team Providers Care Medical Doctor Md/Medical Director Name Role Phone Maira Uriarte MD Primary Care Provider [phone]- [phone] Allergies Active Allergy Reactions Criticality Noted Date [...] patient's age to complete this topic Insurance [employer] Care Teams Medical Doctor Md/Medical Director Relationship Specialty Start Date End Date Maira Uriarte MD [address] [place] [phone] PCP - General Internal Medicine 6/23/22
--- OUTSIDE RECORDS SUMMARY | 2025-05-01 17:54 | XMS_ITS | Data Portability ---
Author Organization [facility], [address] Address [address] [place] [address] Assessment No assessment recorded. Plan of Treatment Reminders Order Date Submit Date Provider Last Modified By Organization Details Last Modified Time Details Appointments None recorded. Lab SARS CoV 2 (COVID-19) Ag, QL, IA, upper respiratory specimen 2023 024 [place] [id number] 2099_[facility], [address] [place] [address], [phone], 4 09:12:53 rapid flu (A+B) 2023 024 [place] [address] _[facility], [address] [place] [address], [phone], 4 09:12:54 Referral None recorded. Procedures None recorded. Surgeries None recorded. Imaging None recorded. Medication Orders Zithromax Z-Trace 250 mg tablet 2023 024 [facility] [place], [place], [address] [place], [address], 4 09:52:01 Paxlovid 300 mg (150 mg x 2)-100 mg tablets in a dose pack 2023 024 [facility] [place], [address] [place], [address], 4 09:52:01 methylpredn isolone 4 mg tablets in a dose pack 2023 024 [facility] - [place], [address] [place], [address], 09:13:04 mupirocin 2 % topical ointment 2023 024 [facility] - [place], [address] [place], [address], 09:24:40 Patient TargetsNo targets recorded. Patient Instructions Encounter Date Encounter Id Patient Instructions Last Modified By Organization Details Last Modified Time 10/17/2023 [id number] nosebleeds: care instructions Not available 10/17/2023 15:34:22 upper respirator y infection (cold): care instructions Not available 10/17/2023 15:33:16 enlarged turbinates: care instructions Not available 10/17/2023 15:33:16 02/05/2024 [id number] ear infection (otitis media): care instructions Not available 02/05/2024 09:14:19 Reason for Referral None Reported. Results Created Date Observation Date Name Description Value Unit Range Abnormal Flag Note LastModifiedBy Organization Detail LastModifiedTime 02/05/2002/05/2024 SARS CoV 2 (COVI D-19) Ag, QL, IA, upper respi rator y speci men Unknown Analyte positi ve Not Available [facility] [address] [place] [address], [phone], 02/05/2024 08:45:08 02/05/20 24 02/05/2024 SARS CoV 2 (COVI D-19) Ag, QL, IA, upper respi rator y speci men Unknown Analyte yes Not Available [facility] [address] [place] [address], [phone], 02/05/2024 08:45:08 02/05/20 24 02/05/2024 rapid flu (A+B) Unknown Analyte negati ve Not Available [facility] [address] [address] [place], [phone], 02/05/2024 08:45:17 02/05/2002/05/2024 rapid flu (A+B) Unknown Analyte negati ve Not Available [facility] [address] [place], [address], 02/05/2024 08:45:17 02/05/2002/05/2024 rapid flu (A+B) Unknown Analyte yes Not Available [facility] [address] [place], [address], 02/05/2024 08:45:17 Result Notes None recorded. Problems Name Problem SNOMED Code Status Onset Date Resolution Date Notes Provider Name and Address Organization Details Recorded Time Supravent ricular tachycard ia 2172881 Active Ashley Edmond gibson, [place] - [facility] 4 08:41:18 Hypertens adore disorder 93414949 Completed 202310/17/2023 Luda gibson PA - [facility] 4 13:30:24 Diabetes mellitus 26898003 Active 2023 Luda gibson PA - [facility] 4 13:30:29 Anxiety 16979267 Active 2023 Luda gibson PA - [facility] 4 13:30:40 Evidence of recent epistaxis 255100770 Active 2023 Josephine Waldron NP [address] [place], [address] , [place] - [facility] 4 15:30:15 Upper respirato ry infection 26374574 Active 2023 Josephine Waldron NP [address] [place], [address] , [place] - [facility] 4 15:30:54 Cerebrova scular accident 641251180 Completed 202302/05/2024 Ashley [place] null, PA - [facility] 4 08:40:52 Acute COVID-19 0398411638 Active 2023 Josephine Waldron, CLAUDIA [address] [place], [address] , [place] - [facility] 4 09:12:49 Acute bilateral otitis media 679604721 Active 2023 Josephine Waldron NP [address], [place], [address] , [place] - [facility] 4 09:13:00 Problem Notes None recorded. Medical Equipment None Reported. Allergies Allergen ID Allergen Name Allergen Category Reaction Reaction Severity Criticality Documentation Date Start Date Code Code System Note Provider Name and Address Organization Details Recorded Time 495014 erythromy nuris medicatio n Not available Not available Not available 02/05/2024 4053 RxNorm Ashley [place] null, PA - [facility] 4 08:39:09 176127 amoxicill in medicatio n Not available Not available Not available 02/05/2024 723 RxNorm Ashley [place] null, PA - [facility] 4 08:39:15 939802 Keflex medicatio n Not available Not available Not available 02/05/2024 48293 7 RxNorm Ashley [place] null, PA - [facility] 4 08:39:24 683170 Bactrim medicatio n Not available Not available Not available 02/05/2024 57414 9 RxNorm Ashley [place] null, PA - [facility] 4 08:39:31 927807 Reglan medicatio n Not available Not available Not available 02/05/2024 9230 RxNorm Ashley [place] null, PA - [facility] 4 08:39:43 060361 amlodipin e medicatio n Not available Not available Not available 02/05/2024 55336 RxNorm Ashley [place] null, PA - [facility] 4 08:40:13 733818 bee pollen environme nt,medica tion Not available Not available Not available 02/05/2024 11582 7 RxNorm SERA Lopez - [facility] [...] 4 18 /min 149.86 cm 40 kg/m2 96920.2 9 g 98.8 [degF] 60 /min 99 % 88/48 mm[Hg] Luda ZAMORA - [facility] 4 13:34:44 Date Recorded Body height Body temperature Body mass index (BMI) Body weight Respiratory rate Heart rate Oxygen saturation Systolic And Diastolic Provider Name and Address Organization Details Last Updated DateTime 4 149.86 cm 101.7 [degF] 40.6 kg/m2 00648.0 7 g 18 /min 88 /min 97 % 139/57 mm[Hg] Ashley [place] PA - [facility] 4 08:45:01 Social History Question Answer Notes LastModified by [employer] Details LastModified Time Tobacco Smoking Status Former [...] Functional Status Question Answer Note LastModified by [employer] Details LastModified Time Do you use any [...] ICD10 Code Diagnosis IMO Codes Diagnosis Note [id number] [facility] [place] [phone] 03/08/2020 14:15:01 03/08/2020 15:20:53 [id number] [address] [address] [place] [phone] 03/13/2018 09:28:38 03/13/2018 09:54:17 [id number] [facility] [address] [place] [phone] 08/16/2016 16:55:30 08/16/2016 17:47:31 [id number] Josephine Waldron [facility] [address] [address] [place] [phone] 10/17/2023 12:35:58 10/17/2023 15:35:39 Evidence of recent epistaxis 870182224 R04.0 How can you care for yourself [...] up your nose. Upper resp iratory infection 20612245 J06.9 Based on your Presentati on, Exam, [...] . Severe Headache Thank you for using [facility] today, please feel free to contact our office if you have any questions or concerns. [id number] [place] [address] [address] 02/05/2024 08:08:20 02/05/2024 09:23:10 Acute COVID-19 5536810341 U07.1 Based on your Presentati on, Exam, [...] . Severe Headache Thank you for using [facility] today, please feel free to contact our office if you have any questions or concerns. Acute bila teral otitis media 913834622 H66.93 Health Concerns Section Related Observation LastModified by Organization Liz davis LastModified Time None Recorded Concern Status LastModified by Organization Details LastModified Time None Recorded Advance Directives Directive None Recorded Payers Insurance Date Sequence Insurance Name Policy Number Policy Hollins Covered Member ID Hollins Member ID Guarantor Name 02/05/2024 1 [employer] [facility] (PP[facility]) Katya Boateng [id number] Katya Boateng 10/17/2023 1 [facility] [id number] Katya Boateng [id number] Katya Boateng 04/30/2022 [facility] Katya Boateng Notes Date Note Type [...] Josephine Waldron NP [address] [place], [address], [place] - [facility] 10/17/2023 18:55:32 4 text/html CoughReported by [...] Josephine Waldron NP [address] [place], [address], [place] - [facility] 02/05/2024 09:22:37 OBGyn Episode No OBEpisode recorded.
--- OUTSIDE RECORDS SUMMARY | 2025-05-01 17:54 | XMS_ITS | Data Portability ---
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 samara Not available 05/16/2024 10:31:11 09/14/2024 [...] XR, hand, 3 or more view - [facility] right hand pain room 103 2024 025 [facility], [address], [place], [address], 5 09:54:02 XR, finger(s), 2 or more view - left hand middle finger 3v , room 111 2023 024 [facility], [address], [address], [place], [address], 4 15:25:48 XR, finger(s), 2 or more view - re do lateral view per bc , middle finger left hand 2023 024 [facility], [address], [place], [address], 4 15:25:49 Medication Orders Kenalog 40 mg/mL [...] a4ajBk vP9nXo QUaueC m3YtLR FvZlgJ JJ8mAn HZtai3 2n6047 AC0Kqa niDVau kKiQtr MwF INTERFACE [facility] Office [address], [place], [address], 02/17/2024 10:37:13 02/17/20 24 02/17/2024 XR, finge r(s), 2 or more view [email or web address]:/ [email or web address] ?Encry pted=s hAaTro YD8dLq bEUv6g %2BXZw aYqtaq 0bqfl% 2Fg9IQ a4ajBk vP9nXo QUaueC m3YtLR FvZlgJ JJ8Mills HZtai3 8o9724 AC0Kqa niDVau kKiQtr MwF INTERFACE [facility] [address], [place], [address], 02/17/2024 10:37:14 02/17/20 24 02/17/2024 XR, finge r(s), 2 or more view [email or web address]:/ [email or web address] ?Encry pted=s hAaTro YD8dLq bEUv6g %2BXZw aYqtaq 0bqfl% 2Fg9IQ a4ajBk vP9nXo QUaueC m3YtLR FvZlgJ JJ8Mills HZtai3 6u3376 AC0Kqa niDV6W iKiQtr MwF INTERFACE [facility] [address] [facility] [address], [place], [address], 02/17/2024 10:37:16 02/17/20 24 02/17/2024 XR, finge r(s), 2 or more view http:/ [email or web address] ?Encry pted=s hAaTro YD8dLq bEUv6g %2BXZw aYqtaq 0bqfl% 2Fg9IQ a4ajBk vP9nXo QUaueC m3YtLR FvZlgJ JJ8Mills HZtai3 9s3318 AC0Kqa niDV6W iKiQtr MwF INTERFACE [facility] [address] [facility] [address], [place], [address], 02/17/2024 10:37:17 09/15/19 25 09/14/2024 XR, hand, 3 or more view http:/ [email or web address] ?Encry pted=s hAaTro YD8dLq bEUv6g %2BXZw aYqtaq 0bqfl% 2Fg9IQ a4ajBk vP9nXo QUaueC m3YtLR FvZlgJ JJ8mAn HZtai3 9h3632 AC0KqY 3qDUaS jKiQtr MwF INTERFACE [facility] [address] [facility] [address], [place], [address], 09/14/2024 10:31:53 09/15/19 25 09/14/2024 XR, hand, 3 or more view http:/ [email or web address] ?Encry pted=s hAaTro YD8dLq bEUv6g %2BXZw aYqtaq 0bqfl% 2Fg9IQ a4ajBk vP9nXo QUaueC m3YtLR FvZlgJ JJ8mAn HZtai3 0k5117 AC0KqY 3qDUaS jKiQtr MwF INTERFACE [facility] [address] [address], [place], [address], 09/14/2024 10:31:55 Result Notes Documentation Provider Name and Address Organization Details Recorded Time Xr, Finger(s), 2 Or More View : [email or web address] Encrypted=lmEqWjnJE5aVpeT Uv6g%8ZUSiwEntnx6ofdb%2Fg 5NNy0haWfbY5tKqKJydqJc4Lb VBGqOhiFFV8dWqQYike18l145 6CK3SdtouNCvfxAiCikAcQ Not Available [facility] 02/17/2024 10:37: 14 Xr, Finger(s), 2 Or More View : [email or web address] Encrypted=hpZoQoeWT8uSqaF Uv6g%7GBDweVpkdk0kvrj%2Fg 8GWx1ddNyaA1eCtWThncJv8Xb NUKjKpbRVH8vOnKTwsf95q626 2XP2QsurzPKuwxPdPgnVgE Not Available [facility] 02/17/2024 10:37: 15 Xr, Finger(s), 2 Or More View : [email or web address] Encrypted=vwAiWwaEH0vZfsD Uv6g%1YCUwoGqqff0ifrt%2Fg 7EVw1ovHgoX2bYsPSxflPr4He WIEyAjqCVZ9mEhKZaxa12d685 2KO6TufxwZH2KkWlWlsAkI Not Available [facility] 02/17/2024 10:37: 16 Xr, Finger(s), 2 Or More View : [email or web address] Encrypted=bfLjNinXV2qRzwC Uv6g%7YHImgPytmz6gnwi%2Fg 4FSx7wrFwpK0wFdZNunvNd6Fq GJReCpoKXD9aCrXRzbq04x226 1BR6PctekGG0NhZoVddYsU Not Available [facility] 02/17/2024 10:37: 17 Xr, Hand, 3 Or More View : [email or web address] Encrypted=lcBnEfsXR6rAcdL Uv6g%4YURprWmktf5kdzr%2Fg 9YQp4jrClzT5bBnBVuciFo9Wj JZOrEsfJBI5yXtKQmvu75y889 2QH4LkT5vQMlSgLnNhtFhJ Not Available [facility] 09/14/2024 10:31: 53 Xr, Hand, 3 Or More View : [email or web address] Encrypted=xlWlVjlVE8tGevG Uv6g%1YFKfpVhzqs5bswh%2Fg 4TDm1pwHixY1pKcKEbnjGz1Xd YZEqRaeBJL2gOyKLhww93h250 9OO2ZwA9hXVdJdIzVwsNqB Not Available [facility] 09/14/2024 10:31: 55 Problems Name Problem SNOMED Code Status Onset Date Resolution Date Notes Provider Name and Address Organization Details Recorded Time No complaints 751553456 Active Status : 'A'; Not Available [facility] 4 09:25:36 Trigger finger of left hand 1015692047912 9107 Active 2023 Dragan Rios PA-C [address], [place], [address] , [facility] 4 08:10:35 Dupuytren' s disease of palm of left hand 9833211970196 9104 Active 2023 Dragan Rios PA-C [address], [place], [address] , [facility] 4 08:10:47 Pain of right hand 8736194333638 09 Active 2024 Dragan Rios PA-C [address], [place], [address] , [facility] 5 08:21:03 Triggering of digit 481036163 Active 2024 Dragan Rios PA-C [address], [place], [address] , [facility] 5 11:17:02 Problem Notes None recorded. Procedures Surgical History Date Name Laterality Status Provider Name and Address Organization Details Recorded Time 09/15/19 25 Tendon Sheath Kenalog Injection, L/R completed Dragan Rios PA-C [address], [place], [address], [facility] 09/14/2024 11:16:33 09/02/19 24 Tendon Sheath Kenalog Injection, L/R completed Dragan Rios PA-C [address], [place], [address], [facility] 09/02/2023 11:13:48 10/13/19 21 Orthopedic Surgery completed KAYLIA L'HEUREUX [facility] 09/14/2024 08:59:41 10/13/19 21 Other completed KAYLIA L'HEUREUX [facility] 09/14/2024 10:25:09 11/14/19 16 Knee Surgery completed KAYLIA L'HEUREUX [facility] 09/14/2024 10:25:09 11/14/19 15 Arthroplasty completed KAYLIA L'HEUREUX [facility] 09/14/2024 08:59:41 10/24/19 01 Other completed KAYLIA L'HEUREUX [facility] 09/14/2024 10:25:09 11/24/19 00 Other completed KAYLIA L'HEUREUX [facility] 09/14/2024 10:25:09 11/23/19 00 Gastrointestinal Surgery completed KAYLIA L'HEUREUX [facility] 09/14/2024 08:59:41 Imaging Results None recorded. Procedure Notes None recorded. Medical Equipment None Reported. Allergies Allergen ID Allergen Name Allergen Category Reaction Reaction Severity Criticality Documentation Date Start Date Code Code System Note Provider Name and Address Organization Details Recorded Time 353414 POLLEN EXTRACTS environme nt,medica tion Not available Not available Not available 09/14/2024 58076 6 RxNorm KAYLIA L'HEUREUX [facility] 5 10:25:07 739695 sunscreen medicatio n edema Not available Not available 09/14/2024 KAYLIA L'HEUREUX [facility] 5 10:25:07 495353 prazosin medicatio n edema moderate Not available 09/14/2024 8629 RxNorm KAYLIA L'HEUREUX [facility] 5 10:25:07 045419 red dye food,medi cation Not available Not available Not available 09/14/2024 KAYLIA L'HEUREUX [facility] 5 10:25:07 158804 purified protein derivativ e of tuberculi n medicatio n hives Not available Not available 09/14/20241993 8948 RxNorm KAYLIA L'HEUREUX [facility] 5 10:25:07 892894 Product containin g hydrogen/ potassium adenosine triphosph atase enzyme system inhibitor (product) medicatio n other Not available Not available 09/14/2024 06866 5006 SNOMED JOANNYLIA L'HEUREUX [facility], [facility] 5 10:25:07 021106 Anaphylax is Bee Sting medicatio n Not available Not available Not available 09/14/2024 JOANNYLIA L'HEUREUX [facility], [facility] 5 10:25:07 310286 tetanus immune globulin F(ab')2 (equine) Not available Not available Not available Not available 09/14/2024 KAYLIA L'HEUREUX null, [facility] 5 10:25:07 640465 ragweed pollen environme nt Not available Not available Not available 09/14/2024 KAYLIA L'HEUREUX [facility], [facility] 5 10:25:07 101507 weed pollen environme nt,medica tion Not available Not available Not available 09/14/2024 KAYLIA L'HEUREUX null, [facility] 5 10:25:07 512837 grass pollen environme nt,medica tion Not available Not available Not available 09/14/2024 KAYLIA L'HEUREUX null, [facility] 5 10:25:07 297152 mold extract environme nt Not available Not available Not available 09/14/2024 75352 8 RxNorm KAYLIA L'HEUREUX [facility], [facility] 5 10:25:07 74414 oxycodone hydrochlo ride medicatio n Not available Not available Not available 08/03/20232014 69650 RxNorm Aller gyRea ction : 'Skin React ion'; Not Available [facility] 4 13:27:20 92892 Dilaudid medicatio n Not available Not available Not available 08/03/20232014 68004 3 RxNorm Aller gyRea ction : 'Skin React ion'; Not Available [facility] 4 13:27:20 55527 Oxycontin medicatio n Not available Not available Not available 08/03/20232014 78791 6 RxNorm Aller gyNam e: 'Oxyc ontin Tb12' ; Aller gyRea ction : 'Skin React ion'; Not Available [facility] 4 13:27:20 41877 amlodipin e besylate medicatio n Not available Not available Not available 08/03/20232022 31062 6 RxNorm Not Available [facility] 4 13:27:20 57434 Reglan medicatio n Not available Not available Not available 08/03/20232014 9230 RxNorm Not Available [facility] 4 13:27:20 96021 acetamino phen / codeine medicatio n Not available Not available Not available 08/03/20232014 32556 9 RxNorm Aller gyNam e: 'Tyle nol/c odein e #3 Tabs' ; Not Available [facility] 4 13:27:20 66439 Ultram medicatio n Not available Not available Not available 08/03/20232014 91412 6 RxNorm Not Available [facility] 4 13:27:21 28516 Keflex medicatio n Not available Not available Not available 08/03/20232014 56221 7 RxNorm Not Available [facility] 4 13:27:21 60037 acetamino phen / hydrocodo ne medicatio n Not available Not available Not available 08/03/20232014 35006 2 RxNorm Not Available [facility] 4 13:27:21 13465 erythromy nuris medicatio n Not available Not available Not available 08/03/20232014 4053 RxNorm Not Available [facility] 4 13:27:21 28991 amoxicill in trihydrat e medicatio n Not available Not available Not available 08/03/20232014 04073 8 RxNorm Not Available [facility] 4 13:27:21 86960 Bactrim medicatio n Not available Not available Not available 08/03/20232022 74687 9 RxNorm Not Available [facility] 4 13:27:21 10612 codeine medicatio n Not available Not available Not available 08/03/20232014 2670 RxNorm Not Available [facility] 4 13:27:21 03453 latex environme nt,medica tion Not available Not available Not available 08/03/20232014 23081 91 RxNorm Not Available [facility] 4 13:27:21 67566 Substance with sulfonami de structure and antibacte rial mechanism of action (substanc e) medicatio n Not available Not available Not available 08/03/20232014 42901 8003 SNOMED Not Available [facility] 13:27:22 Medications Name Sig Start Date Stop [...] Updated DateTime 09/02/2023 149.86 cm 38.6 kg/m2 70749.14 g Juana Downs [place] [facility] [place] [facility] 09/02/2023 10:23:51 Date Recorded Body height Body mass index (BMI) Body weight Provider Name and Address Organization Details Last Updated DateTime 09/14/2024 149.86 cm 38.4 kg/m2 89308.55 g MARK CALVILLO [facility] 09/14/2024 10:25:21 Date Recorded Body height Body mass index (BMI) Body weight Provider Name and Address Organization Details Last Updated DateTime 02/17/2024 149.86 cm 38.6 kg/m2 09713.14 g Dulce Maria Collins [facility] 02/17/2024 10:06:51 Date Recorded Body height Body mass index (BMI) Body weight Provider Name and Address Organization Details Last Updated DateTime 05/16/2024 149.86 cm 38.4 kg/m2 49675.55 g JAQUELINE LAMAR [facility] 05/16/2024 08:43:55 Social History Question Answer Notes LastModified by [employer] Details LastModified Time Tobacco Smoking Status Former Smoker MARK CALVILLO [facility] 09/14/2024 10:25:09 When Did You Quit Smoking? 17+yearssin celastcivivi ette Information not available 09/14/2024 What Is Your Relationship Status? Single Information not available 09/14/2024 Sex: Unknown Functional Status Question Answer Note LastModified by [employer] Details LastModified Time How many times per [...] ICD10 Code Diagnosis IMO Codes Diagnosis Note [id number] AZAEL Castillo [address] [place] [address] 09/02/2023 09:54:08 09/02/2023 11:20:05 Trigger finger of left hand 2847185007 5161082 M65.332 Dupuytren' s disease of palm of left hand 4509513979 6820642 M72.0 [id number] Dragan Rios PA-C [facility] [address] [place] [address] 02/17/2024 09:49:41 03/09/2024 15:25:48 Trigger finger of left hand 5815621911 5354417 M65.332 Dupuytren' s disease of palm of left hand 6430720026 4795463 M72.0 Pain of left hand 040807 2842 15804 M79.080 [id number] Hayley monteiro MD [facility] [address] [place] [address] 05/16/2024 08:27:14 06/03/2024 13:47:15 Trigger finger of left hand 1959301701 7803365 M65.965 [id number] Dragan Rios PA-C [facility] [address] [place] [address] 09/14/2024 10:14:10 09/27/2024 09:54:02 Pain of right hand 3615705438 05957 M79.459 2242633 Triggering of digit 2399 20406 M65.946 [id number] Health Concerns Section Related Observation LastModified by Organization Detai ls LastModified Time None Recorded Concern Status LastModified by Organization Details LastModified Time None Recorded Advance Directives Directive None Recorded Payers Insurance Date Sequence Insurance Name Policy Number Policy Hollins Covered Member ID Hollins Member ID Guarantor Name 11/01/2024 1 [employer] OF [facility] [place] [id number] Katya Boateng [id number] Katya Boateng 09/13/2024 1 [employer] Katya Boateng [id number] Katya Boateng Notes Date Note Type Note [...] today in follow Dragan Rios PA-C [address], [place], [address], [facility] 09/02/2023 11:14:34 02/17/2024 text/html ROS as [...] without significant improvement. 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 Hayley Smith MD [address], [place], [address], [facility] 05/16/2024 10:31:25 09/14/2024 text/html ROS as [...] today for evaluation Dragan Rios PA-C [address], [place], [address], [facility] 09/14/2024 11:17:24 OBGyn Episode No OBEpisode recorded.
== END 2025-05-01 14:39 | disposition home or self-care (01) ==
LOC: HO.HMGAL 14:39
PROVIDERS: PCP Internal Medicine; Visit Provider Registered Nurse Emergency
DX: J30.89 Other allergic rhinitis (principal)
CPT/HCPCS: 95117; 95165

== ENCOUNTER 2025-05-08 14:18 | Outpatient (AMB) | payer OTHER, SELFPAY ==
--- OUTSIDE RECORDS SUMMARY | 2025-05-08 23:13 | XMS_ITS | Data Portability ---
Author Organization [facility], [address] Address [address] [place] [address] Assessment No assessment recorded. Plan of Treatment Reminders Order Date Submit Date Provider Last Modified By Organization Details Last Modified Time Details Appointments None recorded. Lab SARS CoV 2 (COVID-19) Ag, QL, IA, upper respiratory specimen 2023 024 [place] [address], [address] [place] [address], [phone], 4 09:12:53 rapid flu (A+B) 2023 024 [place] [address] _[facility], [address] [place] [address], [phone], 4 09:12:54 Referral None recorded. Procedures None recorded. Surgeries None recorded. Imaging None recorded. Medication Orders Zithromax Z-Trace 250 mg tablet 2023 024 [facility] - [place], [place], [address] [place], [address], 4 09:52:01 Paxlovid 300 mg (150 mg x 2)-100 mg tablets in a dose pack 2023 024 [facility] - [place], [place], [address] [place], [address], 4 09:52:01 methylpredn isolone 4 mg tablets in a dose pack 2023 024 [facility] - [place], [place], [address] [place], [address], 09:13:04 mupirocin 2 % topical ointment 2023 024 [facility] - [place], [place], [address] [place], [address], 09:24:40 Patient TargetsNo targets recorded. Patient Instructions Encounter Date Encounter Id Patient Instructions Last Modified By Organization Details Last Modified Time 10/17/2023 [id number] nosebleeds: care instructions Not available 10/17/2023 15:34:22 upper respirator y infection (cold): care instructions Not available 10/17/2023 15:33:16 enlarged turbinates: care instructions Not available 10/17/2023 15:33:16 02/05/2024 [id number] ear infection (otitis media): care instructions Not available 02/05/2024 09:14:19 Reason for Referral None Reported. Results Created Date Observation Date Name Description Value Unit Range Abnormal Flag Note LastModifiedBy Organization Detail LastModifiedTime 02/05/2002/05/2024 SARS CoV 2 (COVI D-19) Ag, QL, IA, upper respi rator y speci men Unknown Analyte positi ve Not Available [facility] [address] [place] [address], [phone], 02/05/2024 08:45:08 02/05/20 24 02/05/2024 SARS CoV 2 (COVI D-19) Ag, QL, IA, upper respi rator y speci men Unknown Analyte yes Not Available [facility] [address] [place] [address], [phone], 02/05/2024 08:45:08 02/05/20 24 02/05/2024 rapid flu (A+B) Unknown Analyte negati ve Not Available [address] [address] [place], [address], 02/05/2024 08:45:17 02/05/2002/05/2024 rapid flu (A+B) Unknown Analyte negati ve Not Available [facility] [address] [place], [address], 02/05/2024 08:45:17 02/05/2002/05/2024 rapid flu (A+B) Unknown Analyte yes Not Available [facility] [address] [address] [place], [address], 02/05/2024 08:45:17 Result Notes None recorded. Problems Name Problem SNOMED Code Status Onset Date Resolution Date Notes Provider Name and Address Organization Details Recorded Time Supravent ricular tachycard ia 2025713 Active Ashley Edmond gibson, [place] - [facility] 4 08:41:18 Hypertens adore disorder 87105018 Completed 202310/17/2023 Luda gibson PA - [facility] 4 13:30:24 Diabetes mellitus 77175366 Active 2023 Luda gibson PA - [facility] 4 13:30:29 Anxiety 86887855 Active 2023 Luda gibson PA - [facility] 4 13:30:40 Evidence of recent epistaxis 054809222 Active 2023 Josephine Waldron NP [address] [place], [address] , [place] - [facility] 4 15:30:15 Upper respirato ry infection 72168996 Active 2023 Josephine Waldron NP [address] [place], [address] , [place] - [facility] 4 15:30:54 Cerebrova scular accident 880659856 Completed 202302/05/2024 Ashley Sandborn null, PA - [facility] 4 08:40:52 Acute COVID-19 8701718587 Active 2023 Josephine Waldron, CLAUDIA [address] [place], [address] , [place] - [facility] 4 09:12:49 Acute bilateral otitis media 606062733 Active 2023 Josephine Waldron NP [address], [place], [address] , [place] - [facility] 4 09:13:00 Problem Notes None recorded. Medical Equipment None Reported. Allergies Allergen ID Allergen Name Allergen Category Reaction Reaction Severity Criticality Documentation Date Start Date Code Code System Note Provider Name and Address Organization Details Recorded Time 994929 erythromy nuris medicatio n Not available Not available Not available 02/05/2024 4053 RxNorm Ashley Sandborn null, PA - [facility] 4 08:39:09 848962 amoxicill in medicatio n Not available Not available Not available 02/05/2024 723 RxNorm Ashley Sandborn null, PA - [facility] 4 08:39:15 183073 Keflex medicatio n Not available Not available Not available 02/05/2024 02829 7 RxNorm Ashley Sandborn null, PA - [facility] 4 08:39:24 013150 Bactrim medicatio n Not available Not available Not available 02/05/2024 73381 9 RxNorm Ashley Sandborn null, PA - [facility] 4 08:39:31 855259 Reglan medicatio n Not available Not available Not available 02/05/2024 9230 RxNorm Ashley Sandborn null, PA - [facility] 4 08:39:43 353022 amlodipin e medicatio n Not available Not available Not available 02/05/2024 68464 RxNorm Ashley Sandborn null, PA - [facility] 4 08:40:13 103412 bee pollen environme nt,medica tion Not available Not available Not available 02/05/2024 11477 7 RxNorm SERA Lopez - [facility] [...] 4 18 /min 149.86 cm 40 kg/m2 38600.2 9 g 98.8 [degF] 60 /min 99 % 88/48 mm[Hg] Luda ZAMORA - [facility] 4 13:34:44 Date Recorded Body height Body temperature Body mass index (BMI) Body weight Respiratory rate Heart rate Oxygen saturation Systolic And Diastolic Provider Name and Address Organization Details Last Updated DateTime 4 149.86 cm 101.7 [degF] 40.6 kg/m2 07439.0 7 g 18 /min 88 /min 97 % 139/57 mm[Hg] Ashley Sandborn PA - [facility] 4 08:45:01 Social History Question Answer Notes LastModified by [facility] Details LastModified Time Tobacco Smoking Status Former [...] Functional Status Question Answer Note LastModified by [facility] Details LastModified Time Do you use any [...] ICD10 Code Diagnosis IMO Codes Diagnosis Note [id number] [facility] [place] [address] 03/08/2020 14:15:01 03/08/2020 15:20:53 [id number] [facility] [address] [place] [address] 03/13/2018 09:28:38 03/13/2018 09:54:17 [id number] [facility] [address] [place] [phone] 08/16/2016 16:55:30 08/16/2016 17:47:31 [id number] [facility] [address] [address] [place] [address] 10/17/2023 12:35:58 10/17/2023 15:35:39 Evidence of recent epistaxis 407133519 R04.0 How can you care for yourself [...] up your nose. Upper resp iratory infection 15620809 J06.9 Based on your Presentati on, Exam, [...] . Severe Headache Thank you for using [facility] today, please feel free to contact our office if you have any questions or concerns. [id number] [place] [address] [address] 02/05/2024 08:08:20 02/05/2024 09:23:10 Acute COVID-19 [id number] U07.1 Based on your Presentati on, Exam, [...] . Severe Headache Thank you for using [facility] today, please feel free to contact our office if you have any questions or concerns. Acute bila teral otitis media 542579721 H66.93 Health Concerns Section Related Observation LastModified by Organization Liz davis LastModified Time None Recorded Concern Status LastModified by Organization Details LastModified Time None Recorded Advance Directives Directive None Recorded Payers Insurance Date Sequence Insurance Name Policy Number Policy Hollins Covered Member ID Hollins Member ID Guarantor Name 02/05/2024 1 [employer] [facility] Katya Boateng [id number] Katya Boateng 10/17/2023 1 [facility] [employer] [facility] [id number] Katya Boateng [id number] Katya Boateng 04/30/2022 [facility] Katya Boateng Notes Date Note Type [...] Josephine Waldron NP [address] [place], [address], [place] - [facility] 10/17/2023 18:55:32 4 text/html CoughReported by [...] Josephine Waldron NP [address] [place], [address], [place] - [facility] 02/05/2024 09:22:37 OBGyn Episode No OBEpisode recorded.
--- OUTSIDE RECORDS SUMMARY | 2025-05-08 23:13 | XMS_ITS | Data Portability ---
Author Organization [facility], [facility] Address [address] [place] [address] Care Team Providers Care Drainman Name Role Phone MERLY OVIEDO Primary Care [...] satisfaction; surgery to be scheduled with my secretary of state. samara Not available 05/16/2024 10:31:11 09/14/2024 09/14/2024 [...] XR, hand, 3 or more view - replaced by [facility] right hand pain room 103 2024 025 [facility], [address], [place], [address], 5 09:54:02 XR, finger(s), 2 or more view - left hand middle finger 3v , room 111 2023 024 [facility], [address], [address], [place], [address], 4 15:25:48 XR, finger(s), 2 or more view - re do lateral view per bc , middle finger left hand 2023 024 [facility], [address], [address], [place], [address], 4 15:25:49 Medication Orders Kenalog 40 mg/mL [...] a4ajBk vP9nXo QUaueC m3YtLR FvZlgJ JJ8mAn HZtai3 9q3196 AC0Kqa niDVau kKiQtr MwF INTERFACE [facility] [address], [place], [address], 02/17/2024 10:37:13 02/17/20 24 02/17/2024 XR, finge r(s), 2 or more view http:/ [email or web address] ?Encry pted=s hAaTro YD8dLq bEUv6g %2BXZw aYqtaq 0bqfl% 2Fg9IQ a4ajBk vP9nXo QUaueC m3YtLR FvZlgJ JJ8Cawood HZtai3 3e4320 AC0Kqa niDVau kKiQtr MwF INTERFACE [facility] [address], [place], [address], 02/17/2024 10:37:14 02/17/20 24 02/17/2024 XR, finge r(s), 2 or more view http:/ [email or web address] ?Encry pted=s hAaTro YD8dLq bEUv6g %2BXZw aYqtaq 0bqfl% 2Fg9IQ a4ajBk vP9nXo QUaueC m3YtLR FvZlgJ JJ8Cawood HZtai3 1f0864 AC0Kqa niDV6W iKiQtr MwF INTERFACE [facility] [address] [facility] [address] [facility] [address], [place], [address], 02/17/2024 10:37:16 02/17/20 24 02/17/2024 XR, finge r(s), 2 or more view http:/ [email or web address] ?Encry pted=s hAaTro YD8dLq bEUv6g %2BXZw aYqtaq 0bqfl% 2Fg9IQ a4ajBk vP9nXo QUaueC m3YtLR FvZlgJ JJ8Cawood HZtai3 1p1684 AC0Kqa niDV6W iKiQtr MwF INTERFACE [facility] [address] [facility] [address], [place], [address], 02/17/2024 10:37:17 09/15/19 25 09/14/2024 XR, hand, 3 or more view http:/ [email or web address] ?Encry pted=s hAaTro YD8dLq bEUv6g %2BXZw aYqtaq 0bqfl% 2Fg9IQ a4ajBk vP9nXo QUaueC m3YtLR FvZlgJ JJ8mAn HZtai3 1c5886 AC0KqY 3qDUaS jKiQtr MwF INTERFACE [facility] [address] [facility] [address], [place], [address], 09/14/2024 10:31:53 09/15/19 25 09/14/2024 XR, hand, 3 or more view http:/ [email or web address] ?Encry pted=s hAaTro YD8dLq bEUv6g %2BXZw aYqtaq 0bqfl% 2Fg9IQ a4ajBk vP9nXo QUaueC m3YtLR FvZlgJ JJ8mAn HZtai3 8v9594 AC0KqY 3qDUaS jKiQtr MwF INTERFACE [facility] [address] [address], [place], [address], 09/14/2024 10:31:55 Result Notes Documentation Provider Name and Address Organization Details Recorded Time Xr, Finger(s), 2 Or More View : [email or web address]? Encrypted=veWpXryJQ1rJqwA Uv6g%7DASzkTtinw5hpmy%2Fg 6VBr2fePveV5dZqAVrslEu2Gz IETjGjoJMS3nUcKRxpf15f179 5KN2NoecyPLxvrNxSbpZaM Not Available [facility] 02/17/2024 10:37: 14 Xr, Finger(s), 2 Or More View : [email or web address] Encrypted=vwJvEfgLD7gNyjR Uv6g%3RDUwtCbwgs3pxke%2Fg 2UWq2lzKedE5rUuGArzqDw1Fc YVPbSuwIDC8iFuFIjnz93u267 4DY7SlkrjPHdxmFjQptKiM Not Available [facility] 02/17/2024 10:37: 15 Xr, Finger(s), 2 Or More View : [email or web address]? Encrypted=csBfDznAM3tSjdQ Uv6g%6TCIuxFqzmm8vauu%2Fg 0OKf2bvKztJ6rTdBJmanGu4Hw MPCuSdsPKB2sKhFKpmn63p515 5YE6DsltgTF2GdZyQipZjE Not Available [facility] 02/17/2024 10:37: 16 Xr, Finger(s), 2 Or More View : [email or web address] Encrypted=msHhEkpLP1pBbmU Uv6g%7PENbrTmdpc3llar%2Fg 3OOp8fwRrqQ2iHnFOnvoNx0Ap QIDuQwhSNM6kVoIOwgn35g759 9JC5OfdjhBF5HqQbOtlHbX Not Available [facility] 02/17/2024 10:37: 17 Xr, Hand, 3 Or More View : [email or web address] Encrypted=zbBkMdfQZ8tXmrR Uv6g%5RJZrsHooxy7hzgl%2Fg 4PFx3cbNeaY6vEuZKiwuOs0Id ZISsIvaGRI5dWlYDdcv42t671 3ER3XqX9dTOjTmDmSwbIaO Not Available [facility] 09/14/2024 10:31: 53 Xr, Hand, 3 Or More View : [email or web address] Encrypted=mrPmHfeKP4sJbdI Uv6g%9HFGjoMjrly7ibzn%2Fg 1OYr9zhFboM7bGyPKztbFx2Ag PXEmYjiXIG6jWeXPtsv03b650 2QY9WkO5aKTeZrAqYgrLjN Not Available [facility] 09/14/2024 10:31: 55 Problems Name Problem SNOMED Code Status Onset Date Resolution Date Notes Provider Name and Address Organization Details Recorded Time No complaints 730242691 Active Status : 'A'; Not Available [facility] 4 09:25:36 Trigger finger of left hand 7929567712002 9107 Active 2023 Dragan Rios PA-C [address], [place], [address] , [facility] 4 08:10:35 Dupuytren' s disease of palm of left hand 3999777085565 9104 Active 2023 Dragan Rios PA-C [address], [place], [address] , [facility] 4 08:10:47 Pain of right hand 4494241524179 09 Active 2024 Dragan Rios PA-C [address], [place], [address] , [facility] 5 08:21:03 Triggering of digit 245452143 Active 2024 Dragan Rios PA-C [address], [place], [address] , [facility] 5 11:17:02 Problem Notes None recorded. Procedures Surgical History Date Name Laterality Status Provider Name and Address Organization Details Recorded Time 09/15/19 25 Tendon Sheath Kenalog Injection, L/R completed Dragan Rios PA-C [address], [place], [address], [facility] 09/14/2024 11:16:33 09/02/19 24 Tendon Sheath Kenalog Injection, L/R completed Dragan Rios PA-C [address], [place], [address], [facility] 09/02/2023 11:13:48 10/13/19 21 Orthopedic Surgery completed KAYLIA L'HEUREUX [facility] 09/14/2024 08:59:41 10/13/19 21 Other completed KAYLIA L'HEUREUX [facility] 09/14/2024 10:25:09 11/14/19 16 Knee Surgery completed KAYLIA L'HEUREUX [facility] 09/14/2024 10:25:09 11/14/19 15 Arthroplasty completed KAYLIA L'HEUREUX [facility] 09/14/2024 08:59:41 10/24/19 01 Other completed KAYLIA L'HEUREUX [facility] 09/14/2024 10:25:09 11/24/19 00 Other completed KAYLIA L'HEUREUX [facility] 09/14/2024 10:25:09 11/23/19 00 Gastrointestinal Surgery completed KAYLIA L'HEUREUX [facility] 09/14/2024 08:59:41 Imaging Results None recorded. Procedure Notes None recorded. Medical Equipment None Reported. Allergies Allergen ID Allergen Name Allergen Category Reaction Reaction Severity Criticality Documentation Date Start Date Code Code System Note Provider Name and Address Organization Details Recorded Time 051335 POLLEN EXTRACTS environme nt,medica tion Not available Not available Not available 09/14/2024 64290 6 RxNorm KAYLIA L'HEUREUX [facility] 5 10:25:07 755318 sunscreen medicatio n edema Not available Not available 09/14/2024 KAYLIA L'HEUREUX [facility] 5 10:25:07 263568 prazosin medicatio n edema moderate Not available 09/14/2024 8629 RxNorm KAYLIA L'HEUREUX [facility] 5 10:25:07 227239 red dye food,medi cation Not available Not available Not available 09/14/2024 KAYLIA L'HEUREUX [facility] 5 10:25:07 192005 purified protein derivativ e of tuberculi n medicatio n hives Not available Not available 09/14/20241993 8948 RxNorm KAYLIA L'HEUREUX [facility] 5 10:25:07 267915 Product containin g hydrogen/ potassium adenosine triphosph atase enzyme system inhibitor (product) medicatio n other Not available Not available 09/14/2024 20818 5006 SNOMED JOANNYLIA L'HEUREUX [facility], [facility] 5 10:25:07 170670 Anaphylax is Bee Sting medicatio n Not available Not available Not available 09/14/2024 JOANNYLIA L'HEUREUX [facility], [facility] 5 10:25:07 729781 tetanus immune globulin F(ab')2 (equine) Not available Not available Not available Not available 09/14/2024 KAYLIA L'HEUREUX null, [facility] 5 10:25:07 984524 ragweed pollen environme nt Not available Not available Not available 09/14/2024 KAYLIA L'HEUREUX [facility], [facility] 5 10:25:07 344063 weed pollen environme nt,medica tion Not available Not available Not available 09/14/2024 KAYLIA L'HEUREUX null, [facility] 5 10:25:07 831663 grass pollen environme nt,medica tion Not available Not available Not available 09/14/2024 KAYLIA L'HEUREUX null, [facility] 5 10:25:07 735751 mold extract environme nt Not available Not available Not available 09/14/2024 21917 8 RxNorm KAYLIA L'HEUREUX [facility], [facility] 5 10:25:07 82135 oxycodone hydrochlo ride medicatio n Not available Not available Not available 08/03/20232014 71169 RxNorm Aller gyRea ction : 'Skin React ion'; Not Available [facility] 4 13:27:20 60365 Dilaudid medicatio n Not available Not available Not available 08/03/20232014 57859 3 RxNorm Aller gyRea ction : 'Skin React ion'; Not Available [facility] 4 13:27:20 83606 Oxycontin medicatio n Not available Not available Not available 08/03/20232014 18810 6 RxNorm Aller gyNam e: 'Oxyc ontin Tb12' ; Aller gyRea ction : 'Skin React ion'; Not Available [facility] 4 13:27:20 77639 amlodipin e besylate medicatio n Not available Not available Not available 08/03/20232022 65260 6 RxNorm Not Available [facility] 4 13:27:20 34004 Reglan medicatio n Not available Not available Not available 08/03/20232014 9230 RxNorm Not Available [facility] 4 13:27:20 77742 acetamino phen / codeine medicatio n Not available Not available Not available 08/03/20232014 50423 9 RxNorm Aller gyNam e: 'Tyle nol/c odein e #3 Tabs' ; Not Available [facility] 4 13:27:20 64602 Ultram medicatio n Not available Not available Not available 08/03/20232014 71225 6 RxNorm Not Available [facility] 4 13:27:21 38515 Keflex medicatio n Not available Not available Not available 08/03/20232014 92853 7 RxNorm Not Available [facility] 4 13:27:21 16151 acetamino phen / hydrocodo ne medicatio n Not available Not available Not available 08/03/20232014 38562 2 RxNorm Not Available [facility] 4 13:27:21 74667 erythromy nuris medicatio n Not available Not available Not available 08/03/20232014 4053 RxNorm Not Available [facility] 4 13:27:21 54065 amoxicill in trihydrat e medicatio n Not available Not available Not available 08/03/20232014 95545 8 RxNorm Not Available [facility] 4 13:27:21 86662 Bactrim medicatio n Not available Not available Not available 08/03/20232022 35836 9 RxNorm Not Available [facility] 4 13:27:21 41397 codeine medicatio n Not available Not available Not available 08/03/20232014 2670 RxNorm Not Available [facility] 4 13:27:21 64665 latex environme nt,medica tion Not available Not available Not available 08/03/20232014 09873 91 RxNorm Not Available [facility] 4 13:27:21 56667 Substance with sulfonami de structure and antibacte rial mechanism of action (substanc e) medicatio n Not available Not available Not available 08/03/20232014 43870 8003 SNOMED Not Available [facility] 13:27:22 Medications Name Sig Start Date Stop [...] Updated DateTime 09/02/2023 149.86 cm 38.6 kg/m2 64122.14 g Juana Downs [place] [facility] [place] [facility] 09/02/2023 10:23:51 Date Recorded Body height Body mass index (BMI) Body weight Provider Name and Address Organization Details Last Updated DateTime 09/14/2024 149.86 cm 38.4 kg/m2 22754.55 g MARK CALVILLO [facility] 09/14/2024 10:25:21 Date Recorded Body height Body mass index (BMI) Body weight Provider Name and Address Organization Details Last Updated DateTime 02/17/2024 149.86 cm 38.6 kg/m2 64007.14 g Dulce Maria Collins [facility] 02/17/2024 10:06:51 Date Recorded Body height Body mass index (BMI) Body weight Provider Name and Address Organization Details Last Updated DateTime 05/16/2024 149.86 cm 38.4 kg/m2 86812.55 g JAQUELINE LAMAR [facility] 05/16/2024 08:43:55 Social History Question Answer Notes LastModified by [employer] Details LastModified Time Tobacco Smoking Status Former Smoker MARK CALVILLO [facility] 09/14/2024 10:25:09 When Did You Quit Smoking? 17+yearssin celastcivivi ette Information not available 09/14/2024 What Is Your Relationship Status? Single Information not available 09/14/2024 Sex: Unknown Functional Status Question Answer Note LastModified by [employer] Details LastModified Time How many times per [...] ICD10 Code Diagnosis IMO Codes Diagnosis Note [id number] AZAEL Castillo [address] [place] [address] 09/02/2023 09:54:08 09/02/2023 11:20:05 Trigger finger of left hand 9007416227 9375326 M65.332 Dupuytren' s disease of palm of left hand 5629844653 6864227 M72.0 [id number] Dragan Rios PA-C [facility] [address] [place] [address] 02/17/2024 09:49:41 03/09/2024 15:25:48 Trigger finger of left hand 6807060558 5307810 M65.332 Dupuytren' s disease of palm of left hand 1064867724 9484674 M72.0 Pain of left hand 752582 1259 39079 M79.433 [id number] Hayley monteiro MD [facility] [address] [place] [address] 05/16/2024 08:27:14 06/03/2024 13:47:15 Trigger finger of left hand 3575221728 6408234 M65.777 [id number] Dragan Rios PA-C [facility] [address] [place] [address] 09/14/2024 10:14:10 09/27/2024 09:54:02 Pain of right hand 1910038998 81933 M79.057 9894985 Triggering of digit 2399 51422 M65.851 [id number] Health Concerns Section Related Observation LastModified by Organization Detai ls LastModified Time None Recorded Concern Status LastModified by Organization Details LastModified Time None Recorded Advance Directives Directive None Recorded Payers Insurance Date Sequence Insurance Name Policy Number Policy Hollins Covered Member ID Hollins Member ID Guarantor Name 11/01/2024 1 BLUE B[employer]EFIT [employer] [facility] [id number] Katya Boateng [id number] Katya Boateng 09/13/2024 1 [employer] [employer] Katya Boateng [id number] Katya Boateng Notes Date Note Type Note [...] today in follow Dragan Rios PA-C [address], [place], [address], [facility] 09/02/2023 11:14:34 02/17/2024 text/html ROS as [...] without significant improvement. 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 Hayley Smith MD [address], [place], [address], [facility] 05/16/2024 10:31:25 09/14/2024 text/html ROS as [...] today for evaluation Dragan Rios PA-C [address], [place], [address], [facility] 09/14/2024 11:17:24 OBGyn Episode No OBEpisode recorded.
== END 2025-05-08 14:19 | disposition home or self-care (01) ==
LOC: HO.HMGAL 14:18
PROVIDERS: PCP Internal Medicine; Visit Provider Registered Nurse Emergency
DX: J30.89 Other allergic rhinitis (principal)
CPT/HCPCS: 95117; 95165

== ENCOUNTER 2025-05-15 11:53 | Outpatient (REF) | payer OTHER, SELFPAY ==
[2025-05-15 12:52] LABS: Appearance Urine Cloudy; Glucose Urine UA Negative (Negative); PH 5.0 (5.0-9.0); Specific Gravity - Urine 1.025 (1.005-1.025); UMIC TRIGGER UACC YES
[2025-05-15 12:58] LABS: UACC Culture Trigger YES
== END 2025-05-15 11:54 | disposition home or self-care (01) ==
LOC: HO.LAB 11:53
PROVIDERS: PCP Internal Medicine; Visit Provider Internal Medicine
DX: N30.00 Acute cystitis without hematuria (principal)
CPT/HCPCS: 81001; 87086

== ENCOUNTER 2025-05-15 12:50 | Outpatient (AMB) | payer OTHER, SELFPAY | END 2025-05-15 12:50 | disposition home or self-care (01) | LOC: HO.HMGAL 12:50 | PROVIDERS: PCP Internal Medicine; Visit Provider Registered Nurse Emergency | DX: J30.89 Other allergic rhinitis (principal) | CPT/HCPCS: 95117; 95165 ==

== ENCOUNTER 2025-05-22 11:23 | Outpatient (AMB) | payer OTHER, SELFPAY ==
--- OUTSIDE RECORDS SUMMARY | 2025-05-22 14:33 | XMS_ITS | Encounter Summary ---
Author Organization [facility] Address [address] [place] [address] Phone Care Team Providers Care Urologist Md Name Role Phone Maira Uriarte MD Primary Care Provider [phone]- [phone] Encounter Details Date Type Department Care Team ([facility] Contact Info) Description 10/13/2022 Telephone [facility] [address] [place] [id number] Deja Morales Social History Tobacco Use Types [...] on filedocumented in this encounter Care Teams Urologist Md Relationship Specialty Start Date End Date Maira Uriarte MD [address] [facility] [address] [place] [address] PCP - General Internal Medicine 11/21/21 documented as of this encounter
--- OUTSIDE RECORDS SUMMARY | 2025-05-22 14:33 | XMS_ITS | Clinical Summary ---
Author Organization [facility] Address [address] [place] [address] Phone Care Team Providers Care Rehabilitation Engineer Name Role Phone Maira Uriarte MD Primary Care Provider [phone]- [phone] Allergies Active Allergy Reactions Criticality Noted Date [...] patient's age to complete this topic Insurance [employer] Care Teams Rehabilitation Engineer Relationship Specialty Start Date End Date Maira Uriarte MD [address] [place] [address] PCP - General Internal Medicine 6/23/22
== END 2025-05-22 11:24 | disposition home or self-care (01) ==
LOC: HO.HMGAL 11:23
PROVIDERS: PCP Internal Medicine; Visit Provider Registered Nurse Emergency
DX: J30.89 Other allergic rhinitis (principal)
CPT/HCPCS: 95117; 95165